=== PATIENT | female | born 1970 | race Caucasian/White ===

== ENCOUNTER → 2017-10-04 10:56 | Outpatient (CLI) | payer MEDICAID, SELFPAY ==
[2017-10-04 12:59] LABS: Absolute Lymphocyte Count 2.23 X10^3/ul (0.83-4.51); Absolute Neutrophil Count 5.9 X10^3/uL (2.0-7.7); Basophil# 0.02 X10^3/uL; Basophil% 0.2 % (0-1); Eosinophils% 1.1 % (0-5); Hematocrit 45.1 % (37-47); Hemoglobin 14.7 g/dl (12.0-15.0); Lymphocyte # 2.23 X10^3/ul (4.0); Lymphocyte % 24.5 % (19-41); Mean Corp Hgb Conc 32.6 g/gl (32-36); Mean Corpuscular Hgb 31.1 pg (27.0-32.0); Mean Corpuscular Volume 95.3 fL (81-99); Monocyte# 0.86 X10^3/uL; Monocyte% 9.4 % (0-10); Neutrophil # 5.88 X10^3/uL (2.7-7.7); Neutrophil % 64.6 % (47-70); Platelet Count 299 K/mm3 (150-450); RBC Distribution Width CV 13.8 % (11.6-14.6); RBC Distribution Width SD 48.4 fl (35.1-43.9); Red Blood Count 4.73 M/mm3 (4.2-5.4); White Blood Count 9.1 K/mm3 (4.4-11.0)
[2017-10-04 13:01] LABS: POSITIVE COUNT NO; POSITIVE DIFFERENTIAL NO; POSITIVE MORPHOLOGY NO
[2017-10-04 13:17] LABS: Vitamin D,25 Hydroxy 12.6 ng/mL
[2017-10-04 13:20] LABS: AST(SGOT) 19 U/L (15-37); Alanine Aminotransfer ALT/SGPT 34 U/L (12-78); Albumin, Serum 3.9 g/dL (3.4-5.0); Alkaline Phosphatase 81 U/L (45-117); Anion Gap 7 (5-15); BUN 11 mg/dL (7-18); BUN/Creat Ratio 14.9 RATIO (10-20); Calcium,Total 8.8 mg/dL (8.5-10.1); Chloride 104 mmol/L (98-107); Creatinine, Serum 0.74 mg/dL (0.55-1.02); EST Glomerular Filtration Rate 89 mL/min (>60); Est Glom Filt Rate - Afr Amer 108 mL/min (>60); Globulin 3.9 g/dL (2.2-4.2); Glucose 89 mg/dL (70-110); Potassium 4.5 mmol/L (3.5-5.1); Protein, Total 7.8 g/dL (6.4-8.2); Sodium Level 136 mmol/L (136-145); Thyroid Stim Hormone (TSH) 0.91 uIU/mL (0.358-3.74)
== END ==
PROVIDERS: Visit Provider Family Medicine Geriatric Medicine
DX: E55.9 Vitamin D deficiency, unspecified (principal); R53.83 Other fatigue
CPT/HCPCS: 36415; 80053; 82306; 84443; 85025

== ENCOUNTER → 2017-11-05 14:05 | Outpatient (CLI) | payer MEDICAID, SELFPAY ==
--- NOTE | 2017-11-05 14:15 | RAD_ITS ---
STUDY: X-RAY - LEFT ELBOW REASON FOR EXAM: Female, 47 years old. Left-sided elbow pain and swelling. TECHNIQUE: 3 view(s) of the elbow. COMPARISON: None. FINDINGS: Normal visualized humerus, radius and ulna. There is mild degenerative arthrosis of the radiocapitellar and ulnotrochlear articulations. The soft tissue structures are unremarkable. There is no demonstrated fracture. RAD/Elbow min 3 Views IMPRESSION: No radiographic evidence for acute fracture. If there is still clinical concern for acute fracture, follow-up radiographs in 7-10 days maybe helpful in evaluating a healing radiographically occult fracture. Electronically Signed: Nata Mina MD at 17:19 EST , Service support ,
== END ==
PROVIDERS: Family Provider Family Medicine Geriatric Medicine; PCP Family Medicine Geriatric Medicine; Visit Provider Family Medicine Geriatric Medicine
DX: M25.522 Pain in left elbow (principal)
CPT/HCPCS: 73080

== ENCOUNTER → 2018-02-04 12:01 | Outpatient (CLI) | payer MEDICAID, SELFPAY ==
--- NOTE | 2018-02-04 12:09 | RAD_ITS ---
STUDY: X-RAY CHEST REASON FOR EXAM: Female, 47 years old. Shortness of breath. Persistent cough. TECHNIQUE: PA and lateral views of the chest. COMPARISON: None. FINDINGS: The lungs are clear and expanded. There is no demonstrated pleural abnormality. Normal size heart. Normal mediastinum and fany. Normal visualized pulmonary arteries. Normal visualized aortic arch and descending thoracic aorta. There is minimal levoscoliosis of the thoracic spine. Normal visualized ribs, clavicles, and shoulders. There is no demonstrated abnormality of the visualized soft tissue structures of the upper abdomen. RAD/Chest PA and Lateral IMPRESSION: No acute cardiopulmonary disease or interval change. Electronically Signed: Galdino Velazquez DO at 17:09 EDT Tel [phone], Service support ,
== END ==
PROVIDERS: Family Provider Family Medicine Geriatric Medicine; PCP Family Medicine Geriatric Medicine; Visit Provider Family Medicine Geriatric Medicine
DX: R06.02 Shortness of breath (principal)
CPT/HCPCS: 71046

== ENCOUNTER → 2018-04-28 11:32 | Outpatient (CLI) | payer MEDICAID, SELFPAY | PROVIDERS: Family Provider Family Medicine Geriatric Medicine; PCP Family Medicine Geriatric Medicine; Visit Provider Family Medicine Geriatric Medicine | DX: M54.5 Low back pain (principal) | CPT/HCPCS: 72114 ==

== ENCOUNTER → 2018-06-11 13:02 | Outpatient (CLI) | payer MEDICAID, SELFPAY ==
--- NOTE | 2018-06-11 13:13 | MRI_ITS ---
STUDY: MRI LUMBAR SPINE WITHOUT CONTRAST REASON FOR EXAM: Female, 48 years old. BACK PAIN X 10 YRS RADIATES INTO LEGS BILATERALLY TECHNIQUE: Standardized fat and water weighted pulse sequences were obtained in the sagittal and axial planes. COMPARISON: None FINDINGS: T12-L1: Normal endplates. Normal disc height, hydration and morphology. Normal bilateral facet joints. Normal central canal and bilateral lateral recesses. Normal bilateral intervertebral neural foramina. Normal lumbar lordosis. There is no substantial scoliosis. Normal conus medullaris that terminates at the L1 level. L1-2: Normal endplates. Normal disc height, hydration and morphology. Normal bilateral facet joints. Normal central canal and bilateral lateral recesses. Normal bilateral intervertebral neural foramina. L2-3: Normal endplates. Normal disc height, hydration and morphology. Normal bilateral facet joints. Normal central canal and bilateral lateral recesses. Normal bilateral intervertebral neural foramina. L3-4: Endplate spondylosis. Decreased disc height and small circumferential disc bulge. Superimposed left para midline disc herniation impinging on the left L4 nerve root. Degenerative changes of the bilateral facet joints. Mild narrowing of the central canal and bilateral intervertebral neural foramina. L4-5: Endplate spondylosis. Decreased disc height and small circumferential disc bulge. Superimposed right foraminal disc herniation impinging on the right L4 nerve root. Degenerative changes of the bilateral facet joints. Mild narrowing of the central canal and bilateral intervertebral neural foramina. L5-S1: Endplate spondylosis. Decreased disc height and small circumferential disc bulge. Degenerative changes of the bilateral facet joints. Mild narrowing of the central canal and bilateral intervertebral neural foramina. Normal visualized sacral ala. Normal visualized paraspinous soft tissue structures. MRI/Spine Lumbar (Routine) IMPRESSION: Multilevel degenerative changes, as described above. Left para midline disc herniation at L3-4 impinging on the left L4 nerve root. Right foraminal disc herniation at L4-5 impinging on the right L4 nerve root. Electronically Signed: Bridget Coleman MD at 14:37 EDT Tel , Service support ,
== END ==
PROVIDERS: Family Provider Family Medicine Geriatric Medicine; PCP Family Medicine Geriatric Medicine; Referring Provider Anesthesiology Pain Medicine; Visit Provider Anesthesiology Pain Medicine
DX: M54.9 Dorsalgia, unspecified (principal); M79.606 Pain in leg, unspecified
CPT/HCPCS: 72148

== ENCOUNTER 2018-09-11 05:25 | Day surgery (SDC) | payer MEDICAID, SELFPAY ==
[2018-09-11] VITALS (7 sets, daily range): BP systolic 93–155; BP diastolic 59–98; PULSE 60–94; RESP 16–18; TEMP 36.1–37.3; O2SAT 93–99; BMI 24.7
--- NOTE | 2018-09-11 | HYST_PTH ---
PATIENT: MATTI LANDRY LOC: [facility] [place] U#:[id number] AGE/SX: 48/F ROOM: RE09/11/[address]: Dr. Stefanie Aguilar, MDDOB: 1970 BED: DIS: 09/11/2018 SPEC #: [id number] RECD: 09/11/18 14:46 STATUS: ROSALEE MILKA #: [id number] SANTIAGO: 09/11/18 00:[address]: Stefanie Aguilar DEPT: SURGICAL PATHOLOGY RECD BY: Jordon Kearney ENTERED: 09/11/18 14:46 SP TYPE: HYSTERECT OTHR DR: Dr. Eliel Becerra MD Tissues: Uterus, NOS Procedures: Surgery Specimen Level V HEADER OPERATION: Hysterectomy, lap-assisted vaginal, bilateral salpingectomy PRE-OP DIAGNOSIS: Pelvic pain, dysmenorrhea, dyspareunia, excessive/frequent menstruation TISSUE SUBMITTED: Uterus, bilateral fallopian tubes, left ovary MICROSCOPIC DIAGNOSIS Uterus, bilateral fallopian tubes and left ovary, vaginal hysterectomy, bilateral salpingectomy and left oophorectomy: Cervix - chronic inflammation and squamous metaplasia. Endometrium - proliferative endometrium. Myometrium - intramural leiomyoma (3 cm in diameter). Bilateral fallopian tubes - no pathologic diagnosis. Left ovary - physiologic follicular cysts. SJ:jo ann 09/12/18 MICROSCOPIC DESCRIPTION Slides are reviewed. GROSS DESCRIPTION Received in fixative is one container labeled with the patient's name and designated uterus. The specimen consists of a uterus with attached cervix, detached right fallopian tube, attached left ovary and left fallopian tube. The right and left fallopian tubes are consistent with previous tubal ligation. The anterior surface of the uterus has an irregular compromised serosal surface. This area measures 3.5 x 2 x 1 cm. The uterus with cervix measures 8.5 x 6.5 x 6 cm and weighs 122 gm. The ectocervix is unremarkable. The cervical os is oval in contour. The endocervical canal measures 3.5 cm in length and is grossly unremarkable. The elongated endometrial cavity measures 4 x 3 cm. The reddish-jett, velvety endometrium measures up to 0.1 cm in thickness. The myometrium measures 1.5 cm in average thickness and is distorted by a single rubbery nodule measuring 3 cm in diameter. Cut sections of the nodule reveal a whorled appearance without areas of cyst formation, necrosis or hemorrhage. The nodule is intramural and submucosal in location. The right fallopian tube measures 5 cm in length and 0.6 cm in average diameter. The left fallopian tube is similar in appearance and measures 5 cm in length and 0.5 cm in average diameter. Both fallopian tubes have normal fimbriated ends. The smooth, glistening, cystic left ovary measures 5.6 x 3.6 x 1.5 cm and weighs 9 gm. The external surface is inked and serial sections reveal multiple cysts ranging in size from 0.5 to 3.4 cm in greatest dimension. The cysts contain clear to bloody fluid. No tubo-ovarian adhesions are identified. Orthopedic Physical Therapist sections are submitted in 12 cassettes as follows: 1 - anterior cervix, 2 - posterior cervix, 3 & 4 - anterior uterine wall, 5 & 6 - posterior uterine wall, 7 & 8 - myometrial mass, 9 - right fallopian tube, 10 - left fallopian tube, 11 & 12 - left ovary. / AM:jo ann 09/11/18 TC:1 CPT: 29979
--- NOTE | 2018-09-11 05:32 | EKG12_ITS ---
Test Reason : PRE OP Blood Pressure : / mmHG Vent. Rate : 072 BPM Atrial Rate : 072 BPM P-R Int : 126 ms QRS Dur : 082 ms QT Int : 420 ms P-R-T Axes : -23 057 057 degrees QTc Int : 459 ms Normal sinus rhythm Normal ECG Confirmed by PAUL DYKES, VIKI ([id number]), book or script editor KEITH LEVY ([id number]) on 09/18/2018 11:17:56 AM Referred By: Stefanie Aguilar Confirmed By:VIKI MILLER MD
[2018-09-11 05:56] LABS: Bedside Glucose 68 mg/dL (70-110)
[2018-09-11] MEDS: Celecoxib 200 MG Capsule 400 MG PO (05:59)
[2018-09-11] MEDS: Scopolamine 1mg/72hr Patch 1 PATCH TRANSDERM. (06:00)
[2018-09-11] MEDS: Acetaminophen 500 MG Tablet 1000 MG PO (06:00)
[2018-09-11] MEDS: Gabapentin 600 MG Tablet PO (06:00)
[2018-09-11] MEDS: Phenazopyridine 95 MG Tablet 190 MG PO (06:00)
[2018-09-11] MEDS: Enoxaparin 40 MG/0.4 ML Syringe SC (06:01)
[2018-09-11] MEDS: Lactated Ringers 1,000 ML 100 ML IV (06:23)
[2018-09-11] MEDS: Magnesium Sulfate 4gm/100mL 4 GM/100 ML IV.SOLN. IV (06:23)
[2018-09-11 06:27] LABS: Mean Corp Hgb Conc 32.6 g/gl (32-36); Mean Corpuscular Hgb 31.3 pg (27.0-32.0); Mean Corpuscular Volume 96.2 fL (81-99); Platelet Count 291 K/mm3 (150-450); RBC Distribution Width CV 13.7 % (11.6-14.6); RBC Distribution Width SD 48.5 fl (35.1-43.9); Red Blood Count 4.47 M/mm3 (4.2-5.4); White Blood Count 9.7 K/mm3 (4.4-11.0)
[2018-09-11 06:31] LABS: Scan Indicated on CBC? Y/N NO
[2018-09-11] MEDS: Bupivacaine 0.25% 30 ML Vial (08:11)
--- NOTE | 2018-09-11 09:09 | OP.PCM_ITS ---
Report of Operation Date of Procedure: 09/11/18 Pre-Operative Diagnosis: dysmenorrhea, dysparuneia, AUB, fibroid uterus Post-Operative Diagnosis: same Surgery/Procedure Performed:: LAVH, Left oophorectomy, Bilateral salpingectomy, cystoscopy Description of Surgical Findings:: Posterior uterine fibroid, Left ovary with hemorrhagic appearing cyst. Tissue very friable - poor tissue. nuclear equipment test engineer: Gloria Nolan Type of Anesthesia:: General Special Medications: .25 % marcaine and 1% lidocaine with epinephrine Specimen's removed: uterus, cervix, bilateral tubes, left ovary Drains: butler Estimated Blood Loss (mL): 50 Fluids Replaced: 1500 Description of Procedure: Patient take to OR and prepped and draped in usual sterile fashion in dorsal lithotomy position with her arms tucked in a neurologically safe and neutral position. The uterus sounded to 8 cm. The [employer] uterine manipulator and butler were placed. Attention was turned to the abdomen. All port sites were infiltrated with .25% maracine before the incisions were made. The anterior abdominal wall was tented up with towel clamps and using a direct entry approach a 5 mm intraumbilical port was placed. Intraperitoneal placement was confirmed with the laparoscope and the pneumoperitoneum was created. The patient was placed in Trendelenburg and 5 mm right and left lower quadrant ports were placed under direct visualization. LLQ port oozing- figure of 8 Vicryl suture placed for hemostasis. The bowel was swept away. Right ovary normal. Left ovary with hemorrhagic appearing cyst. The Infundibulopelvic ligament on left was grasped, clamped, sealed and transected with the Ligasure. the Mesosalpinx was coagulated and ligated starting at fimbriated end on right. The round ligaments were divided. The anterior peritoneum was dissected down to create the bladder flap with blunt dissection and the LigaSure. The uterine arteries were isolated, clamped, sealed and cut. There was minimal back bleeding from the uterus. Attention was turned to the vaginal portion of the case. The anterior vagina was infiltrated w/ lidocaine with dilute epinephrine. An incision was made over the anterior vagina and the anterior colpotomy incision was made with blunt and sharp dissection. The lower vagina was clamped, transected and suture ligated. A second pedicle containing the peritoneum was secured with Manpreet clamps, cut and suture ligated. The uterus was brought through the anterior colpotomy incision and the uterosacral ligaments were clamped, cut and suture ligated. The pedicles were examined and were suture ligated. Once the uterus was freed the specimen was removed without difficulty. Modified mccalls stitch placed using 2-0 PDS. The specimen was handed off. The cuff was closed with interrupted 0-vicryl figure of 8 sutures. Cystoscopy performed- bilateral ureteral efflux noted and bladder mucosa intact. The pneumoperitoneum was recreated and the cuff and pedicles were hemostatic. Homero was placed over pedicles and vaginal cuff. The skin incisions were closed with skin glue and 3-0 monocryl. The vaginal sweep was completed by me. Grafts/Implants Used: none Grafts/Implants Used: none - Complications none - Admit VTE Documentation VTE Present on Admission: Yes VTE Mechan Device Prophylaxis: SCD's VTE Pharm Prophylaxis ordered?: Yes
[2018-09-11] MEDS: HYDROcodone Bitartrate/Apap 5/325 Tablet PO (10:37)
--- NOTE | 2018-09-11 12:52 | DCINST_ITS ---
Discharge Diet: No Restrictions Discharge Activity: Return to Normal Activity, May Not Drive - while taking narcotic pain medications., May Shower May resume sexual activity in: 6-8 weeks Call your doctor if your incision/area has: Continuous Slow Oozing, Sudden Increased Bleeding, Increased Pain/ Swelling, Increased Redness, Foul Smelling Discharge Call your doctor if you observe: Fever of 101 or Higher, Inability to urinate, Inability to have a bowel movement, Using more than one pad per hour Allergies/Adverse Reactions: Allergies No Known Allergies Allergy (Verified 09/04/18 08:57) Medications to take at Discharge No Known/Unobtainable [No Known Home Medications] 09/12/16 Primary Care Physician: Eliel Becerra Chi, MD [Primary Care Provider] - Test Results: Test results from this visit will be discussed in further detail at your follow- up appointment, if applicable.
== END 2018-09-11 12:26 | disposition home or self-care (01) ==
LOC: SDC 05:26 → AC 05:26
PROVIDERS: Family Provider Family Medicine Geriatric Medicine; PCP Family Medicine Geriatric Medicine; Referring Provider Obstetrics & Gynecology; Visit Provider Obstetrics & Gynecology
PROC: 0UT9FZZ Resection of Uterus, Via Natural or Artificial Opening With Percutaneous Endoscopic Assistance (ICD-10-PCS; CPT 52000; principal; 2018-09-11 07:05)
DX: N87.9 Dysplasia of cervix uteri, unspecified (principal); N72 Inflammatory disease of cervix uteri; D25.1 Intramural leiomyoma of uterus; N83.02 Follicular cyst of left ovary; Z85.3 Personal history of malignant neoplasm of breast; F17.200 Nicotine dependence, unspecified, uncomplicated; Z79.51 Long term (current) use of inhaled steroids; Z79.891 Long term (current) use of opiate analgesic; Z79.899 Other long term (current) drug therapy
CPT/HCPCS: 52000; 58552; 82962; 85027; 86850; 86900; 88307; 93005; J7120; J2405

== ENCOUNTER → 2018-11-25 10:35 | Outpatient (CLI) | payer MEDICAID, SELFPAY ==
[2018-09-11 05:48] VITALS: BMI 24.7
[2018-11-25 12:50] LABS: Absolute Neutrophil Count 5.9 X10^3/uL (2.0-7.7); Basophil# 0.02 X10^3/uL; Basophil% 0.2 % (0-1); Eosinophil# 0.14 X10^3/uL; Eosinophils% 1.5 % (0-5); Hematocrit 44.3 % (37-47); Hemoglobin 14.2 g/dl (12.0-15.0); Mean Corp Hgb Conc 32.1 g/gl (32-36); Mean Corpuscular Hgb 30.7 pg (27.0-32.0); Mean Corpuscular Volume 95.9 fL (81-99); Mean Platelet Vol. 11.6 fl (6.2-12.0); Monocyte# 0.73 X10^3/uL; Monocyte% 7.9 % (0-10); Neutrophil # 5.91 X10^3/uL (2.7-7.7); Neutrophil % 64.2 % (47-70); Platelet Count 304 K/mm3 (150-450); RBC Distribution Width CV 14.3 % (11.6-14.6); RBC Distribution Width SD 49.8 fl (35.1-43.9); Red Blood Count 4.62 M/mm3 (4.2-5.4); White Blood Count 9.2 K/mm3 (4.4-11.0)
[2018-11-25 12:52] LABS: POSITIVE COUNT NO; POSITIVE DIFFERENTIAL NO; POSITIVE MORPHOLOGY NO
[2018-11-25 13:15] LABS: Anion Gap 6 (5-15); BUN 6 mg/dL (7-18); Calcium,Total 8.8 mg/dL (8.5-10.1); Chloride 105 mmol/L (98-107); Creatinine, Serum 0.75 mg/dL (0.55-1.02); EST Glomerular Filtration Rate 87 mL/min (>60); Est Glom Filt Rate - Afr Amer 105 mL/min (>60); Glucose 92 mg/dL (74-106); Potassium 4.4 mmol/L (3.5-5.1); Sodium Level 138 mmol/L (136-145)
== END ==
PROVIDERS: Family Provider Family Medicine Geriatric Medicine; PCP Family Medicine Geriatric Medicine; Visit Provider Family Medicine Geriatric Medicine
DX: E86.0 Dehydration (principal)
CPT/HCPCS: 36415; 80048; 85025

== ENCOUNTER → 2018-11-25 12:15 | Outpatient (CLI) | payer MEDICAID, SELFPAY ==
[2018-09-11 05:48] VITALS: BMI 24.7
--- NOTE | 2018-11-25 12:18 | CT_ITS ---
STUDY: CT BRAIN WITHOUT CONTRAST REASON FOR EXAM: Female, 48 years old. Headache. Seizure RADIATION DOSAGE (If Supplied By Facility): CTDIvol = ( 60.81 ) mGy, DLP = ( 998.67 ) mGycm TECHNIQUE: Transaxial CT imaging of the brain was performed without administration of intravenous contrast material. Individualized dose optimization techniques were used for this CT. COMPARISON: None. FINDINGS: Normal soft tissue structures. Normal calvarium. Normal size ventricles and extra-axial spaces for the patient's age. Normal white matter tracts of the cerebral hemispheres. Normal basal ganglia and thalami. Normal brainstem. Normal cerebellum. There is no intracranial hemorrhage. There are no findings of an acute ischemic infarction. Normal visualized paranasal sinuses. CT/Brain/Head without Contrast IMPRESSION: Normal unenhanced CT scan of the brain. Electronically Signed: Bridget Coleman, at 13:00 EDT Tel , Service support ,
== END ==
PROVIDERS: Family Provider Family Medicine Geriatric Medicine; PCP Family Medicine Geriatric Medicine; Referring Provider Family Medicine Geriatric Medicine; Visit Provider Family Medicine Geriatric Medicine
DX: R51 Headache (principal); E86.0 Dehydration; G40.909 Epilepsy, unspecified, not intractable, without status epilepticus
CPT/HCPCS: 36415; 70450; 80048; 85025

== ENCOUNTER 2019-09-16 13:18 | Emergency (ER) | payer MEDICAID, SELFPAY ==
[2018-09-11 05:48] VITALS: BMI 24.7
[2019-09-16 13:19] VITALS: BP 146/94; PULSE 90; RESP 16; TEMP 36.1; O2SAT 97; BMI 25.0
[2019-09-16] MEDS: Ondansetron 4 MG/2 ML Vial IM (14:33)
[2019-09-16] MEDS: Ketorolac 60 MG/2 ML Vial IM (14:34)
[2019-09-16] MEDS: Orphenadrine 60 MG/2 ML Ampul IM (14:34)
[2019-09-16] MEDS: HYDROmorphone 1 MG/ML Syringe IM (14:35)
--- NOTE | 2019-09-16 15:17 | ED.VISSUMM ---
- ER Visit Summary Date of Service: 09/16/19 Chief Complaint: [Back pain] History of Present Illness: The patient is a 49 F [presents the emergency department complaint of pain in her back that she has had chronically for years. Patient states she is currently seeing pain management Dr. Bai. Patient had a injection in her lumbar spine about a month ago which was not successful in relieving her symptoms. Patient complains of pain in her right low back that radiates down her right leg. Patient complains of a hard time moving around secondary to the pain. Patient is not currently taking any pain medications at home. Patient had been started initially on Lyrica but she was unable to tolerated. Patient has had some intermittent incontinence of urine for the last couple of weeks. She denies any saddle anesthesia. She denies weakness in extremity. Patient had an MRI couple years ago and was told she may need to have another one but has not been scheduled for a. Patient missed work for the last 2 days. Denies any falls or injuries. She denies urinary symptoms such as dysuria, urgency, or frequency.] Physical Examination: [HEENT-PERRLA, EOMI. Cranial nerves II through XII grossly intact. TMs clear. Mucous membranes moist. No adenopathy. Cardiovascular-regular rate and rhythm without murmur or ectopy Lungs-clear to auscultation, chest wall stable without crepitus or subcu emphysema Abdomen-normoactive bowel sounds, soft, nontender, no rebound or rigidity, no peritoneal signs. Back exam-patient has tenderness palpation over right lumbar paraspinal musculature. Patient has tenderness over the right piriformis and buttock that reproduces her pain. Patient has pain with straight leg raising at about 45 degrees. Deep tendon reflexes are plus 3 out of 4 bilaterally at the patella and Achilles. Patient has normal L5 extension. Patient has normal sensation to light touch. Extremities-intact ?4, normal range of motion, normal pulses, atraumatic] Test Results: [None indicated] Emergency Department Course and Treatment: [Patient was medicated with Dilaudid, Zofran, Toradol, and Norflex. Patient had good pain relief with that. I did perform an oars report and she has had no narcotics in the last year listed.] Treatment Plan: Patient will be given a prescription for Naprosyn, Flexeril, and Munger for severe pain. 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 Patient advised to return if weakness in extremity, change in bowel or bladder function, or condition should worsen in any way. At this time there are no signs of cord compression or cauda equina. [] Disposition: [Discharged home in stable condition.] Impression: Acute exacerbation of chronic back pain/lumbar radiculopathy [] This note was generated with [employer] dictation software. It may contain incorrect words, spelling, and punctuation that were not noted in review of the chart prior to signing ED Disposition - Plan for ED Patient: Referrals: Eliel Becerra Chi, MD [Primary Care Provider] -
--- NOTE | 2019-09-16 15:21 | DCINST.ED_ITS ---
ED Disposition - Plan for ED Patient: Instructions: BACK PAIN w/ SCIATICA Prescriptions: cycloBENZAPRine HCl [Flexeril] 10 mg PO TID PRN #20 tab PRN Reason: Muscle Spasm Transmission Status: Pending to [facility] Naproxen [Naprosyn] 500 mg PO BID PRN #20 tab Transmission Status: Pending to [facility] Hydrocodone Bitart/Apap 5-325 [[place] 5MG-325MG] 1 tablet PO Q4H PRN PRN 2 Days #20 tablet PRN Reason: Pain Transmission Status: Sent to [id number] Referrals: Eliel Becerra Chi, MD [Primary Care Provider] - 3-5 Days Additional Instructions: see your mobile paint specialist in 3-5 days
== END 2019-09-16 15:35 | disposition home or self-care (01) ==
LOC: ED 14:32
PROVIDERS: Emergency Provider Emergency Medicine; Family Provider Family Medicine Geriatric Medicine; PCP Family Medicine Geriatric Medicine
DX: M54.16 Radiculopathy, lumbar region (principal); Z72.0 Tobacco use
CPT/HCPCS: 96372; 99282; J2405

== ENCOUNTER → 2019-11-02 | Outpatient (CLI) | payer MEDICAID, SELFPAY ==
--- NOTE | 2019-11-02 17:06 | MRI_ITS ---
STUDY: MRI LUMBAR SPINE WITHOUT CONTRAST REASON FOR EXAM: Female, 49 years old. RADICULOPATHY, BACK PAIN X 15 YEARS TECHNIQUE: Standardized fat and water weighted pulse sequences were obtained in the sagittal and axial planes. COMPARISON: MRI lumbar spine June 11, 2018 FINDINGS: T12-L1: Normal endplates. Normal disc height, hydration and morphology. Normal bilateral facet joints. Normal central canal and bilateral lateral recesses. Normal bilateral intervertebral neural foramina. Normal lumbar lordosis. Mild dextroconvex scoliosis. Normal conus medullaris that terminates at the L1-2: Normal endplates. Normal disc height, hydration and morphology. Normal bilateral facet joints. Normal central canal and bilateral lateral recesses. Normal bilateral intervertebral neural foramina. L2-3: Normal endplates. Normal disc height, hydration and morphology. Normal bilateral facet joints. Normal central canal and bilateral lateral recesses. Normal bilateral intervertebral neural foramina. L3-4: Normal endplates. Normal disc height, hydration and morphology. Normal bilateral facet joints. Normal central canal and bilateral lateral recesses. Narrowed bilateral intervertebral neural foramina. Mild broad-based annular bulge. L4-5: Normal endplates. Mild broad-based annular bulge. Normal disc height, hydration and morphology. Normal bilateral facet joints. Normal central canal and bilateral lateral recesses. narrowed right intervertebral neural foramina. L5-S1: Normal endplates. Normal disc height, hydration and morphology. Normal bilateral facet joints. Normal central canal and bilateral lateral recesses. Normal bilateral intervertebral neural foramina. Normal visualized sacral ala. Normal visualized paraspinous soft tissue structures. MRI/Spine Lumbar (Routine) IMPRESSION: Scoliosis and multilevel neural foraminal narrowing unchanged. Possible nerve root impingement of the L4 nerve root on the right. Electronically Signed: Suleiman Silva MD at 22:22 EST , Service support ,
== END | disposition home or self-care (01) ==
LOC: MRI 16:55
PROVIDERS: PCP Family Medicine Geriatric Medicine; Referring Provider Nurse Practitioner Family; Visit Provider Nurse Practitioner Family
DX: M51.17 Intervertebral disc disorders with radiculopathy, lumbosacral region (principal); M47.27 Other spondylosis with radiculopathy, lumbosacral region; M41.9 Scoliosis, unspecified; M46.96 Unspecified inflammatory spondylopathy, lumbar region
CPT/HCPCS: 72148

== ENCOUNTER 2019-11-11 17:51 | Emergency (ER) | payer MEDICAID, SELFPAY ==
[2019-11-11 17:55] VITALS: BP 139/96; PULSE 89; RESP 18; TEMP 37.2; O2SAT 100; BMI 24.3
[2019-11-11] MEDS: Ketorolac 30 MG/ML Syringe IM (18:47)
[2019-11-11] MEDS: Orphenadrine 60 MG/2 ML Ampul IM (18:47)
[2019-11-11] MEDS: Lidocaine 5% Patch 1 PATCH TOPICAL (18:48)
--- NOTE | 2019-11-11 20:25 | ED.VIS.BACK ---
History of Present Illness Chief Complaint: Back Narrative: Patient presenting for evaluation secondary to back pain. Patient has a underlying history of back pain with sciatica and does see pain management. Patient states that yesterday she bent over to pick something up off the ground and had a sudden onset of left lower back pain. This is distinctly different from her usual back pain and does not radiate down her legs. She denies any bowel or bladder incontinence. She denies any fevers recent injections or surgeries. Patient denies any unintended weight loss history of IV drug use or night sweats. She took some Flexeril today at home with minimal relief. Review of systems otherwise negative. Past Medical History - Allergies and Home Meds Allergies/Adverse Reactions: Allergies No Known Allergies Allergy (Verified 09/16/19 13:18) Primary Care Physician: Eliel Becerra Chi, MD [Primary Care Provider] - Past Medical History: - - Prior back pain Smoking Status: Current every day smoker - Family History Maternal Family History: Reports: No pertinent history Review of Systems All systems negative except as indicated General: Denies: Chills, Fever, Sweats Eyes: Denies: Visual changes - bilaterally, Diplopia ENT: Denies: Rhinorrhea, Sore throat Cardiovascular: Denies: Chest pain, Palpitations Respiratory: Denies: Dyspnea, Cough, Dyspnea on exertion Gastrointestinal: Denies: Abdominal pain, Nausea, Vomiting, Diarrhea, Melena, Hematochezia Genitourinary: Denies: Dysuria, Hematuria, Frequency Musculoskeletal: Reports: Back pain Skin: Denies: Rash, Wounds Neurological: Denies: Headache, Weakness, Numbness Physical Exam Vital Signs/Narrative: Vital Signs Temp Pulse Resp BP Pulse Ox 11/11/19 17:55 98.9 F 89 18 139/96 H 100 Inital Vital Signs reviewed: Yes General: Well nourished, Well developed Head: Normocephalic, Atraumatic Eyes: Perrl, EOMI ENT: Moist mucous membranes, No rhinorrhea Neck: Supple, Nontender Cardiovascular: Regular rate, Regular rhythm, No murmurs Respiratory: No distress, CTA bilaterally, Chest nontender Abdomen: Soft, Nontender, Nondistended, Normal bowel sounds Back: Normal Inspection, Paraspinal Tenderness - Left-sided Extremeties: Nontender, No edema Skin: Normal color, No rash Neuro: Alert, Oriented, Normal Strength, Normal Sensation, Normal DTR, Normal Gait, - - 5 out of 5 strength at the hip knee ankle and foot bilaterally with normal sensation over all dermatomes. 2+ patellar reflexes bilaterally, 1+ Achilles negative clonus. 2+ DP and PT pulses. Negative straight leg raise. Psychological: Normal affect Diagnostic/Tx/Re-eval - Medical Decision Making Patient presented secondary to back pain. There are no red flag signs or symptoms, there is no indication for imaging this seems very clearly muscular. Patient was given a dose of Toradol Norflex and lidocaine patches. Repeat evaluation shows symptomatic improvement. Patient will be discharged with a course of the same. She was instructed on stretching and range of motion. Patient was discharged. ED Disposition - Plan for ED Patient: Disposition: Home or Assisted Living Diagnosis: Lumbar strain Instructions: Back Sprain/Strain Prescriptions: Lidocaine [Lidoderm] 1 ea TP DAILY #10 adh..patch Prescription Printed Orphenadrine [Norflex ER] 100 mg PO BID #10 tab Prescription Printed Ketorolac [Toradol] 10 mg PO Q6H #20 tab Prescription Printed Referrals: Eliel Becerra Chi, MD [Primary Care Provider] - As Needed
[2019-11-11 20:52] VITALS: BP 127/71; PULSE 69; RESP 16; O2SAT 98
== END 2019-11-11 20:54 | disposition home or self-care (01) ==
PROVIDERS: Emergency Provider Emergency Medicine; PCP Family Medicine Geriatric Medicine
DX: S39.012A Strain of muscle, fascia and tendon of lower back, initial encounter (principal); F17.200 Nicotine dependence, unspecified, uncomplicated; X50.0XXA Overexertion from strenuous movement or load, initial encounter; Y93.89 Activity, other specified; Y92.89 Other specified places as the place of occurrence of the external cause; Y99.8 Other external cause status
CPT/HCPCS: 96372; 99282

== ENCOUNTER → 2019-11-12 | Outpatient (CLI) | payer MEDICAID, SELFPAY ==
[2019-11-11 17:55] VITALS: BMI 24.3
[2019-11-12 16:08] LABS: Absolute Neutrophil Count 5.3 X10^3/uL (2.0-7.7); Basophil# 0.05 X10^3/uL; Basophil% 0.6 % (0-1); Eosinophils% 2.2 % (0-5); Hematocrit 44.4 % (37-47); Hemoglobin 14.1 g/dL (12.0-15.0); Mean Corp Hgb Conc 31.8 g/dL (32-36); Mean Corpuscular Hgb 30.3 pg (27.0-32.0); Mean Corpuscular Volume 95.3 fL (81-99); Mean Platelet Vol. 11.2 fl (6.2-12.0); Monocyte# 0.76 X10^3/uL; Monocyte% 8.4 % (0-10); NRBC Flagged by Analyzer 0 % (0-5); Neutrophil # 5.27 X10^3/uL (2.7-7.7); Neutrophil % 58.5 % (47-70); Platelet Count 294 K/mm3 (150-450); RBC Distribution Width CV 12.9 % (11.6-14.6); RBC Distribution Width SD 44.8 fl (35.1-43.9); Red Blood Count 4.66 M/mm3 (4.2-5.4)
[2019-11-12 16:32] LABS: ALB/GLOB Ratio 0.9 RATIO (0.9-2.4); AST(SGOT) 16 U/L (15-37); Alanine Aminotransfer ALT/SGPT 29 U/L (13-56); Albumin, Serum 3.5 g/dL (3.2-5.0); Alkaline Phosphatase 82 U/L (45-117); Anion Gap 4 (5-15); BUN 10 mg/dL (7-18); BUN/Creat Ratio 11.6 RATIO (10-20); Calcium,Total 8.9 mg/dL (8.5-10.1); Chloride 108 mmol/L (98-107); Creatinine, Serum 0.86 mg/dL (0.55-1.02); EST Glomerular Filtration Rate 74 mL/min (>60); Est Glom Filt Rate - Afr Amer 90 mL/min (>60); Globulin 3.8 g/dL (2.2-4.2); Glucose 101 mg/dL (74-106); Potassium 4.1 mmol/L (3.5-5.1); Protein, Total 7.3 g/dL (6.4-8.2); Sodium Level 139 mmol/L (136-145); Thyroid Stim Hormone (TSH) 1.75 uIU/mL (0.358-3.74)
== END | disposition home or self-care (01) ==
PROVIDERS: PCP Family Medicine Geriatric Medicine; Referring Provider Family Medicine Geriatric Medicine; Visit Provider Family Medicine Geriatric Medicine
DX: R53.83 Other fatigue (principal); R68.83 Chills (without fever)
CPT/HCPCS: 36415; 80053; 84443; 85025; 87633

== ENCOUNTER 2020-01-20 06:09 | Day surgery (SDC) | payer MEDICAID, SELFPAY ==
[2020-01-05 09:49] VITALS: BMI 24.3
--- NOTE | 2020-01-05 10:35 | HP_ITS ---
Intake Vital Signs 01/05/20 Height 5 ft 8 in 01/05/20 Weight: 163 lb 4 oz 01/05/20 BMI 24.8 01/05/20 BP 150/95 H 01/05/20 Blood Pressure Location Rt brachial 01/05/20 Position Sitting 01/05/20 Respiration 18 01/05/20 Pulse 85 01/05/20 Temp 98.4 F 01/05/20 Temp Source Temporal 01/05/20 Pulse Oximetry (%) 99 Intake Visit Reasons: R Breast Radial Scar(not off work till 9) Chief Complaint: discuss lumpectomy Media Aid Required: No Is patient in pain?: No Allergies No Known Allergies Allergy (Verified 01/05/20 09:48) Medications cycloBENZAPRine HCl [Flexeril] 10 mg PO TID PRN #20 tab 09/16/19 [Rx Confirmed 01/05/20] Is last menstrual period known: No Post menopausal: No Patient : No PFSH Medical History (Updated 01/05/20 @ 10:[address] Vamsi Aleman MD) Radial scar of right breast (Acute) DDD (degenerative disc disease), lumbar (Chronic) Scoliosis (Chronic) Anxiety and depression (Acute) Surgical History (Updated 01/05/20 @ 09:46 by Mary Ellen Warner) History of dilation and curettage (Acute) History of excision of pilonidal cyst (Acute ~1987) History of partial hysterectomy (Acute) History of right breast biopsy (Acute) Status post left breast lumpectomy (Acute ~2011) Family History (Updated 01/05/20 @ 09:46 by Mary Ellen Warner) Father No problems noted. Social History (Updated 01/05/20 @ 10:[address] Vamsi Aleman MD) Smoking Status: Current every day smoker alcohol intake: current alcohol intake frequency: holidays/special occasions only substance use type: does not use what type of physical activity do you participate in: walking frequency: 1-2 times per week HPI HPI HPI: MATTI LANDRY, is a 49 F who presents to the office today for HPI HPI Surgical H&P: Yes HPI: MATTI LANDRY, is a 49 F who presents to the office today for surgical consultation regarding an abnormal mammogram and abnormal results on stereotactic biopsy lower outer right breast. 49-year-old female. G2, . Menarche at age 13. First child was born when she was 18. She did not breast-feed. I have assisted her in the past with a previous upper outer quadrant left breast lumpectomy for what eventuated is benign disease. Family history is negative for breast cancer. She is not been on estrogen replacement therapy. She is not had any palpable right breast masses. No nipple discharge. At the [facility] on July 21, 2019 she had right breast ultrasound and previously on July 01, 2019 bilateral mammogram. There was a finding in the upper inner right breast felt probably be benign breast cyst. And so the patient was then scheduled for a right breast follow-up to evaluate the upper inner right breast 1 o'clock position +4 cm. On December 14, 2019 the patient had limited ultrasound of the right breast. Stable 0.6 x 0.6 x 0.6 cm oval cyst right breast 1 o'clock position +4 cm. Adjacent to that is a 0.8 x 0.9 x 0.4 cm mildly complicated cyst. There was no ultrasound finding to correlate with the distortion lower outer right breast 8 o'clock position which was identified. On December 14, 2019 a diagnostic right mammogram showed architectural distortion right breast 8 o'clock position middle depth. Subsequently on December 17, 2019 at [facility] needle core lower outer right breast biopsy 9 o'clock position was felt to been performed. Pathology showed fibrocystic change including radial scar and sclerosing adenosis focal usual duct hyperplasia and apocrine metaplasia with cyst formation. The patient is now being referred for definitive treatment of the finding of radial scar on the pathology. At no point did the patient complained of previous history of trauma. It is of note that October 30, 2011 is when I had assisted the patient with a wire localized lumpectomy upper outer quadrant left breast. Final pathology there was fibrocystic change with extensive sclerosing adenosis and intraductal hyperplasia with focal atypia. Frequent microcalcifications. Changes consistent with the previous biopsy site but no malignancy. 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 Occasionally they can be combative. She is a long-term cigarette smoker and she continues to smoke cigarettes. She is very stressed currently as her grandmother in [place] has been diagnosed with COVID 19. She does have inhalers at home that she uses on a as needed basis. She does not recognize any shortness of breath or wheezing. ROS General General: No weight change, appetite, fatigue, colon cancer, breast cancer or weakness HEENT HEENT: No difficulty swallowing, eye injury, eye surgery, swollen glands or hoarseness Endo Endocrine: No thyroid disease, diabetes mellitus, thyroid cancer, Hair loss, heat intolerance or cold intolerance Breast Breast: Yes abnormal mammogram and abnormal US; no left breast lump, right breast lump, nipple discharge, breast pain or breast enlargement Musc Musculoskeletal: Yes back problems; no arthritis, rheumatoid arthritis, gout or joint pain Cardio Cardiovascular: No murmur, pacemaker, heart disease, atrial fibrillation, high blood pressure, heart attack, heart stent, palpitations, shortness of breat with exertion or chest pain Psych Psychiatric: Yes depression and anxiety; no hearing voices Resp Respiratory: No shortness of breath, No sleep apnea, No cough, No COPD, No asthma, No emphysema, No wheezing Gastro Gastrointestinal: No abdominal pain, No nausea or vomiting, No diarrhea, No constipation, No blood in stool, No acid reflux, No hemorrhoids, No ulcers, No gallbladder problem, No black,tarry stools Harpal Hematologic: No blood thinners, No blood disorders, No bleeding, No anemia, No blood clots Neuro Neurologic: No weakness Exam Const General: cooperative, comfortable, no acute distress Nutritional Appearance: overweight Orientation: alert, awake, oriented x3 HENMT Head: normal to inspection Chest Breast Palpation: No nipple discharge Other: Right breast: Ecchymosis lower outer right breast at biopsy site, slight tenderness, diffuse fibrous change upper outer right breast, no nipple discharge, no axillary or clavicular adenopathy Left breast: Nicely healed curvilinear incision upper outer quadrant left breast. Mild diffuse fibrous change. No focal mass. No nipple discharge. No axillary or clavicular adenopathy Resp Other: Increased chest anterior posterior diameter Expiratory wheeze intermittently noted on the right. Clear on the left Cardio Rate: regular rate Rhythm: regular rhythm Heart Sounds: no murmurs GI Palpation: soft, no hepatosplenomegaly Auscultation: normal bowel sounds Skin General: no rashes or lesions noted Neuro Cognition: normal cognition Extrem General: calf tenderness Psych Affect: normal affect Assessment & Plan Problems 1. Radial scar of right breast L90.5 Plan Radial scar lower outer right breast. Benign-appearing cysts upper inner right breast with ongoing follow-up recommended I recommended the patient a stereotactic wire localization lower outer right breast with subsequent wire localized lumpectomy. She is aware of the technique, benefit, risk and alternatives. She is aware that if final pathology demonstrates invasive cancer that she could require future sentinel lymph node biopsy at a second procedure as well. She is aware that a reliable diagnosis cannot be made during the 1 single procedure. She has had an opportunity to ask and have questions answered. She is additionally aware that the operating room is now are slowly being reopened to elective cases during the time period of pandemic Covid-19. We will schedule her following state guidelines. CC: Dr. Hernan Aleman M.D., F.A.C.S. Plan Detail Goals Decrease pain and inflammation Decrease radiculopathy Increase ability to perform ADLs Back to work Barriers DDD Scoliosis Disc injury Coding Level of Care Code Off vis,new,level 3 Diagnoses Radial scar of right breast L90.5 01/05/20 1039 <Electronically signed by Vamsi deutsch MD> Date _ Vamsi Aleman MD
[2020-01-20] VITALS (7 sets, daily range): BP systolic 134–149; BP diastolic 76–92; PULSE 76–87; RESP 16; TEMP 36.6–36.9; O2SAT 98–100; BMI 24.9
--- NOTE | 2020-01-20 | IMM_PTH ---
PATIENT: MATTI LANDRY [place] [facility] [id number] AGE/SX: 49/F ROOM: RE01/20/[address]: Dr. Vamsi Aleman MD : 1970 BED: DIS: 01/20/2020 SPEC #: [id number] RECD: 01/25/20 10:51 STATUS: ROSALEE REQ #: [id number] SANTIAGO: 01/20/20 00:[address]: Vamsi Aleman DEPT: IMMUNOHISTOCHEMISTRY RECD BY: Monse Scanlon ENTERED: 01/25/20 10:52 SP TYPE: IMMUNO OTHR DR: Dr. Eliel Becerra MD Tissues: Right breast, NOS Procedures: Calponin-1(initial) P40 (add) PHYSICIAN & INSTITUTION [place] [id number] SPECIMEN INFORMATION: Tissue Source: Right breast Clinical Info: Radial scar Specimen Number: [id number] #5 CPT code: 80008, 40695 METHODOLOGY: Deparaffinized sections of prefer/formalin-fixed tissue or PAP/DQ stained slides are incubated with monoclonal/polyclonal antibodies/oligonucleotide probes. Localization is made via biotin free immunoperoxidase method. Appropriate controls are performed and reacted as expected. Results on target cell population are indicated in the following table: RESULTS: ANTIBODY / CLONE RESULT Block 5 P40 (BC28) positive Calponin-1 (AU128J) positive These tests were developed and their performance characteristics determined by [facility]. They may not have been cleared or approved by the U.S. Food and Drug Administration. The FDA has determined that such clearance or approval is not necessary. The above immunohistochemical/dualISH markers are ordered and reviewed by the Pathologist. INTERPRETATION: Right breast, needle localization biopsy: Negative for malignancy. SJ:jo ann 01/26/20
[2020-01-20] MEDS: Lactated Ringers 1,000 ML 100 ML IV (07:16)
--- NOTE | 2020-01-20 07:24 | BI_ITS ---
SURGICAL BREAST SPECIMEN RADIOGRAPH CLINICAL: Document presence of tissue clip marker in biopsy specimen. FINDINGS: Specimen shows presence of tissue clip marker. Electronically Signed: Serafin Conway, at 10:51 EDT , Service support , BI/Breast Biopsy Specimen
--- NOTE | 2020-01-20 08:14 | HP.PCM_ITS ---
Problem List (1) Radial scar of right breast Status: Acute History and Physical Date of Admission: 01/20/20 Intake Visit Reasons: R Breast Radial Scar(not off work till 9) Chief Complaint: discuss lumpectomy [employer] Operator Required: No Is patient in pain?: No Allergies No Known Allergies Allergy (Verified 01/05/20 09:48) Medications cycloBENZAPRine HCl [Flexeril] 10 mg PO TID PRN #20 tab 09/16/19 [Rx Confirmed 01/05/20] Is last menstrual period known: No Post menopausal: No Patient : No PFSH Medical History (Updated 01/05/20 @ 10:[address] Vamsi Aleman MD) Radial scar of right breast (Acute) DDD (degenerative disc disease), lumbar (Chronic) Scoliosis (Chronic) Anxiety and depression (Acute) Surgical History (Updated 01/05/20 @ 09:46 by Mary Ellen Warner) History of dilation and curettage (Acute) History of excision of pilonidal cyst (Acute ~1987) History of partial hysterectomy (Acute) History of right breast biopsy (Acute) Status post left breast lumpectomy (Acute ~2011) Family History (Updated 01/05/20 @ 09:46 by Mary Ellen Warner) Father No problems noted. Social History (Updated 01/05/20 @ 10:[address] Vamsi Aleman MD) Smoking Status: Current every day smoker alcohol intake: current alcohol intake frequency: holidays/special occasions only substance use type: does not use what type of physical activity do you participate in: walking frequency: 1-2 times per week HPI HPI HPI: MATTI LANDRY, is a 49 F who presents to the office today for HPI HPI Surgical H&P: Yes HPI: MATTI LANDRY, is a 49 F who presents to the office today for surgical consultation regarding an abnormal mammogram and abnormal results on stereotactic biopsy lower outer right breast. 49-year-old female. G2, . Menarche at age 13. First child was born when she was 18. She did not breast-feed. I have assisted her in the past with a previous upper outer quadrant left breast lumpectomy for what eventuated is benign disease. Family history is negative for breast cancer. She is not been on estrogen replacement therapy. She is not had any palpable right breast masses. No nipple discharge. At the [facility] on July 21, 2019 she had right breast ultrasound and previously on July 01, 2019 bilateral mammogram. There was a finding in the upper inner right breast felt probably be benign breast cyst. And so the patient was then scheduled for a right breast follow-up to evaluate the upper inner right breast 1 o'clock position +4 cm. On December 14, 2019 the patient had limited ultrasound of the right breast. Stable 0.6 x 0.6 x 0.6 cm oval cyst right breast 1 o'clock position +4 cm. Adjacent to that is a 0.8 x 0.9 x 0.4 cm mildly complicated cyst. There was no ultrasound finding to correlate with the distortion lower outer right breast 8 o'clock position which was identified. On December 14, 2019 a diagnostic right mammogram showed architectural distortion right breast 8 o'clock position middle depth. Subsequently on December 17, [facility] needle core lower outer right breast biopsy 9 o'clock position was felt to been performed. Pathology showed fibrocystic change including radial scar and sclerosing adenosis focal usual duct hyperplasia and apocrine metaplasia with cyst formation. The patient is now being referred for definitive treatment of the finding of radial scar on the pathology. At no point did the patient complained of previous history of trauma. It is of note that October 30, 2011 is when I had assisted the patient with a wire localized lumpectomy upper outer quadrant left breast. Final pathology there was fibrocystic change with extensive sclerosing adenosis and intraductal hyperplasia with focal atypia. Frequent microcalcifications. Changes consistent with the previous biopsy site but no malignancy. 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 Occasionally they can be combative. She is a long-term cigarette smoker and she continues to smoke cigarettes. She is very stressed currently as her grandmother in [place] has been diagnosed with COVID 19. She does have inhalers at home that she uses on a as needed basis. She does not recognize any shortness of breath or wheezing. ROS General General: No weight change, appetite, fatigue, colon cancer, breast cancer or weakness HEENT HEENT: No difficulty swallowing, eye injury, eye surgery, swollen glands or hoarseness Endo Endocrine: No thyroid disease, diabetes mellitus, thyroid cancer, Hair loss, heat intolerance or cold intolerance Breast Breast: Yes abnormal mammogram and abnormal US; no left breast lump, right breast lump, nipple discharge, breast pain or breast enlargement Musc Musculoskeletal: Yes back problems; no arthritis, rheumatoid arthritis, gout or joint pain Cardio Cardiovascular: No murmur, pacemaker, heart disease, atrial fibrillation, high blood pressure, heart attack, heart stent, palpitations, shortness of breat with exertion or chest pain Psych Psychiatric: Yes depression and anxiety; no hearing voices Resp Respiratory: No shortness of breath, No sleep apnea, No cough, No COPD, No asthma, No emphysema, No wheezing Gastro Gastrointestinal: No abdominal pain, No nausea or vomiting, No diarrhea, No constipation, No blood in stool, No acid reflux, No hemorrhoids, No ulcers, No gallbladder problem, No black,tarry stools Harpal Hematologic: No blood thinners, No blood disorders, No bleeding, No anemia, No blood clots Neuro Neurologic: No weakness Exam Const General: cooperative, comfortable, no acute distress Nutritional Appearance: overweight Orientation: alert, awake, oriented x3 HENMT Head: normal to inspection Chest Breast Palpation: No nipple discharge Other: Right breast: Ecchymosis lower outer right breast at biopsy site, slight tenderness, diffuse fibrous change upper outer right breast, no nipple discharge, no axillary or clavicular adenopathy Left breast: Nicely healed curvilinear incision upper outer quadrant left breast. Mild diffuse fibrous change. No focal mass. No nipple discharge. No axillary or clavicular adenopathy Resp Other: Increased chest anterior posterior diameter Expiratory wheeze intermittently noted on the right. Clear on the left Cardio Rate: regular rate Rhythm: regular rhythm Heart Sounds: no murmurs GI Palpation: soft, no hepatosplenomegaly Auscultation: normal bowel sounds Skin General: no rashes or lesions noted Neuro Cognition: normal cognition Extrem General: calf tenderness Psych Affect: normal affect Assessment & Plan Problems 1. Radial scar of right breast L90.5 Plan Radial scar lower outer right breast. Benign-appearing cysts upper inner right breast with ongoing follow-up recommended I recommended the patient a stereotactic wire localization lower outer right breast with subsequent wire localized lumpectomy. She is aware of the joao hnique, benefit, risk and alternatives. She is aware that if final pathology demonstrates invasive cancer that she could require future sentinel lymph node biopsy at a second procedure as well. She is aware that a reliable diagnosis cannot be made during the 1 single procedure. She has had an opportunity to ask and have questions answered. She is additionally aware that the operating room is now are slowly being reopened to elective cases during the time period of pandemic Covid-19. We will schedule her following state guidelines. CC: Dr. Hernan Aleman M.D., F.A.C.S. Plan Detail Goals Decrease pain and inflammation Decrease radiculopathy Increase ability to perform ADLs Back to work Barriers DDD Scoliosis Disc injury Coding Level of Care Code Off vis,new,level 3 Diagnoses Radial scar of right breast L90.5 01/05/20 1039 <Electronically signed by Vamsi deutsch MD> Date _ Vamsi Aleman MD I have re-examined the patient. There are no clinical changes since date of exam. A discussion has been had with the patient regarding the COVID-19 pandemic. She is aware that no guarantees of success can be offered but that it is deemed by the local hospital that proceeding with elective surgical procedures is currently low risk.
--- NOTE | 2020-01-20 08:17 | PCM.OPRPT ---
Problem List (1) Radial scar of right breast Status: Acute Report of Operation Date of Procedure: 01/20/20 Pre-Operative Diagnosis: Radial scar right breast Post-Operative Diagnosis: Same Surgery/Procedure Performed:: Stereotactic wire localization right breast. Wire localized right breast lumpectomy Description of Surgical Findings:: Timeout and informed consent was obtained. 49-year-old female was taken to the stereotactic room placed prone on the table. The right breast was placed in lateral medial view. The marking clip in question was identified. Stereotactic images were obtained. Digital information was obtained on a single target site. The breast was prepped with Betadine. 1% lidocaine was used as a local anesthetic. The needle was advanced to depth +15 mm. The wire was displaced. Sterile dressings applied. A cc view was obtained demonstrating adequate localization. The patient was subsequently taken to the operating room for planned wire localized lumpectomy. The patient was taken to the operating room. She was placed upon the table. She underwent general anesthesia with LMA. The right arm was carefully wrapped it was possible placed at right angles to the table. The right breast was prepped. A curvilinear incision was made in the lateral aspect of the right breast. Electrocautery dissection performed down to the tip of the wire and a circumferential dissection of very tough fibrous breast tissue was performed. Hemostasis was obtained with electrocautery and 3-0 Vicryl ligatures. The specimen was excised. The wire exited laterally. A long suture was placed anteriorly and a short suture superiorly. The specimen was sent for mammogram and it appeared that the marking clip and central portion of the previous biopsy/radial scar was included in the specimen. The wound was inspected and was noted to be hemostatic. The deep tissues were approximated with interrupted 3-0 Vicryl. The skin edges approximated with interrupted 4-0 Monocryl subdermal stitches and then a running septic or 4-0 Monocryl. The zeb-incisional area was anesthetized with 30 cc of 0.5% Marcaine. Steri-Strips Telfa OpSite bulky dry dressing applied. Sponge and instrument and needle counts were reported to the surgeon to be correct. Blood loss minimal. The patient was taken to the recovery room in satisfactory condition without apparent complication. Specimen lumpectomy. Drains none. Blood loss minimal. Vamsi Aleman M.D., F.A.C.S. Type of Anesthesia:: General Anesthesiologist: Matt Morrison
--- NOTE | 2020-01-20 08:18 | DCINST_ITS ---
Discharge Diet: No Restrictions Discharge Activity: May Not Drive - for 2-3 days or while taking narcotic pain meds. May shower in (days): 1 Lifting Restrictions: 10 pounds for 1 week. Call your doctor if your incision/area has: Continuous Slow Oozing, Sudden In creased Bleeding Call your doctor if you observe: Fever of 101 or Higher Suture Line Care: Avoid Pulling/Pushing, Avoid Pinching/Bending Remove Dressing in (days):: 1 - Remove bulky dressing tomorrow. May leave any opsite dressing for 3-4 days[address] Keep dressing in place until your follow-up appointment. Additional Dressing/Incision Instructions:: Remove bulky dressing tomorrow. May leave any opsite dressing for 3-4 days[address] Keep dressing in place until your follow-up appointment. Allergies/Adverse Reactions: Allergies No Known Allergies Allergy (Verified 01/13/20 09:23) Medications to take at Discharge cycloBENZAPRine HCl [Flexeril] 10 mg PO TID PRN #20 tab 09/16/19 Multivitamin with Minerals [Multiple Vitamin] 1 ea PO DAILY 01/13/20 RX: Buspirone HCl 7.5 mg PO BID 01/13/20 Primary Care Physician: Eliel Becerra Chi, MD [Primary Care Provider] - Please Follow Up With: Vamsi Aleman MD - [phone] When: Virtual appt. in approx 10 days, please call to schedule
--- NOTE | 2020-01-20 08:30 | BRBX_PTH ---
PATIENT: MATTI LANDRY LOC: [facility] [place] U#:[id number] AGE/SX: 49/F ROOM: RE01/20/[address]: Dr. Vamsi Aleman MD : 1970 BED: DIS: 01/20/2020 SPEC #: [id number] RECD: 01/20/20 09:07 STATUS: ROSALEE RECarly #: [id number] SANTAIGO: 01/20/20 08:[address]: Vamsi Aleman DEPT: SURGICAL PATHOLOGY RECD BY: Kwabena Cano ENTERED: 01/20/20 09:41 SP TYPE: BREAST BX OTHR DR: Dr. Eliel Becerra MD Tissues: Right breast, NOS Procedures: Surgery Specimen Level IV HEADER OPERATION: Needle localized right breast biopsy PRE-OP DIAGNOSIS: Radial scar of right breast L90.5 TISSUE SUBMITTED: Right breast tissue, wire - lateral, short suture - superior, long suture - lateral MICROSCOPIC DIAGNOSIS Right breast, needle localization biopsy: Fibrocystic changes, extensive adenosis and florid intraductal hyperplasia without atypia. Changes consistent with previous biopsy site. Frequent microcalcifications. Negative for malignancy. See comment. SHRUTHI:jo ann 01/25/20 COMMENT Immunohistochemistry ([id number]) supports the above diagnosis. Please make reference to previous specimen ([id number]) left breast, upper outer quadrant spiculated density, stereotactic core biopsy with diagnosis of lobular carcinoma in situ. Case has been reviewed in consultation with Dr. Lockett who concurs with the above diagnosis. IDC:AM MICROSCOPIC DESCRIPTION Slides are reviewed. GROSS DESCRIPTION Received in fixative is one container labeled with the patient's name and designated right breast tissue. The specimen consists of a piece of fibroadipose tissue with needle localization measuring 7 x 4 x 5 cm. Only the long suture and wire is noted in the specimen. The short suture is not identified in the specimen. The specimen is inked as follows: anterior - yellow, posterior - black, superior - blue, inferior - green, medial - red and lateral - orange. Sections reveal a jett-white area consistent with previous biopsy site measuring 0.5 x 0.5 x 0.5 cm. This area is 0.5 cm away from the closest anterior and medial margin of the specimen. Sections of the rest of the specimen reveal jett-yellow adipose cut surfaces mixed with jett-white fibrous areas. Soap Chipper sections are submitted as follows: 1 - perpendicular superior and inferior margins, 2 - perpendicular lateral and posterior margins, 3-5 - biopsy cavity and closest anterior and medial margins, 6-8 - sales and service representative sections adjacent to the biopsy area, 9-12 - sales and service representative sections of the other areas. Sections are submitted after additional fixation. / SHRUTHI:jo ann 01/21/20 TC:5 CPT: 69681
[2020-01-20] MEDS: Bupivacaine Mpf 0.5% 30 ML VIAL (09:18)
== END 2020-01-20 10:22 | disposition home or self-care (01) ==
LOC: SDC 06:10 → AC 06:10
PROVIDERS: PCP Family Medicine Geriatric Medicine; Referring Provider Surgery; Visit Provider Surgery
PROC: (CPT 19301; principal; 2020-01-20 08:15)
DX: N60.11 Diffuse cystic mastopathy of right breast (principal); N60.21 Fibroadenosis of right breast; N62 Hypertrophy of breast; L90.5 Scar conditions and fibrosis of skin; F41.9 Anxiety disorder, unspecified; F32.9 Major depressive disorder, single episode, unspecified; F17.210 Nicotine dependence, cigarettes, uncomplicated; Z79.899 Other long term (current) drug therapy; Z03.818 Encounter for observation for suspected exposure to other biological agents ruled out
CPT/HCPCS: 00400; 19301; 19281; 76098; 87635; 88305; 88341; 88342; G2023; J7120; A4216; J2405; U0002

== ENCOUNTER → 2020-02-11 | Outpatient (CLI) | payer MEDICAID, SELFPAY ==
[2020-01-29 14:48] VITALS: BMI 24.9
[2020-02-11 17:18] LABS: Absolute Lymphocyte Count 2.15 X10^3/uL (0.83-4.51); Absolute Neutrophil Count 6.6 X10^3/uL (2.0-7.7); Basophil# 0.04 X10^3/uL; Basophil% 0.4 % (0-1); Eosinophil# 0.19 X10^3/uL; Hemoglobin 13.2 g/dL (12.0-15.0); Lymphocyte # 2.15 X10^3/ul (4.0); Lymphocyte % 22.4 % (19-41); Mean Corp Hgb Conc 32.2 g/dL (32-36); Mean Corpuscular Hgb 31.6 pg (27.0-32.0); Mean Corpuscular Volume 98.1 fL (81-99); Mean Platelet Vol. 10.9 fl (6.2-12.0); Monocyte# 0.59 X10^3/uL; Monocyte% 6.2 % (0-10); NRBC Flagged by Analyzer 0 % (0-5); Neutrophil # 6.56 X10^3/uL (2.7-7.7); Neutrophil % 68.4 % (47-70); Platelet Count 290 K/mm3 (150-450); RBC Distribution Width CV 15.2 % (11.6-14.6); RBC Distribution Width SD 54.6 fl (35.1-43.9); Red Blood Count 4.18 M/mm3 (4.2-5.4); White Blood Count 9.6 K/mm3 (4.4-11.0)
[2020-02-11 17:39] LABS: Vitamin D,25 Hydroxy 19.3 ng/mL
[2020-02-11 18:01] LABS: AST(SGOT) 18 U/L (15-37); Alanine Aminotransfer ALT/SGPT 30 U/L (13-56); Albumin, Serum 3.5 g/dL (3.2-5.0); Alkaline Phosphatase 85 U/L (45-117); Anion Gap 7 (5-15); BUN 9 mg/dL (7-18); BUN/Creat Ratio 10.7 RATIO (10-20); Calcium,Total 8.7 mg/dL (8.5-10.1); Chloride 103 mmol/L (98-107); Creatinine, Serum 0.84 mg/dL (0.55-1.02); EST Glomerular Filtration Rate 76 mL/min (>60); Est Glom Filt Rate - Afr Amer 92 mL/min (>60); Globulin 3.6 g/dL (2.2-4.2); Glucose 125 mg/dL (74-106); Potassium 3.8 mmol/L (3.5-5.1); Protein, Total 7.1 g/dL (6.4-8.2); Sodium Level 136 mmol/L (136-145)
== END | disposition home or self-care (01) ==
LOC: POLAB3 15:13
PROVIDERS: PCP Family Medicine Geriatric Medicine; Visit Provider Family Medicine Geriatric Medicine
DX: E55.9 Vitamin D deficiency, unspecified (principal); R53.83 Other fatigue
CPT/HCPCS: 36415; 80053; 82306; 84443; 85025

== ENCOUNTER → 2021-01-30 11:44 | Outpatient (CLI) | payer SELFPAY ==
[2020-01-29 14:48] VITALS: BMI 24.9
[2021-01-30 12:26] LABS: Absolute Lymphocyte Count 2.24 X10^3/uL (0.83-4.51); Absolute Neutrophil Count 4.6 X10^3/uL (2.0-7.7); Basophil# 0.03 X10^3/uL; Basophil% 0.4 % (0-1); Eosinophil# 0.08 X10^3/uL; Eosinophils% 1.1 % (0-5); Hematocrit 41.7 % (37-47); Hemoglobin 13.5 g/dL (12.0-15.0); Lymphocyte # 2.24 X10^3/ul (0.83-4.51); Lymphocyte % 29.6 % (19-41); Mean Corp Hgb Conc 32.4 g/dL (32-36); Mean Corpuscular Hgb 29.7 pg (27.0-32.0); Mean Corpuscular Volume 91.9 fL (81-99); Monocyte# 0.58 X10^3/uL; Monocyte% 7.7 % (0-10); NRBC Flagged by Analyzer 0 % (0-5); Neutrophil # 4.63 X10^3/uL (2.7-7.7); Neutrophil % 60.9 % (47-70); Platelet Count 318 K/mm3 (150-450); RBC Distribution Width CV 13.8 % (11.6-14.6); RBC Distribution Width SD 46.8 fl (35.1-43.9); Red Blood Count 4.54 M/mm3 (4.2-5.4); White Blood Count 7.6 K/mm3 (4.4-11.0)
[2021-01-30 12:49] LABS: ALB/GLOB Ratio 1.1 RATIO (0.9-2.4); AST(SGOT) 20 U/L (15-37); Alanine Aminotransfer ALT/SGPT 22 U/L (13-56); Albumin, Serum 3.7 g/dL (3.2-5.0); Alkaline Phosphatase 73 U/L (45-117); Anion Gap 7 (5-15); BUN 7 mg/dL (7-18); BUN/Creat Ratio 9.7 RATIO (10-20); Calcium,Total 8.8 mg/dL (8.5-10.1); Chloride 103 mmol/L (98-107); Creatinine, Serum 0.72 mg/dL (0.55-1.02); EST Glomerular Filtration Rate 91 mL/min (>60); Est Glom Filt Rate - Afr Amer 110 mL/min (>60); Globulin 3.5 g/dL (2.2-4.2); Glucose 83 mg/dL (74-106); Potassium 4.3 mmol/L (3.5-5.1); Protein, Total 7.2 g/dL (6.4-8.2); Sodium Level 138 mmol/L (136-145); Thyroid Stim Hormone (TSH) 0.32 uIU/mL (0.358-3.74)
[2021-02-02 12:51] LABS: Vitamin D,25 Hydroxy 24.5 ng/mL
== END ==
LOC: POLAB3 11:45
PROVIDERS: PCP Family Medicine Geriatric Medicine; Visit Provider Family Medicine Geriatric Medicine
DX: E55.9 Vitamin D deficiency, unspecified (principal); R53.83 Other fatigue
CPT/HCPCS: 36415; 80053; 82306; 84439; 84443; 85025

== ENCOUNTER → 2021-02-02 11:26 | Outpatient (CLI) | payer SELFPAY ==
[2020-01-29 14:48] VITALS: BMI 24.9
[2021-02-02 13:12] LABS: T3 Uptake 35 % (30-39)
[2021-02-02 13:20] LABS: Thyroid Stim Hormone (TSH) 0.11 uIU/mL (0.358-3.74)
== END ==
LOC: POLAB3 11:27
PROVIDERS: PCP Family Medicine Geriatric Medicine; Visit Provider Family Medicine Geriatric Medicine
DX: E03.9 Hypothyroidism, unspecified (principal)
CPT/HCPCS: 36415; 84443; 84479

== ENCOUNTER → 2021-02-27 07:47 | Outpatient (CLI) | payer SELFPAY ==
[2021-02-27 07:05] VITALS: BMI 20.9
--- NOTE | 2021-02-27 07:15 | BRBX_PTH ---
PATIENT: MATTI LANDRY LOC: [facility] U#:[id number] AGE/SX: 55/F ROOM: RE02/27/[address]: Dr. Vamsi Aleman MD : 1970 BED: DIS: SPEC #: [id number] RECD: 02/27/21 10:52 STATUS: ROSALEE JARQUIN #: [id number] SANTIAGO: 02/27/21 07:[address]: Vamsi Aleman DEPT: SURGICAL PATHOLOGY RECD BY: Moraima Shah ENTERED: 02/27/21 12:13 SP TYPE: BREAST BX OTHR DR: Dr. lEiel Becerra MD Tissues: Right breast, NOS Procedures: Surgery Specimen Level IV HEADER OPERATION: Right breast biopsy PRE-OP DIAGNOSIS: Abnormal right breast ultrasound TISSUE SUBMITTED: Right breast tissue 9 o?clock +3 cm MICROSCOPIC DIAGNOSIS Right breast at 9 o?clock, ultrasound-guided core biopsy: Hyalinized fibroadenoma. AM:jo ann 02/28/2021 MICROSCOPIC DESCRIPTION Slides are reviewed. GROSS DESCRIPTION Received in fixative is one container labeled with the patient name and designated right breast 9 o?clock +3 cm. The specimen consists of multiple elongated fragments of jett-yellow fibroadipose tissue that in aggregate measure 0.9 x 0.3 x 0.1 cm. The entire specimen is submitted in one cassette. / SJ:jo ann 02/27/21 TC:5 CPT: 06003
--- NOTE | 2021-02-27 07:51 | BI_ITS ---
MAMMOGRAPHY - UNILATERAL DIAGNOSTIC: RIGHT BREAST REASON FOR EXAM: Female, 50 years old. post breast biopsy -- right PERTINENT HISTORY: Non-contributory. TECHNIQUE: Digital examination. Mediolateral oblique (MLO) and craniocaudad (CC) views of the right breast were obtained. CAD: COMPARISON: 02/02/2021 FINDINGS: Breast Composition is heterogeneous. There are no dominant masses or suspicious calcifications. There is metallic clip 5.7 cm behind the nipple. Benign calcifications present. No other significant abnormalities are identified. BI/DIAG MAMM W/CAD, UNILAT IMPRESSION: Stable unilateral diagnostic mammogram. ASSESSMENT CATEGORY: FOLLOW-UP RECOMMENDATION: Approximately 10% of breast cancers are not detected by mammography. A normal mammogram should not delay biopsy of a clinically suspicious abnormality. Electronically Signed: Keli Warner, at 12:53 EDT Tel , Service support ,
== END ==
PROVIDERS: PCP Family Medicine Geriatric Medicine; Referring Provider Surgery; Visit Provider Surgery
DX: D24.1 Benign neoplasm of right breast (principal)
CPT/HCPCS: 77065; 88305

== ENCOUNTER → 2021-07-31 12:09 | Outpatient (CLI) | payer SELFPAY ==
[2021-07-31 12:41] LABS: Absolute Lymphocyte Count 1.94 X10^3/uL (0.83-4.51); Absolute Neutrophil Count 5.8 X10^3/uL (2.0-7.7); Basophil# 0.04 X10^3/uL; Basophil% 0.5 % (0-1); Eosinophil# 0.08 X10^3/uL; Hematocrit 41.3 % (37-47); Hemoglobin 13.1 g/dL (12.0-15.0); Lymphocyte # 1.94 X10^3/ul (0.83-4.51); Lymphocyte % 23.1 % (19-41); Mean Corp Hgb Conc 31.7 g/dL (32-36); Mean Corpuscular Hgb 29.8 pg (27.0-32.0); Mean Corpuscular Volume 94.1 fL (81-99); Mean Platelet Vol. 10.7 fl (6.2-12.0); Monocyte# 0.56 X10^3/uL; Monocyte% 6.7 % (0-10); NRBC Flagged by Analyzer 0 % (0-5); Neutrophil # 5.75 X10^3/uL (2.7-7.7); Neutrophil % 68.3 % (47-70); Platelet Count 359 K/mm3 (150-450); RBC Distribution Width CV 13.2 % (11.6-14.6); RBC Distribution Width SD 45.5 fl (35.1-43.9); Red Blood Count 4.39 M/mm3 (4.2-5.4); White Blood Count 8.4 K/mm3 (4.4-11.0)
[2021-07-31 12:53] LABS: Vitamin D,25 Hydroxy 28.6 ng/mL
[2021-07-31 13:26] LABS: AST(SGOT) 19 U/L (15-37); Alanine Aminotransfer ALT/SGPT 24 U/L (13-56); Albumin, Serum 3.8 g/dL (3.2-5.0); Alkaline Phosphatase 80 U/L (45-117); Anion Gap 5 (5-15); BUN 12 mg/dL (7-18); BUN/Creat Ratio 14.4 RATIO (10-20); Calcium,Total 9.2 mg/dL (8.5-10.1); Chloride 102 mmol/L (98-107); Creatinine, Serum 0.83 mg/dL (0.55-1.02); EST Glomerular Filtration Rate 77 mL/min (>60); Est Glom Filt Rate - Afr Amer 93 mL/min (>60); Globulin 3.8 g/dL (2.2-4.2); Glucose 86 mg/dL (74-106); Potassium 3.9 mmol/L (3.5-5.1); Protein, Total 7.6 g/dL (6.4-8.2); Sodium Level 138 mmol/L (136-145); Thyroid Stim Hormone (TSH) 0.72 uIU/mL (0.358-3.74)
== END ==
LOC: POLAB3 12:10
PROVIDERS: PCP Family Medicine Geriatric Medicine; Visit Provider Family Medicine Geriatric Medicine
DX: E55.9 Vitamin D deficiency, unspecified (principal); R53.83 Other fatigue
CPT/HCPCS: 36415; 80053; 82306; 84443; 85025

== ENCOUNTER 2021-08-06 09:33 | Emergency (ER) | payer SELFPAY ==
[2021-08-06 09:34] VITALS: BP 132/87; PULSE 79; RESP 16; TEMP 36.2; O2SAT 100; BMI 18.8
--- NOTE | 2021-08-06 10:13 | EX.ED.DYSGE1 ---
HPI History of Present Illness Chief Complaint: Abscess Informant: patient Onset/Context/Timing Onset: Weeks (1) Context: Gradual Onset Timing: Continuous Quality: sore Location: right axilla/lateral breast Current Severity: Moderate Maximum Severity: Severe Worsened by: light touch Relieved by: leaving it alone Associated Symptoms Associated Symptoms: no systemic sx or fevers; no spont drainage Narrative Narrative: Tender swollen area lateral right breast/chest wall, states it is beneath where her bra rubs, has been growing for 1 week and feels like it may need to be drained. No systemic symptoms. No spontaneous discharge. [facility] Medical History Anxiety and depression DDD (degenerative disc disease), lumbar Hyperthyroidism Radial scar of right breast Scoliosis Home Medications multivitamin with minerals 1 ea PO DAILY 01/13/20 [History Last Taken Unknown] methimazole 5 mg PO DAILY 08/06/21 [History Last Taken Unknown] sulfamethoxazole-trimethoprim 1 tab PO BID #20 tablet 08/06/21 [Rx Last Taken Unknown] Allergy/AdvReac Type Severity Reaction Status Date / Time No Known Allergies Allergy Verified 08/06/21 09:34 Family History Father No problems noted. Surgical History History of dilation and curettage History of excision of pilonidal cyst (~1987) History of partial hysterectomy History of right breast biopsy Status post left breast lumpectomy (~2011) Social History Smoking Status: Current every day smoker tobacco type: cigarettes alcohol intake: current alcohol intake frequency: holidays/special occasions only substance use type: does not use what type of physical activity do you participate in: walking frequency: 1-2 times per week ROS ROS ED Constitutional Constitutional ED: Denies body ache(s), chills, fatigue or fever(s) Cardiovascular Cardiovascular: Denies chest pain or palpitations Respiratory/Chest Respiratory/Chest: Denies cough or dyspnea Gastrointestinal Gastrointestinal: Denies abdominal pain, diarrhea, nausea or vomiting Musculoskeletal Musculoskeletal: Denies back pain or neck pain Integumentary Reports abscess; Denies rash EXAM Physical Exam Const Vital Signs: 08/06/21 09:34 Temperature 97.2 F L Temperature Source Temporal Pulse Rate 79 Respiratory Rate 16 Blood Pressure 132/87 H Blood Pressure Mean 102 Pulse Ox 100 Oxygen Delivery Method Room Air Positive well nourished and well developed General Appearance ED: well developed and NAD HEENT Reports moist mucous membranes normocephalic and atraumatic Eyes PERRL and EOMs intact bilaterally Neck full ROM and supple Resp normal respiratory effort Extremity normal to inspection General Extremety ED: Negative for edema General Extremity: Negative for edema Neuro oriented x3, CN's II-XII intact bilaterally and no sensory deficits noted Sensorium / Orientation: awake and alert Motor Exam: strength 5/5 throughout Skin no wounds Skin Narrative: 2.5 cm pointing extremely tender, erythematous abscess on the right lateral chest wall, it is not necessarily within the breast, it is just lateral to it. Mild surrounding erythema. MDM MDM MDM Narrative Medical decision making narrative: I&D performed after verbal consent see the procedure note. Patient was started on Bactrim, given appropriate discharge instructions and reasons to return. Procedures Other Procedures Procedure(s): Simple incision and drainage right chest wall cutaneous abscess: Sterile prep and drape with chlorhexidine and isopropanol, locally anesthetized 7 cc 1% lidocaine plain, incised centrally with a #11 blade, large amount of purulent material and necrotic plugs expressed, cavity deloculated, irrigated with sterile saline, dressed with bacitracin no complications tolerated well. Discharge Plan Triage Chief Complaint: Abscess ED Provider: Moisés Gray Dx/Rx/DC Orders Clinical Impression: Cutaneous abscess of chest wall Instructions: ED Abscess Incision And Drainage Prescriptions: New sulfamethoxazole-trimethoprim [sulfamethoxazole-trimethoprim] 1 TABLET tablet 1 tab PO BID Qty: 20 RF: 0 No Action multivitamin with minerals 1 EACH tablet 1 ea PO DAILY RF: 0 methimazole 5 mg tablet 5 mg PO DAILY RF: 0 Primary Care Provider: Eliel Becerra Chi Referrals: Eliel Becerra Chi, MD [Primary Care Provider] - As Needed Disposition Disposition: Home, Self Care
[2021-08-06] MEDS: Smz/Tmp Ds Tablet 1 TABLET PO (10:18)
== END 2021-08-06 12:02 | disposition home or self-care (01) ==
PROVIDERS: Emergency Provider Emergency Medicine; PCP Family Medicine Geriatric Medicine
DX: L02.213 Cutaneous abscess of chest wall (principal); F17.210 Nicotine dependence, cigarettes, uncomplicated
CPT/HCPCS: 10060; 99282

== ENCOUNTER → 2021-08-08 09:18 | Outpatient (CLI) | payer SELFPAY ==
[2021-02-27 07:05] VITALS: BMI 20.9
--- NOTE | 2021-08-08 09:20 | NM_ITS ---
CLINICAL: 51-year-old female with reported history of abnormal in vitro thyroid function studies-clinical hypothyroidism. I-123 THYROID UPTAKE and SCAN COMPARISON: None available FINDINGS: The patient was administered a 303 uCi I-123 capsule by mouth. The 4-hour I-123 radioactive iodine thyroidal uptake was calculated to be 3.3 % (normal 5 to 25 %). The 24-hour I-123 radioactive iodine thyroidal uptake was calculated to be 3.8 % (normal 5 to 40 %). The I-123 thyroid scan demonstrates heterogeneous, nonuniform radiopharmaceutical concentration throughout both lobes of a visualized U-shaped thyroid gland with an overall decrease in the target to background ratio. Uptake is accentuated in the inferior pole of the right thyroid bed relative to the remaining thyroid parenchyma. There are no colloidal parenchymal hypofunctioning-cold nodules noted in either lobe of the thyroid gland. NM/Thyroid Uptake Single or Mult IMPRESSION: 1. ABNORMAL DECREASED 4- and 24-hour I-123 radioactive iodine thyroidal uptakes. 2. The I-123 thyroid scan in conjunction with the calculated IODINE uptake values and clinical presentation of hypothyroidism is consistent with the presence of thyroid parenchymal dysfunction which may be secondary to the noninjurious phase of subacute or potentially chronic thyroiditis. If secondary or tertiary hypothyroidism is a diagnostic consideration, appropriate laboratory investigation is recommended. Electronically Signed: Justin Albarran DO at 7:36 EST Tel , Service support ,
== END ==
PROVIDERS: PCP Family Medicine Geriatric Medicine; Referring Provider Family Medicine Geriatric Medicine; Visit Provider Family Medicine Geriatric Medicine
DX: E03.9 Hypothyroidism, unspecified (principal)
CPT/HCPCS: 78012; A9516

== ENCOUNTER → 2021-08-15 10:47 | Outpatient (CLI) | payer SELFPAY ==
[2021-08-15 18:29] LABS: Absolute Lymphocyte Count 2.13 X10^3/uL (0.83-4.51); Absolute Neutrophil Count 7.7 X10^3/uL (2.0-7.7); Basophil# 0.05 X10^3/uL; Basophil% 0.5 % (0-1); Eosinophil# 0.07 X10^3/uL; Eosinophils% 0.7 % (0-5); Hematocrit 38.6 % (37-47); Lymphocyte # 2.13 X10^3/ul (0.83-4.51); Mean Corp Hgb Conc 33.7 g/dL (32-36); Mean Corpuscular Hgb 31.4 pg (27.0-32.0); Mean Corpuscular Volume 93.2 fL (81-99); Mean Platelet Vol. 10.5 fl (6.2-12.0); Monocyte# 0.67 X10^3/uL; Monocyte% 6.3 % (0-10); NRBC Flagged by Analyzer 0 % (0-5); Neutrophil # 7.72 X10^3/uL (2.7-7.7); Neutrophil % 72.2 % (47-70); Platelet Count 368 K/mm3 (150-450); RBC Distribution Width CV 13.6 % (11.6-14.6); RBC Distribution Width SD 46.8 fl (35.1-43.9); Red Blood Count 4.14 M/mm3 (4.2-5.4); White Blood Count 10.7 K/mm3 (4.4-11.0)
[2021-08-15 18:32] LABS: ALB/GLOB Ratio 0.9 RATIO (0.9-2.4); AST(SGOT) 35 U/L (15-37); Alanine Aminotransfer ALT/SGPT 28 U/L (13-56); Albumin, Serum 3.5 g/dL (3.2-5.0); Alkaline Phosphatase 85 U/L (45-117); Anion Gap 8 (5-15); BUN 15 mg/dL (7-18); BUN/Creat Ratio 15.9 RATIO (10-20); CPK Total, Creatine Kinase 180 U/L (26-192); Calcium,Total 8.8 mg/dL (8.5-10.1); Chloride 107 mmol/L (98-107); Creatinine, Serum 0.94 mg/dL (0.55-1.02); EST Glomerular Filtration Rate 66 mL/min (>60); Est Glom Filt Rate - Afr Amer 80 mL/min (>60); Globulin 3.7 g/dL (2.2-4.2); Glucose 106 mg/dL (74-106); Potassium 5.2 mmol/L (3.5-5.1); Protein, Total 7.2 g/dL (6.4-8.2); Sodium Level 137 mmol/L (136-145); T3 Uptake 34 % (30-39); T4 Free Direct 0.97 ng/dL (0.76-1.46); Troponin-I HS 4 pg/mL (3.0-54.0)
[2021-08-15 19:02] LABS: T7 / Free Thyroxin Index 0.3 (1.4-4.5)
[2021-08-17 11:10] LABS: Myoglobin, Serum < 21 ng/mL (25-58)
[2021-08-17 19:47] LABS: Anti-Thyroglobulin AB < 1.0 IU/mL (0.0-0.9); Thyroglobulin, Serum Qt. 35.1 ng/mL (1.5-38.5)
== END ==
LOC: LAB.FUTURE 10:49 → POLAB3 16:22
PROVIDERS: PCP Family Medicine Geriatric Medicine; Referring Provider Family Medicine Geriatric Medicine; Visit Provider Family Medicine Geriatric Medicine
DX: E05.90 Thyrotoxicosis, unspecified without thyrotoxic crisis or storm (principal); R06.02 Shortness of breath; R53.83 Other fatigue; B95.62 Methicillin resistant Staphylococcus aureus infection as the cause of diseases classified elsewhere
CPT/HCPCS: 36415; 80053; 82550; 83874; 84432; 84439; 84479; 84484; 85025; 86800; 87070; 87077; 87205

== ENCOUNTER 2021-10-04 11:25 | Outpatient (CLI) | payer BC, SELFPAY ==
--- NOTE | 2021-10-04 09:30 | CYST_PTH ---
PATIENT: MATTI LANDRY LOC: [facility] U#:[id number] AGE/SX: 51/F ROOM: RE10/04/[address]: Dr. Vamsi Aleman MD : 1970 BED: DIS: 10/04/2021 SPEC #: [id number] RECD: 10/04/21 11:17 STATUS: ROSALEE JARQUIN #: [id number] SANTIAGO: 10/04/21 09:[address]: Vamsi Aleman DEPT: SURGICAL PATHOLOGY RECD BY: Kwabena Cano ENTERED: 10/04/21 11:50 SP TYPE: Cyst OTHR DR: Dr. Eliel Becerra MD Tissues: CYST Procedures: Surgery Specimen Level III HEADER OPERATION: Excision of cyst right lateral chest PRE-OP DIAGNOSIS: Sebaceous cyst, ruptured TISSUE SUBMITTED: Right lateral chest MICROSCOPIC DIAGNOSIS Skin lesion of right lateral chest, excision: Epidermal inclusion cyst with focal changes of rupture and associated benign histiocytic reaction and chronic inflammation. AM:jo ann 10/05/2021 MICROSCOPIC DESCRIPTION Slides are reviewed. GROSS DESCRIPTION Received in fixative is one container labeled with the patient's name and designated right lateral chest. The specimen consists of a piece of jett-white skin ellipse measuring 3 x 1 cm and up to 0.5 cm in thickness. The specimen is inked, serially sectioned and submitted entirely in two cassettes. / SJ:jo ann 10/04/2021 TC:5 CPT: 91452
== END 2021-10-04 23:59 | disposition short-term general hospital (02) ==
LOC: LABSPEC 11:26
PROVIDERS: PCP Family Medicine Geriatric Medicine; Visit Provider Surgery
DX: L72.0 Epidermal cyst (principal)
CPT/HCPCS: 88304

== ENCOUNTER 2021-10-11 16:56 | Outpatient (CLI) | payer BC, SELFPAY ==
--- NOTE | 2021-10-11 16:59 | CT_ITS ---
STUDY: CT CHEST, ABDOMEN T PELVIS WITH CONTRAST REASON FOR EXAM: Female, 51 years old. Unintentional 50 pound weight loss in one year. History of thyroid disease and hysterectomy. RADIATION DOSAGE (If Supplied By Facility): CTDIvol = ( 8.31 ) mGy, DLP = ( 605.58 ) mGycm TECHNIQUE: Transaxial imaging was performed following intravenous administration of IV 100mL Isovue-370. Multiplanar coronal and sagittal images were reformatted. Individualized dose optimization techniques were used for this CT. COMPARISON: No relevant priors. FINDINGS: CHEST The lungs are normal. There is no demonstrated pleural abnormality. Normal heart and pericardium. Normal mediastinum. Normal hilar regions. Normal unenhanced pulmonary arteries. Normal aorta arch and descending thoracic aorta. Normal osseous structures. Normal-appearing thyroid. There is no axillary lymphadenopathy or soft tissue mass. No visualized breast mass. ABDOMEN The prominent left lateral lobe of the liver which is a normal variant. The liver is otherwise unremarkable with the exception of a subcentimeter cyst in segment 6. Normal gallbladder and extrahepatic biliary system. Normal spleen. Normal pancreas. Normal bilateral adrenal glands. There is a small fat density mass in the mid right kidney measuring less 1 cm. Question adeno myolipoma. The right kidney is otherwise unremarkable. Normal left kidney. Normal visualized ureters. Normal visualized stomach. Normal small intestine. Redundant colon without mass or obstruction. There are surgical clips in the region of the appendix consistent with a prior appendectomy. Normal abdominal aorta. Normal inferior vena cava. Normal retroperitoneum. PELVIS Normal urinary bladder. Unremarkable vaginal cuff. There is no visualized retained ovary. No free fluid or free air is seen within the peritoneal cavity. There is no pelvic lymphadenopathy or mass lesion. Normal visualized pelvic arteries. Normal abdominal wall. Minimal degenerative changes of the lumbar spine. There is a small sclerotic focus in the left iliac seen best on image 79 of series 4. No other lytic or blastic findings are present. CT/CT Chest, Abd, Pel w/Contrast IMPRESSION: 1. No evidence of thoracic abnormality. 2. No acute intra-abdominal or pelvic process. 3. 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 4. Status post hysterectomy. Electronically Signed: Galdino Velazquez DO at 18:16 EST ,
--- NOTE | 2021-10-11 16:59 | CT_ITS ---
STUDY: CT BRAIN WITH AND WITHOUT CONTRAST REASON FOR EXAM: Female, 51 years old. Unintentional 50 pound weight loss over one year. History of thyroid disease and prior hysterectomy. RADIATION DOSAGE (If Supplied By Facility): CTDIvol = ( 44.99 ) mGy, DLP = ( 1597.84 ) mGycm TECHNIQUE: Transaxial CT imaging of the brain was performed pre and post contrast administration. The examination was performed with intravenous administration of IV 100mL Isovue-370. Individualized dose optimization techniques were used for this CT. COMPARISON: None. FINDINGS: Normal soft tissue structures. Normal calvarium. Normal size ventricles and extra-axial spaces for the patient''s age. Normal white matter tracts of the cerebral hemispheres. Normal basal ganglia and thalami. Normal brainstem. Normal cerebellum. There is no intracranial hemorrhage. There are no findings of an acute ischemic infarction. No evidence of abnormal contrast enhancement. The unopacified vasculature appears grossly normal. No obvious aneurysm or occlusion. Small air-fluid level in the sphenoid sinus. CT/Brain/Head W/WO Contrast IMPRESSION: Normal unenhanced and enhanced CT scan of the brain. Electronically Signed: Galdino Velazquez DO at 18:09 EST Reading Location ID and State: [address] [place] [address] Tel [phone], Service support ,
== END 2021-10-11 23:59 | disposition short-term general hospital (02) ==
PROVIDERS: PCP Family Medicine Geriatric Medicine; Visit Provider Family Medicine Geriatric Medicine
DX: Z03.89 Encounter for observation for other suspected diseases and conditions ruled out (principal); R63.4 Abnormal weight loss
CPT/HCPCS: 70470; 71260; 74177; Q9967

== ENCOUNTER 2021-10-18 11:36 | Emergency (ER) | payer BC, SELFPAY ==
[2021-10-18 11:37] VITALS: BP 134/112; PULSE 93; RESP 16; TEMP 36.2; O2SAT 100; BMI 17.2
--- NOTE | 2021-10-18 13:04 | RAD_ITS ---
STUDY: X-RAY CHEST REASON FOR EXAM: Female, 51 years old. Chest pain TECHNIQUE: Single AP portable view of the chest. COMPARISON: Comparison is made with prior study 02/04/2018. FINDINGS: Hyperinflation. The lungs are clear. There is no demonstrated pleural abnormality. Normal size heart. Normal mediastinum and fany. Normal visualized pulmonary arteries. Normal visualized aortic arch and descending thoracic aorta. There are diffuse degenerative changes of the visualized thoracic spine. Normal visualized ribs, clavicles, and shoulders. There is no demonstrated abnormality of the visualized soft tissue structures of the upper abdomen. RAD/Chest 1 View (Portable) IMPRESSION: Hyperinflation. The lungs are clear. Electronically Signed: Serafin Conway MD at 13:35 EST ,
--- NOTE | 2021-10-18 13:04 | EKG12_ITS ---
Test Reason : CP Blood Pressure : / mmHG Vent. Rate : 083 BPM Atrial Rate : 083 BPM P-R Int : 124 ms QRS Dur : 078 ms QT Int : 390 ms P-R-T Axes : -16 078 074 degrees QTc Int : 458 ms Normal sinus rhythm Incomplete right bundle branch block Confirmed by PAUL DYKES, VIKI ([id number]), copy editor NKECHI ZENG ([id number]) on 10/20/2021 10:14:52 AM Referred By: HORACIO Confirmed By:VIKI MILLER MD
--- NOTE | 2021-10-18 13:10 | EDS_ITS ---
HPI History of Present Illness Chief Complaint: General Illness Narrative Narrative: 51-year-old female presenting with chest pain and palpitations. Patient states that this is a chronic issue but yesterday she had severe palpitations and felt like she may faint. Patient also reports that she has chronic fatigue as well as headache. She states has been feeling like she has chills for the last 3 days. She does not have a cough or shortness of breath. Patient tested herself for Covid before coming to the emergency room and this was negative. Patient reports that she has an overactive thyroid in which she saw Dr. Becerra for and he has her on medications to normalize her thyroid hormone and she states on her last check in September things are normal. Patient continued to complain of similar symptoms as her presenting symptoms today and she had a CT of the chest abdomen pelvis with IV contrast done by Dr. Becerra on the second which was also normal. CT of the brain was performed and this was normal. Patient states that she wanted to discuss the results with Dr. Becerra however she states that he would not see her because she owed him money. She states that she requested the records to medical records and has them with her. She stated that she wanted a second opinion. Patient denies any history of cardiac disease. She has no history of DVT/PE and no risk factors. [facility] Medical History Anxiety and depression DDD (degenerative disc disease), lumbar Hyperthyroidism Radial scar of right breast Scoliosis Home Medications NK 10/18/21 [History Last Taken Unknown] Allergy/AdvReac Type Severity Reaction Status Date / Time No Known Allergies Allergy Verified 10/18/21 11:39 Family History Father No problems noted. Surgical History History of dilation and curettage History of excision of pilonidal cyst (~1987) History of partial hysterectomy History of right breast biopsy Status post left breast lumpectomy (~2011) Social History Smoking Status: Current every day smoker tobacco type: cigarettes alcohol intake: current alcohol intake frequency: holidays/special occasions only substance use type: does not use what type of physical activity do you participate in: walking frequency: 1-2 times per week ROS ROS ED Constitutional Constitutional ED: Reports chills; Denies fever(s) Eyes Eyes: Denies blurry vision or diplopia ENT ENT ED: Denies rhinorrhea or sore throat Cardiovascular Cardiovascular: Reports chest pain and palpitations Respiratory/Chest Respiratory/Chest: Denies cough or dyspnea Gastrointestinal Gastrointestinal: Denies abdominal pain, nausea or vomiting Genitourinary Genitourinary ED: Denies dysuria or hematuria Musculoskeletal Musculoskeletal: Reports myalgias; Denies arthralgias or neck pain Integumentary Denies rash Neurologic Neurologic: Reports headache(s); Denies paresthesias or weakness EXAM Physical Exam Const Vital Signs: 10/18/21 11:37 10/18/21 13:22 10/18/21 13:28 Temperature 97.2 F L Temperature Source Temporal Pulse Rate 93 Respiratory Rate 16 Respiratory Effort Normal Non-Labored Respiratory Pattern Normal Blood Pressure 134/112 H Blood Pressure Mean 119 Pulse Ox 100 Oxygen Delivery Method Room Air Room Air 10/18/21 13:29 Temperature Temperature Source Pulse Rate 73 Respiratory Rate 12 Respiratory Effort Respiratory Pattern Blood Pressure 147/90 H Blood Pressure Mean 109 Pulse Ox 100 Oxygen Delivery Method Room Air Positive well nourished General Appearance ED: NAD; Negative for pallor HEENT Reports moist mucous membranes Negative for trauma Eyes PERRL and EOMs intact bilaterally Neck no lymphadenopathy and supple Resp normal respiratory effort and clear to auscultation bilaterally Cardio regular rate and regular rhythm GI normal to inspection, nondistended, normoactive bowel sounds Neuro oriented x3 and CN's II-XII intact bilaterally Sensorium / Orientation: alert Psych mental status grossly normal Skin no rashes or lesions noted General Skin Exam: Negative for jaundice or pallor MDM MDM MDM Narrative Medical decision making narrative: 51-year-old female presenting with multiple complaints of which most of been evaluated. I did repeat lab work because she r eported chest pain palpitations yesterday. CBC and BMP are unremarkable. D- dimer is negative. High-sensitivity troponin is 4. Delta troponin is 6. This makes ACS unlikely. EKG on my interpretation is a normal sinus rhythm with ventricular rate of 83 bpm without sign of ischemic change. Chest x-ray my interpretation is no acute cardiopulmonary process the radiologist agree. I did review the labs from previous and noted that her thyroid studies were within normal limits. CT of the chest abdomen pelvis was performed with IV contrast but had no findings either. She also had a CT of her brain at that time which was negative. Today's that she is complaining of headache she was given Reglan, Benadryl, Toradol and her headache improved. She tested for Covid herself today this is negative. I do believe with a negative D-dimer Covid is unlikely. Patient is amenable to discharge at this time and will follow up with her PCP outpatient. Impression: 1. Headache 2. Chest pain 3. palpitations 4. Weight loss 5. Fatigue Lab Data Attestation: I reviewed the patient's lab results. Labs: Laboratory Results - last 24 hr 10/18/21 10/18/21 10/18/21 13:15 13:15 13:15 WBC 10.1 RBC 4.44 Hgb 13.9 Hct 41.5 MCV 93.5 MCH 31.3 MCHC 33.5 RDW Std Deviation 45.6 H RDW Coeff of Dariela 13.3 Plt Count 310 MPV 9.8 Immature Gran % (Auto) 0.300 Neut % (Auto) 68.8 Lymph % (Auto) 22.4 [place] % (Auto) 7.0 Eos % (Auto) 1.1 Baso % (Auto) 0.4 Absolute Neuts (auto) 6.9 Absolute Lymphs (auto) 2.26 Nucleated RBC % 0 D-Dimer Quant (PE/DVT) <= 0.27 Sodium 137 Potassium 4.1 Chloride 105 Carbon Dioxide 25.0 Anion Gap 7 BUN 9 Creatinine 0.75 Estim Creat Clear Calc 71.87 Est GFR (MDRD) Af Amer 105 Est GFR (MDRD) Non-Af 87 BUN/Creatinine Ratio 12.1 Glucose 79 Calcium 9.3 Troponin I High Sens 4 10/18/21 10/18/21 13:15 15:00 WBC RBC Hgb Hct MCV MCH MCHC RDW Std Deviation RDW Coeff of Dariela Plt Count MPV Immature Gran % (Auto) Neut % (Auto) Lymph % (Auto) [place] % (Auto) Eos % (Auto) Baso % (Auto) Absolute Neuts (auto) Absolute Lymphs (auto) Nucleated RBC % D-Dimer Quant (PE/DVT) Sodium Potassium Chloride Carbon Dioxide Anion Gap BUN Creatinine Estim Creat Clear Calc Est GFR (MDRD) Af Amer Est GFR (MDRD) Non-Af BUN/Creatinine Ratio Glucose Calcium Troponin I High Sens Cancelled 6 Radiography Diagnostic Testing: Clinical Impression(s) from Imaging Studies Chest X-Ray 10/18/21 13:04 IMPRESSION: Hyperinflation. The lungs are clear. Electronically Signed: Serafin Conway MD at 13:35 EST , Discharge Plan Triage Chief Complaint: General Illness ED Provider: Sanchez Santiago Dx/Rx/DC Orders Instructions: Self-Care for Headaches, ED Chest Pain, Uncertain Cause, ED Weakness (Uncertain Cause) Prescriptions: No Action NK RF: 0 Primary Care Provider: Eliel Becerra Chi Referrals: Eliel Becerra Chi, MD [Primary Care Provider] - Disposition Disposition: Home, Self Care Discharge Date/Time: 10/18/21 15:51
[2021-10-18] MEDS: DiphenhydrAMINE 50 MG/ML Syringe 25 MG IV (13:19)
[2021-10-18] MEDS: Ketorolac 15 MG/ML Vial IV (13:19)
[2021-10-18] MEDS: Metoclopramide 10 MG/2 ML Vial IV (13:19)
[2021-10-18 13:29] VITALS: BP 147/90; PULSE 73; RESP 12; O2SAT 100
[2021-10-18 13:32] LABS: Absolute Lymphocyte Count 2.26 X10^3/uL (0.83-4.51); Absolute Neutrophil Count 6.9 X10^3/uL (2.0-7.7); Basophil# 0.04 X10^3/uL; Basophil% 0.4 % (0-1); Eosinophil# 0.11 X10^3/uL; Eosinophils% 1.1 % (0-5); Hematocrit 41.5 % (37-47); Hemoglobin 13.9 g/dL (12.0-15.0); Lymphocyte # 2.26 X10^3/ul (0.83-4.51); Lymphocyte % 22.4 % (19-41); Mean Corp Hgb Conc 33.5 g/dL (32-36); Mean Corpuscular Hgb 31.3 pg (27.0-32.0); Mean Corpuscular Volume 93.5 fL (81-99); Mean Platelet Vol. 9.8 fl (6.2-12.0); Monocyte# 0.71 X10^3/uL; NRBC Flagged by Analyzer 0 % (0-5); Neutrophil # 6.93 X10^3/uL (2.7-7.7); Neutrophil % 68.8 % (47-70); Platelet Count 310 K/mm3 (150-450); RBC Distribution Width CV 13.3 % (11.6-14.6); RBC Distribution Width SD 45.6 fl (35.1-43.9); Red Blood Count 4.44 M/mm3 (4.2-5.4); White Blood Count 10.1 K/mm3 (4.4-11.0)
[2021-10-18 14:03] LABS: D-Dimer Quantitative (DVT/PE) <= 0.27 FEU/ug/m (0.27-0.49)
[2021-10-18 14:25] LABS: Anion Gap 7 (5-15); BUN 9 mg/dL (7-18); BUN/Creat Ratio 12.1 RATIO (10-20); Calcium,Total 9.3 mg/dL (8.5-10.1); Chloride 105 mmol/L (98-107); Creatinine, Serum 0.75 mg/dL (0.55-1.02); EST Glomerular Filtration Rate 87 mL/min (>60); Est Glom Filt Rate - Afr Amer 105 mL/min (>60); Estimated Creatinine Clearance 71.87 ml/min; Glucose 79 mg/dL (74-106); Potassium 4.1 mmol/L (3.5-5.1); Sodium Level 137 mmol/L (136-145); Troponin-I HS 4 pg/mL (3.0-54.0)
[2021-10-18 15:40] LABS: Troponin-I HS 6 pg/mL (3.0-54.0)
== END 2021-10-18 15:51 | disposition home or self-care (01) ==
PROVIDERS: Emergency Provider Student in an Organized Health Care Education/Training Program; PCP Family Medicine Geriatric Medicine; Visit Provider Student in an Organized Health Care Education/Training Program
DX: R07.9 Chest pain, unspecified (principal); R00.2 Palpitations; R51.9 Headache, unspecified; R53.83 Other fatigue; F17.210 Nicotine dependence, cigarettes, uncomplicated; F32.A Depression, unspecified; F41.9 Anxiety disorder, unspecified; R63.4 Abnormal weight loss
CPT/HCPCS: 71045; 80048; 84484; 85025; 85379; 93005; 96374; 96375; 99284; A4216

== ENCOUNTER 2021-10-23 11:37 | Emergency (ER) | payer BC, SELFPAY ==
[2021-10-23 11:38] VITALS: BP 182/146; PULSE 111; RESP 18; TEMP 36.6; O2SAT 99; BMI 17.0
--- NOTE | 2021-10-23 11:54 | RAD_ITS ---
STUDY: X-RAY CHEST REASON FOR EXAM: Female, 51 years old. SOB, body aches and headache COVID -- IN ED WR TECHNIQUE: PA and lateral views of the chest. COMPARISON: Comparison is made with prior study of 10/18/2001. FINDINGS: Hyperinflation. The lungs are clear. There is no demonstrated pleural abnormality. Normal size heart. Normal mediastinum and fany. Normal visualized pulmonary arteries. Normal visualized aortic arch and descending thoracic aorta. There is a minimal levoscoliosis of the thoracic spine. Normal visualized ribs, clavicles, and shoulders. There is no demonstrated abnormality of the visualized soft tissue structures of the upper abdomen. RAD/Chest PA and Lateral IMPRESSION: Hyperinflation. The lungs are clear. Electronically Signed: Serafin Conway MD at 12:13 [facility] ,
--- NOTE | 2021-10-23 13:33 | EX.ED.DYSGE1 ---
HPI History of Present Illness Chief Complaint: General Illness Informant: patient Onset/Context/Timing Onset: Days (3) Context: Gradual Onset Timing: Continuous Quality: Aching Location: Generalized Worsened by: Nothing Relieved by: Nothing Narrative Narrative: Patient presents with generalized aches, chills, and bilateral eye drainage that has been getting worse over the past 3 days. Patient states she feels aching all over. Patient states she started with drainage from both eyes. Patient states she woke up the other day with matting and crusting of her eyes. Patient admits to some blurred vision. Patient denies any foreign body sensation. Patient states she had a fever at home of 101. Patient states she feels achy all over. Patient also admits to a headache. Patient denies any nausea or vomiting. [facility] Medical History Anxiety and depression DDD (degenerative disc disease), lumbar Hyperthyroidism Radial scar of right breast Scoliosis Home Medications albuterol sulfate [Ventolin HFA] 1 - 2 puff INHALATION Q4H PRN PRN #1 inhaler 10/23/21 [Rx Last Taken Unknown] Allergy/AdvReac Type Severity Reaction Status Date / Time No Known Allergies Allergy Verified 10/23/21 11:40 Family History Father No problems noted. Surgical History History of dilation and curettage History of excision of pilonidal cyst (~1987) History of partial hysterectomy History of right breast biopsy Status post left breast lumpectomy (~2011) Social History Smoking Status: Current every day smoker tobacco type: cigarettes alcohol intake: current alcohol intake frequency: holidays/special occasions only substance use type: does not use what type of physical activity do you participate in: walking frequency: 1-2 times per week ROS ROS ED Constitutional Constitutional ED: Reports fever(s); Denies chills Eyes Eyes: Reports blurry vision; Denies diplopia ENT ENT ED: Denies rhinorrhea or sore throat Cardiovascular Cardiovascular: Denies chest pain or palpitations Respiratory/Chest Respiratory/Chest: Denies cough or dyspnea Gastrointestinal Gastrointestinal: Denies nausea or vomiting Genitourinary Genitourinary ED: Denies dysuria or hematuria Musculoskeletal Musculoskeletal: Reports back pain, myalgias and neck pain Integumentary Denies abscess or rash Neurologic Neurologic: Reports headache(s); Denies weakness Allergic/Immunologic Allergic/Immunologic ED: Denies mouth swelling or urticaria EXAM Physical Exam Const Vital Signs: 10/23/21 11:38 10/23/21 13:41 10/23/21 13:51 Temperature 98 F Temperature Source Temporal Pulse Rate 111 H 81 Respiratory Rate 18 16 Respiratory Effort Normal Respiratory Pattern Blood Pressure 182/146 H 105/68 Blood Pressure Mean 158 80 Pulse Ox 99 98 Oxygen Delivery Method Room Air Room Air 10/23/21 14:02 10/23/21 15:26 Temperature Temperature Source Pulse Rate 81 75 Respiratory Rate 20 H 16 Respiratory Effort Respiratory Pattern Normal Blood Pressure 131/84 H Blood Pressure Mean 99 Pulse Ox 95 Oxygen Delivery Method Room Air Positive well nourished and well developed General Appearance ED: well developed HEENT Reports moist mucous membranes Eyes PERRL and EOMs intact bilaterally Neck supple and no JVD Resp normal respiratory effort Auscultation: wheezes Cardio regular rate, regular rhythm and no murmurs GI normal to inspection, nondistended, normoactive bowel sounds and non-tender Palpation: soft Extremity normal to inspection General Extremety ED: Negative for edema or tenderness General Extremity: Negative for edema Neuro oriented x3, CN's II-XII intact bilaterally and no sensory deficits noted Sensorium / Orientation: alert Motor Exam: strength 5/5 throughout Psych mental status grossly normal Skin no rashes or lesions noted MDM MDM MDM Narrative Medical decision making narrative: Portable 1 view chest x-ray was obtained. On my interpretation, lung moore are clear. There is normal cardiac silhouette. Bony thorax is normal. There is no acute process noted. Radiologist also interpreted the x-ray and agrees. COVID-19 rapid antigen was obtained was negative. Influenza swabs were obtained and were negative. Patient was given a DuoNeb aerosol here. Patient is doing better on reevaluation. Patient was given a prescription for an albuterol inhaler. Patient was instructed to follow-up with her primary care physician in 5 to 7 days. Patient understood and was agreeable with plan. All questions were answered. Radiography Chest X-Ray - ED: 1 View, Read by ED Physician, Read by Radiologist and Normal Diagnostic Testing: Clinical Impression(s) from Imaging Studies Chest X-Ray 10/23/21 11:54 IMPRESSION: Hyperinflation. The lungs are clear. Electronically Signed: Serafin Conway MD at 12:13 EST Reading Location ID and State: [facility] / [place] , Service support , Discharge Plan Triage Chief Complaint: General Illness ED Provider: Kameron Noel Dx/Rx/DC Orders Clinical Impression: Viral URI Instructions: ED URI, Viral, No Abx (Adult) Prescriptions: New albuterol sulfate [Ventolin HFA] 1 INHALER inhaler 1 - 2 puff inhalation Q4H PRN PRN (Reason: Wheezing) Qty: 1 RF: 0 Stand Alone Forms: ED Work / School Excuse Primary Care Provider: Eliel Becerra Chi Referrals: Eliel Becerra Chi, MD [Primary Care Provider] - 3-5 Days Disposition Disposition: Home, Self Care
[2021-10-23] MEDS: Acetaminophen 500 MG Tablet 1000 MG PO (13:47)
[2021-10-23 13:51] VITALS: BP 105/68; PULSE 81; RESP 16; O2SAT 98
[2021-10-23] MEDS: Ipratropium/Albuterol Sulfate 3 ML AMPUL.NEB INHALATION (14:01)
[2021-10-23 14:02] VITALS: PULSE 81; RESP 20
[2021-10-23 15:26] VITALS: BP 131/84; PULSE 75; RESP 16; O2SAT 95
[2021-10-23 16:14] VITALS: BP 136/88; PULSE 75; RESP 15; O2SAT 99
== END 2021-10-23 16:15 | disposition home or self-care (01) ==
PROVIDERS: Emergency Provider Emergency Medicine; PCP Family Medicine Geriatric Medicine; Visit Provider Emergency Medicine
DX: J06.9 Acute upper respiratory infection, unspecified (principal); R51.9 Headache, unspecified; R68.83 Chills (without fever); F17.210 Nicotine dependence, cigarettes, uncomplicated
CPT/HCPCS: 71046; 87426; 87804; 94640; 99282

== ENCOUNTER 2022-01-17 11:32 | Emergency (ER) | payer BC, SELFPAY ==
[2022-01-17 11:33] VITALS: BP 133/90; PULSE 100; RESP 24; TEMP 36.9; O2SAT 96; BMI 17.4
--- NOTE | 2022-01-17 12:58 | CT_ITS ---
STUDY: CT ABDOMEN AND PELVIS WITH CONTRAST REASON FOR EXAM: Female, 51 years old. 10 day history of constipation. Abdominal pain. RADIATION DOSAGE (If Supplied By Facility): CTDIvol = ( 8.51 ) mGy, DLP = ( 352.93 ) mGycm TECHNIQUE: Transaxial images were obtained from the dome of the diaphragm to the symphysis pubis without oral contrast. IV 100mL Isovue-300 was administered. Sagittal and coronal images were reconstructed. Individualized dose optimization techniques were used for this CT. COMPARISON: None. FINDINGS: The visualized lung bases are unremarkable. The visualized portions of the heart are within normal limits. 3 mm cyst in the inferior aspect of the right lobe of the liver. Normal gallbladder and extrahepatic biliary system. Normal spleen. Normal pancreas. Normal bilateral adrenal glands. 4 mm focal fatty nodule in the lateral aspect of the right kidney suggestive of an angiomyolipoma. Normal left kidney. Normal visualized stomach. Normal small intestine. Large amount of fecal material is seen in the colon. The appendix is visualized and appears normal. Normal abdominal aorta. Normal inferior vena cava. Normal retroperitoneum. Normal urinary bladder. There is absence of the uterus consistent with a prior hysterectomy. Normal abdominal wall. There are mild degenerative changes of the visualized lumbar spine. Dextroscoliosis. CT/Abdomen/Pelvis WITH Contrast IMPRESSION: Large amount of fecal material is seen in colon. Subcentimeters cyst in the right lobe of the liver. 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 Electronically Signed: Serafin Conway MD at 14:49 EDT ,
--- NOTE | 2022-01-17 12:59 | ED.VIS.GI ---
HPI HPI - GI History of Present Illness Chief Complaint: Constipation Narrative Narrative: 51-year-old female presenting with constipation. This is a somewhat chronic issue. She states has been like this for couple of months. Over the last 10 days she has been doing laxatives, stool softeners, magnesium citrate, and laxatives. She does report that with the magnesium citrate she started to have some diarrhea. This has stopped and now she is constipated again. Patient reports diffuse abdominal pain. She complains of cramping. Patient states she is never had a colonoscopy. She states that she cannot see Dr. Becerra because she has abdominal pain and he will see her. [facility] Medical History Anxiety and depression DDD (degenerative disc disease), lumbar Hyperthyroidism Radial scar of right breast Scoliosis Home Medications cyclobenzaprine 10 mg PO PRN PRN 01/17/22 [History Last Taken Unknown] fluoxetine 40 mg PO DAILY 01/17/22 [History Last Taken Unknown] peg 3350-electrolytes [Golytely] 240 ml PO Q10M PRN PRN #4000 ml 01/17/22 [Rx Last Taken Unknown] Allergy/AdvReac Type Severity Reaction Status Date / Time No Known Allergies Allergy Verified 01/17/22 11:33 Family History Father No problems noted. Surgical History History of dilation and curettage History of excision of pilonidal cyst (~1987) History of partial hysterectomy History of right breast biopsy Status post left breast lumpectomy (~2011) Social History Smoking Status: Current every day smoker tobacco type: cigarettes alcohol intake: current alcohol intake frequency: holidays/special occasions only substance use type: does not use what type of physical activity do you participate in: walking frequency: 1-2 times per week ROS ROS ED Constitutional Constitutional ED: Denies chills or fever(s) ENT ENT ED: Denies rhinorrhea or sore throat Cardiovascular Cardiovascular: Denies chest pain or palpitations Respiratory/Chest Respiratory/Chest: Denies cough or dyspnea Gastrointestinal Gastrointestinal: Reports abdominal pain, constipation, diarrhea and nausea Genitourinary Genitourinary ED: Denies dysuria or hematuria Musculoskeletal Musculoskeletal: Denies arthralgias or myalgias Integumentary Denies rash Neurologic Neurologic: Denies headache(s) or weakness Psychiatric Psychiatric: Denies anxiety or depression EXAM Physical Exam Const Vital Signs: 01/17/22 11:33 Temperature 98.4 F Temperature Source Temporal Pulse Rate 100 Respiratory Rate 24 H Blood Pressure 133/90 H Blood Pressure Mean 104 Pulse Ox 96 Oxygen Delivery Method Room Air Positive well nourished General Appearance ED: NAD; Negative for pallor HEENT Reports moist mucous membranes normocephalic and trauma Eyes PERRL and EOMs intact bilaterally Resp normal respiratory effort and clear to auscultation bilaterally Cardio regular rate and regular rhythm GI non-distended GI Narrative: Profuse generalized tenderness. No focal areas of tenderness. Abdomen is soft. No peritoneal signs. Palpation: soft and tender Back/Spine no CVA tenderness Neuro Sensorium / Orientation: alert, oriented to person, oriented to place and oriented to time Psych mental status grossly normal Skin General Skin Exam: Negative for jaundice or pallor Lesions: no lesions Rashes: no rashes MDM MDM MDM Narrative Medical decision making narrative: Patient presenting with constipation and abdominal pain. She states she has tried multiple therapies without relief. Vital signs are stable and she is afebrile. Abdominal exam is benign. I did obtain blood work and her CBC, CMP within normal limits. Lipase normal. CT of the abdomen pelvis with IV contrast does show a large amount of fecal material in the colon. This is consistent with her history. I offered her an enema but she stated that these did not help her at home. Since patient is already tried magnesium citrate without success I will give her some GoLytely. I also gave her follow-up with GI. Patient given return precautions. Impression: 1. Abdominal pain 2. Constipation Lab Data Attestation: I reviewed the patient's lab results. Labs: Laboratory Results - last 24 hr 01/17/22 01/17/22 13:10 13:10 WBC 6.3 RBC 4.55 Hgb 13.6 Hct 41.6 MCV 91.4 MCH 29.9 MCHC 32.7 RDW Std Deviation 44.8 H RDW Coeff of Dariela 13.3 Plt Count 306 MPV 9.7 Immature Gran % (Auto) 0.800 Neut % (Auto) 56.0 Lymph % (Auto) 32.2 [place] % (Auto) 9.2 Eos % (Auto) 1.3 Baso % (Auto) 0.5 Absolute Neuts (auto) 3.6 Absolute Lymphs (auto) 2.04 Nucleated RBC % 0 Sodium 138 Potassium 3.9 Chloride 105 Carbon Dioxide 28.0 Anion Gap 5 BUN 10 Creatinine 0.85 Estim Creat Clear Calc 64.48 Est GFR (MDRD) Af Amer 90 Est GFR (MDRD) Non-Af 74 BUN/Creatinine Ratio 11.7 Glucose 71 L Calcium 9.3 Total Bilirubin 0.40 AST 23 ALT 27 Alkaline Phosphatase 87 Total Protein 7.6 Albumin 3.9 Globulin 3.7 Albumin/Globulin Ratio 1.1 Lipase 58 L Radiography Diagnostic Testing: Clinical Impression(s) from Imaging Studies Abdomen/Pelvis CT 01/17/22 12:58 IMPRESSION: Large amount of fecal material is seen in colon. Subcentimeters cyst in the right lobe of the liver. 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 Electronically Signed: Serafin Conway MD at 14:49 EDT , Discharge Plan Triage Chief Complaint: Constipation ED Provider: Sanchez Santiago Dx/Rx/DC Orders Instructions: ED Abdominal Pain Unkn Cause Fem, ED Constipation (Adult) Prescriptions: New peg 3350-electrolytes [Golytely] 236-22.74-6.74 -5.86 gram recon soln 240 ml PO Q10M PRN PRN (Reason: constipation) Qty: 4000 RF: 0 No Action fluoxetine 40 mg capsule 40 mg PO DAILY RF: 0 cyclobenzaprine 10 mg tablet 10 mg PO PRN PRN (Reason: BACK SPASMS) RF: 0 Stand Alone Forms: ED Work / School Excuse Primary Care Provider: Care Physician,No Primary Referrals: Friend,Viraj, DO [STAFF PHYSICIAN] - As soon as possible Care Physician,No Primary [Primary Care Provider] - Disposition Disposition: Home, Self Care Discharge Date/Time: 01/17/22 15:33
[2022-01-17] MEDS: 0.9% Normal Saline 1,000 ML 1000 ML IV (13:10)
[2022-01-17] MEDS: Ondansetron 4 MG/2 ML Vial IV (13:11)
[2022-01-17] MEDS: Ketorolac 15 MG/ML Vial IV (13:11)
[2022-01-17 13:20] LABS: Absolute Lymphocyte Count 2.04 X10^3/uL (0.83-4.51); Absolute Neutrophil Count 3.6 X10^3/uL (2.0-7.7); Basophil# 0.03 X10^3/uL; Basophil% 0.5 % (0-1); Eosinophil# 0.08 X10^3/uL; Eosinophils% 1.3 % (0-5); Hematocrit 41.6 % (37-47); Hemoglobin 13.6 g/dL (12.0-15.0); Lymphocyte # 2.04 X10^3/ul (0.83-4.51); Lymphocyte % 32.2 % (19-41); Mean Corp Hgb Conc 32.7 g/dL (32-36); Mean Corpuscular Hgb 29.9 pg (27.0-32.0); Mean Corpuscular Volume 91.4 fL (81-99); Mean Platelet Vol. 9.7 fl (6.2-12.0); Monocyte# 0.58 X10^3/uL; Monocyte% 9.2 % (0-10); NRBC Flagged by Analyzer 0 % (0-5); Neutrophil # 3.55 X10^3/uL (2.7-7.7); Platelet Count 306 K/mm3 (150-450); RBC Distribution Width CV 13.3 % (11.6-14.6); RBC Distribution Width SD 44.8 fl (35.1-43.9); Red Blood Count 4.55 M/mm3 (4.2-5.4); White Blood Count 6.3 K/mm3 (4.4-11.0)
[2022-01-17 13:38] LABS: ALB/GLOB Ratio 1.1 RATIO (0.9-2.4); AST(SGOT) 23 U/L (15-37); Alanine Aminotransfer ALT/SGPT 27 U/L (13-56); Albumin, Serum 3.9 g/dL (3.2-5.0); Alkaline Phosphatase 87 U/L (45-117); Anion Gap 5 (5-15); BUN 10 mg/dL (7-18); BUN/Creat Ratio 11.7 RATIO (10-20); Calcium,Total 9.3 mg/dL (8.5-10.1); Chloride 105 mmol/L (98-107); Creatinine, Serum 0.85 mg/dL (0.55-1.02); EST Glomerular Filtration Rate 74 mL/min (>60); Est Glom Filt Rate - Afr Amer 90 mL/min (>60); Estimated Creatinine Clearance 64.48 ml/min; Globulin 3.7 g/dL (2.2-4.2); Glucose 71 mg/dL (74-106); Lipase 58 U/L (73-393); Potassium 3.9 mmol/L (3.5-5.1); Protein, Total 7.6 g/dL (6.4-8.2); Sodium Level 138 mmol/L (136-145)
== END 2022-01-17 15:33 | disposition home or self-care (01) ==
PROVIDERS: Emergency Provider Student in an Organized Health Care Education/Training Program; Visit Provider Student in an Organized Health Care Education/Training Program
DX: K59.00 Constipation, unspecified (principal); R10.9 Unspecified abdominal pain; F17.210 Nicotine dependence, cigarettes, uncomplicated; M41.9 Scoliosis, unspecified; M51.36 Other intervertebral disc degeneration, lumbar region; F41.9 Anxiety disorder, unspecified; F32.A Depression, unspecified; Z79.899 Other long term (current) drug therapy
CPT/HCPCS: 74177; 80053; 83690; 85025; 96361; 96374; 96375; 99283; J7030; Q9967; A4216; J2405

== ENCOUNTER → 2022-04-13 | Outpatient (CLI) | payer MEDICAID, SELFPAY ==
[2022-04-13 11:58] LABS: Free T3 2.4 pg/mL (2.18-3.98); Thyroid Stim Hormone (TSH) 0.45 uIU/mL (0.358-3.74)
== END | disposition home or self-care (01) ==
LOC: LAB 10:34
PROVIDERS: Visit Provider Nurse Practitioner Adult Health
DX: E05.90 Thyrotoxicosis, unspecified without thyrotoxic crisis or storm (principal)
CPT/HCPCS: 36415; 84439; 84443; 84481

== ENCOUNTER 2022-04-18 12:58 | Emergency (ER) | payer MEDICAID, SELFPAY ==
[2022-04-18 12:58] VITALS: BP 143/103; PULSE 74; RESP 16; TEMP 36.6; O2SAT 100; BMI 16.7
--- NOTE | 2022-04-18 13:12 | ED.VIS.GI ---
HPI HPI - GI History of Present Illness Chief Complaint: Diarrhea Informant: patient Abdominal Pain/Flank Pain Onset: Days Context: Gradual Onset Timing: Continuous Quality: Cramping Location: Diffuse Current Severity: Mild Maximum Severity: Mild Worsened by: Nothing Relieved by: Nothing Nausea/Vomiting/Emesis GI Symptom: Positive for Nausea; Negative for Vomiting Onset: Today Severity: Mild Diarrhea/Melena/Hematochezia GI Symptom: Positive for Diarrhea; Negative for Melena or Hematochezia Onset: Days Stool Quality: Positive for Watery Severity: Moderate Associated Symptoms Associated Symptoms: Negative for Dysuria, Frequency, Hematuria or Urgency Narrative Narrative: 51-year-old female history of anxiety and depression. Since November she has had problems with constipation for which she has been using stool softeners and magnesium citrate etc. That seemed to improve but now over the last several days she has had diarrhea watery and brown. No melena. No fever. She is also currently being worked up for hyperthyroidism. Is waiting to see a specialist. Prior similar symptoms: No Recent Illness/Hospitalization: No PFSH PFSH Medical History Anxiety and depression DDD (degenerative disc disease), lumbar Hyperthyroidism Radial scar of right breast Scoliosis Home Medications cyclobenzaprine 10 mg tablet 10 mg PO PRN PRN BACK SPASMS 01/17/22 [History Last Taken Unknown] fluoxetine 40 mg capsule 40 mg PO DAILY 01/17/22 [History Last Taken Unknown] peg 3350-electrolytes 236 gram-22.74 gram-6.74 gram-5.86 gram solution (Golytely) 240 ml PO Q10M PRN PRN constipation #4,000 mL 01/17/22 [Rx Last Taken Unknown] Allergy/AdvReac Type Severity Reaction Status Date / Time No Known Allergies Allergy Verified 04/18/22 12:59 Family History Father No problems noted. Surgical History History of dilation and curettage History of excision of pilonidal cyst (~1987) History of partial hysterectomy History of right breast biopsy Status post left breast lumpectomy (~2011) Social History Smoking Status: Current every day smoker tobacco type: cigarettes alcohol intake: current alcohol intake frequency: holidays/special occasions only substance use type: does not use what type of physical activity do you participate in: walking frequency: 1-2 times per week ROS ROS ED ROS Narrative Diarrhea. Abdominal cramping. Review of Systems ROS Unobtainable: Denies due to encephalopathy Constitutional Constitutional ED: Denies chills or fever(s) ENT ENT ED: Denies ear pain Cardiovascular Cardiovascular: Denies chest pain Respiratory/Chest Respiratory/Chest: Denies cough or dyspnea Gastrointestinal Gastrointestinal: Reports abdominal pain, constipation, diarrhea and nausea; Denies melena or vomiting Genitourinary Genitourinary ED: Denies dysuria or hematuria Musculoskeletal Musculoskeletal: Denies arthralgias Integumentary Denies abscess Neurologic Neurologic: Denies headache(s) Psychiatric Psychiatric: Denies anxiety Endocrine Endocrinology: Denies polydipsia Hematologic/Lymphatic Hematologic/Lymphatic: Denies easy bleeding Allergic/Immunologic Allergic/Immunologic ED: Denies mouth swelling EXAM Physical Exam Narrative Exam Narrative: 51-year-old female no acute distress. Vital signs stable afebrile. H EENT exam DryMax membranes otherwise unremarkable. Neck nontender no lymphadenopathy. No JVD. Lungs clear to auscultation. Heart regular rhythm rate about 75 no murmur. Abdomen soft nondistended. Normal bowel sounds. No peritoneal signs. No hernia or mass. No obstruction. No localizing tenderness. Normal bowel sounds. Moving all 4 extremities. Back nontender. Neurologically she is awake and alert with no focal motor deficits. Const Vital Signs: 04/18/22 12:58 Temperature 97.8 F Temperature Source Temporal Pulse Rate 74 Respiratory Rate 16 Blood Pressure 143/103 H Blood Pressure Mean 116 Pulse Ox 100 Oxygen Delivery Method Room Air Positive well nourished and well developed; Negative for obese, cachectic, contractures or unkempt General Appearance ED: well developed; Negative for unkempt, cachectic, contractures or pallor Nutritional Appearance: Negative for cachectic or obese HEENT Reports dry mucous membranes; Denies moist mucous membranes normocephalic and atraumatic; Negative for trauma or tenderness Mouth ED: Yes dry mucous membranes Mouth: dry mucous membranes Eyes PERRL and EOMs intact bilaterally General Eye ED: Negative for pale conjunctiva or scleral icterus Neck no lymphadenopathy, supple and no JVD General: Negative for tenderness Carotids: Negative for other Lymph Lymphatic: Negative for other Resp normal respiratory effort and clear to auscultation bilaterally Effort and Inspection: Negative for respiratory distress Auscultation: Negative for rales, rhonchi or wheezes Cardio regular rate, regular rhythm, S1 normal heart sound, S2 normal heart sound and no murmurs Rate: Negative for bradycardia Rhythm: Negative for abnormal rhythm GI non-tender, non-distended and no masses Inspection: Negative for abdominal distention Auscultation: normoactive bowel sounds Palpation: soft; Negative for tender, guarding or rigid Back/Spine no CVA tenderness General Back: Negative for CVA tenderness Cervical Spine: Negative for cervical spine tenderness Thoracic Spine / Upper Back: Negative for thoracic spinal tenderness Lumbar Spine / Lower Back: Negative for lumbar spinal tenderness Extremity full ROM General Extremety ED: Negative for edema or tenderness General Extremity: Negative for edema Neuro CN's II-XII intact bilaterally, moves all extremities and no sensory deficits noted Sensorium / Orientation: alert, oriented to person, oriented to place and oriented to time; Negative for orientation impaired, confused, lethargic or stuporous Motor Exam: strength 5/5 throughout Psych mental status grossly normal and thought process normal Appearance: Negative for unkempt Attitude: No agitated Mood & Affect: Negative for depressed Skin no wounds General Skin Exam: Negative for jaundice or pallor Lesions: no lesions Rashes: no rashes Trauma: Negative for abrasion Nails: Negative for discolored MDM MDM MDM Narrative Medical decision making narrative: 51-year-old that had constipation has since improved and now is having diarrhea. Clinically looks dehydrated we will give her IV fluids. Check screening labs. Her abdomen is benign. Currently she needs no imaging. She is also had outpatient recent labs which I will review. She will be given IV Zofran for her nausea. Repeat exam at 2:38 PM patient doing well. Abdomen benign. We went over all of her test results. She will be discharged home. Plenty of fluids. [place] diet increase slowly as tolerated. Follow-up if not improving. Lab Data Attestation: I reviewed the patient's lab results. Lab results narrative: CBC unremarkable. White count of 7. H&H 13 and 38. Normal platelets. Electrolytes show a gap of 6. A normal BUN and creatinine of 14 and 0.7. Liver enzymes normal. Labs: Laboratory Results - last 24 hr 04/18/22 04/18/22 13:20 13:20 WBC 7.4 RBC 4.19 L Hgb 13.0 Hct 38.5 MCV 91.9 MCH 31.0 MCHC 33.8 RDW Std Deviation 48.3 H RDW Coeff of Dariela 14.3 Plt Count 324 MPV 9.7 Immature Gran % (Auto) 0.300 Neut % (Auto) 59.3 Lymph % (Auto) 29.3 [place] % (Auto) 8.3 Eos % (Auto) 2.4 Baso % (Auto) 0.4 Absolute Neuts (auto) 4.4 Absolute Lymphs (auto) 2.18 Nucleated RBC % 0 Sodium 139 Potassium 4.7 Chloride 105 Carbon Dioxide 28.0 Anion Gap 6 BUN 14 Creatinine 0.78 Estim Creat Clear Calc 67.21 Est GFR (MDRD) Af Amer 100 Est GFR (MDRD) Non-Af 83 BUN/Creatinine Ratio 18.0 Glucose 98 Calcium 9.1 Total Bilirubin 0.30 AST 22 ALT 31 Alkaline Phosphatase 76 Total Protein 6.8 Albumin 3.5 Globulin 3.3 Albumin/Globulin Ratio 1.1 Discharge Plan Triage Chief Complaint: Diarrhea ED Provider: Moses Johansen Dx/Rx/DC Orders Clinical Impression: Diarrhea Instructions: ED Diarrhea, Unknown Cause Prescriptions: No Action fluoxetine 40 mg capsule 40 mg PO DAILY Label Comments: TAKE 1 CAPSULE DAILY FOR 90 DAYS cyclobenzaprine 10 mg tablet 10 mg PO PRN PRN (Reason: BACK SPASMS) Label Comments: TAKE 1 TABLET BY MOUTH TWICE DAILY NEEDED FOR SPASMS peg 3350-electrolytes [Golytely] 236-22.74-6.74 -5.86 gram recon soln 240 ml PO Q10M PRN PRN (Reason: constipation) Qty: 4000 0RF Rx Instructions: until fecal effluent is clear Primary Care Provider: Afia Ramey Referrals: Afia Ramey [Primary Care Provider] - 3-5 Days if not improving Activity Restrictions/Additional Instructions: Plenty of fluids and rest. [place] diet and increase slowly as tolerated. Follow-up with your primary care provider if not improving. Disposition Disposition: Home, Self Care
[2022-04-18] MEDS: 0.9% Normal Saline 1,000 ML 1000 ML IV (13:20)
[2022-04-18] MEDS: Ondansetron 4 MG/2 ML Vial IV (13:21)
[2022-04-18 13:40] LABS: Absolute Lymphocyte Count 2.18 X10^3/uL (0.83-4.51); Absolute Neutrophil Count 4.4 X10^3/uL (2.0-7.7); Basophil# 0.03 X10^3/uL; Basophil% 0.4 % (0-1); Eosinophil# 0.18 X10^3/uL; Eosinophils% 2.4 % (0-5); Hematocrit 38.5 % (37-47); Lymphocyte # 2.18 X10^3/ul (0.83-4.51); Lymphocyte % 29.3 % (19-41); Mean Corp Hgb Conc 33.8 g/dL (32-36); Mean Corpuscular Volume 91.9 fL (81-99); Mean Platelet Vol. 9.7 fl (6.2-12.0); Monocyte# 0.62 X10^3/uL; Monocyte% 8.3 % (0-10); NRBC Flagged by Analyzer 0 % (0-5); Neutrophil # 4.41 X10^3/uL (2.7-7.7); Neutrophil % 59.3 % (47-70); Platelet Count 324 K/mm3 (150-450); RBC Distribution Width CV 14.3 % (11.6-14.6); RBC Distribution Width SD 48.3 fl (35.1-43.9); Red Blood Count 4.19 M/mm3 (4.2-5.4); White Blood Count 7.4 K/mm3 (4.4-11.0)
[2022-04-18 13:47] LABS: ALB/GLOB Ratio 1.1 RATIO (0.9-2.4); AST(SGOT) 22 U/L (15-37); Alanine Aminotransfer ALT/SGPT 31 U/L (13-56); Albumin, Serum 3.5 g/dL (3.2-5.0); Alkaline Phosphatase 76 U/L (45-117); Anion Gap 6 (5-15); BUN 14 mg/dL (7-18); Calcium,Total 9.1 mg/dL (8.5-10.1); Chloride 105 mmol/L (98-107); Creatinine, Serum 0.78 mg/dL (0.55-1.02); EST Glomerular Filtration Rate 83 mL/min (>60); Est Glom Filt Rate - Afr Amer 100 mL/min (>60); Estimated Creatinine Clearance 67.21 ml/min; Globulin 3.3 g/dL (2.2-4.2); Glucose 98 mg/dL (74-106); Potassium 4.7 mmol/L (3.5-5.1); Protein, Total 6.8 g/dL (6.4-8.2); Sodium Level 139 mmol/L (136-145)
== END 2022-04-18 14:45 | disposition home or self-care (01) ==
PROVIDERS: Emergency Provider Emergency Medicine; Visit Provider Emergency Medicine
DX: R19.7 Diarrhea, unspecified (principal); F41.9 Anxiety disorder, unspecified; F17.210 Nicotine dependence, cigarettes, uncomplicated; F32.A Depression, unspecified; Z79.899 Other long term (current) drug therapy
CPT/HCPCS: 80053; 85025; 96361; 96374; 99283; J7030; A4216; J2405

== ENCOUNTER 2022-05-15 12:22 | Emergency (ER) | payer MEDICAID, SELFPAY ==
[2022-05-15 12:23] VITALS: BP 152/99; PULSE 85; RESP 16; TEMP 36.9; O2SAT 100; BMI 17.4
[2022-05-15 12:26] VITALS: BP 152/99; PULSE 85; RESP 16; TEMP 36.9; O2SAT 100
--- NOTE | 2022-05-15 12:37 | EX.ED.DYSGE1 ---
HPI History of Present Illness Chief Complaint: Dental Detail of Chief Complaint: Persistent left-sided jaw pain and diarrhea Informant: patient Onset/Context/Timing Onset: - (Per HPI narrative) Context: Sudden Onset Timing: Continuous (With respect to the jaw pain) Quality: Pain Location: Near the angle of mandible radiating up to her ear and had and into her nec Current Severity: Mild Maximum Severity: Moderate Worsened by: Nothing specific Relieved by: Nothing Associated Symptoms Associated Symptoms: Profuse watery diarrhea that started today Narrative Narrative: Patient is a 51-year-old woman who had her wisdom teeth extracted 3 weeks ago. It was determined after the extraction of tooth #17 there was an infection of the left lower jaw. Patient was initially placed on Augmentin. She presents now because of worsening pain. Upon questioning it was determined the patient's had profuse watery diarrhea with an odor and unusual color. She did not notice blood or mucus. Initially patient was treated with a course of Augmentin 875 mg twice daily. She then was placed on cephalexin. Since there was no improvement she was placed on clindamycin 300 mg 3 times daily. She did not follow-up with the oral surgeon because she has been there 3 times and things have not gotten better. Patient's major concern is the pain. I informed the patient my major concern is the dysuria. Patient has history of anxiety. There is no history of hypertension, diabetes or renal disease. Prior similar symptoms: Yes Recent Illness/Hospitalization: Yes [facility] Medical History Anxiety and depression DDD (degenerative disc disease), lumbar Hyperthyroidism Radial scar of right breast Scoliosis Home Medications cyclobenzaprine 10 mg tablet 10 mg PO PRN PRN BACK SPASMS 01/17/22 [History Last Taken Unknown] fluoxetine 40 mg capsule 40 mg PO DAILY 01/17/22 [History Last Taken Unknown] peg 3350-electrolytes 236 gram-22.74 gram-6.74 gram-5.86 gram solution (Golytely) 240 ml PO Q10M PRN PRN constipation #4,000 mL 01/17/22 [Rx Last Taken Unknown] hydrocodone-acetaminophen 5-325mg 5mg-325mg 1 tab PO Q6H PRN PRN Pain 3 days #10 TABLETS 05/15/22 [Rx Last Taken Unknown] Allergy/AdvReac Type Severity Reaction Status Date / Time No Known Allergies Allergy Verified 05/15/22 12:26 Family History Father No problems noted. Surgical History History of dilation and curettage History of excision of pilonidal cyst (~1987) History of partial hysterectomy History of right breast biopsy Status post left breast lumpectomy (~2011) Social History (Updated 05/15/22 @ 12:[address] Chauncey Ornelas MD) household members: none Smoking Status: Current every day smoker tobacco type: cigarettes alcohol intake: current alcohol intake frequency: holidays/special occasions only substance use type: does not use what type of physical activity do you participate in: walking frequency: 1-2 times per week ROS ROS ED Constitutional Constitutional ED: Denies chills, fever(s), subjective, sweats or weight loss Eyes Eyes: Denies blurry vision, change in vision or diplopia ENT ENT ED: Reports ear pain left and other Details: Left-sided jaw pain ; Denies rhinorrhea or sore throat Cardiovascular Cardiovascular: Denies chest pain or palpitations Respiratory/Chest Respiratory/Chest: Denies cough, dyspnea or dyspnea on exertion Gastrointestinal Gastrointestinal: Reports diarrhea; Denies abdominal pain, nausea or vomiting Genitourinary Genitourinary ED: Denies dysuria, hematuria or urinary frequency Musculoskeletal Musculoskeletal: Denies arthralgias, back pain or neck pain Integumentary Reports abscess; Denies Abrasions or rash Neurologic Neurologic: Reports headache(s); Denies paresthesias or weakness Psychiatric Psychiatric: Reports anxiety Hematologic/Lymphatic Hematologic/Lymphatic: Reports systems reviewed and no addt'l complaints, except as documented EXAM Physical Exam Const Vital Signs: 05/15/22 12:23 05/15/22 12:26 Temperature 98.4 F 98.4 F Temperature Source Temporal Temporal Pulse Rate 85 85 Respiratory Rate 16 16 Blood Pressure 152/99 H 152/99 H Blood Pressure Mean 116 116 Pulse Ox 100 100 Oxygen Delivery Method Room Air Room Air Positive well nourished and well developed General Appearance ED: well developed and NAD HEENT Reports TM's clear and dry mucous membranes HEENT Narrative: There is no trismus. There is slight swelling of the gum where tooth #17 would be. There is no fluctuance. There is a nodule noted near the angle of the mandible. Patient states this is not tender and is smaller in size. There is no cervical lymphadenopathy. There is no evidence of Ludewig's angina. Ears normal. External auditory canal normal. TM normal. Tympanic Membrane ED: Yes TM's clear Mouth ED: Yes dry mucous membranes Mouth: dry mucous membranes Eyes PERRL and EOMs intact bilaterally General Eye ED: Negative for pale conjunctiva or scleral icterus Neck no lymphadenopathy, supple and no JVD Neck Narrative: Trachea is midline. There is no inspiratory expiratory stridor. Chest Wall inspection of chest normal and palpation of chest normal Resp normal respiratory effort and clear to auscultation bilaterally Cardio regular rate, regular rhythm, S1 normal heart sound, S2 normal heart sound and no murmurs GI normal to inspection, nondistended, normoactive bowel sounds, non-distended and no masses; Negative for non-tender or hepatosplenomegaly Auscultation: hyperactive bowel sounds Palpation: tender Back/Spine no CVA tenderness Cervical Spine: Negative for cervical spine tenderness Thoracic Spine / Upper Back: Negative for thoracic spinal tenderness Lumbar Spine / Lower Back: Negative for lumbar spinal tenderness Extremity normal to inspection Neuro oriented x3, CN's II-XII intact bilaterally and no sensory deficits noted Sensorium / Orientation: alert Psych mental status grossly normal Skin no rashes or lesions noted, no wounds and skin turgor normal MDM MDM MDM Narrative Medical decision making narrative: Suspect patient's pain is due to the difficult extraction and subsequent infection. Clinically there is no concern for Ludewig's angina. There is no evidence of facial cellulitis. Suspect pain is due to the difficult extraction. Patient was informed from a medical standpoint the concern is that she may have Pseudomonas enterocolitis. Will obtain stool for C. difficile. Blood work was obtained for restratification to determine appropriate antibiotic and if inpatient therapy is indicated. Clinically she is dehydrated. Fluid bolus was administered. She also was administered Zofran and morphine to control her pain. Lab Data Attestation: I reviewed the patient's lab results. Lab results narrative: CBC is unremarkable. Electrolyte panel is unremarkable. Awaiting results of C. difficile toxin determine patient needs to discontinue antibiotics versus discontinuation antibiotics and treatment with p.o. vancomycin. If patient does have pseudomembranous enterocolitis she is a candidate for outpatient treatment. Stool for C. difficile was negative. Patient was instructed to discontinue antibiotics and follow-up with the dentist. Labs: Laboratory Results - last 24 hr 05/15/22 05/15/22 13:00 13:00 WBC 7.7 RBC 4.43 Hgb 13.3 Hct 40.8 MCV 92.1 MCH 30.0 MCHC 32.6 RDW Std Deviation 49.1 H RDW Coeff of Dariela 14.4 Plt Count 347 MPV 9.5 Immature Gran % (Auto) 0.500 Neut % (Auto) 58.9 Lymph % (Auto) 30.1 [place] % (Auto) 7.7 Eos % (Auto) 2.3 Baso % (Auto) 0.5 Absolute Neuts (auto) 4.5 Absolute Lymphs (auto) 2.32 Nucleated RBC % 0 Sodium 138 Potassium 4.6 Chloride 104 Carbon Dioxide 30.0 Anion Gap 4 L BUN 13 Creatinine 0.79 Estim Creat Clear Calc 69.38 Est GFR (MDRD) Af Amer 98 Est GFR (MDRD) Non-Af 81 BUN/Creatinine Ratio 16.5 Glucose 91 Calcium 9.5 Discharge Plan Triage Chief Complaint: Dental ED Provider: Chauncey Ornelas Dx/Rx/DC Orders Clinical Impression: Antibiotic-associated diarrhea, Dental infection, Jaw pain, non-TMJ Instructions: ED Dental Pain, ED Diet Vomiting Diarrhea Prescriptions: New hydrocodone-acetaminophen [hydrocodone-acetaminophen] 5-325 mg tablet 1 tab PO Q6H PRN PRN (Reason: Pain) 3 Days Qty: 10 0RF No Action fluoxetine 40 mg capsule 40 mg PO DAILY Label Comments: TAKE 1 CAPSULE DAILY FOR 90 DAYS cyclobenzaprine 10 mg tablet 10 mg PO PRN PRN (Reason: BACK SPASMS) Label Comments: TAKE 1 TABLET BY MOUTH TWICE DAILY NEEDED FOR SPASMS peg 3350-electrolytes [Golytely] 236-22.74-6.74 -5.86 gram recon soln 240 ml PO Q10M PRN PRN (Reason: constipation) Qty: 4000 0RF Rx Instructions: until fecal effluent is clear Primary Care Provider: Care Physician,No Primary Referrals: Afia Ramey [Non-Staff] - Disposition Disposition: Home, Self Care Discharge Date/Time: 05/15/22 16:12
[2022-05-15] MEDS: Ondansetron 4 MG/2 ML Vial IV (13:09)
[2022-05-15] MEDS: Morphine 4 MG/ML Syringe IV (13:09)
[2022-05-15] MEDS: 0.9% Normal Saline 1,000 ML 1000 ML IV (13:10)
[2022-05-15 13:18] LABS: Absolute Lymphocyte Count 2.32 X10^3/uL (0.83-4.51); Absolute Neutrophil Count 4.5 X10^3/uL (2.0-7.7); Basophil# 0.04 X10^3/uL; Basophil% 0.5 % (0-1); Eosinophil# 0.18 X10^3/uL; Eosinophils% 2.3 % (0-5); Hematocrit 40.8 % (37-47); Hemoglobin 13.3 g/dL (12.0-15.0); Lymphocyte # 2.32 X10^3/ul (0.83-4.51); Lymphocyte % 30.1 % (19-41); Mean Corp Hgb Conc 32.6 g/dL (32-36); Mean Corpuscular Volume 92.1 fL (81-99); Mean Platelet Vol. 9.5 fl (6.2-12.0); Monocyte# 0.59 X10^3/uL; Monocyte% 7.7 % (0-10); NRBC Flagged by Analyzer 0 % (0-5); Neutrophil # 4.54 X10^3/uL (2.7-7.7); Neutrophil % 58.9 % (47-70); Platelet Count 347 K/mm3 (150-450); RBC Distribution Width CV 14.4 % (11.6-14.6); RBC Distribution Width SD 49.1 fl (35.1-43.9); Red Blood Count 4.43 M/mm3 (4.2-5.4); White Blood Count 7.7 K/mm3 (4.4-11.0)
[2022-05-15 13:29] LABS: Anion Gap 4 (5-15); BUN 13 mg/dL (7-18); BUN/Creat Ratio 16.5 RATIO (10-20); Calcium,Total 9.5 mg/dL (8.5-10.1); Chloride 104 mmol/L (98-107); Creatinine, Serum 0.79 mg/dL (0.55-1.02); EST Glomerular Filtration Rate 81 mL/min (>60); Est Glom Filt Rate - Afr Amer 98 mL/min (>60); Estimated Creatinine Clearance 69.38 ml/min; Glucose 91 mg/dL (74-106); Potassium 4.6 mmol/L (3.5-5.1); Sodium Level 138 mmol/L (136-145)
[2022-05-15 16:03] VITALS: PULSE 79; RESP 15; O2SAT 99
== END 2022-05-15 16:12 | disposition home or self-care (01) ==
PROVIDERS: Emergency Provider Emergency Medicine; Visit Provider Emergency Medicine
DX: K04.7 Periapical abscess without sinus (principal); R19.7 Diarrhea, unspecified; E86.0 Dehydration; R68.84 Jaw pain; F17.210 Nicotine dependence, cigarettes, uncomplicated; F41.9 Anxiety disorder, unspecified
CPT/HCPCS: 80048; 85025; 87493; 96361; 96374; 96375; 99284; J7030; A4216; J2405

== ENCOUNTER 2022-07-12 17:37 | Emergency (ER) | payer MEDICAID, SELFPAY ==
[2022-07-12 17:38] VITALS: BP 109/78; PULSE 69; RESP 18; TEMP 36.6; O2SAT 100; BMI 17.9
[2022-07-12] MEDS: Ondansetron 4 MG/2 ML Vial IV (18:42)
[2022-07-12] MEDS: Ketorolac 15 MG/ML Vial IV (18:43)
[2022-07-12] MEDS: Morphine 4 MG/ML Syringe IV (18:43)
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
--- NOTE | 2022-07-12 18:53 | ED.RN ---
THIS RN IN TO MEDICATE PT. PT VERY TEARFUL, STATES SOME DAYS I JUST WANT TO WHEN QUESTIONED THE PTS STATES I DON'T REALLY WANT TO BUT I'M SO FRUSTRATED. PT ADMITS TO BEING DEPRESSED. THIS RN TALKED WITH PT REGARDING ESTABLISHING A PRIMARY CARE PHYSICIAN AND TALKING WITH CRISES TO ESTABLISH MENTAL HEALTH TREATMENT
--- NOTE | 2022-07-12 19:40 | ED.RN ---
CRISIS CALLED AND MADE AWARE OF THE PATIENT
[2022-07-12 20:04] VITALS: BP 134/78; PULSE 76; RESP 16; O2SAT 98
--- NOTE | 2022-07-12 20:53 | ED.RN ---
NURSING STAFF CALLED INTO THE ROOM AT THIS TIME BECAUSE PATIENT INFORMED ABOUT PLAN FOR ADMISSION AND PYSCH HOLD AND PINK SLIPPED. PATIENT VERBALLY UPSET AND EXPLAINED CONDITION AND THE CONCERN. AT THE BEDSIDE AND AGREES. PATIENT EXPRESSES UNDERSTANDING. EXPLAINED DR. ALVA WOULD BE IN TO EXPLAIN THINGS AND PATIENT REQUESTING MEDICATION. SPOKE WITH DR. ALVA MEDICATION TO BE ORDERED
[2022-07-12] MEDS: LORazepam 0.5 MG Tablet PO (21:06)
--- NOTE | 2022-07-12 21:17 | ED.RN ---
[facility] HAS DENIED PATIENT DUE TO INSURANCE ISSUES AT THIS TIME
[2022-07-12 21:23] LABS: Absolute Lymphocyte Count 2.43 X10^3/uL (0.83-4.51); Absolute Neutrophil Count 3.5 X10^3/uL (2.0-7.7); Basophil# 0.03 X10^3/uL; Basophil% 0.4 % (0-1); Eosinophil# 0.25 X10^3/uL; Eosinophils% 3.7 % (0-5); Hemoglobin 11.9 g/dL (12.0-15.0); Lymphocyte # 2.43 X10^3/ul (0.83-4.51); Lymphocyte % 35.8 % (19-41); Mean Corp Hgb Conc 33.1 g/dL (32-36); Mean Corpuscular Hgb 31.6 pg (27.0-32.0); Mean Corpuscular Volume 95.5 fL (81-99); Mean Platelet Vol. 10.9 fl (6.2-12.0); Monocyte# 0.58 X10^3/uL; Monocyte% 8.6 % (0-10); NRBC Flagged by Analyzer 0 % (0-5); Neutrophil # 3.47 X10^3/uL (2.7-7.7); Neutrophil % 51.2 % (47-70); Platelet Count 336 K/mm3 (150-450); RBC Distribution Width CV 13.5 % (11.6-14.6); RBC Distribution Width SD 47.7 fl (35.1-43.9); Red Blood Count 3.77 M/mm3 (4.2-5.4); White Blood Count 6.8 K/mm3 (4.4-11.0)
[2022-07-12 21:44] LABS: Anion Gap 4 (5-15); BUN 11 mg/dL (7-18); BUN/Creat Ratio 13.3 RATIO (10-20); Calcium,Total 8.7 mg/dL (8.5-10.1); Chloride 107 mmol/L (98-107); Creatinine, Serum 0.83 mg/dL (0.55-1.02); EST Glomerular Filtration Rate 77 mL/min (>60); Est Glom Filt Rate - Afr Amer 93 mL/min (>60); Estimated Creatinine Clearance 66.99 ml/min; Glucose 105 mg/dL (74-106); Potassium 3.9 mmol/L (3.5-5.1); Sodium Level 138 mmol/L (136-145)
[2022-07-12 21:50] LABS: Alcohol, Blood (Medical)-Serum < 3.0 mg/dL
[2022-07-12 22:16] LABS: Internal QC Validated? YES +Cl - CLEAR BKGD; Pregnancy, Serum, hCG Quali. NEGATIVE Negative
--- NOTE | 2022-07-12 22:26 | ED.RN ---
PATIENT HAS BEEN NOW REEFED TO [facility] AT THIS
[2022-07-12 23:01] LABS: Amphetamine Urine VISTA NEGATIVE (<1000 ng/mL); Barbiturate Urine VISTA NEGATIVE (< 200 ng/mL); Benzodiazepine Urine VISTA NEGATIVE (< 200 ng/mL); Cocaine Urine VISTA NEGATIVE (< 300 ng/mL); Ecstacy Urine VISTA NEGATIVE (< 500 ng/mL); Methadone Urine VISTA NEGATIVE (< 300 ng/mL); PCP Urine VISTA NEGATIVE (< 25 ng/mL); THC Urine VISTA NEGATIVE (< 50 ng/mL); Vista UDS pH Range 6
[2022-07-13 03:37] VITALS: BP 123/78; PULSE 65; RESP 15; O2SAT 100
[2022-07-13 06:08] VITALS: RESP 16
--- NOTE | 2022-07-13 08:43 | NURSING ---
CALLED [facility]. THEY WILL FOLLOWUP ON [facility]
--- NOTE | 2022-07-13 09:15 | NURSING ---
[facility] ROOM [id number] NURSE TO NURSE [phone] FRANCES
[2022-07-13 09:21] VITALS: BP 130/67; PULSE 69; RESP 14; O2SAT 100
[2022-07-13 09:23] VITALS: BP 130/97; PULSE 69; RESP 14; O2SAT 100
--- NOTE | 2022-07-13 09:30 | NURSING ---
CALLED [facility], ETA IS 20 MIN
== END 2022-07-13 09:58 ==
PROVIDERS: Emergency Provider Emergency Medicine; Visit Provider Emergency Medicine
DX: R45.851 Suicidal ideations (principal); F32.A Depression, unspecified; F17.210 Nicotine dependence, cigarettes, uncomplicated; M54.12 Radiculopathy, cervical region; R20.0 Anesthesia of skin; R20.2 Paresthesia of skin
CPT/HCPCS: 80048; 80307; 82077; 84703; 85025; 87811; 96374; 96375; 99284; J7030; A4216; J2405

== ENCOUNTER → 2022-08-22 | Outpatient (CLI) | payer MEDICAID, SELFPAY ==
--- NOTE | 2022-08-22 13:03 | US_ITS ---
INDICATION: goiter, abnormal thyroid scan EXAMINATION: Ultrasound US Thyroid (eg thyroid, parathyroid, parotid) TECHNIQUE: Barnes scale and color doppler imaging was performed of the thyroid gland. COMPARISON: None. FINDINGS: RIGHT THYROID LOBE: 5.7 x 1.8 x 1.2 cm. Several thyroid nodules identified including a 0.9 x 0.9 x 0.5 cm solid nodule in the mid right lobe. This nodule is isoechoic to adjacent parenchyma and wider than tall. Margins are smooth and no calcifications are identified. An additional nodule in the lower pole measures 1.8 x 1.6 x 1.3 cm. The nodule is cystic and solid. The solid components are isoechoic or mildly hypoechoic. The nodule is wider than tall. Margins are smooth. Several punctate echogenic foci within the nodule. LEFT THYROID LOBE: 5 x 1.2 x 1.1 cm. Several nodules are identified, all subcentimeter. The largest measures 0.8 x 0.6 x 0.5 cm. ISTHMUS: 0.2 cm. A 0.6 x 0.4 x 0.3 cm solid nodule is within the isthmus. US/Thyroid IMPRESSION: 1. Cystic and solid nodule measuring 1.8 x 1.6 x 1.3 cm in the lower pole of the right lobe. This nodule is moderately suspicious, TI-RADS 4. Fine-needle aspiration is recommended. 2. Several additional thyroid nodules are subcentimeter. Electronically Signed: Franco Moreland MD at 3:56 EST ,
== END | disposition home or self-care (01) ==
LOC: US 13:02
PROVIDERS: PCP Nurse Practitioner Family; Referring Provider Internal Medicine Endocrinology, Diabetes & Metabolism; Visit Provider Internal Medicine Endocrinology, Diabetes & Metabolism
DX: E04.9 Nontoxic goiter, unspecified (principal)
CPT/HCPCS: 76536

== ENCOUNTER → 2022-09-14 | Outpatient (CLI) | payer MEDICAID, SELFPAY ==
--- NOTE | 2022-09-14 12:30 | ASPS_PTH ---
PATIENT: MATTI LANDRY [id number] AGE/SX: 52/F ROOM: RE09/14/[address]: Dr. Vamsi Aleman MD : 1970 BED: DIS: 09/14/2022 SPEC #: [id number] RECD: 09/14/22 13:22 STATUS: ROSALEE RECarly #: [id number] SANTIAGO: 09/14/22 12:[address]: Vamsi Aleman DEPT: CYTOLOGY RECD BY: Moraima Shah ENTERED: 09/17/22 07:30 SP TYPE: ASPIRATION OTHR DR: Rebecca Zacarias, REEMA Tissues: Thyroid gland, NOS Procedures: Special Stain Group II Cytology Other HEADER OPERATION: Right lower thyroid nodule fine needle aspiration PRE-OP DIAGNOSIS: Right lower thyroid nodule TISSUE SUBMITTED: Right lower thyroid nodule x8 slides DIAGNOSIS CYTOLOGY Right lower thyroid nodule, fine needle aspiration (smears): Consistent with benign follicular/colloid nodule with cystic changes ([place] Category II). Adequate for evaluation. See comment. SHRUTHI:jo ann 09/17/2022 COMMENT Correlation with clinical, radiologic findings and appropriate follow up are necessary. CYTOLOGY STUDY Slides are reviewed. CYTOLOGY GROSS Received are eight smears labeled with the patient's name and designated per the requisition as right lower thyroid nodule. Submitted for staining. / jo ann 09/14/2022 TC:5 CPT: 31298
== END | disposition home or self-care (01) ==
LOC: LABSPEC 13:44
PROVIDERS: PCP Nurse Practitioner Family; Referring Provider Surgery; Visit Provider Surgery
DX: E04.1 Nontoxic single thyroid nodule (principal)
CPT/HCPCS: 88161; 88313

== ENCOUNTER 2022-10-11 12:04 | Emergency (ER) | payer MEDICAID, SELFPAY ==
[2022-10-11 12:05] VITALS: BP 147/83; PULSE 86; RESP 14; TEMP 36.1; O2SAT 97; BMI 18.9
--- NOTE | 2022-10-11 12:17 | EX.ED.DYSGE1 ---
HPI History of Present Illness Chief Complaint: Allergic Reaction Informant: patient and spouse/S.O. Narrative Narrative: Presents here allergic reaction itching redness skin and upper body. Started on Medrol Dosepak yesterday for the first time she is taking a dose yesterday and some today. For breakfast she ate typical blueberry cereal and banana. No new types of foods. No history of allergic reactions. No other medications that were started. Denies lip or tongue swelling. She restarted on the medicines for her bunions on her feet by her foot doctor. Prior similar symptoms: No PFSH PFSH Medical History Abnormal results of thyroid function studies Anxiety and depression DDD (degenerative disc disease), lumbar Goiter Radial scar of right breast Scoliosis Thyroid nodule Home Medications cyclobenzaprine 10 mg tablet 10 mg PO PRN PRN BACK SPASMS 01/17/22 [History Last Taken Unknown] fluoxetine 40 mg capsule 40 mg PO DAILY 01/17/22 [History Last Taken Unknown] omeprazole 40 mg capsule,delayed release 20 ea PO DAILY 08/13/22 [History Last Taken Unknown] propranolol 20 mg tablet 20 ea PO DAILY 08/13/22 [History Last Taken Unknown] venlafaxine 37.5 mg tablet 37.5 mg PO DAILY 08/13/22 [History Last Taken Unknown] cholecalciferol (vitamin D3) 25 mcg (1,000 unit) capsule 25 mcg PO DAILY 09/14/22 [History Last Taken Unknown] famotidine 20 mg tablet 20 mg PO BID #10 TABLETS 10/11/22 [Rx Last Taken Unknown] prednisone 20 mg tablet 60 mg PO DAILY #12 TABLETS 10/11/22 [Rx Last Taken Unknown] Allergy/AdvReac Type Severity Reaction Status Date / Time No Known Allergies Allergy Verified 10/11/22 12:05 Family History Father No problems noted. Surgical History History of dilation and curettage History of excision of pilonidal cyst (~1987) History of partial hysterectomy History of right breast biopsy Status post left breast lumpectomy (~2011) Social History household members: none Smoking Status: Current every day smoker tobacco type: cigarettes alcohol intake: current alcohol intake frequency: holidays/special occasions only substance use type: does not use what type of physical activity do you participate in: walking frequency: 1-2 times per week ROS ROS ED Constitutional Constitutional ED: Denies chills, fever(s) or sweats Eyes Eyes: Denies change in vision ENT ENT ED: Denies dysphagia or sore throat Cardiovascular Cardiovascular: Denies chest pain, leg edema, palpitations or racing heartbeat Respiratory/Chest Respiratory/Chest: Denies cough, dyspnea or dyspnea on exertion Gastrointestinal Gastrointestinal: Denies abdominal pain, diarrhea, nausea or vomiting Genitourinary Genitourinary ED: Denies dysuria, hematuria or urinary frequency Musculoskeletal Musculoskeletal: Denies back pain, extremity pain or neck pain Integumentary Reports other Details: Skin itching ; Denies rash or wounds Neurologic Neurologic: Denies headache(s), paresthesias or weakness EXAM Physical Exam Const Vital Signs: 10/11/22 12:05 10/11/22 13:26 Temperature 97 F L Temperature Source Temporal Pulse Rate 86 74 Respiratory Rate 14 16 Blood Pressure 147/83 H 127/71 H Blood Pressure Mean 104 Pulse Ox 97 99 Oxygen Delivery Method Room Air Positive well nourished and well developed Constitutional Narrative: Uncomfortable and scratching at both arms. Nontoxic. No respiratory distress. General Appearance ED: well developed HEENT Reports moist mucous membranes HEENT Narrative: Awake patent no lip or tongue swelling. normocephalic and atraumatic Eyes PERRL, EOMs intact bilaterally and conjunctivae normal General Eye ED: Yes normal appearance of both eyes Neck no lymphadenopathy and supple General: Negative for tenderness Chest Wall Chest: Negative for tenderness Resp normal respiratory effort and normal air movement Effort and Inspection: symmetric chest movement; Negative for respiratory distress Cardio regular rate, regular rhythm and no murmurs Peripheral Pulses: pulses 2+ throughout GI normal to inspection, nondistended, normoactive bowel sounds and non-tender Palpation: Negative for guarding or rebound tenderness present Back/Spine no CVA tenderness and no thoracic nor lumbar tenderness Extremity normal to inspection General Extremety ED: Negative for edema or tenderness General Extremity: Negative for edema Neuro oriented x3 and no sensory deficits noted Sensorium / Orientation: awake and alert Skin Skin Narrative: Erythema bilateral arms upper torso, no urticarial lesions. Excoriation hong bilateral forearms. MDM MDM MDM Narrative Medical decision making narrative: Patient vital signs stable. Differential allergic reaction likely to medications or other food exposures. There is no airway compromise. She is treated with Benadryl Pepcid prednisone she was monitored her symptoms significantly improved. She will stop the Solu-Medrol will place on prednisone Pepcid and she will use Benadryl as needed. She will follow-up as an outpatient. Return precautions. All questions were answered. Discharge Plan Triage Chief Complaint: Allergic Reaction ED Provider: Dez Noriega Dx/Rx/DC Orders Clinical Impression: Allergic reaction caused by a drug, Itching Instructions: ED Allergic Reaction Local Other Prescriptions: New famotidine [famotidine] 20 mg tablet 20 mg PO BID Qty: 10 0RF prednisone 20 mg tablet 60 mg PO DAILY Qty: 12 0RF Rx Instructions: Next dose 10/12/2022 No Action propranolol 20 mg tablet 20 ea PO DAILY Label Comments: TAKE 1 TABLET BY MOUTH THREE TIMES DAILY omeprazole 40 mg capsule,delayed release(DR/EC) 20 ea PO DAILY Label Comments: Take 1 capsule oral once a day venlafaxine 37.5 mg tablet 37.5 mg PO DAILY cholecalciferol (vitamin D3) 25 mcg (1,000 unit) capsule 25 mcg PO DAILY fluoxetine 40 mg capsule 40 mg PO DAILY Label Comments: TAKE 1 CAPSULE DAILY FOR 90 DAYS cyclobenzaprine 10 mg tablet 10 mg PO PRN PRN (Reason: BACK SPASMS) Label Comments: TAKE 1 TABLET BY MOUTH TWICE DAILY NEEDED FOR SPASMS Primary Care Provider: Rebecca Zacarias NP Referrals: Rebecca Zacarias TELEPHONE ORDER CLERK ROOM SERVICE, TELEPHONE ORDER CLERK ROOM SERVICE-C [Primary Care Provider] - 3-5 Days Activity Restrictions/Additional Instructions: Medrol Dosepak. Use prednisone and Pepcid as prescribed. customer support consultant Benadryl 25 to 50 mg as needed every 6 hours. Discussed with your foot doctor with you stopping the medications. However you are now on prednisone which is a different steroid. Follow-up with your doctors. Return if any worsening symptoms. Disposition Disposition: Home, Self Care Discharge Date/Time: 10/11/22 13:26
[2022-10-11] MEDS: predniSONE 20 MG Tablet 60 MG PO (12:21)
[2022-10-11] MEDS: DiphenhydrAMINE 25 MG Capsule 50 MG PO (12:21)
[2022-10-11] MEDS: Famotidine 20 MG Tablet PO (12:21)
[2022-10-11 13:26] VITALS: BP 127/71; PULSE 74; RESP 16; O2SAT 99
== END 2022-10-11 13:26 | disposition home or self-care (01) ==
PROVIDERS: Emergency Provider Emergency Medicine; PCP Nurse Practitioner Family; Visit Provider Emergency Medicine
DX: L29.9 Pruritus, unspecified (principal); T38.0X5A Adverse effect of glucocorticoids and synthetic analogues, initial encounter; M21.619 Bunion of unspecified foot; F17.210 Nicotine dependence, cigarettes, uncomplicated; Z79.52 Long term (current) use of systemic steroids
CPT/HCPCS: 99283

== ENCOUNTER 2022-11-17 11:50 | Emergency (ER) | payer MEDICAID, SELFPAY ==
[2022-11-17 11:54] VITALS: BP 163/95; PULSE 83; RESP 18; TEMP 36.6; O2SAT 97; BMI 19.3
--- NOTE | 2022-11-17 12:03 | RAD_ITS ---
INDICATION: Chest pain EXAMINATION/TECHNIQUE: X-RAY - XR Chest 2 Views COMPARISON: None. FINDINGS: LINES/DEVICES: None. LUNGS: No consolidation, edema or effusion. No pneumothorax. MEDIASTINUM AND CARDIOVASCULAR STRUCTURES: Cardiac silhouette not enlarged. Central airways and mediastinal contour are unremarkable. BONES AND SOFT TISSUES: Dextroscoliosis of the thoracolumbar junction. RAD/Chest PA and Lateral IMPRESSION: No radiographic evidence of acute cardiopulmonary disease. Electronically Signed: Tanvir Rebolledo MD at 13:03 EST ,
--- NOTE | 2022-11-17 13:21 | CT_ITS ---
INDICATION: falls, loss of balance EXAMINATION: CT BRAIN - CT Head or Brain W/O Contrast Injection TECHNIQUE: Multiple axial images were obtained of the head without intravenous contrast. A radiation dose optimization technique was used for this scan. IV Contrast dosage and agent: None. COMPARISON: 11/25/2018. FINDINGS: BRAIN PARENCHYMA: No intra- or extra-axial hemorrhage. No evidence of acute infarct. No intracranial mass or mass effect. There is preservation of the kay/white matter interface. Posterior fossa structures are unremarkable. CSF SPACES: Appropriate for age. No hydrocephalus. Basal cisterns are patent. CALVARIUM, SKULL BASE, PARANASAL SINUSES AND MASTOID AIR CELLS: Mild mucosal thickening of the left sphenoid sinus. No discrete lytic or blastic abnormalities. ORBITS: Both globes, extraocular muscles, optic nerves and retrobulbar fat appear unremarkable. CT/Brain/Head without Contrast IMPRESSION: No acute intracranial process. Electronically Signed: Tanvir Rebolledo MD at 15:13 EST ,
[2022-11-17 13:41] LABS: Absolute Lymphocyte Count 2.99 X10^3/uL (0.83-4.51); Absolute Neutrophil Count 5.1 X10^3/uL (2.0-7.7); Basophil# 0.02 X10^3/uL; Basophil% 0.2 % (0-1); Eosinophil# 0.01 X10^3/uL; Eosinophils% 0.1 % (0-5); Hematocrit 30.7 % (37-47); Hemoglobin 10.4 g/dL (12.0-15.0); Lymphocyte # 2.99 X10^3/ul (0.83-4.51); Lymphocyte % 33.8 % (19-41); Mean Corp Hgb Conc 33.9 g/dL (32-36); Mean Corpuscular Hgb 30.8 pg (27.0-32.0); Mean Corpuscular Volume 90.8 fL (81-99); Mean Platelet Vol. 9.8 fl (6.2-12.0); Monocyte# 0.67 X10^3/uL; Monocyte% 7.6 % (0-10); NRBC Flagged by Analyzer 0 % (0-5); Neutrophil # 5.13 X10^3/uL (2.7-7.7); Neutrophil % 58.1 % (47-70); Platelet Count 262 K/mm3 (150-450); RBC Distribution Width CV 13.6 % (11.6-14.6); RBC Distribution Width SD 45.2 fl (35.1-43.9); Red Blood Count 3.38 M/mm3 (4.2-5.4); White Blood Count 8.8 K/mm3 (4.4-11.0)
[2022-11-17 13:58] LABS: Anion Gap 13 (5-15); BUN 15 mg/dL (7-18); BUN/Creat Ratio 20.6 RATIO (10-20); Calcium,Total 9.4 mg/dL (8.5-10.1); Chloride 102 mmol/L (98-107); Creatinine, Serum 0.73 mg/dL (0.55-1.02); EST Glomerular Filtration Rate 89 mL/min (>60); Est Glom Filt Rate - Afr Amer 108 mL/min (>60); Estimated Creatinine Clearance 81.97 ml/min; Glucose 87 mg/dL (74-106); Potassium 3.5 mmol/L (3.5-5.1); Sodium Level 138 mmol/L (136-145); Troponin-I HS (w/2H Reflex) 6 pg/mL (3.0-54.0)
[2022-11-17] MEDS: LORazepam 2 MG/ML Syringe 0.5 MG IV (13:59)
[2022-11-17 14:35] VITALS: BP 151/87; PULSE 82; RESP 20
[2022-11-17 15:38] LABS: Reflex Troponin-HS? (from REC) Y
[2022-11-17 16:27] LABS: Troponin-I HS 6 pg/mL (3.0-54.0)
--- NOTE | 2022-11-17 17:04 | ED.VIS.CHEST ---
HPI History of Present Illness Chief Complaint: Chest Pain Informant: patient Narrative Narrative: Patient is a 52-year-old female with history of anxiety and depression as well as elevated thyroid and reportedly Crook's esophagus presenting with chest pain. She states I feel like I am having a heart attack. She states that she feels very anxious and this is causing her to feel shaky and short of breath. She states she has pressure in her chest and feels like she cannot breathe. She has had similar symptoms in the past that have been noncardiac. She also notes her legs are starting to feel tingly. She states she has a lot of stressors at home and is been going through marital issues with her . She reports that she does feel safe at home. States that she was arguing with her last night and told him to leave and then she felt alone which seem to worsen her symptoms. She denies any history of blood clots. Denies any swelling of her legs. Notes that she does have a history of alcohol abuse and did drink recently but does not feel like she is going to withdrawal right now. Denies any other complaints at this time. [facility] Medical History Abnormal results of thyroid function studies Anxiety and depression DDD (degenerative disc disease), lumbar Goiter Radial scar of right breast Scoliosis Thyroid nodule Home Medications cyclobenzaprine 10 mg tablet 10 mg PO PRN PRN BACK SPASMS 01/17/22 [History Last Taken Unknown] fluoxetine 40 mg capsule 40 mg PO DAILY 01/17/22 [History Last Taken Unknown] omeprazole 40 mg capsule,delayed release 20 ea PO DAILY 08/13/22 [History Last Taken Unknown] propranolol 20 mg tablet 20 ea PO DAILY 08/13/22 [History Last Taken Unknown] venlafaxine 37.5 mg tablet 37.5 mg PO DAILY 08/13/22 [History Last Taken Unknown] cholecalciferol (vitamin D3) 25 mcg (1,000 unit) capsule 25 mcg PO DAILY 09/14/22 [History Last Taken Unknown] famotidine 20 mg tablet 20 mg PO BID #10 TABLETS 10/11/22 [Rx Last Taken Unknown] prednisone 20 mg tablet 60 mg PO DAILY #12 TABLETS 10/11/22 [Rx Last Taken Unknown] hydroxyzine pamoate 25 mg capsule 50 mg PO TID PRN PRN Anxiety #30 CAPSULES 11/17/22 [Rx Last Taken Unknown] Allergy/AdvReac Type Severity Reaction Status Date / Time No Known Allergies Allergy Verified 10/11/22 12:05 Family History Father No problems noted. Surgical History History of dilation and curettage History of excision of pilonidal cyst (~1987) History of partial hysterectomy History of right breast biopsy Status post left breast lumpectomy (~2011) Social History household members: none Smoking Status: Current every day smoker tobacco type: cigarettes alcohol intake: current alcohol intake frequency: holidays/special occasions only substance use type: does not use what type of physical activity do you participate in: walking frequency: 1-2 times per week ROS ROS ED Constitutional Constitutional ED: Denies chills or fever(s) ENT ENT ED: Denies sore throat Cardiovascular Cardiovascular: Reports as per HPI and chest pain Respiratory/Chest Respiratory/Chest: Reports dyspnea; Denies cough Gastrointestinal Gastrointestinal: Denies abdominal pain, diarrhea or vomiting Musculoskeletal Musculoskeletal: Denies arthralgias, myalgias or neck pain Neurologic Neurologic: Reports paresthesias and other Details: Tremor ; Denies headache(s) or weakness Psychiatric Psychiatric: Reports anxiety Hematologic/Lymphatic Hematologic/Lymphatic: Denies easy bleeding or easy bruising EXAM Physical Exam Const Vital Signs: 11/17/22 11:54 11/17/22 13:14 11/17/22 14:35 Temperature 98 F Temperature Source Temporal Pulse Rate 83 82 Respiratory Rate 18 20 H Blood Pressure 163/95 H 151/87 H Blood Pressure Mean 117 108 Pulse Ox 97 Oxygen Delivery Method Room Air Room Air Positive well nourished and well developed General Appearance ED: well developed and NAD HEENT Reports moist mucous membranes normocephalic and atraumatic Eyes PERRL and EOMs intact bilaterally General Eye ED: Negative for scleral icterus Neck supple and no JVD Chest Wall inspection of chest normal and palpation of chest normal Resp normal respiratory effort and clear to auscultation bilaterally Resp Narrative: Patient speaking in rapid speech with no perceived dyspnea Effort and Inspection: Negative for respiratory distress Auscultation: Negative for wheezes Cardio regular rate, regular rhythm and no murmurs GI normal to inspection, nondistended, normoactive bowel sounds and soft to palpation Extremity normal to inspection General Extremety ED: Negative for edema General Extremity: Negative for edema Neuro oriented x3 Neuro Narrative: Subtle tremor of the hands noted. Does seem improved with distraction. No focal neurologic deficits appreciated. Normal [id number]. Normal coordination. Sensorium / Orientation: awake and alert Motor Exam: Negative for general weakness Psych Psych Narrative: Specifically denies any HI or SI and states she feels safe at home Mood & Affect: anxious and tearful; Negative for depressed Skin no rashes or lesions noted Heart Score History: Slightly/Non-Suspicious ECG: Normal Age: >45 - <65 years Risk Factors: 1 or 2 Risk Factors Troponin: </= Normal Limit Score: 2 MDM MDM MDM Narrative Medical decision making narrative: Patient is evaluated for chest pain and concern for ACS. Patient presentation is most consistent with a panic attack. EKG is not consistent with acute ischemia. Her delta high-sensitivity is troponin at 6x2. Patient is found to have a mild anemia with a hemoglobin of 10.4. She is informed of this finding. Her platelets are normal. I do not think this is the cause of her presentation. She does not have any risk factors for PE. Her only PERC criteria is her age and D-dimer is obtained which is normal at 0.30. I do not think she has a PE and I do not think she requires a CTA of the chest. Patient did report that over the past months she has had some episodes of unsteady gait. I did obtain a head CT. She currently has a normal neurologic exam. CT of the brain does not show any acute intracranial process. Presentation is not consistent with acute stroke. BMP unremarkable, blood alcohol is normal at 9 and chest x-ray interpreted myself as well as radiology does not show any acute process. Patient is given a dose of IV Ativan with significant improvement of her symptoms in the emergency room. Patient is now in the room with her . She is ambulating with a steady gait. We will continue to follow-up outpatient for her thyroid. It looks like she had recent consult with Dr. Aleman for evaluation of thyroid fine-needle aspiration. Patient has euthyroid sick syndrome and goiter. This note was independently reviewed by myself. Patient also follows with [facility] [place] and is encouraged to continue to follow-up with them. Counseled to abstain from alcohol. Will be given a prescription for hydroxyzine to help with her symptoms. Patient verbalizes agreement understands this plan. Discharged home in stable and improved condition. We will follow-up outpatient for her anemia and for her chest pain. Lab Data Labs: Laboratory Results - last 24 hr 11/17/22 11/17/22 11/17/22 13:33 13:33 13:33 WBC 8.8 RBC 3.38 L Hgb 10.4 L Hct 30.7 L MCV 90.8 MCH 30.8 MCHC 33.9 RDW Std Deviation 45.2 H RDW Coeff of Dariela 13.6 Plt Count 262 MPV 9.8 Immature Gran % (Auto) 0.200 Neut % (Auto) 58.1 Lymph % (Auto) 33.8 [place] % (Auto) 7.6 Eos % (Auto) 0.1 Baso % (Auto) 0.2 Absolute Neuts (auto) 5.1 Absolute Lymphs (auto) 2.99 Nucleated RBC % 0 D-Dimer Quant (PE/DVT) 0.30 Sodium 138 Potassium 3.5 Chloride 102 Carbon Dioxide 23.0 Anion Gap 13 BUN 15 Creatinine 0.73 Estim Creat Clear Calc 81.97 Est GFR (MDRD) Af Amer 108 Est GFR (MDRD) Non-Af 89 BUN/Creatinine Ratio 20.6 H Glucose 87 Calcium 9.4 Troponin I High Sens 6 Ethyl Alcohol 11/17/22 11/17/22 14:11 15:57 WBC RBC Hgb Hct MCV MCH MCHC RDW Std Deviation RDW Coeff of Dariela Plt Count MPV Immature Gran % (Auto) Neut % (Auto) Lymph % (Auto) [place] % (Auto) Eos % (Auto) Baso % (Auto) Absolute Neuts (auto) Absolute Lymphs (auto) Nucleated RBC % D-Dimer Quant (PE/DVT) Sodium Potassium Chloride Carbon Dioxide Anion Gap BUN Creatinine Estim Creat Clear Calc Est GFR (MDRD) Af Amer Est GFR (MDRD) Non-Af BUN/Creatinine Ratio Glucose Calcium Troponin I High Sens 6 Ethyl Alcohol 9.0 Radiography Diagnostic Testing: Clinical Impression(s) from Imaging Studies Chest X-Ray 11/17/22 12:03 IMPRESSION: No radiographic evidence of acute cardiopulmonary disease. Electronically Signed: Tanvir Rebolledo MD at 13:03 EST , Brain CT 11/17/22 13:21 IMPRESSION: No acute intracranial process. Electronically Signed: Tanvir Rebolledo MD at 15:13 EST , Rhythm Strip Rhythm Strip: Sinus Rhythm Rate: 79 Ectopy: None EKG Initial EKG: Attestation: I personally reviewed and interpreted this EKG as follows: Interpretation: Sinus Rhythm Comments: Normal sinus rhythm at a rate of 79 bpm Normal axis Normal intervals QTc [address] segments Compared to prior EKG on 10/18/2021 patient no longer has an incomplete right bundle branch block and QTc at that time was 458 Differential Diagnosis Chest pain/SOB: pulmonary embolism Reason(s) PE less likely: Positive for Well's <3, D-Dimer negative, not tachycardic and not hypoxic, ACS ACS: Positive for no evidence of ACS based on cardiac biomarkers, EKG without ischemia and history not suggestive of ischemia pain and pneumonia Reason(s) pneumonia less likely: Positive for no infiltrate on CXR, no elevation in WBC count and symptoms not consistent with acute infection Discharge Plan Triage Chief Complaint: Chest Pain ED Provider: Joanie Hill Dx/Rx/DC Orders Clinical Impression: Chest pain, Anxiety, Anemia Instructions: ED Anemia, Type Not Specified (Adult), ED Anxiety Reaction, ED Chest Pain, Uncertain Cause Prescriptions: New hydroxyzine pamoate 25 mg capsule 50 mg PO TID PRN PRN (Reason: Anxiety) Qty: 30 0RF No Action propranolol 20 mg tablet 20 ea PO DAILY Label Comments: TAKE 1 TABLET BY MOUTH THREE TIMES DAILY omeprazole 40 mg capsule,delayed release(DR/EC) 20 ea PO DAILY Label Comments: Take 1 capsule oral once a day venlafaxine 37.5 mg tablet 37.5 mg PO DAILY cholecalciferol (vitamin D3) 25 mcg (1,000 unit) capsule 25 mcg PO DAILY fluoxetine 40 mg capsule 40 mg PO DAILY Label Comments: TAKE 1 CAPSULE DAILY FOR 90 DAYS cyclobenzaprine 10 mg tablet 10 mg PO PRN PRN (Reason: BACK SPASMS) Label Comments: TAKE 1 TABLET BY MOUTH TWICE DAILY NEEDED FOR SPASMS famotidine [famotidine] 20 mg tablet 20 mg PO BID Qty: 10 0RF prednisone 20 mg tablet 60 mg PO DAILY Qty: 12 0RF Rx Instructions: Next dose 10/12/2022 Primary Care Provider: Rebecca Zacarias NP Referrals: Rebecca Zacarias NP, [employer] [Primary Care Provider] - Disposition Disposition: Home, Self Care
== END 2022-11-17 17:28 | disposition home or self-care (01) ==
PROVIDERS: Emergency Provider Emergency Medicine; PCP Nurse Practitioner Family; Visit Provider Emergency Medicine
DX: R07.9 Chest pain, unspecified (principal); E04.9 Nontoxic goiter, unspecified; F17.210 Nicotine dependence, cigarettes, uncomplicated; D64.9 Anemia, unspecified; F41.9 Anxiety disorder, unspecified; E07.81 Sick-euthyroid syndrome
CPT/HCPCS: 70450; 71046; 80048; 82077; 84484; 85025; 85379; 93005; 96374; 99285; A4216

== ENCOUNTER 2023-02-12 23:02 | Emergency (ER) | payer MEDICAID, SELFPAY ==
[2023-02-12 23:03] VITALS: BP 150/98; PULSE 92; RESP 15; TEMP 36.8; O2SAT 98; BMI 19.8
--- NOTE | 2023-02-13 01:18 | CT_ITS ---
STUDY: CT ABDOMEN AND PELVIS WITH CONTRAST - URINARY TRACT REASON FOR EXAM: Female, 52 years old. abd pain RADIATION DOSAGE (If Supplied By Facility): CTDIvol = ( 11.08 ) mGy, DLP = ( 440.55 ) mGycm TECHNIQUE: IV 100mL Isovue-370 was administered. Transaxial images were obtained from the dome of the diaphragm to the symphysis pubis in the arterial, nephrographic and excretory phases. Multiplanar coronal and sagittal images were reformatted. Individualized Dose Optimization Techniques Were Used For This CT. COMPARISON: FINDINGS: The visualized lung bases are unremarkable. The visualized portions of the heart are within normal limits. Several low-attenuation lesions in the liver the largest measures 5 mm most likely represent cysts. Normal gallbladder and extrahepatic biliary system. Normal spleen. Normal pancreas. Normal bilateral adrenal glands. Normal visualized stomach. Normal small intestine. Normal colon. The appendix is visualized and appears normal. Normal abdominal aorta. No retroperitoneal adenopathy. This fat-containing lesion in the upper part of the right kidney measures 1 cm consistent with an angiomyolipoma. Normal left kidney. Normal urinary bladder. Normal abdominal wall. There is dextroscoliosis of the lumbar spine. CT/Abdomen/Pelvis W IV Cont ONLY IMPRESSION: This fat-containing lesion in the upper part of the right kidney measures 1 cm consistent with angiomyolipoma. Small liver cysts. There is no acute abnormality in the abdomen or pelvis. Electronically Signed: Bridget Coleman MD at 2:41 EDT ,
--- NOTE | 2023-02-13 01:18 | RAD_ITS ---
INDICATION: sob EXAMINATION/TECHNIQUE: X-RAY - XR Chest 1 View COMPARISON: FINDINGS: LINES/DEVICES: None. LUNGS: No consolidation, edema or effusion. No pneumothorax. MEDIASTINUM AND CARDIOVASCULAR STRUCTURES: Cardiac silhouette not enlarged. Central airways and mediastinal contour are unremarkable. BONES AND SOFT TISSUES: Unremarkable. RAD/Chest 1 View (Portable) IMPRESSION: No radiographic evidence of acute cardiopulmonary disease. Electronically Signed: Bridget Coleman MD at 2:24 EDT ,
[2023-02-13] MEDS: Morphine 4 MG/ML Syringe IV (01:30)
[2023-02-13] MEDS: 0.9% Normal Saline 1,000 ML 999 ML IV (01:30)
[2023-02-13 01:31] LABS: Absolute Lymphocyte Count 2.51 X10^3/uL (0.83-4.51); Absolute Neutrophil Count 4.8 X10^3/uL (2.0-7.7); Basophil# 0.04 X10^3/uL; Basophil% 0.5 % (0-1); Eosinophil# 0.05 X10^3/uL; Eosinophils% 0.6 % (0-5); Hematocrit 36.9 % (37-47); Hemoglobin 12.3 g/dL (12.0-15.0); Lymphocyte # 2.51 X10^3/ul (0.83-4.51); Lymphocyte % 30.1 % (19-41); Mean Corp Hgb Conc 33.3 g/dL (32-36); Mean Corpuscular Hgb 29.6 pg (27.0-32.0); Mean Corpuscular Volume 88.9 fL (81-99); Mean Platelet Vol. 9.6 fl (6.2-12.0); Monocyte# 0.96 X10^3/uL; Monocyte% 11.5 % (0-10); NRBC Flagged by Analyzer 0 % (0-5); Neutrophil # 4.75 X10^3/uL (2.7-7.7); Neutrophil % 57.1 % (47-70); Platelet Count 274 K/mm3 (150-450); RBC Distribution Width CV 12.9 % (11.6-14.6); RBC Distribution Width SD 42.1 fl (35.1-43.9); Red Blood Count 4.15 M/mm3 (4.2-5.4); White Blood Count 8.3 K/mm3 (4.4-11.0)
[2023-02-13 01:49] LABS: ALB/GLOB Ratio 1.2 RATIO (0.9-2.4); AST(SGOT) 22 U/L (15-37); Alanine Aminotransfer ALT/SGPT 24 U/L (13-56); Albumin, Serum 3.8 g/dL (3.2-5.0); Alkaline Phosphatase 72 U/L (45-117); Anion Gap 7 (5-15); BUN 16 mg/dL (7-18); Calcium,Total 9.4 mg/dL (8.5-10.1); Chloride 103 mmol/L (98-107); Creatinine, Serum 0.84 mg/dL (0.55-1.02); EST Glomerular Filtration Rate 76 mL/min (>60); Est Glom Filt Rate - Afr Amer 91 mL/min (>60); Estimated Creatinine Clearance 72.93 ml/min; Globulin 3.3 g/dL (2.2-4.2); Glucose 92 mg/dL (74-106); Lipase 28 U/L (13-75); Potassium 3.6 mmol/L (3.5-5.1); Protein, Total 7.1 g/dL (6.4-8.2); Sodium Level 135 mmol/L (136-145)
[2023-02-13 02:57] LABS: Bacteria 0 SEEN /hpf (None Seen); Mucous, Urine 0 SEEN /hpf (<or=2+); Red Blood Cells-Urine 0 SEEN /hpf (0-5); Squamous Epithelial Cells - UA 0 SEEN /hpf (5-10); White Blood Cells 0 SEEN /hpf (0-5)
[2023-02-13 03:00] LABS: Color, Urine Yellow (Yellow); Glucose, Dipstick Normal (Normal); Ketone-Dipstick 15 mg/dl (Negative); Leukocyte Esterase-Dipstick Negative /ul (Negative); Nitrite-Dipstick Negative (Negative); Occult Blood-Urine Negative /ul (Negative); Protein-Dipstick Negative (Negative); Urine Bilirubin Dipstick Negative (Negative); Urine Clarity Clear (Clear); Urine Urobilinogen Normal (Normal)
[2023-02-13 03:01] LABS: Internal QC Validated? YES +Cl - CLEAR BKGD; Pregnancy, Urine Negative Negative
--- NOTE | 2023-02-13 04:19 | ED.VIS.GI ---
HPI HPI - GI History of Present Illness Chief Complaint: Abd Pain Informant: patient Narrative Narrative: Patient is a 52-year-old female with history of back pain, goiter and constipation presenting with increased gas pains and abdominal pain. She states her last bowel movement was 5 to 7 days ago. This afternoon she developed worsening abdominal discomfort. She states it feels like gas pains as radiated to her lungs and her back and makes it hard for her to breathe. She states she has been burping and passing gas. She tried taking Metamucil this morning and Dulcolax today with no improvement of her symptoms. She stopped taking her home medicines because she read that a lot of them have a side effect of constipation. Patient states that she does have a history of Crook's esophagus and is due to have an EGD next week. She has a history of a hysterectomy and tubal ligation. She was googling her symptoms and was concerned she might have an obstruction so she came to the ER for further evaluation. [facility] Medical History Abnormal results of thyroid function studies Anxiety and depression DDD (degenerative disc disease), lumbar Goiter Radial scar of right breast Scoliosis Thyroid nodule Home Medications cyclobenzaprine 10 mg tablet 10 mg PO PRN PRN BACK SPASMS 01/17/22 [History Last Taken Unknown] fluoxetine 40 mg capsule 40 mg PO DAILY 01/17/22 [History Last Taken Unknown] omeprazole 40 mg capsule,delayed release 20 ea PO DAILY 08/13/22 [History Last Taken Unknown] propranolol 20 mg tablet 20 ea PO DAILY 08/13/22 [History Last Taken Unknown] venlafaxine 37.5 mg tablet 37.5 mg PO DAILY 08/13/22 [History Last Taken Unknown] cholecalciferol (vitamin D3) 25 mcg (1,000 unit) capsule 25 mcg PO DAILY 09/14/22 [History Last Taken Unknown] famotidine 20 mg tablet 20 mg PO BID #10 TABLETS 10/11/22 [Rx Last Taken Unknown] prednisone 20 mg tablet 60 mg PO DAILY #12 TABLETS 10/11/22 [Rx Last Taken Unknown] hydroxyzine pamoate 25 mg capsule 50 mg PO TID PRN PRN Anxiety #30 CAPSULES 11/17/22 [Rx Last Taken Unknown] dicyclomine 20 mg tablet 20 mg PO TID PRN abdominal pain #20 tabs 02/13/23 [Rx Last Taken Unknown] Allergy/AdvReac Type Severity Reaction Status Date / Time No Known Allergies Allergy Verified 02/12/23 23:07 Family History Father No problems noted. Surgical History History of dilation and curettage History of excision of pilonidal cyst (~1987) History of partial hysterectomy History of right breast biopsy Status post left breast lumpectomy (~2011) Social History household members: none Smoking Status: Current every day smoker tobacco type: cigarettes alcohol intake: current alcohol intake frequency: holidays/special occasions only substance use type: does not use what type of physical activity do you participate in: walking frequency: 1-2 times per week ROS ROS ED Constitutional Constitutional ED: Denies chills or fever(s) ENT ENT ED: Denies sore throat Cardiovascular Cardiovascular: Reports chest pain Respiratory/Chest Respiratory/Chest: Reports dyspnea; Denies cough Gastrointestinal Gastrointestinal: Reports abdominal pain, constipation and nausea; Denies vomiting Genitourinary Genitourinary ED: Denies dysuria or hematuria Musculoskeletal Musculoskeletal: Reports back pain; Denies arthralgias or neck pain Integumentary Denies rash Neurologic Neurologic: Denies headache(s) Psychiatric Psychiatric: Reports anxiety; Denies depression EXAM Physical Exam Const Vital Signs: 02/12/23 23:03 02/13/23 04:44 02/13/23 04:44 Temperature 98.3 F Temperature Source Temporal Pulse Rate 92 103 H 103 H Respiratory Rate 15 16 16 Blood Pressure 150/98 H 158/98 H 158/98 H Blood Pressure Mean 115 118 Pulse Ox 98 100 100 Oxygen Delivery Method Room Air Positive well nourished and well developed Constitutional Narrative: Uncomfortable appearing, anxious, pacing around the room General Appearance ED: well developed; Negative for pallor HEENT Reports moist mucous membranes Eyes PERRL and EOMs intact bilaterally Neck supple and no JVD Resp normal respiratory effort and clear to auscultation bilaterally Cardio regular rate, regular rhythm and no murmurs GI non-distended GI Narrative: Mild diffuse tenderness. No rigidity or guarding. No stool noted on the rectal exam Palpation: soft Back/Spine no CVA tenderness Extremity full ROM General Extremety ED: Negative for edema General Extremity: Negative for edema Neuro Sensorium / Orientation: alert, oriented to person, oriented to place and oriented to time Motor Exam: Negative for general weakness Psych mental status grossly normal Mood & Affect: anxious Skin no wounds General Skin Exam: Negative for jaundice or pallor MDM MDM MDM Narrative Medical decision making narrative: Patient is evaluated for abdominal discomfort, nausea and gas pains. She is concerned about obstruction. Patient does not have any stool in her rectal exam. Decision made to obtain a CT to rule out small bowel obstruction as she does have an abdominal surgical history. She is given saline and morphine in the ER for symptom control and hydration. Lab work including CBC, BMP, urinalysis and urine test largely negative. CT of the abdomen and pelvis shows incidental finding of right kidney angiomyolipoma but no other acute process. There is a lot of gas in the small bowel. Chest x-ray obtained to rule out signs of free air given that she states that she feels like the gas is causing pain in her chest make it hard to breathe. Chest x-ray to read by myself as well as radiology shows no acute process. Patient is given a dose of Bentyl as I suspect she is having spasm from her increased gas. She is also because she can take [id number] Gas-X which she states she has at home. Patient be discharged home. She is given return precautions. Discharged home in stable and improved condition. Lab Data Attestation: I reviewed the patient's lab results. Labs: Laboratory Results - last 24 hr 02/13/23 02/13/23 02/13/23 01:27 01:27 02:43 WBC 8.3 RBC 4.15 L Hgb 12.3 Hct 36.9 L MCV 88.9 MCH 29.6 MCHC 33.3 RDW Std Deviation 42.1 RDW Coeff of Dariela 12.9 Plt Count 274 MPV 9.6 Immature Gran % (Auto) 0.200 Neut % (Auto) 57.1 Lymph % (Auto) 30.1 [place] % (Auto) 11.5 H Eos % (Auto) 0.6 Baso % (Auto) 0.5 Absolute Neuts (auto) 4.8 Absolute Lymphs (auto) 2.51 Nucleated RBC % 0 Sodium 135 L Potassium 3.6 Chloride 103 Carbon Dioxide 25.0 Anion Gap 7 BUN 16 Creatinine 0.84 Estim Creat Clear Calc 72.93 Est GFR (MDRD) Af Amer 91 Est GFR (MDRD) Non-Af 76 BUN/Creatinine Ratio 19.0 Glucose 92 Calcium 9.4 Total Bilirubin 0.50 AST 22 ALT 24 Alkaline Phosphatase 72 Total Protein 7.1 Albumin 3.8 Globulin 3.3 Albumin/Globulin Ratio 1.2 Lipase 28 Urine Color Yellow Urine Clarity Clear Urine pH 8.0 Ur Specific [place] 1.010 Urine Protein Negative Urine Glucose (UA) Normal Urine Ketones 15 H Urine Occult Blood Negative Urine Nitrite Negative Urine Bilirubin Negative Urine Urobilinogen Normal Ur Leukocyte Esterase Negative Urine RBC 0 SEEN Urine WBC 0 SEEN Ur Squamous Epith Cells 0 SEEN Urine Bacteria 0 SEEN Urine Mucus 0 SEEN Urine Test Negative Radiography Diagnostic Testing: Clinical Impression(s) from Imaging Studies Abdomen/Pelvis CT 02/13/23 01:18 IMPRESSION: This fat-containing lesion in the upper part of the right kidney measures 1 cm consistent with angiomyolipoma. Small liver cysts. There is no acute abnormality in the abdomen or pelvis. Electronically Signed: Bridget Coleman MD at 2:41 EDT , Chest X-Ray 02/13/23 01:18 IMPRESSION: No radiographic evidence of acute cardiopulmonary disease. Electronically Signed: Bridget Coleman MD at 2:24 EDT , Discharge Plan Triage Chief Complaint: Abd Pain ED Provider: Joanie Hill Dx/Rx/DC Orders Clinical Impression: Abdominal pain Instructions: ED Abdominal Pain Unkn Cause Fem Prescriptions: New dicyclomine 20 mg tablet 20 mg PO TID PRN (Reason: abdominal pain) Qty: 20 0RF No Action propranolol 20 mg tablet 20 ea PO DAILY Label Comments: TAKE 1 TABLET BY MOUTH THREE TIMES DAILY omeprazole 40 mg capsule,delayed release(DR/EC) 20 ea PO DAILY Label Comments: Take 1 capsule oral once a day venlafaxine 37.5 mg tablet 37.5 mg PO DAILY cholecalciferol (vitamin D3) 25 mcg (1,000 unit) capsule 25 mcg PO DAILY fluoxetine 40 mg capsule 40 mg PO DAILY Label Comments: TAKE 1 CAPSULE DAILY FOR 90 DAYS cyclobenzaprine 10 mg tablet 10 mg PO PRN PRN (Reason: BACK SPASMS) Label Comments: TAKE 1 TABLET BY MOUTH TWICE DAILY NEEDED FOR SPASMS famotidine [famotidine] 20 mg tablet 20 mg PO BID Qty: 10 0RF prednisone 20 mg tablet 60 mg PO DAILY Qty: 12 0RF Rx Instructions: Next dose 10/12/2022 hydroxyzine pamoate 25 mg capsule 50 mg PO TID PRN PRN (Reason: Anxiety) Qty: 30 0RF Primary Care Provider: Rebecca Zacarias NP Referrals: Rebecca Zacarias NP, [employer] [Primary Care Provider] - Activity Restrictions/Additional Instructions: Your CT did not show any signs of an obstruction or other acute pathology. 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 Your lab work is largely normal. I do recommend you take Gas-X at home as your CT does show a lot of gas in your GI track. Please follow-up with your primary care doctor. Return to the ER if you have a progression or worsening of your symptoms. Disposition Disposition: Home, Self Care Discharge Date/Time: 02/13/23 04:47
[2023-02-13] MEDS: Dicyclomine 10 MG Capsule 20 MG PO (04:39)
[2023-02-13 04:44] VITALS: BP 158/98; PULSE 103; RESP 16; O2SAT 100
== END 2023-02-13 04:47 | disposition home or self-care (01) ==
PROVIDERS: Emergency Provider Emergency Medicine; PCP Nurse Practitioner Family; Visit Provider Emergency Medicine
DX: R10.9 Unspecified abdominal pain (principal); R14.1 Gas pain; F17.210 Nicotine dependence, cigarettes, uncomplicated; D17.71 Benign lipomatous neoplasm of kidney; R07.9 Chest pain, unspecified; R06.00 Dyspnea, unspecified; K59.00 Constipation, unspecified; F41.9 Anxiety disorder, unspecified
CPT/HCPCS: 71045; 74177; 80053; 81001; 81025; 83690; 85025; 96361; 96374; 99284; J7030; Q9967; A4216

== ENCOUNTER 2023-02-25 08:00 | Outpatient (RCR) | payer MEDICAID, SELFPAY ==
--- NOTE | 2023-02-25 09:00 | BH.SGPN.GN ---
Behaviors/Verbalizations/Mental Status: [] Eye contact is good. Motor activity is appropriate. Appearance is casual. Speech is Appropriate. Mood is anxious. Affect is congruent. Thoughts are linear and logical. No evidence of psychosis. Reviewed daily check in sheet and no reports of suicidal ideations or intent. Client Response/Progress/Benefit: [] Pt participated when prompted. Attentive. Daily symptom tracker notes 12/12 for depression and anxiety. Shared that today is her first day in IOP. Introduced herself to the group sharing that she has been struggling with depression, anxiety, and feeling alone when it comes to her mental health issues. Reports limited support and judgement from support. I don't want to be known as the crazy one. Worsening symptoms for several months. I'm happy to be here and reports it was beneficial to feel as if she isn't alone. Benefited from group support, encouragement, and feedback. Will continue in IOP to prevent decompensation, stablize mood, and increase healthy coping skills. Narrative Note: []
--- NOTE | 2023-02-25 10:12 | BH.SGPN.GN ---
Behaviors/Verbalizations/Mental Status: []Pt alert and oriented, appropriate grooming/appearance. Eye contact good. Motor activity appropriate. Speech within normal limits. Affect congruent, mood depressed, anxious, and agitated. Thoughts linear, logical, no signs of hallucinations or delusions. Client Response/Progress/Benefit: []Pt first day of IOP tx, she was an active participant in group discussions. Attentive during psychoeducation. C during interactive discussions in which peers attempted to define crisis. Pt identified some examples of potential crisis. Group also worked together to identify unhealthy responses to crisis which included; isolation, self-harm, substance abuse, avoidance, and lashing out. Pt identified personal warning signs as increased anxiety, putting her phone on ?Don not disturb?, and increased physical pain. Benefited from increased understanding of crisis and awareness of personal responses to crisis. Pt will continue IOP tx to prevent decompensation and continue to promote healthy skill application, as well as improve mood stability. Narrative Note: []
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
[2023-02-27 10:52] VITALS: BP 159/86; PULSE 66
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
--- NOTE | 2023-02-27 13:51 | BH.DR.ITP ---
Initial Treatment Plan Patient Information Visit Information: ADMISSION DATE: EXPECTED LOS: 4-6 weeks Problems/Symptoms Problem #1:: DEpression Symptom:: Sadness, hopelessness, anhedonia, guilt, passive thoughts of , decreased concentration, biological disruption of appetite Problem #2:: Anxiety Symptom:: Worry, rumination, panic attacks, avoidance
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
--- NOTE | 2023-02-27 14:57 | BH.MTP_ITS ---
Master Treatment Plan Patient Information Program Physician:: Dr. Cruz Primary Therapist:: Lyaa Mark, [facility] Psychiatric Diagnoses Psychiatric Diagnoses:: 1. Major depressive disorder, recurrent, severe with psychotic features (F33.3) 2. PTSD 3. Generalized anxiety disorder 4. Alcohol use disorder in partial remission for a little over 1 month possibly Diagnosis Code(s):: F33.3 Estimated LOS Estimated LOS (in weeks):: 6 Problem/Goal #1 Problem/Goal #1 Stated Goal:: Client will reduce depression, feelings of hopelessness, and suicidal ideation due to Major Depressive Disorder through Intensive Outpatient Program. Description of Barriers: Potential barriers to treatment include: distorted thought patterns, limited social support, not being able to drive, anxiety, difficulty leaving her house, and poor emotion regulation. Objectives Objective #1: Stated Objective: Client will learn and utilize 2-3 healthy coping strategies to manage depressive symptoms. Interventions: Therapist will utilize CBT techniques to assist client with understanding the connection between thoughts, feelings and behaviors. Education will be provided on behavioral activation. Therapist will assist client in learning internal coping strategies to manage depressive symptoms, along with helping client identify triggers. Discharge Criteria: Client will have achieved this goal when can verbalize and has practiced at least 2 healthy coping strategies that successfully manage depressive symptoms. Target Date: 04/08/23 Review Date: 03/25/23 Objective #2: Stated Objective: Pt will decrease depressive symptoms AEB pt?s score on the DSM 5 cross-cutting measure and improve pt?s daily functioning. Interventions: Through groups and individual therapy, pt will be provided with education on cognitive distortions, mistaken beliefs, and identifying and combating negative self-talk. Therapist will assist pt with getting back into the activities she once enjoyed as well as increasing healthy coping strategies. Discharge Criteria: Pt will have met this goal when pt?s score on the DSM 5 cross cutting measure for depression has been decreased and per pt?s report daily functioning has improved. Target Date: 04/08/23 Review Date: 03/25/23 Problem/Goal #2 Problem/Goal #2 Description of Barriers: Potential barriers to treatment include: distorted thought patterns, limited social support, not being able to drive, anxiety, difficulty leaving her house, and poor emotion regulation. Objectives Objective #1: Stated Objective: Stabilize anxiety level while increasing ability to function on daily basis. Interventions: Client will learn and implement 2-3 calming skills to reduce overall anxiety and manage anxiety symptoms. Discharge Criteria: Therapist will teach calming/relaxation skills and how to apply these skills to everyday life. Target Date: 04/08/23 Review Date: 03/25/23 Objective #2: Stated Objective: Pt will decrease anxious symptoms AEB pt?s score on the DSM 5 cross-cutting measure improve pt?s daily functioning. Interventions: Through groups and individual therapy, pt will be provided education about anxiety?s impact on body and common physiological reaction to anxiety. Therapist will teach pt appropriate breathing techniques and build healthy coping skills to manage daily anxieties. Discharge Criteria: Pt will have met this goal when pt?s score on the DSM 5 cross cutting measure for anxiety has been decreased and per pt?s report daily functioning has improved. Target Date: 04/08/23 Review Date: 03/25/23
--- NOTE | 2023-02-28 09:00 | BH.SGPN.GN ---
Behaviors/Verbalizations/Mental Status: [] Eye contact is poor. Motor activity is restless. Appearance is casual. Speech is Appropriate. Mood is depressed/irritable. Affect is flat. Thoughts are linear and logical. No evidence of psychosis. Reviewed daily check in sheet and no reports of suicidal ideations or intent Client Response/Progress/Benefit: [] Pt participated when prompted. Distracted throughout group. Shared with the group that she has long-standing back pain which is very intense this AM impacting her focus and mental health. Shared that due to her pain she has limited sleep last night as well. Unable to identify any mental health wins. Increased irritability, depression, and hopelessness. Limited progress noted. Limited benefit from group today as she is distracted. Will continue in IOP to prevent decompensation, improve functioning, and stablize mood. Narrative Note: []
--- NOTE | 2023-03-06 09:05 | BH.SGPN.GN ---
Behaviors/Verbalizations/Mental Status: []Eye contact fair to good. Motor activity appropriate. Speech within normal limits. Affect congruent, mood anxious and depressed. Thoughts linear, logical, no signs of hallucinations or delusions. Reviewed client?s symptom tracker, no reported suicidal ideation, denies plan, or intent as of 03/06/2023. Client Response/Progress/Benefit: [] Client receptive of session, attentive and willing to process with group. Identified current mental health wins as potentially finding a new pain management physician, as well as continuing to take time for self-care despite struggling with pain the past few days. Pt shared spending time in the garden as well as going for walks with her dog, noting an improved mood as a result. Pt shared current stressor as finding out recently that her grandson is going to need a helmet and feel worried for his health. Client appeared to benefit from group support and encouragement. Recommended continued IOP tx to continue to improve healthy coping skill application, thought challenging, as well as promote mood stability. Narrative Note: []
--- NOTE | 2023-03-06 10:15 | BH.SGPN.GN ---
Behaviors/Verbalizations/Mental Status: [] Client alert and oriented, casually dressed and groomed. Eye contact good. Motor activity appropriate. Speech within normal limits. Affect constricted, mood anxious. Thoughts linear, logical, no signs of hallucinations or delusions. Client Response/Progress/Benefit: [] Client responded session by being attentive and taking notes. Client provided some input during discussion. Group identified the benefits of change which included: personal growth, positive perspective, increased confidence and better mental health. Worked with the group to identify barriers to change, which included: uncomfortable emotions such as anxiety, lack of awareness, low energy, support system, and negative thinking. Client attentive in activity where they identified and discussed the emotions related to change. Appear to benefit from increased awareness and understanding of emotions, benefits, and barriers related to change. Will continue IOP tx to improve view of self, challenge negative thoughts, and prevent decompensation.
--- NOTE | 2023-03-06 11:15 | BH.SGPN.GN ---
Behaviors/Verbalizations/Mental Status: []Pt alert and oriented, neatly dressed and groomed. Eye contact good. Motor activity appropriate. Speech within normal limits. Affect constricted, mood depressed. Thoughts linear, logical, no signs of hallucinations or delusions Client Response/Progress/Benefit: [] Pt responded well to session, attentive AEB participating in activity and actively engaging in group discussion. Group processed activity to relate the strategies used to overcome barriers in the activity to managing change in own life. Discussed and set SMART goal in group as it relates to change group members are wanting to make. Pt identified change they want as practicing radical acceptance through meditation and prayer. Identified being in the preparation stage as negative thinking is keeping pt from following through consistently. Pt stated to get to the action stage consistently, she will need to use opposite action and positive self-talk. Appeared to benefit from identifying a small goal to work towards. Pt will continue IOP tx to further prevent decompensation, improve daily functioning, and gain healthy coping skills. ? Narrative Note: []
--- NOTE | 2023-03-07 09:00 | BH.SGPN.GN ---
Behaviors/Verbalizations/Mental Status: [] Eye contact is good. Motor activity is appropriate. Appearance is casual. Speech is Appropriate. Mood is anxious/irritable. Affect is congruent. Thoughts are linear and logical. No evidence of psychosis. Reviewed daily check in sheet and no reports of suicidal ideations or intent. Client Response/Progress/Benefit: [] Pt participated at times during the group discussion. Attentive. Emotion for today is worried. Mental health win was completing household responsibilities despite recent mental and physical health struggles. Struggling with sleep which impacts numerous areas of her life including mental health and motivation. She has been experiencing dizzy spells and has realized that she has to set up appt with PCP to discuss this further. These spells can lead to isolation which are impacting her mental health. Limited check-in stating she she feels distant and tired. Benefited from group support, encouragement, and feedback. Limited progress as her physical health has been impacting her mental health. Will continue in IOP to prevent decompensation, stabilize mood, and improve functioning. Narrative Note: []
--- NOTE | 2023-03-07 10:15 | BH.SGPN.GN ---
Behaviors/Verbalizations/Mental Status: []Pt alert and oriented, casually dressed and groomed. Eye contact good. Motor activity appropriate. Speech within normal limits. Affect congruent, mood depressed. Thoughts linear, logical, no signs of hallucinations or delusions. Client Response/Progress/Benefit: []Pt receptive to session AEB contributing to discussion, as well listening attentively to others, and taking notes. Worked with group to brainstorm the positive and negative aspects of stress on physical and mental health. Group did well to identify the benefits of stress as well as the impact of distress on performance, relationships, and mental health. Pt identified their personal top stressors as: finances and lack of income, relationship with her , and lack of support. Pt seemed to benefit from increased awareness of current stressors and impact stress has on mental health. Recommended to continue IOP tx to increase healthy coping skills, improve mood stability, and challenge negative thinking patterns. Narrative Note: []
--- NOTE | 2023-03-07 11:15 | BH.SGPN.GN ---
Behaviors/Verbalizations/Mental Status: []Eye contact is good. Motor activity is appropriate. Appearance is casual. Speech is Appropriate. Mood is anxious and depressed. Affect is congruent. Thoughts are linear and logical. No evidence of psychosis. Client Response/Progress/Benefit: []Pt was an active participant in group discussions and experiential activity. Attentive during psychoeducation on the 4 A's (Avoid, adapt, alter, accept) of coping with stress as well as strategies to identify stressors in which one has no control, little control, or a great deal of control over. Shared that she would benefit most from working on avoid in regards to coping with stress of managing toxic people in her live. Was able to identify the connection between the experimental activity and utilization of stress management skills. Benefited from increased awareness of stress management strategies. Will continue in IOP to maintain progress, prevent decompensation, and to increase healthy coping skill application. Narrative Note: []
--- NOTE | 2023-03-08 09:00 | BH.SGPN.GN ---
Behaviors/Verbalizations/Mental Status: [] Eye contact is fair. Motor activity is appropriate. Appearance is casual. Speech is Appropriate. Mood is depressed and anxious. Affect is constricted. Thoughts are linear and logical. No evidence of psychosis. Reviewed daily check in sheet and no reports of suicidal ideations or intent. Client Response/Progress/Benefit: [] Pt participated at times during the group discussion. Attentive. Patient elected to not check in this morning. Benefited from group support, encouragement, and feedback. Limited progress as psychosocial stressors have been impacting her mental health. Will continue in IOP to prevent decompensation, improve functioning, and increase utilization of healthy coping.
--- NOTE | 2023-03-08 11:10 | BH.SGPN.GN ---
Behaviors/Verbalizations/Mental Status: []Pt alert and oriented, neatly dressed and groomed. Eye contact good. Motor activity appropriate. Speech within normal limits. Affect constricted, mood depressed and anxious. Thoughts linear, logical, no signs of hallucinations or delusions. Client Response/Progress/Benefit: [] Pt engaged in session AEB Pt listening attentively to peers and providing input. Attentive during psychoeducation on 4 zones of regulation. Pt able to identify feelings and behaviors for each zone. Pt identified coping skills one can use to support self in each zone. Pt reports belief they are in the ?red? zone today and pt wants to focus on deep breathing, going for a walk, and being with her dog today to help pt in this zone. Benefited from increased education on zones of regulation or stages of alertness for emotions and healthy coping skills to use for each zone. Will continue IOP tx to prevent decompensation, improve daily functioning, and reduce negative thinking patterns. Narrative Note: []
--- NOTE | 2023-03-08 14:59 | BH.MDN ---
Multi-Disciplinary Note Note 45-min Individual: Time Started:: 10:10 Date: 03/08/23 Purpose of session/treatment goals addressed:: Purpose of session was to address goals 1 and 2 from MTP. Eye Contact:: Good Motor Activity:: Appropriate Appearance:: Casual Speech:: Appropriate Mood:: Anxious and Depressed Affect:: Congruent Thoughts:: Linear, Logical and Other (reports feeling paranoid about her cheating) Staff Interventions:: thought challenging, motivational interviewing, CBT techniques, mindfulness skills, rapport building, goal setting and taught coping skills Client Response:: Client reported she has been feeling very depressed. Client stated due to her significant psychosocial stressors she just feels alone and stuck. Client stated she used to write positive things on her mirror which was helpful but she has not done that in a while. Client reported she has tried to connect with her niece but is afraid her sister will let her niece come over this weekend. Client stated continuing to feel frustrated with not being able to drive. Client stated she does plan to apply for early release of her suspended license. Client reported she recognizes its not going to hurt if she at least applies. Client willing to work with therapist to create a plan for the weekend to help decrease her depression and engage in behavior activation. Client remembered that she has a thought house that she wanted to restore because it is very old. Client became excited when talking about things that she had planned to do for this doll house and realizes if she cannot hang out with her niece then she can spend her time doing that. Client stated feeling better now that she realizes there is something that she can do does not have to stay inside and be stuck. Risks/Concerns:: Denies active suicidal ideation, plan, intention. Progress Toward Goals/Plan:: Client progress noted with open-mindedness to trying new ideas and skills. Client is faced with significant psychosocial stressors of not being able to drive, limited healthy support, and family stress. Client showing improved ability to focus on what is within her control instead of focusing on all the things that she cannot control. Client open to getting back involved in activities she used to enjoy to activate hopeful emotions. Client to continue IOP to increase healthy coping, challenge distortions, and prevent decompensation. Time Stopped:: 11:00
== END 2023-03-08 23:59 ==
LOC: BHIOP 08:00
PROVIDERS: PCP Nurse Practitioner Family; Referring Provider Psychiatry & Neurology Psychiatry; Visit Provider Psychiatry & Neurology Psychiatry
DX: F33.3 Major depressive disorder, recurrent, severe with psychotic symptoms (principal); F43.10 Post-traumatic stress disorder, unspecified; F41.1 Generalized anxiety disorder; F10.99 Alcohol use, unspecified with unspecified alcohol-induced disorder; G89.29 Other chronic pain; M54.9 Dorsalgia, unspecified
CPT/HCPCS: 90792; H2012; H2020; S9480; T1002; 90834

== ENCOUNTER → 2023-03-07 | Outpatient (CLI) | payer MEDICAID, SELFPAY ==
[2023-03-07 10:42] LABS: T4 Total, Thyroxin 9.2 ug/dL (4.8-13.9); Thyroid Stim Hormone (TSH) 0.83 uIU/mL (0.358-3.74)
== END | disposition home or self-care (01) ==
LOC: LAB 09:07
PROVIDERS: Referring Provider Psychiatry & Neurology Psychiatry; Visit Provider Psychiatry & Neurology Psychiatry
DX: E55.9 Vitamin D deficiency, unspecified (principal)
CPT/HCPCS: 36415; 84436; 84443

== ENCOUNTER 2023-03-11 07:17 | Outpatient (RCR) | payer MEDICAID, SELFPAY ==
[2023-03-09 01:45] VITALS: BP 159/86; PULSE 66
--- NOTE | 2023-03-11 09:00 | BH.SGPN.GN ---
Behaviors/Verbalizations/Mental Status: [] Eye contact is good. Motor activity is appropriate. Appearance is casual. Speech is Appropriate. Mood is depressed. Affect is congruent. Thoughts are linear and logical. No evidence of psychosis. Reviewed daily check in sheet and no reports of suicidal ideations or intent. Client Response/Progress/Benefit: [] Pt was an active participant in group discussion. Attentive. Emotion for today is hopeful. Daily symptom tracker notes 11/11 for anxiety, depression, and irritability. She was tearful at times during her check-in Reports a myriad of emotions from happiness to loneliness. Shared with the group feelings of being alone and having no purpose since her children grew up. She connected with her son yesterday ' he just stopped over and reported that the interaction went well which was great, however she began to ruminate on how her adult children don't need her anymore and the conflicts they have with her current . Group attempted to provided feedback and suggestions to improve communication however pt was dismissive due to perspective that things won't change. Limited progress per pt report due to ruminations, learned helplessness, and hopelessness. Limited benefit from group. Will continue in IOP to prevent decompensation, stabilize mood, and improve functioning. Narrative Note: []
--- NOTE | 2023-03-11 10:10 | BH.SGPN.GN ---
ions/Mental Status: [] Eye contact is good. Motor activity is appropriate. Appearance is casual. Speech is Appropriate. Mood is anxious. Affect is congruent. Thoughts are linear and logical. No evidence of psychosis. Client Response/Progress/Benefit: [] Pt did not participate in group discussions however was attentive. Participated in and was engaged during experiential activity. Attentive during interactive discussion on what failure means to the group in which peers identified that failure is ... not meeting expectations, not having a desired outcome, and not succeeding in a task. Group was able to identify how fear of failure can lead to inaction, complacency, pushing people away, poor self-care, and self-sabotage. Attentive during interactive discussion on the role that FOF plays in mental wellness, depression, anxiety, and growth. Able to connect the experiential activity to FOF. Benefited from increased awareness of how the role that FOF plays in mental health and decision-making. Will continue in IOP to decrease anxiety, increase healthy coping skills, and prevent decompensation.
--- NOTE | 2023-03-11 11:15 | BH.SGPN.GN ---
Behaviors/Verbalizations/Mental Status: []Pt alert and oriented, neatly dressed and groomed. Eye contact good. Motor activity appropriate. Speech within normal limits. Affect congruent, mood depressed. Thoughts linear, logical, no signs of hallucinations or delusions. Client Response/Progress/Benefit: [] Pt responded well to session, engaged in the experiential activity and attentive throughout group processing. Pt reported fear of failure has kept Pt from leaving relationships and staying away from certain people. Pt completed fear of failure worksheet and was able to identify thoughts and behaviors that reinforce personal fear of failure including lack of transportation, being let down, and lack of support. Pt participated in group discussion regarding strategies to overcome fear of failure. Identified wanting to work on using positive self-talk by writing messages on her mirror. Appeared to benefit from increased knowledge of strategies to combat fear of failure and gaining self-awareness. Pt will continue IOP tx to increase emotional regulations skills, healthy boundaries, and improve overall functioning. Narrative Note: []
--- NOTE | 2023-03-13 09:03 | BH.SGPN.GN ---
Behaviors/Verbalizations/Mental Status: [] Eye contact good. Motor activity appropriate. Speech within normal limits. Affect congruent, mood anxious and depressed. Thoughts linear, logical, no signs of hallucinations or delusions. Reviewed client?s symptom tracker, no reported suicidal ideation, denies plan, or intent as of 03/13/2023. Client Response/Progress/Benefit: [] Client receptive of session, attentive and willing to process with group. Identified mental health ?wins? as challenging urges to isolate and instead spending time her for the holiday. Shared in the past they would have a big family get together, however pt opted not to this year, which is both and a positive and a stressor. Shared reduced anxiety about planning an event but some sadness in not having the social support. Reports that she had gone to a family member?s house for the fireworks which led to increased anxiety as they were closer to the fireworks than pt has been in the past and shared feeling residual anxiety this morning. Discussed trying to remind herself to take deep breaths. Client appeared to benefit from group support and encouragement. Recommended continued IOP tx to continue to work on anxiety reduction, improve mood stability, as well as continue to provide emotional support. Narrative Note: []
--- NOTE | 2023-03-13 10:05 | BH.SGPN.GN ---
Behaviors/Verbalizations/Mental Status: [ ]Client alert and oriented, casually dressed and groomed. Eye contact good. Motor activity appropriate. Speech within normal limits. Affect constricted, mood dysthymic. Thoughts linear, logical, no signs of hallucinations or delusions. Client Response/Progress/Benefit: [] Client was an active participant in activity and taking notes during group discussion and provided input in during group discussions. Attentive during psychoeducation on coping skills, why people use unhealthy coping skills, and how to replace unhealthy coping skills. Group came up with list of negative coping skills that included substance use, avoidance, lashing out, and escaping from reality. Group discussed the effects of how negative coping skills can impact mental health in a negative way which included lack of positive supports. Benefited from increased understanding of unhealthy coping skills and the need for developing healthy interna and external coping skills. Client will continue IOP tx to increase ability to manage emotions and challenge unhealthy thought patterns. Narrative Note: []
--- NOTE | 2023-03-13 11:05 | BH.SGPN.GN ---
Behaviors/Verbalizations/Mental Status: [] Client alert and oriented, neatly dressed and groomed. Eye contact good. Motor activity appropriate. Speech within normal limits. Affect constricted, mood anxious. Thoughts linear, logical, no signs of hallucinations or delusions. Client Response/Progress/Benefit: [] Client responded well to session AEB taking notes and providing input and examples throughout. Group discussed the different categories of coping skills which included distraction, emotional release, grounding, self-love, and thought challenging. Client created a coping skill menu identifying various skills to try in each category. Client?s coping skill menu included: escaping, crying, taking deep breaths, walking, praying, and counting blessings. Appeared to benefit from increasing repertoire of healthy coping skills. Client will continue IOP tx to improve daily functioning and prevent decompensation. Narrative Note: []
--- NOTE | 2023-03-13 12:23 | PCM.BH.PN_ITS ---
Progress Note Progress Note: History of Present Illness/Interim History: The patient is a 52-year-old female with a history of depression, anxiety and alcohol use who is seen in follow-up at the [facility] behavioral health IOP. I last saw the patient 2 weeks ago and at that time we decided to wean her Prozac due to issues with constipation and added Abilify to help with her hallucinations. The patient is tolerating the medication changes well but remains anxious and still somewhat paranoid. She still having depression, passive thoughts of which have lessened but are still occurring 1-2 times a week. She is having some cravings for alcohol and is interested in starting naltrexone soon but she has not used any alcohol for several months. She remains very anxious and is a constantly worrying. She denies suicidal ideation, homicidal ideation, plan for suicide. She is still having on occasion tactile, auditory and possible visual visual hallucinations which could be illusions also. Thyroid labs were checked and were within normal limits and these were discussed with the patient. Current Psychiatric Medications: [] Prozac 40 mg p.o. daily (decreased 2 weeks ago); hydroxyzine 25 mg p.o. daily; trazodone 100 mg as needed nightly; BuSpar 15 mg p.o. twice daily; Abilify 2 mg p.o. daily (x2 weeks) Mental Status Examination: [] The patient is a 52-year-old, thin female who appears normal or little older than stated age and is casually dressed and groomed with good hygiene. She has no psychomotor agitation or retardation and is ambulatory with a normal gait. Eye contact is fair but the patient does look away at times while she is talking. Speech is a little fast but overall relatively normal rate and rhythm and fluent with no pressure. Mood is depressed. Affect is full and normal. Thought process is organized and less tangential than at the initial visit. Thought content: There is evidence of passive thoughts of and evidence of possible paranoid delusions. There is also evidence at times of tactile versus visual hallucinations and auditory hallucinations at times where she hears an evil voice calling her name. Reality testing grossly intact during the interview. Judgment is intact. Insight is poor. Impulsivity is high. Diagnoses: [] 1. Major depressive disorder, recurrent, severe with psychotic features (F33.3) 2. PTSD 3. Generalized anxiety disorder 4. Alcohol use disorder in partial remission for 2 months possibly 5. Primary support and financial issues 6. Chronic back pain Plan: [] The patient will continue the IOP program at [facility] as the structure, support, education and group therapy will hopefully prevent worsening of the patient's symptoms. She felt safe during the interview and if it anytime she does not feel safe she will let us know or go to the emergency room. The risk, options, possible complications and side effects of the medications were discussed again with the patient and she understands and accepts these. The patient agrees to remain sober from all alcohol and drug use. The patient agrees to decrease her Prozac to 20 mg daily for 2 weeks and then discontinue the Prozac. She agrees to increase her Abilify to 5 mg p.o. daily. She will also add Zoloft 25 mg p.o. daily and prescriptions were sent in for this. I will see the patient in 1 week and at that time if she is tolerating these medication changes we will add naltrexone 50 mg as the patient wishes to decrease her alcohol cravings. She will continue follow-up with her outpatient providers and I will see the patient in follow-up in 1 week.
--- NOTE | 2023-03-14 09:00 | BH.SGPN.GN ---
Behaviors/Verbalizations/Mental Status: []Pt alert and oriented, neatly dressed and groomed. Eye contact good. Motor activity appropriate. Speech within normal limits. Affect congruent, mood content. Thoughts linear, logical, no signs of hallucinations or delusions. Reviewed pt?s symptom tracker, no risk for suicidal ideation, plan, or intent as 03/14/23 Client Response/Progress/Benefit: []Pt responded well to session, offering supportive statements and engaged. Pt reports feeling mellow this morning and shared that she used affirmations this morning to get her into a better head space. Pt stated yesterday and on the 4th she was very anxious, but pt was able to practice healthy coping skills which reduced anxiety. Pt also went to a grocery store which pt identified as a mental health win. Pt's stressor today is her 's health and feeling frustrated that he does not take care of himself. Pt appeared to benefit from reflecting on her application of healthy coping skills. Pt will continue IOP tx to promote mood stability, reduce negative thinking patterns, and increase emotional regulation skills. Narrative Note: []
--- NOTE | 2023-03-14 10:15 | BH.SGPN.GN ---
Behaviors/Verbalizations/Mental Status: []Client alert and oriented, casual dress, hygiene tended to. Eye contact good. Motor activity appropriate. Speech within normal limits. Affect congruent, mood euthymic. Thoughts linear, logical, no signs of hallucinations or delusions. Client Response/Progress/Benefit: []Client responded well to session, attentive to discussions, taking notes. Client worked cooperatively with the group to identify factors that contributed to how we define ourselves which included: upbringing, societal expectations, labels, failures, trauma, shame/guilt, others opinions, and diagnosis. Attentive during group discussion about social and perceived stigma. Client stated prayer has been helpful to her with coping with her mental health diagnoses and to help decrease stigma associated with mental health. Client seemed to benefit from increased awareness of how mental health stigma can impact progress and self-worth. Client to continue IOP tx to continue use of healthy coping skills, challenge distortions, and prevent decompensation.
--- NOTE | 2023-03-14 12:12 | BH.MDN_ITS ---
Multi-Disciplinary Note Note 45-min Individual: Time Started:: 11:20 Date: 03/14/23 Purpose of session/treatment goals addressed:: Purpose of session was to address goals 1 and 2 from MTP. Eye Contact:: Good Motor Activity:: Appropriate Appearance:: Casual Speech:: Appropriate Mood:: Anxious and Dysthymic Affect:: Congruent Thoughts:: Linear and Logical Staff Interventions:: thought challenging, CBT techniques, mindfulness skills, rapport building, strengths perspective and goal setting Client Response:: Client responded well to session as evidenced by her openly sharing thoughts and feelings. Client reported she had a positive weekend in which she was able to spend a lot of time outside. Client stated she did have intense anxiety on March 12 due to feeling overstimulated and anxious while at fireworks with family. Client stated her family went to watch fireworks closer than she typically would go and she was feeling paranoid that there was a person on top of the water tower that was going to shoot down at the crowd. Client kept looking up at the water tower because she thought she could see a person. Client reported had desire to leave throughout the entire fireworks because she could not enjoy herself. Client stated her fear and paranoia continue to keep her from enjoying things outside of her home. Client reported she did share with IOP psychiatrist about this experience yesterday and they are making some medication changes to help with her anxiety. Client also shared about experiencing some trauma triggers when dropping some things off at her family's farm. Client stated she does not know what to do about being continuously trauma triggered. Client responded well to psychoeducation about the impact childhood trauma can have on later in life. Client agreed she could benefit from exploring trauma treatment. Client stated to her outpatient therapist and a psychologist industrial organizational also recommended EMDR treatment later. Client open to continuing to practice mindfulness skills like belly breathing and grounding tools. Risks/Concerns:: Denies suicidal ideation, plan, intention. Progress Toward Goals/Plan:: Progress noted with client showing improved ability to challenge her negative thought patterns. Client noted increased anxiety when faced with public outing. However client was able to keep herself from escaping the situation and managed in the moment. Client continues to struggle with anxiety and depressed symptoms. Client to continue IOP to increase healthy coping, challenge negative thoughts, and prevent decompensa tion. Time Stopped:: 12:00
--- NOTE | 2023-03-19 09:00 | BH.SGPN.GN ---
Behaviors/Verbalizations/Mental Status: [] Eye contact is good. Motor activity is appropriate. Appearance is casual. Speech is Appropriate. Mood is euthymic. Affect is full. Thoughts are linear and logical. No evidence of psychosis. Reviewed daily check in sheet and no reports of suicidal ideations or intent. Client Response/Progress/Benefit: [] Pt was an active participant in group discussion. Attentive. Daily symptom tracker notes 11/11 for anxiety and depression.Shared with the group several mental health wins. Utilizing skills, not isolating, and and exercising in the past few days. Insight that these lifestyle changes have been beneficial to her mental health. Focusing more on her accomplishments and postive memories than ruminating on mistakes which lead to guilt. Increased self-care. Continues to feel isolated with limited support. Briefly discussed communication and relationship conflict. Feels that her does not understand her mental health struggles and she is often judged for her symptoms. Progress noted as she reports utilizing skills, decreasing isolation, and finding goals/purpose (exercise). Benefited from group support, encouragement, and feedback. Will continue in IOP to prevent decompensation, stabilize mood, and increase healthy coping skills. Narrative Note: []
--- NOTE | 2023-03-19 10:15 | BH.SGPN.GN ---
Behaviors/Verbalizations/Mental Status: [] Client alert and oriented, casually dressed and groomed. Eye contact fair. Motor activity appropriate. Speech within normal limits. Affect congruent, mood anxious. Thoughts linear, logical, no signs of hallucinations or delusions. Client Response/Progress/Benefit: [ ] Client active participant in group discussions. Attentive during psychoeducation on 4 types of conflict styles (Competing, Collaborating, Avoiding, and Accommodating). Worked with group to define conflict and identify how conflict is helpful. With peers identified barriers to addressing or managing conflict which included: not wanting to hurt others, lack of communication skills, and cognitive distortions. Client reported she tends to use accommodating conflict style. Client reported this results in her holding things she wants to say back and gives in to what others want. Reported this negatively impacts his marriage. Benefited from group due to increase insight and awareness of benefits to conflict, conflict styles, and obstacles to managing conflict. Will continue in IOP to increase consistent use of healthy coping skills, challenge negative/distorted thinking, and prevent decompensation.
--- NOTE | 2023-03-19 11:15 | BH.SGPN.GN ---
Behaviors/Verbalizations/Mental Status: []Pt alert and oriented, neatly dressed and groomed. Eye contact good. Motor activity appropriate. Speech within normal limits. Affect congruent, mood euthymic. Thoughts linear, logical, no signs of hallucinations or delusions. Client Response/Progress/Benefit: [] Pt engaged in session AEB contributing to discussion and engaging in activity. Attentive during discussion on strategies for more effectively managing conflict in personal life. Pt participated in activity and did well to be assertive and collaborating in small group. Pt given handout on fair fighting rules. Pt indicated that pt is going to work on expressing feelings with words instead of shutting down and being too agreeable. Appeared to benefit from gaining strategies to help Pt better manage conflict. Will continue IOP tx to promote mood stability, reduce negative thinking patterns, and improve use of healthy coping skills. ? Narrative Note: []
--- NOTE | 2023-03-20 09:00 | BH.SGPN.GN ---
Behaviors/Verbalizations/Mental Status: []Pt alert and oriented, casually dressed and groomed. Eye contact good. Motor activity appropriate. Speech within normal limits. Affect congruent, mood anxious and euthymic. Thoughts linear, logical, no signs of hallucinations or delusions. Reviewed pt?s symptom tracker, risk for suicidal ideation within pt baseline, denies plan, or active intent as of 03/20/23 Client Response/Progress/Benefit: []Pt responded well to session, open to contributing with group and engaged. Pt reports feeling apprehensive this morning, explaining that she is worried her has ulterior motives for gifting pt a plan ticket to visit her sister in [place]. Self-reports difficulties trusting others and therefore is struggling to recognize whether her concerns are valid or not. Receptive of supportive feedback and suggestions from the group. Identified mental health wins as plans to follow through with going on the trip to see her sister and focus on her excitement about the trip rather than anxious thoughts. Additional win noted as going through things in the house to prepare for an upcoming yard sale. Pt appeared to benefit from reflecting on mental health wins. Pt will continue IOP tx to promote mood stability, reduce distorted thinking patterns, and increase use of anxiety management skills. Narrative Note: []
--- NOTE | 2023-03-20 11:10 | BH.SGPN.GN ---
Behaviors/Verbalizations/Mental Status: [] Eye contact is good. Motor activity is appropriate. Appearance is casual. Speech is Appropriate. Mood is anxious. Affect is congruent. Thoughts are linear and logical. No evidence of psychosis. Client Response/Progress/Benefit: [] Pt was an active participant in group discussions and experiential activity. Attentive during psychoeducation. Patient participated during interactive discussion on strategies to overcome several obstacles to mental wellness including People-pleasing, Low Self-esteem, unhealthy coping skills, isolation, loneliness, and negative thinking. Pt choose the barrier of people-pleasing to work on this week and identified strategies to incorporate including setting boundaries and practicing self-care. Benefited from increased awareness of obstacles to mental wellness and strategies to help overcome those obstacles. Will continue in IOP to prevent decompensation, stabilize mood, and increase healthy coping skills. Narrative Note: []
--- NOTE | 2023-03-20 11:49 | PCM.BH.PN_ITS ---
Progress Note Progress Note: History of Present Illness/Interim History: The patient is a 52-year-old female with a history of depression, anxiety and alcohol use disorder who is seen in follow-up at the [facility] behavioral health IOP program. I last saw the patient 1 week ago and at that time we continued to wean the Prozac and added Zoloft to help with the patient's constipation. In addition her Abilify was increased to 5 mg 1 week ago. The patient states that she still remains depressed somewhat and is still having some passive thoughts of . She is tolerating medication changes well and has only occasional mild nausea which she is able to tolerate well. She is having less constipation since weaning the Prozac and starting Zoloft. She is still having cravings for alcohol and very much wants to try an LTAC troxidone to help decrease her cravings and decrease the amount of alcohol she uses if she does relapse. She denies suicidal ideation, homicidal ideation, plan for suicide. She still has on occasion the tactile, auditory and possible visual hallucinations. Current Psychiatric Medications: [] Prozac 20 mg p.o. daily (decreased 1 week ago and patient will discontinue this in 1 more week); hydroxyzine 25 mg p.o. daily; trazodone 100 mg as needed at nightly; BuSpar 15 mg p.o. twice daily; Abilify 5 mg p.o. daily (increased 1 week ago); Zoloft 25 mg p.o. daily (started 1 week ago) Mental Status Examination: [] The patient is a 52-year-old thin female who appears normal or little older than stated age and is casually dressed and groomed with good hygiene. She is ambulatory with a normal gait and has no psychomotor agitation or retardation. Eye contact is good and speech is normal rate and rhythm and fluent with no pressure. Mood is depressed. Affect is mildly constricted to full and normal. Thought process is organized and goal- directed. Thought content: There remains evidence of passive thoughts of and possible paranoid delusions and tactile/visual hallucinations. Reality testing is intact. Judgment is intact. Insight is limited. Impulsivity is high. Diagnoses: [] 1. Major depressive disorder, recurrent, severe with psychotic features (F33.3) #2 PTSD #3 generalized anxiety disorder #4 alcohol use disorder in partial remission for 2 months #5 primary support and financial issues #6 chronic back pain Plan: [] The patient will continue the IOP program at [facility] as the structure, support, education and group therapy will hopefully prevent worsening of the patient's symptoms. She felt safe during the interview and if it anytime she does not feel safe she will let us know or go to the emergency room. The risks, options, possible complications and side effects of the medications were discussed again with the patient and she understands and accepts these. She agrees to remain sober from all alcohol and drug use. She will discontinue her Prozac in 1 week around March 27, 2023 and at the same time she will increase her Zoloft to 50 mg p.o. daily. Prescriptions were sent in for this. She will also start naltrexone 50 mg as requested by the patient to help with alcohol cravings and use. She will continue to follow-up with her outpatient providers and I will see the patient in follow-up in 2 weeks and at that time if depression has improved we will increase the Abilify to 7.5 mg if hallucinations remain.
--- NOTE | 2023-03-20 16:10 | BH.TPR ---
Treatment Plan Review Demographics Date of Admission:: 02/25/23 Date of Treatment Plan Review:: 03/20/23 Admitting Diagnoses:: 1. Major depressive disorder, recurrent, severe with psychotic features (F33.3) 2. PTSD 3. Generalized anxiety disorder 4. Alcohol use disorder in partial remission for a little over 1 month possibly Current Diagnoses:: 1. Major depressive disorder, recurrent, severe with psychotic features (F33.3) 2. PTSD 3. Generalized anxiety disorder 4. Alcohol use disorder in partial remission for a little over 1 month possibly Patient Status Patient's Response to Treatment:: Pt responding well to treatment AEB consistent IOP attendance, engagement in group discussions, and follow through with homework from individual therapy sessions. Status of Current Problems and Symptoms: Client continues to report depressive and anxious symptoms. Client experienced recent stressor of her buying a ticket for her to visit her sister for one month which has increased client's paranoia/anxiety that he has ulterior motives. Client is showing progress with reporting use of self-care, belly breathing, and grounding tools. Per client's DSM cross-cutting measure at review her overall mental health symptoms have stayed the same compared to intake scores. Client reporting feeling isolated and lonely due to limited healthy supports locally and not being able to drive. Progress Problem #1: Problem Name:: Depression Status of Goals:: Obj 1 - partially met, ongoing work encouraged. Client is able to identify healthy coping skills like thought challenge, opposite action, and daily goal setting. Obj 2 - not met. Per DSM 5 cross cutting measure at review depressed symptoms have increased by 14% since intake. Team Recommendations:: Team recommends continued work on current goals and objectives. Encourage helping client with focusing on what's within her control she tends to focus on psychosocial stressors that are outside her control. Continue work on increasing use of calming skills in the moment to help manage anxious symptoms. Problem #2: Problem Name:: Anxiety Status of Goals:: Obj 1 - partially met, ongoing work encouraged. Client able to identify calming skills like belly breathing, grounding skills, and mindfulness. Client struggles with consistent application of skills in the moment. Obj 2 - not met. Per DSM 5 cross cutting measure anxiety has increased by 10% compared to intake scores. Team Recommendations:: Team recommends continued work on current goals and objectives. Encourage helping client with focusing on what's within her control she tends to focus on psychosocial stressors that are outside her control. Continue work on increasing use of calming skills in the moment to help manage anxious symptoms.
--- NOTE | 2023-03-21 10:10 | BH.SGPN.GN ---
Behaviors/Verbalizations/Mental Status: [] Eye contact is good. Motor activity is appropriate. Appearance is casual. Speech is Appropriate. Mood is anxious. Affect is congruent. Thoughts are linear and logical. No evidence of psychosis. Client Response/Progress/Benefit: []Pt engaged participant AEB listening to others, engaging in activity, and providing feedback at times. Attentive during psychoeducation and provided insight into obstacles in the way of mental wellness. Pt shared with group current mental health reality and desired mental health reality. Stated coming to therapy as one step she is currently making to get closer to desired reality. Identified barriers to desired reality include: people pleasing, mistrust of others, and not using healthy skills. Benefited from taking look at current mental health state and obstacles for progress. Pt to continue IOP to increase consistent use of healthy coping, increase confidence, and prevent decompensation.
--- NOTE | 2023-03-21 10:10 | BH.SGPN.GN ---
Behaviors/Verbalizations/Mental Status: []Pt alert and oriented, neatly dressed and groomed. Eye contact good. Motor activity appropriate. Speech within normal limits. Affect congruent, mood euthymic. Thoughts linear, logical, no signs of hallucinations or delusions. Client Response/Progress/Benefit: []Pt was an active participant in group discussions and activity. Attentive during psychoeducation. Pt along with peers were able to identify several negatives on the picture given to the group. Pt and peers also identified positives in the picture and made the connection that finding positives is much more difficult. Interactive discussion on the definition of perspective, how perspective is formed, and why perspective is important in treatment. Pt along with peers also identified that perspective can either motivate and encourage treatment or be a barrier to receiving help. Pt shared today her perspective is more positive and hopeful. Pt stated using positive self-talk and opening up to peers in IOP has helped pt develop a more positive perspective. Pt reflected that being more hopeful helps pt move towards her goals. Will continue in IOP to stabilize moods, increase consistent use of healthy coping, and increase self-esteem. Narrative Note: []
--- NOTE | 2023-03-21 10:52 | BH.MDN ---
Multi-Disciplinary Note Note 45-min Individual: Time Started:: 09:25 Date: 03/21/23 Purpose of session/treatment goals addressed:: Purpose of session was to address goals 1 and 2 from MTP. Eye Contact:: Good Motor Activity:: Restless Appearance:: Casual Speech:: Rambling Mood:: Anxious Affect:: Congruent Thoughts:: Racing and No evidence of hallucinations/delusions noted (Patient did report recent visual hallucination of thinking she saw a skunk in her house. Her was home and confirmed there was no skunk in the house.) Staff Interventions:: thought challenging, CBT techniques, rapport building, strengths perspective, reviewed DSM-5 and taught coping skills Client Response:: Patient reported over the last week she has been busy with getting ready for her yard sale. Patient stated it is helpful for her to keep herself busy. Patient reported she has been spending time outside which is helpful for her mood. Patient shared she is feeling worried and frustrated that she continues to have hallucinations. Client stated recently she thought she saw a skunk inside her house but her was home and told her there was nothing there. Client stated later on in the evening she again thought she saw skunk and again her confirmed to her that there was no skunk. Client stated she is not sure why she constantly hallucinates about animals but notes this has not decreased. Client reported she does believe her Abilify is helping her feel more calm. Client noted feeling a little increased anxiety this morning but noted she did forget to take one of her medications. Client reported she is doing better with getting things done around the house. Client noted progress in the last 3 weeks is starting to verbalize her thoughts and feelings more openly instead of holding them in and then snapping. Client continues to report strained relationship with her . Client identifies this as a significant stressor because she has to over rely on him for transportation. Client stated he would often call her names and be a negative support person. Client reported she did take action by applying to get her license released from suspension in early. Client recognizes it could be denied but at least she tried. Client reported overall she feels like her mood is up and down. Client stated she needs to continue to work on managing her emotions in the moment and challenging her negative thoughts. Risks/Concerns:: Denies suicidal ideation, plan, and intention. Progress Toward Goals/Plan:: Client progress noted with her reporting improved ability to assert her needs and openly communicate how she is feeling. Client stated she is continuing to struggle with feeling anxious but did note feeling more calm on some days. Client said she feels like her mood is up and down and recognizes to not take time to completely feel better because she has been engaging in some of the thoughts and behaviors for a long time. Client is to continue IOP to increase consistent use of healthy coping skills, challenge negative thoughts, and prevent decompensation. Time Stopped:: 10:10
--- NOTE | 2023-03-21 11:10 | BH.SGPN.GN ---
Behaviors/Verbalizations/Mental Status: []Pt alert and oriented, neatly dressed and groomed. Eye contact good. Motor activity appropriate. Speech within normal limits. Affect congruent, mood euthymic. Thoughts linear, logical, no signs of hallucinations or delusions. Client Response/Progress/Benefit: []Pt was attentive and contributed to small group discussion. Pt completed strengths exploration worksheet, identifying empathy, kindness, and forgiveness as personal strengths. Pt able to acknowledge how these strengths are helping pt and can continue to help pt in mental health journey. Pt worked with group to identify strategies that can help increase utilization of personal strengths and how to challenge one?s perspective in general. Pt identified wanting to work on asking herself questions to help challenge perspective. Benefited from identifying personal strengths and strategies for enhancing use of identified strengths. Pt to continue IOP tx to promote mood stability, combat distortions, and increase self-care. Narrative Note: []
--- NOTE | 2023-03-25 09:00 | BH.SGPN.GN ---
Behaviors/Verbalizations/Mental Status: [] Eye contact is good. Motor activity is appropriate. Appearance is casual. Speech is Appropriate. Mood is anxious. Affect is congruent. Thoughts are linear and logical. No evidence of psychosis. Reviewed daily check in sheet and no reports of suicidal ideations or intent. Client Response/Progress/Benefit: [] Pt was an active in group discussion. Attentive. Daily symptom tracker notes 3/5 for anxiety and 2/5 for depression. Mental health wins included going on a 3 mile bike ride. She talked at length how this has helped decrease isolation, increase purpose/goals, increase motivation, increase sense of accomplishment, and help with reframing thoughts. While riding she is working on managing her negative automatic thoughts. Reports that she is also sleeping better. Increased self-esteem and social engagement. Decreased isolation, crying spells, and mental health distress. She has plan to organize a yard sale this weekend with friend. Consistently taking medications which she believes are also helpful. Benefits significantly from group support in IOP and not feeling alone or judged. Stressors continue to be marriage and family relationships. Will continue in IOP to prevent decompensation, stabilize mood, increase healthy coping, and improve functioning . Narrative Note: []
--- NOTE | 2023-03-25 10:15 | BH.SGPN.GN ---
Behaviors/Verbalizations/Mental Status: []Pt alert and oriented, casually dressed and groomed. Eye contact good. Motor activity appropriate. Speech within normal limits. Affect congruent, mood anxious and content. Thoughts linear, logical, no signs of hallucinations or delusions. Client Response/Progress/Benefit: []Pt responded well to session, attentive and providing to discussion. Pt connected with the quote and discussion reviewing the functions of various emotions. Attentive throughout psychoeducation on the functional role and benefits of guilt, as well as differences between appropriate and inappropriate guilt. Group discussed the harmful impacts of unmanaged guilt which included poor boundaries, feeling inadequate, and creating an unhealthy maintenance cycle. Pt participated in group activity highlighting the impacts of inappropriate guilt in team collaboration or reaching a goal. Pt then completed a self-reflection activity in which they identified their own experiences with inappropriate guilt and impacts on pt?s mental health. Shared struggling with inappropriate guilt when taking time for her own self-care. Pt appeared to benefit from learning about the different types of guilt and how unmanaged guilt can impact mental health. Pt will continue IOP tx to promote mood stability, increase ability to apply calming skills, and continue to improve daily functioning. Narrative Note: []
--- NOTE | 2023-03-25 11:15 | BH.SGPN.GN ---
Behaviors/Verbalizations/Mental Status: []Pt alert and oriented, neatly dressed and groomed. Eye contact good. Motor activity appropriate. Speech within normal limits. Affect congruent, mood euthymic. Thoughts linear, logical, no signs of hallucinations or delusions. Client Response/Progress/Benefit: [] Pt engaged participant AEB listening attentively to others and providing input throughout group. During challenge activity pt worked cooperatively with small group. Pt made connection that it takes patience and problem solving to work through appropriate and inappropriate guilt. Pt worked with their small group to identify strategies to manage unhealthy guilt. Pt stated pt often feels inappropriate guilt when dealing with her family. Pt selected wanting to work on sticking to the boundaries she has set and to reduce apologizing to challenge inappropriate guilt. Pt seemed to benefit from learning about strategies to manage appropriate and inappropriate guilt. Pt to continue IOP to improve daily functioning, reduce isolation, and improve distress tolerance skills. ? Narrative Note: []
--- NOTE | 2023-03-27 09:00 | BH.SGPN.GN ---
Behaviors/Verbalizations/Mental Status: [] Eye contact is good. Motor activity is appropriate. Appearance is casual. Speech is Appropriate. Mood is euthymic and anxious. Affect is congruent. Thoughts are linear and logical. No evidence of psychosis. Reviewed daily check in sheet and no reports of suicidal ideations or intent. Client Response/Progress/Benefit: [] Pt participated when prompted. Attentive. Daily symptom tracker notes 11/11 for depression and anxiety. Reports on tracker mood is better than Saturday. Client reported mental health positive as painting deck yesterday with her . Stated it was nice to see progress on a project she's been wanting to do for awhile. Pt reported additional positive as finding out her oldest step-son will be coming home from the [employer] for a couple weeks. Client stated she's also excited about having her yard sale this weekend that she's been preparing for the last couple of weeks. Reported it will be nice to have all the extra items out of her house. Reported current stressor is being told by her neighbor this morning that he saw a person walking around pt's house late last night and sitting on her front stoop. Pt reported due to this she's feeling more anxious and paranoid this morning. Seemed to benefit from support from peers. Will continue in IOP to prevent decompensation, decrease anxiety, and continue use of healthy coping skills.
--- NOTE | 2023-03-27 14:10 | BH.MDN_ITS ---
Multi-Disciplinary Note Note 45-min Individual: Time Started:: 10:25 Date: 03/27/23 Purpose of session/treatment goals addressed:: Purpose of session was to address goals 1 and 2 from Master treatment plan. Eye Contact:: Good Motor Activity:: Restless Appearance:: Casual Speech:: Appropriate Mood:: Euthymic and Anxious Affect:: Full Thoughts:: Linear, Logical and No evidence of hallucinations/delusions noted Staff Interventions:: thought challenging, CBT techniques, mindfulness skills, discharge planning and strengths perspective Client Response:: Client reported feeling excited because her felipe will be home from the for visit tomorrow. Client stated her felipe has been overseas for 5 years and she has not seen him in quite a while. Client reported they have a really good relationship and is excited to finally spend ti me with him. Client reported she is also going keeping herself busy by getting ready for a garage sale this weekend and she is excited to get things out of her house that she does not need. Client stated she tends to feel better when there is less clutter in her house. Client shared her current stressor is being told by a neighbor this morning that he saw somebody working around her property last night. Client stated finding this out this morning did not help her paranoia and now she is worried she will be able to sleep out of fear somebody is outside her house. Client stated she does have some cameras and sensor lights around her property but one of the areas does not have anything. Client receptive to some thought challenging with assistance from therapist focusing on what is in her control with the the situation and reminded her that her neighbors are also reporting her and put cameras up. Client stated she plans to notify the police of recent suspicious activity in her neighborhood. Client reported she can try to focus on the fact that she does have cameras and motion lights outside and that her neighbor tends to be up late and watching. Client reported overall her mood has been improved over the last couple weeks and improved ability to manage her anxiety. Client stated she is continuing to struggle with hearing and seeing things. Client reported she will sometimes hear a voice that will say negative things and usually her visual hallucinations are of animals. Client stated she would like to explore increasing her antipsychotic dosage at her next psychiatrist appointment. Client stated in regards to discharge she believes she is closer to being ready to discharge from program however is just a little worried about not having her hallucinations under control. Client reported that might be helpful to remain in the program for 2 more weeks to allow time to to meet with psychiatrist and potentially up her medication. Client stated she if she is feeling better next week with her hallucinations she might feel ready to discharge. Risks/Concerns:: Denies active suicidal ideation, plan, and intention. Progress Toward Goals/Plan:: Progress noted with client continuing to report improved mood and improved ability to manage her anxiety. Client continues to report struggling with paranoia and visual and auditory hallucinations. Client reports improved daily functioning, improved use of healthy coping skills to manage mood and anxiety, and decrease negative thought patterns. Client is to continue IOP next week to continue use of healthy coping skills, challenge distortions, and prevent decompensation play. Plan is for client to meet with IOP psychiatrist to explore increasing her antipsychotic to help with the hallucinations. Time Stopped:: 11:15
--- NOTE | 2023-03-28 09:02 | BH.SGPN.GN ---
Behaviors/Verbalizations/Mental Status: []Pt alert and oriented, casually dressed and groomed. Eye contact fair to good. Motor activity appropriate. Speech within normal limits. Affect congruent, mood anxious and dysthymic. Thoughts linear, logical, no signs of hallucinations or delusions. Reviewed pt?s symptom tracker, no reported suicidal ideation, denies plan, or active intent as of 03/28/23. Client Response/Progress/Benefit: [] Pt responded well to session, open to contributing with group and engaged. Pt reports feeling excited this morning, explaining that her son who is stationed in [place] with the [employer] is going to be visiting home for the next two weeks. Discussed plans to go on a canoeing trip with the entire family which she identified as a win. Additional win noted as finishing preparations for her annual yard sale this weekend. Current stressor identified as finding time to continue to incorporate self-care in the next few weeks. Did well to identify plans to maintain her current daily walks and riding her bike for self-care. Pt appeared to benefit from supportive feedback of the group, as well as reflecting on mental health wins. Pt will continue IOP tx to promote mood stability, reduce anxiety, and continue to improve functioning. Narrative Note: []
--- NOTE | 2023-03-28 10:10 | BH.SGPN.GN ---
Behaviors/Verbalizations/Mental Status: [] Eye contact is good. Motor activity is appropriate. Appearance is casual. Speech is Appropriate. Mood is euthymic. Affect is full. Thoughts are linear and logical. No evidence of psychosis. Client Response/Progress/Benefit: [] Pt was an active participant in group discussion. Attentive during psychoeducation and participated during interactive discussion in which members identified characteristics of individuals with a Fixed Mindset. Characteristics included; avoids challenges, fear of failure, defensive, avoids criticisms, give up easily, and fear of trying new things. Participated and engaged in experiential group activity in which therapist assigned a task to the group that seemed impossible causing fixed mindset responses. Through group interactions and therapist assistance pt was able to determine task was possible. Able to see connection between activity and Fixed vs Growth mindset. Benefited from increased awareness of fixed mindset and how this can impact mental health. Will continue in IOP to stabilize mood, increase healthy coping skills, and prevent decompensation. Narrative Note: []
--- NOTE | 2023-03-28 11:10 | BH.SGPN.GN ---
Behaviors/Verbalizations/Mental Status: []Pt alert and oriented, casually dressed and groomed. Eye contact good. Motor activity appropriate. Speech within normal limits. Affect congruent, mood euthymic. Thoughts linear, logical, no signs of hallucinations or delusions. Client Response/Progress/Benefit: []Pt was an active participant during activity and discussion AEB providing some input, connecting with peers, as well as taking notes throughout. Pt did well to engage as group worked on identifying characteristics and benefits of adopting a growth mindset. Worked with fellow participants in reframing the example fixed thoughts into growth mindset thoughts. Reframed personal fixed thought of ?I'm not good enough? with growth mindset of being more patient and asking for help. Benefitted from discussing benefits of growth mindset and brainstorming strategies for prompting growth-mindset. Pt appeared to benefit from working in small groups to challenge own thoughts and help peers. Pt will continue IOP tx to continue use of healthy coping, challenge negative thinking, and further prevent decompensation.
--- NOTE | 2023-04-02 09:00 | BH.SGPN.GN ---
Behaviors/Verbalizations/Mental Status: [] Pt alert and oriented, neatly dressed and groomed. Eye contact good. Motor activity appropriate. Speech within normal limits. Affect congruent, mood euthymic. Thoughts linear, logical, no signs of hallucinations or delusions. Reviewed pt?s symptom tracker, no risk for suicidal ideation, plan, or intent 04/02/23 Client Response/Progress/Benefit: []Pt responded well to session, attentive and providing feedback to others. Pt reports feeling ecstatic this morning. Pt shared she is getting to the end of IOP and pt feels that she has learned a lot of benefited significantly from taking time for her mental health. Pt shared she wants to continue making herself a priority when she discharges from IOP by continuing to practice self-care and positive affirmations. Pt's mental health wins today include spending time with her son this weekend, biking, and feeling like her new medications are working. Pt reports no stressors today which pt shared I haven't felt this good in a long time. Pt appeared to benefit from reflecting on her mental health wins. Pt will continue IOP tx to promote mood stability, further increase self-confidence, and establish aftercare. Narrative Note: []
--- NOTE | 2023-04-02 11:10 | BH.SGPN.GN ---
Behaviors/Verbalizations/Mental Status: []Client alert and oriented, casually dressed and groomed. Eye contact good. Motor activity appropriate. Speech within normal limits. Affect congruent, mood euthymic. Thoughts linear, logical, no signs of hallucinations or delusions. Client Response/Progress/Benefit: []Pt was engaged throughout AEB contributing to group discussion and self-reflection. Group finished processing cues to anger worksheet. Pt identified personal anger cycle is being triggered by certain comments her makes which results in her thinking Maybe it's me, am I wrong for feeling this way? Pt reported she will feel shame/guilt, hurt and behaviorally respond by yelling, screaming, and engaging in hurtful actions. Pt contributed as group brainstormed healthy coping skills for better managing anger which included: music, walking/exercise, taking a break, grounding tools, reflection, and journaling. Pt worked in small groups to discuss how she could interrupt her anger cycle. Pt appeared to benefit from identifying different techniques to manage anger as well as gaining awareness of potential consequences of unmanaged anger. Will continue IOP tx to continue use of healthy coping skills, challenge distorted thoughts, and prevent decompensation.
--- NOTE | 2023-04-02 11:10 | BH.SGPN.GN ---
Behaviors/Verbalizations/Mental Status: []Pt alert and oriented, casually dressed and groomed. Eye contact good. Motor activity appropriate. Speech within normal limits. Affect congruent, mood euthymic and anxious. Thoughts linear, logical, no signs of hallucinations or delusions. Client Response/Progress/Benefit: []Pt responded well to session AEB contributing to discussion, taking notes, and listening attentively to others. Group discussed the benefits of managed anger and anger as a secondary emotion. Pt shared perspective on personal benefits of anger as facilitating personal change. Pt completed worksheet on anger triggers and personal warning signs of anger. Pt identified their biggest triggers as her interactions with her mother, , and sister. Appeared to benefit from increased knowledge of the anger cycle as well as personal triggers. Pt to continue IOP to promote healthy coping skill application, maintain mood stability, and prevent decompensation. Narrative Note: []
--- NOTE | 2023-04-03 09:01 | BH.SGPN.GN ---
Behaviors/Verbalizations/Mental Status: [] Eye contact is good. Motor activity is appropriate. Appearance is casual. Speech is Appropriate. Mood is dysthymic. Affect is constricted. Thoughts are linear and logical. No evidence of psychosis. Reviewed daily check in sheet and reports a 1/5, with 5 being severe, for suicidal ideation, and a 0/5 for suicidal intention. This is below pt's baseline. Does not present as imminent risk for harm to self or others. Client Response/Progress/Benefit: [] Pt participated when prompted. Attentive. Daily symptom tracker notes 2/5 for depression and 3/5 for anxiety. Pt reported mental health positive as scheduling a train ride to visit a friend. Stated she is feeling excited because she's never been on a train before. Pt reported additional positive as being able to manage her emotions better when talking to her son. Pt stated when she talks to her son about his paraplegic dad she usually becomes emotional because she feels bad that he has to be a caregiver. Pt reported current stressor as her son is getting deployed to a hostile country soon. Pt stated she has been using breathing skills, grounding tools, and thought challenge. Seemed to benefit from support from peers. Will continue in IOP to challenge distortions, continue use of healthy coping, and prevent decompensation.
--- NOTE | 2023-04-03 11:49 | PCM.BH.PN_ITS ---
Progress Note Progress Note: History of Present Illness/Interim History: The patient is a 32-year-old female with a history of depression, anxiety and alcohol use disorder who is seen in follow-up at the [facility] behavioral health [facility]. I last saw the patient 2 weeks ago and following that appointment the patient discontinued her Prozac on March 27 and increased her Zoloft to 50 mg p.o. daily. The patient states that she tolerated the changes well and feels that her anxiety and depression have lessened in the last week or so. Her mood is much improved. According to the staff the patient has been engaged in the program and has made significant progress. She is tolerating her naltrexone well also that she started 2 weeks ago and states that she is now having no cravings for alcohol and remains sober from alcohol. She still hears occasional voices and feels she has occasional visual hallucinations at times. She denies passive thoughts of , suicidal ideation, homicidal ideation, plan for suicide. The patient denies any weight gain and has been walking and eating healthier. Current Psychiatric Medications: [] Prozac discontinued March 27, 2023. Zoloft increased to 50 mg p.o. daily 1 week ago. Abilify 5 mg p.o. daily (increased 2 weeks ago). BuSpar 15 mg p.o. twice daily. Hydroxyzine 25 mg p.o. daily; trazodone 100 mg as needed at night. Mental Status Examination: [] The patient is a 52-year-old thin female who appears normal for stated age and is casually dressed and groomed with good hygiene. She has no psychomotor agitation or retardation and is ambulatory with a normal gait. Eye contact is good and speech is normal rate and rhythm and fluent with no pressure. The patient is cooperative and pleasant during the interview. Mood is depressed. Affect is full and normal. Thought process is organized and goal-directed. Thought content: There remains evidence of possible auditory and visual hallucinations. There is no evidence of passive thoughts of , suicidal ideation, homicidal ideation. Or plan for suicide is also negative. Reality testing is intact. Judgment is intact. Insight is limited but some present and improving. Impulsivity is moderate. Diagnoses: [] 1. Major depressive disorder, recurrent, severe with psychotic features (F33.3) #2. PTSD 3. Generalized anxiety disorder 4. Alcohol use disorder in remission for 2-2 months 5. Primary support and financial issues 6. Chronic back pain Plan: [] The patient will continue the IOP program at [facility] as the structure, support, education and group therapy has been preventing the patient from getting worse and actually has helped her improve. She felt safe during the interview and if it anytime she does not feel safe she will let us know or go to the emergency room. The risks, options, possible side effects and complications of the medications were discussed again with the patient and she understands and accepts these. She will continue to remain sober from all alcohol and drug use. She will continue her current medication regimen and in addition we will increase her Abilify to 10 mg p.o. daily. Prescription is sent in for this. The patient will continue to follow-up with her outpatient providers and I will see the patient in follow-up while she is in the IOP program.
--- NOTE | 2023-04-03 16:14 | BH.MDN ---
Multi-Disciplinary Note Note 45-min Individual: Time Started:: 10:15 Date: 04/03/23 Purpose of session/treatment goals addressed:: Purpose of session was to address goals [address] [facility]. Eye Contact:: Good Motor Activity:: Appropriate Appearance:: Casual Speech:: Appropriate and Tangential (at times) Mood:: Euthymic and Anxious Affect:: Congruent Thoughts:: Linear, Logical and No evidence of hallucinations/delusions noted Staff Interventions:: thought challenging, CBT techniques, mindfulness skills, discharge planning, strengths perspective and goal setting Client Response:: Client reported feeling nervous since she found out her step-son will be deployed to a hostile country soon. Client stated this will be his fifth time being deployed. She reported she's trying to remind herself that her son has returned each time he's been deployed. Client stated she has been using thought challenging when her anxious thoughts start thinking of worst case scenario. Client reported overall she's been doing better with improved mood, improved ability to manage her anxiety, and trying to not read into others comments. Client stated she was able to have her weekend garage sale which she reported went really well and her anxiety was manageable. Client reported she had opportunity to use skills learned from anger group yesterday when her made comments that upset her. Client stated she was able to recognize her anger cycle in the moment and stopped self from going off, which is something she would've done in the past. Client reported she has been doing better with applying skills from group and individual sessions. Client stated she is continuing to experience visual and auditory hallucinations and would like to explore increasing her abilify to help reduce these symptoms. Client reported she has been consistently taking her medications and has noticed since starting Naltrexone she hasn't had any urges to drink alcohol. Client stated starting to feel ready for discharge from [facility], would like to discharge next week to allow time to make sure any increase in medications are going ok. Risks/Concerns:: Denies suicidal/homicidal ideation, plan, or intention to date. Progress Toward Goals/Plan:: Progress noted AEB client reporting improved mood, improved ability to manage anxious symptoms, challenging distorted/negative thoughts, and less reactive to others. Client is continuing to struggle with visual and auditory hallucinations. Her visual hallucinations involve her seeing animals that aren't there. Client sometimes hears a voice, but is able to determine that it's not real. Client to continue IOP to increase healthy coping, challenge distortions, and prevent decompensation. Time Stopped:: 11:15
== END 2023-04-08 23:59 ==
LOC: BHIOP 07:17
PROVIDERS: Referring Provider Psychiatry & Neurology Psychiatry; Visit Provider Psychiatry & Neurology Psychiatry
DX: F33.3 Major depressive disorder, recurrent, severe with psychotic symptoms (principal); F43.10 Post-traumatic stress disorder, unspecified; F41.1 Generalized anxiety disorder; F10.91 Alcohol use, unspecified, in remission; G89.29 Other chronic pain; M54.9 Dorsalgia, unspecified
CPT/HCPCS: 99213; 99214; H2012; H2020; S9480; 90834

== ENCOUNTER 2023-04-09 07:15 | Outpatient (RCR) | payer MEDICAID, SELFPAY ==
[2023-04-09 00:39] VITALS: BP 159/86; PULSE 66
--- NOTE | 2023-04-10 09:03 | BH.SGPN.GN ---
Behaviors/Verbalizations/Mental Status: []Pt alert and oriented, casually dressed and groomed. Eye contact good. Motor activity appropriate. Speech within normal limits. Affect congruent, mood euthymic. Thoughts linear, logical, no signs of hallucinations or delusions. Reviewed pt?s symptom tracker, no reported suicidal ideation, denies plan, or active intent as of 04/10/23. Client Response/Progress/Benefit: []Pt responded well to session, open to contributing with group and engaged. Pt reports feeling happy but frustrated this morning. Identified current mental health wins as making progress in how far she is able to ride her bike now that she has been consistently doing it. Shared this has been great for stress release. Additional win noted as spending time with her volunteering for a youth bike giveaway program. Discussed that gifts of service are a major way pt finds purpose and fulfillment. Current stressor identified as ongoing issues with chronic back pain. Described use of self-care and acceptance in coping with her pain. Pt appeared to benefit from supportive feedback of the group, as well as reflecting on mental health wins. Pt will continue IOP tx to promote mood stability, encourage continued coping skill application, and prevent decompensation. Narrative Note: []
--- NOTE | 2023-04-10 10:10 | BH.SGPN.GN ---
Behaviors/Verbalizations/Mental Status: [] Eye contact is good. Motor activity is appropriate. Appearance is casual. Speech is Appropriate. Mood is euthymic. Affect is congruent. Thoughts are linear and logical. No evidence of psychosis or hallucinations. Client Response/Progress/Benefit: [] Pt was an active participant in group discussion and activity. Attentive during psychoeducation. Along with peers was able to identify barriers to taking action on her mental health which included: fear of failure, the unknown, change, one's environment, past negative experiences, being passive, and fear of vulnerability. Identified several symptoms and stressors that she feels are holding her back from progress such as no boundaries, maintaining sobriety, physical symptoms of anxiety, people pleasing, and lack of self-care. Benefited from increased self-awareness of obstacles. Will continue in IOP to decrease therapy interfering behaviors, increase consistent use of healthy coping, and prevent decompensation.
--- NOTE | 2023-04-10 11:10 | BH.SGPN.GN ---
Behaviors/Verbalizations/Mental Status: []Pt alert and oriented, neatly dressed and groomed. Eye contact good. Motor activity appropriate. Speech within normal limits. Affect congruent, mood euthymic. Thoughts linear, logical, no signs of hallucinations or delusions. Client Response/Progress/Benefit: []Pt responded well to session, taking notes and participating in worksheet discussion. Pt connected with the zones of action/change and that making sustainable change comes from stepping out of one?s comfort zone into the learning zone. Pt set a goal to gain control over pt?s people pleasing. Pt reported plans to challenge self to continue exploring her boundaries and set at least one more boundary with family this week. Pt identified support pt will need as ?mindful thinking? and reminding herself of acceptance. Appeared to benefit from identifying a small goal to benefit mental health. Will continue IOP tx for one more session to establish aftercare and reinforce healthy coping skills. ? Narrative Note: []
--- NOTE | 2023-04-11 09:00 | BH.SGPN.GN ---
Behaviors/Verbalizations/Mental Status: [] Pt alert and oriented, neatly dressed and groomed. Eye contact good. Motor activity appropriate. Speech within normal limits. Affect congruent, mood euthymic. Thoughts linear, logical, no signs of hallucinations or delusions. Reviewed pt?s symptom tracker, no risk for suicidal ideation, plan, or intent 04/11/23 Client Response/Progress/Benefit: []Pt responded well to session, attentive and receptive to feedback. Pt reports feeling bittersweet this morning as it is pt's last day of IOP tx. Pt shared she has not felt this good in years and pt was appreciative of the support she received from peers and staff. Pt shared she is anxious about maintenance, but pt is connecting with outpatient counseling and will be engaging in aftercare. Pt also feels she has the right combo of meds finally which has helped pt stay stable. Pt appeared to benefit from connecting with peers and reflecting on her personal growth. Pt will discharge from IOP tx today as pt has accomplished her tx goals and no longer meets criteria for IOP level of care. Narrative Note: []
--- NOTE | 2023-04-11 10:10 | BH.SGPN.GN ---
Behaviors/Verbalizations/Mental Status: [] Eye contact is good. Motor activity is appropriate. Appearance is casual. Speech is Appropriate. Mood is euthymic. Affect is congruent. Thoughts are linear and logical. No evidence of psychosis. Client Response/Progress/Benefit: [] Pt was an active participant in group discussion. Attentive during psychoeducation on Problem-Solving in the Moment Protocol. Participated in group experiential activity. Pt provided feedback during interactive group discussion in which pt and peers worked through an example of a problem (Managing Anxiety) in which they identified a goal (minimizing anxiety) and identified barriers. Barriers identified included fear, past experiences, lack of motivation, external obstacles, and stigma. During the experiential activity pt worked with peers to problem solve using the Problem Solving in the Moment Protocol. Group was able to complete the activity and pt was able to practice in the moment problem-solving and make connections between problem-solving for activity and in real-life situations. Increased awareness of problem-solving strategies. Pt has made significant treatment progress and will discharge from [facility] today.
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
== END 2023-04-11 12:23 | disposition home or self-care (01) ==
LOC: BHIOP 07:15
PROVIDERS: Referring Provider Psychiatry & Neurology Psychiatry; Visit Provider Psychiatry & Neurology Psychiatry
DX: F33.3 Major depressive disorder, recurrent, severe with psychotic symptoms (principal); F43.10 Post-traumatic stress disorder, unspecified; F41.1 Generalized anxiety disorder; F10.91 Alcohol use, unspecified, in remission
CPT/HCPCS: H2012; H2020; S9480; 90832

== ENCOUNTER 2023-07-02 21:54 | Emergency (ER) | payer MEDICAID, SELFPAY ==
[2023-07-02 21:55] VITALS: BP 145/83; PULSE 90; RESP 16; TEMP 36.4; O2SAT 100; BMI 21.9
--- NOTE | 2023-07-02 22:31 | EX.ED.DYSGE1 ---
HPI History of Present Illness Chief Complaint: Complaint Informant: patient and spouse/S.O. Narrative Narrative: 53-year-old female presenting to the emergency room with urinary frequency and rash. Patient states that for about 3 weeks she has had urinary frequency and some dysuria. She could see some visible blood and saw primary care and after urine culture returned with E. coli was treated with 1 week of ciprofloxacin. She finished that antibiotic today. Now she is noting a rash across to her thighs pelvis and abdomen and chest. She notes that it is itchy somewhat burning. She notes the frequency has continued. She notes a sore throat and tender glands. She notes an increase in low back pain is scheduled to have a RFA tomorrow morning. She denies any fever. Minimal cough. Patient notes that she is still having urinary frequency and incontinence at times. [facility] Medical History Abnormal results of thyroid function studies Alcohol use disorder in remission Anxiety and depression DDD (degenerative disc disease), lumbar Generalized anxiety disorder Goiter Major depressive disorder, recurrent, severe with psychotic features PTSD (post-traumatic stress disorder) Radial scar of right breast Scoliosis Thyroid nodule Home Medications cholecalciferol (vitamin D3) 25 mcg (1,000 unit) capsule 25 mcg PO DAILY 09/14/22 [History Last Taken Unknown] buspirone 15 mg tablet 15 mg PO BID 02/27/23 [History Last Taken Unknown] trazodone 100 mg tablet 100 mg PO QHS 02/27/23 [History Last Taken Unknown] naltrexone 50 mg tablet 50 mg PO DAILY 30 days #30 tabs 03/20/23 [Rx Last Taken Unknown] sertraline 50 mg tablet (Zoloft) 50 mg PO DAILY 30 days #30 tabs 03/20/23 [Rx Last Taken Unknown] aripiprazole 10 mg tablet (Abilify) 10 mg PO QHS 30 days #30 tabs 04/03/23 [Rx Last Taken Unknown] Allergy/AdvReac Type Severity Reaction Status Date / Time No Known Allergies Allergy Verified 07/02/23 21:54 Family History Father No problems noted. Family History no significant family his Surgical History History of dilation and curettage History of excision of pilonidal cyst (~1987) History of partial hysterectomy History of right breast biopsy Status post left breast lumpectomy (~2011) Social History household members: spouse and none Smoking Status: Current every day smoker tobacco type: cigarettes alcohol intake: current alcohol intake frequency: holidays/special occasions only substance use type: does not use what type of physical activity do you participate in: walking frequency: 1-2 times per week ROS ROS ED Constitutional Constitutional ED: Denies chills or weight loss Eyes Eyes: Denies change in vision or diplopia ENT ENT ED: Reports rhinorrhea and sore throat; Denies ear pain Cardiovascular Cardiovascular: Denies chest pain, orthopnea, palpitations or racing heartbeat Respiratory/Chest Respiratory/Chest: Reports cough; Denies dyspnea or orthopnea Gastrointestinal Gastrointestinal: Denies abdominal pain, diarrhea, nausea or vomiting Genitourinary Genitourinary ED: Reports dysuria, hematuria and urinary frequency Musculoskeletal Musculoskeletal: Reports back pain; Denies arthralgias or myalgias Integumentary Reports rash; Denies abscess or Abrasions Neurologic Neurologic: Denies headache(s), paresthesias or weakness Psychiatric Psychiatric: Denies anxiety, depression, suicidal ideation or suicidal thoughts Endocrine Endocrinology: Denies polydipsia, polyphagia or polyuria Allergic/Immunologic Allergic/Immunologic ED: Denies mouth swelling, tongue swelling or urticaria EXAM Physical Exam Const Vital Signs: 07/02/23 21:55 Temperature 97.6 F L Temperature Source Temporal Pulse Rate 90 Respiratory Rate 16 Blood Pressure 145/83 H Blood Pressure Mean 103 Pulse Ox 100 Positive well nourished and well developed General Appearance ED: well developed HEENT Reports normocephalic, head/scalp atraumatic and moist mucous membranes HEENT Narrative: There are some mild tender anterior lymphadenopathy noted on neck examination. Lymph nodes less than 1 cm and mobile Eyes PERRL and EOMs intact bilaterally Neck no lymphadenopathy, supple and no JVD Resp normal respiratory effort and clear to auscultation bilaterally Cardio regular rate, regular rhythm and no murmurs GI normal to inspection, nondistended, normoactive bowel sounds and non-tender Palpation: soft Back/Spine Back/Spine Narrative: Mild tenderness to palpation over the musculature of the low back. Extremity normal to inspection General Extremety ED: Negative for edema General Extremity: Negative for edema Neuro oriented x3 and CN's II-XII intact bilaterally Sensorium / Orientation: alert Motor Exam: strength 5/5 throughout Psych mental status grossly normal Mood & Affect: Negative for depressed or tearful Skin no wounds Skin Narrative: There is a diffuse blanching erythematous rash most predominantly over thighs inguinal region as well as the chest and abdomen and back. I also see fainter rash on the lower extremity and axillary region. MDM MDM MDM Narrative Medical decision making narrative: Accu-Chek 106. Urinalysis 0 red cells 0-5 white cells 0-5 squamous cells 0 bacteria negative nitrates. COVID and influenza swabs were negative. I believe the sore throat swollen lymph nodes are most likely viral in nature. The rash appears to be drug eruption from ciprofloxacin and she is already finished the course. I did give her dose of Benadryl as well as Toradol for her discomfort. Patient was advised for the urinary frequency/incontinence that she should follow-up with primary care and she may be referred on to urogyn if need be. Lab Data Attestation: I reviewed the patient's lab results. Labs: Laboratory Results - last 24 hr 07/02/23 22:53 Urine Color Yellow Urine Clarity Clear Urine pH 6.5 Ur Specific [place] 1.020 Urine Protein 15 H Urine Glucose (UA) Normal Urine Ketones Negative Urine Occult Blood 10 H Urine Nitrite Negative Urine Bilirubin Negative Urine Urobilinogen Normal Ur Leukocyte Esterase 25 H Urine RBC 0 SEEN Urine WBC 0-5 SEEN Ur Squamous Epith Cells 0-5 SEEN Urine Bacteria 0 SEEN Urine Mucus 1+ Discharge Plan Triage Chief Complaint: Complaint ED Provider: Patrick Cha Dx/Rx/DC Orders Clinical Impression: Drug eruption Instructions: ED Drug Reaction, Other Prescriptions: No Action cholecalciferol (vitamin D3) 25 mcg (1,000 unit) capsule 25 mcg PO DAILY trazodone 100 mg tablet 100 mg PO QHS Patient Comments: take 1 tablet by mouth as needed for sleep buspirone 15 mg tablet 15 mg PO BID Patient Comments: take 1 tab by mouth twice a day naltrexone 50 mg tablet 50 mg PO DAILY 30 Days Qty: 30 1RF sertraline [Zoloft] 50 mg tablet 50 mg PO DAILY 30 Days Qty: 30 0RF aripiprazole [Abilify] 10 mg tablet 10 mg PO QHS 30 Days Qty: 30 1RF Primary Care Provider: Afia Simpson Referrals: Afia Simpson [Primary Care Provider] - 1 Week
[2023-07-02 23:04] LABS: Bacteria 0 SEEN /hpf (None Seen); Red Blood Cells-Urine 0 SEEN /hpf (0-5)
[2023-07-02 23:05] LABS: Color, Urine Yellow (Yellow); Glucose, Dipstick Normal (Normal); Ketone-Dipstick Negative (Negative); Leukocyte Esterase-Dipstick 25 /ul (Negative); Nitrite-Dipstick Negative (Negative); Occult Blood-Urine 10 /ul (Negative); Protein-Dipstick 15 mg/dl (Negative); Urine Bilirubin Dipstick Negative (Negative); Urine Clarity Clear (Clear); Urine Urobilinogen Normal (Normal); Urine pH 6.5 (5.0 - 8.0)
[2023-07-02 23:12] LABS: Mucous, Urine 1+ /hpf (<or=2+); Squamous Epithelial Cells - UA 0-5 SEEN /hpf (5-10); White Blood Cells 0-5 SEEN /hpf (0-5)
[2023-07-02] MEDS: DiphenhydrAMINE 25 MG Capsule PO (23:28)
[2023-07-02] MEDS: Ketorolac 60 MG/2 ML Vial IM (23:43)
[2023-07-03 09:20] LABS: Bedside Glucose 116 mg/dL (74-106)
== END 2023-07-03 00:12 | disposition home or self-care (01) ==
PROVIDERS: Emergency Provider Emergency Medicine; Visit Provider Emergency Medicine
DX: L27.1 Localized skin eruption due to drugs and medicaments taken internally (principal); J02.9 Acute pharyngitis, unspecified; R35.0 Frequency of micturition; F17.210 Nicotine dependence, cigarettes, uncomplicated; R32 Unspecified urinary incontinence; R30.0 Dysuria; M54.9 Dorsalgia, unspecified; T36.8X5A Adverse effect of other systemic antibiotics, initial encounter
CPT/HCPCS: 81001; 82962; 87428; 96372; 99282

== ENCOUNTER 2023-07-09 09:38 | Emergency (ER) | payer MEDICAID, SELFPAY ==
[2023-07-09 09:39] VITALS: BP 148/78; PULSE 64; RESP 14; TEMP 36.4; O2SAT 98; BMI 21.4
--- NOTE | 2023-07-09 10:02 | EDS_ITS ---
HPI History of Present Illness Chief Complaint: General Illness Informant: patient Onset/Context/Timing Onset: Weeks (2) Context: Gradual Onset Timing: Continuous Quality: Aching Location: Low back Worsened by: Nothing Relieved by: Nothing Narrative Narrative: Patient presents with urinary and stool incontinence that has been getting worse over the past 2 weeks. Patient states that she does not feel when she has to urinate and has been incontinent of both urine and stool. Patient admits to some low back pain. Patient states she had a recent urinary tract infection and was having dysuria with that. Currently, patient denies any dysuria. Patient does admit to urinary frequency. Patient states that her back pain does radiate down her right leg. Patient admits to some tingling in her right leg. Patient states nothing makes her symptoms worse and nothing makes them better. Patient's came to the nurses station to let me know that patient has been drinking more alcohol to help with her back pain. [facility] Medical History Abnormal results of thyroid function studies Alcohol use disorder in remission Anxiety and depression DDD (degenerative disc disease), lumbar Generalized anxiety disorder Goiter Major depressive disorder, recurrent, severe with psychotic features PTSD (post-traumatic stress disorder) Radial scar of right breast Scoliosis Thyroid nodule Home Medications cholecalciferol (vitamin D3) 25 mcg (1,000 unit) capsule 25 mcg PO DAILY 09/14/22 [History Last Taken Unknown] buspirone 15 mg tablet 15 mg PO BID 02/27/23 [History Last Taken Unknown] trazodone 100 mg tablet 100 mg PO QHS 02/27/23 [History Last Taken Unknown] naltrexone 50 mg tablet 50 mg PO DAILY 30 days #30 tabs 03/20/23 [Rx Last Taken Unknown] sertraline 50 mg tablet (Zoloft) 50 mg PO DAILY 30 days #30 tabs 03/20/23 [Rx Last Taken Unknown] aripiprazole 10 mg tablet (Abilify) 10 mg PO QHS 30 days #30 tabs 04/03/23 [Rx Last Taken Unknown] Allergy/AdvReac Type Severity Reaction Status Date / Time No Known Allergies Allergy Verified 07/09/23 09:38 Family History Father No problems noted. Family History no significant family his Surgical History History of dilation and curettage History of excision of pilonidal cyst (~1987) History of partial hysterectomy History of right breast biopsy Status post left breast lumpectomy (~2011) Social History household members: spouse and none Smoking Status: Current every day smoker tobacco type: cigarettes alcohol intake: current alcohol intake frequency: holidays/special occasions only substance use type: does not use what type of physical activity do you participate in: walking frequency: 1-2 times per week ROS ROS ED Constitutional Constitutional ED: Denies chills or fever(s) Eyes Eyes: Denies blurry vision or change in vision ENT ENT ED: Denies rhinorrhea or sore throat Cardiovascular Cardiovascular: Denies chest pain or palpitations Respiratory/Chest Respiratory/Chest: Reports cough; Denies dyspnea Gastrointestinal Gastrointestinal: Reports nausea; Denies vomiting Genitourinary Genitourinary ED: Reports urinary frequency; Denies dysuria or hematuria Musculoskeletal Musculoskeletal: Reports back pain; Denies neck pain Integumentary Reports rash; Denies abscess Neurologic Neurologic: Denies headache(s) or weakness Allergic/Immunologic Allergic/Immunologic ED: Denies mouth swelling or urticaria EXAM Physical Exam Const Vital Signs: 07/09/23 09:39 Temperature 97.6 F L Temperature Source Temporal Pulse Rate 64 Respiratory Rate 14 Blood Pressure 148/78 H Blood Pressure Mean 101 Pulse Ox 98 Oxygen Delivery Method Room Air Positive well nourished and well developed General Appearance ED: well developed and NAD HEENT Reports moist mucous membranes Neck supple and no JVD Resp normal respiratory effort and clear to auscultation bilaterally Cardio regular rate and regular rhythm GI non-distended Palpation: soft and tender suprapubic; Negative for guarding or rebound tenderness present Back/Spine Lumbar Spine / Lower Back: lumbar spinal tenderness Neuro oriented x3, CN's II-XII intact bilaterally and no sensory deficits noted Sensorium / Orientation: alert Motor Exam: strength 5/5 throughout Psych mental status grossly normal MDM MDM MDM Narrative Medical decision making narrative: Differential diagnosis includes cauda equina syndrome, urinary tract infection, lumbar radiculopathy, and degenerative disc disease. CBC will be obtained to assess for leukocytosis and anemia. Basic metabolic profile will be obtained to assess for renal function and electrolyte abnormality. Urinalysis will be obtained to assess for urinary tract infection. MRI of the lumbar spine will be obtained to assess for cauda equina syndrome. Lab Data Attestation: I reviewed the patient's lab results. Lab results narrative: BC was reviewed and was within normal limits. Basic metabolic profile was reviewed and was within normal limits. Urinalysis was reviewed. There is no evidence of urinary tract infection or hematuria. Labs: Laboratory Results - last 24 hr 07/09/23 07/09/23 07/09/23 11:15 11:15 11:46 WBC Cancelled 8.1 Corrected WBC Cancelled RBC Cancelled 4.05 L Hgb Cancelled 12.0 Hct Cancelled 37.3 MCV Cancelled 92.1 MCH Cancelled 29.6 MCHC Cancelled 32.2 RDW Std Deviation Cancelled 47.6 H RDW Coeff of Dariela Cancelled 14.1 Plt Count Cancelled 298 MPV Cancelled 9.3 Immature Gran % (Auto) Cancelled 0.200 Neut % (Auto) Cancelled 64.8 Lymph % (Auto) Cancelled 25.7 [place] % (Auto) Cancelled 7.7 Eos % (Auto) Cancelled 1.1 Baso % (Auto) Cancelled 0.5 Absolute Neuts (auto) Cancelled 5.3 Absolute Lymphs (auto) Cancelled 2.09 Total Counted Cancelled Neutrophils % (Manual) Cancelled Band Neutrophils % Cancelled Lymphocytes % (Manual) Cancelled Monocytes % (Manual) Cancelled Eosinophils % (Manual) Cancelled Basophils % (Manual) Cancelled Metamyelocytes % Cancelled Myelocytes % Cancelled Promyelocytes % Cancelled Blast Cells % Cancelled Plasma Cell % (Manual) Cancelled Other Cells % Cancelled Nucleated RBC % Cancelled 0 Nucleated RBCs/100 WBC Cancelled Differential Comment Cancelled Diff Path Review Cancelled Hypersegmented Neuts Cancelled Atypical Lymphocytes Cancelled Reactive Lymphocytes Cancelled Smudge Cells Cancelled Toxic Granulation Cancelled Toxic Vacuolation Cancelled Dohle Bodies Cancelled Rbigitte Rods Cancelled Platelet Estimate Cancelled Plt Morphology Comment Cancelled RBC Morphology Cancelled Cancelled Polychromasia Cancelled Hypochromasia Cancelled Poikilocytosis Cancelled Basophilic Stippling Cancelled Anisocytosis Cancelled Microcytosis Cancelled Macrocytosis Cancelled Spherocytes Cancelled Sickle Cells Cancelled Target Cells Cancelled Tear Drop Cells Cancelled Ovalocytes Cancelled Stomatocytes Cancelled Abbott-[place] Bodies Cancelled [place] Cells Cancelled Bite Cells Cancelled Crenated Cell Cancelled Acanthocytes (Spur) Cancelled Rouleaux Cancelled Schistocytes Cancelled Sodium 136 Potassium 4.4 Chloride 105 Carbon Dioxide 28.0 Anion Gap 3 L BUN 12 Creatinine 0.85 Estim Creat Clear Calc 77.17 Est GFR (MDRD) Af Amer 90 Est GFR (MDRD) Non-Af 74 BUN/Creatinine Ratio 14.1 Glucose 80 Calcium 9.3 Urine Color Yellow Urine Clarity Clear Urine pH 6.0 Ur Specific [place] 1.015 Urine Protein Negative Urine Glucose (UA) Normal Urine Ketones Negative Urine Occult Blood 10 H Urine Nitrite Negative Urine Bilirubin Negative Urine Urobilinogen Normal Ur Leukocyte Esterase Negative Urine RBC 0 SEEN Urine WBC 0 SEEN Ur Squamous Epith Cells 0 SEEN Urine Bacteria 0 SEEN Urine Mucus 0 SEEN Radiography Diagnostic Testing: Clinical Impression(s) from Imaging Studies Lumbar Spine MRI 07/09/23 10:24 IMPRESSION: 1. No MRI evidence of lumbar extruded disc fragment, disc protrusion or nerve root displacement. 2. Small posterior bulging annulus at T12-L1, L3-L4 and L4-L5 disc space levels. 3. Mild stenosis of the right L4-L5 intervertebral neural foramen. 4. No significant interval change when compared to 11/02/2019. Electronically Signed: Alonso Valencia MD at 14:24 EDT , TrueMRI of the lumbar spine was obtained. There is no and or nerve root displacement. There is no evidence of cauda equina syndrome. There is a small posterior bulging at T12-L1, L3-L4, and L4-L5. This was unchanged compared to previous MRI of 11/02/2019. This was interpreted by the radiologist was also independently reviewed by myself. Treatment and Re-Evaluation :: Patient was given a dose of Toradol and Zofran initially. Patient was given a dose of morphine. Patient was feeling better on reevaluation. After the patient returned from MRI, she stated she needed to use the bathroom. Patient had no evidence of incontinence of her urine. Patient was advised of her findings. Patient was instructed to follow-up with her primary care physician in 5 to 7 days. Patient was instructed to take Tylenol or ibuprofen as needed for pain. Patient was instructed to use ice across her lower back. Patient was instructed to return if worse in any way. Patient understood and was agreeable with the plan. All questions were answered. Discharge Plan Triage Chief Complaint: General Illness ED Provider: Kameron Noel Dx/Rx/DC Orders Clinical Impression: Tobacco dependence, Acute low back pain Instructions: ED Back Pain (Acute or Chronic) Prescriptions: No Action cholecalciferol (vitamin D3) 25 mcg (1,000 unit) capsule 25 mcg PO DAILY trazodone 100 mg tablet 100 mg PO QHS Patient Comments: take 1 tablet by mouth as needed for sleep buspirone 15 mg tablet 15 mg PO BID Patient Comments: take 1 tab by mouth twice a day naltrexone 50 mg tablet 50 mg PO DAILY 30 Days Qty: 30 1RF sertraline [Zoloft] 50 mg tablet 50 mg PO DAILY 30 Days Qty: 30 0RF aripiprazole [Abilify] 10 mg tablet 10 mg PO QHS 30 Days Qty: 30 1RF Primary Care Provider: [facility] Afia Trejo Referrals: [facility] Afia Trejo [Primary Care Provider] - 3-5 Days Disposition Disposition: Home, Self Care
--- NOTE | 2023-07-09 10:24 | MRI_ITS ---
STUDY: MRI LUMBAR SPINE WITHOUT CONTRAST REASON FOR EXAM: Female, 53 years old. Back pain, urinary incontinence TECHNIQUE: Standardized fat and water weighted pulse sequences were obtained in the sagittal and axial planes. COMPARISON: MRI lumbar spine without contrast 11/02/2019. FINDINGS: T11-T12: (Sagittal only). Normal endplates. Normal disc height, hydration and morphology. No ventral extradural defect. Normal central canal and bilateral intervertebral neural foramina. T12-L1: (Sagittal only). Normal endplates. Mild disc space height narrowing. Mild ventral extradural defect is posterior bulging annulus. Normal central canal and bilateral intervertebral neural foramina. This level is unchanged. Normal lumbar lordosis. There is no substantial scoliosis. Normal conus medullaris that terminates at the upper L1 vertebral body level. L1-2: Normal endplates. Normal disc height, hydration and morphology. Normal bilateral facet joints. Normal central canal and bilateral lateral recesses. Normal bilateral intervertebral neural foramina. L2-3: Normal endplates. Normal disc height, hydration and morphology. Normal bilateral facet joints. Normal central canal and bilateral lateral recesses. Normal bilateral intervertebral neural foramina. L3-4: Normal endplates. Minimal disc space height narrowing. Mild ventral extradural defect due to posterior bulging annulus. Mild left degenerative facet arthropathy. Normal right facet joint. Normal central canal and bilateral lateral recesses. Normal bilateral intervertebral neural foramina. L4-5: Normal endplates. Mild disc space height narrowing. Mild ventral extradural defect is posterior bulging annulus and unchanged. Mild bilateral degenerative facet arthropathy, right greater than left. Normal central canal and bilateral lateral recesses. Mild stenosis of the right intervertebral neural foramen. Normal left intervertebral neural foramen. L5-S1: Normal endplates. Mild disc space height narrowing. Mild right degenerative facet arthropathy. Normal left facet joint. Capacious central canal and bilateral lateral recesses. Normal bilateral intervertebral neural foramina. Normal visualized sacral ala. Normal visualized paraspinous soft tissue structures. MRI/Spine Lumbar (Routine) IMPRESSION: 1. No MRI evidence of lumbar extruded disc fragment, disc protrusion or nerve root displacement. 2. Small posterior bulging annulus at T12-L1, L3-L4 and L4-L5 disc space levels. 3. Mild stenosis of the right L4-L5 intervertebral neural foramen. 4. No significant interval change when compared to 11/02/2019. Electronically Signed: Alonso Valencia MD at 14:24 EDT ,
[2023-07-09 11:20] LABS: Bacteria 0 SEEN /hpf (None Seen); Mucous, Urine 0 SEEN /hpf (<or=2+); Red Blood Cells-Urine 0 SEEN /hpf (0-5); Squamous Epithelial Cells - UA 0 SEEN /hpf (5-10); White Blood Cells 0 SEEN /hpf (0-5)
[2023-07-09 11:24] LABS: Color, Urine Yellow (Yellow); Glucose, Dipstick Normal (Normal); Ketone-Dipstick Negative (Negative); Leukocyte Esterase-Dipstick Negative /ul (Negative); Nitrite-Dipstick Negative (Negative); Occult Blood-Urine 10 /ul (Negative); Protein-Dipstick Negative (Negative); Specific Gravity, Urine 1.015 (1.002-1.030); Urine Bilirubin Dipstick Negative (Negative); Urine Clarity Clear (Clear); Urine Urobilinogen Normal (Normal)
--- NOTE | 2023-07-09 11:41 | NURSING ---
PER [facility], NEED ANOTHER PURPLE TUBE. CLOTTED
[2023-07-09 11:44] LABS: Anion Gap 3 (5-15); BUN 12 mg/dL (7-18); BUN/Creat Ratio 14.1 RATIO (10-20); Calcium,Total 9.3 mg/dL (8.5-10.1); Chloride 105 mmol/L (98-107); Creatinine, Serum 0.85 mg/dL (0.55-1.02); EST Glomerular Filtration Rate 74 mL/min (>60); Est Glom Filt Rate - Afr Amer 90 mL/min (>60); Estimated Creatinine Clearance 77.17 ml/min; Glucose 80 mg/dL (74-106); Potassium 4.4 mmol/L (3.5-5.1); Sodium Level 136 mmol/L (136-145)
[2023-07-09] MEDS: Ondansetron 4 MG/2 ML Vial IV (11:47)
[2023-07-09] MEDS: Morphine 4 MG/ML Syringe IV (11:47)
[2023-07-09 11:51] LABS: Absolute Lymphocyte Count 2.09 X10^3/uL (0.83-4.51); Absolute Neutrophil Count 5.3 X10^3/uL (2.0-7.7); Basophil# 0.04 X10^3/uL; Basophil% 0.5 % (0-1); Eosinophil# 0.09 X10^3/uL; Eosinophils% 1.1 % (0-5); Hematocrit 37.3 % (37-47); Lymphocyte # 2.09 X10^3/ul (0.83-4.51); Lymphocyte % 25.7 % (19-41); Mean Corp Hgb Conc 32.2 g/dL (32-36); Mean Corpuscular Hgb 29.6 pg (27.0-32.0); Mean Corpuscular Volume 92.1 fL (81-99); Mean Platelet Vol. 9.3 fl (6.2-12.0); Monocyte# 0.63 X10^3/uL; Monocyte% 7.7 % (0-10); NRBC Flagged by Analyzer 0 % (0-5); Neutrophil # 5.26 X10^3/uL (2.7-7.7); Neutrophil % 64.8 % (47-70); Platelet Count 298 K/mm3 (150-450); RBC Distribution Width CV 14.1 % (11.6-14.6); RBC Distribution Width SD 47.6 fl (35.1-43.9); Red Blood Count 4.05 M/mm3 (4.2-5.4); White Blood Count 8.1 K/mm3 (4.4-11.0)
[2023-07-09] MEDS: Ketorolac 30 MG/ML Syringe IV (12:31)
[2023-07-09 14:00] VITALS: BP 143/78; PULSE 64; RESP 14; O2SAT 98
[2023-07-09 15:40] VITALS: PULSE 64; RESP 16; TEMP 36.4; O2SAT 99
== END 2023-07-09 15:41 | disposition home or self-care (01) ==
PROVIDERS: Emergency Provider Emergency Medicine; Visit Provider Emergency Medicine
DX: M54.50 Low back pain, unspecified (principal); R15.9 Full incontinence of feces; R35.0 Frequency of micturition; F17.210 Nicotine dependence, cigarettes, uncomplicated; R32 Unspecified urinary incontinence
CPT/HCPCS: 51701; 72148; 80048; 81001; 85025; 96374; 96375; 99284; P9612; A4216; J2405

== ENCOUNTER → 2023-08-10 | Outpatient (CLI) | payer MEDICAID, SELFPAY ==
--- NOTE | 2023-08-10 07:59 | MRI_ITS ---
INDICATION: cervical myelopathy, incontinence EXAMINATION: MRI - MR Spine Cervical W/O Contrast TECHNIQUE: Multiplanar and multisequence MR images of the cervical spine were performed. IV Contrast Dosage and Agent: None. COMPARISON: None. FINDINGS: VERTEBRAE: No acute fracture or pathologic marrow replacement. VERTEBRAL ALIGNMENT: Normal, including the craniocervical junction and cervicothoracic junction. No spondylolisthesis. There is preservation of the normal cervical lordosis. CERVICAL SPINAL CORD: Unremarkable in signal and morphology. C2/C3: Normal disc height and morphology. Normal spinal canal and neuroforamina. C3/C4: Normal disc height and morphology. Normal spinal canal and neuroforamina. C4/C5: Shallow spondylitic bar formation with mild bilateral foraminal stenosis. No central stenosis. C5/C6: Spondylitic bar formation with mild left foraminal stenosis. No central or right foraminal stenosis. C6/C7: Spondylitic bar formation without central stenosis. Mild bilateral foraminal stenosis. C7/T1: Normal disc height and morphology. Normal spinal canal and neuroforamina. NECK SOFT TISSUES: No prevertebral soft tissue swelling. There is no cervical adenopathy. MRI/Spine Cervical (Routine) IMPRESSION: Multilevel mild cervical spondylosis with foraminal stenoses as above. Electronically Signed: Davide Boudreaux MD at 0:17 EST ,
== END | disposition home or self-care (01) ==
LOC: MRI 07:56
PROVIDERS: Referring Provider Orthopaedic Surgery Orthopaedic Surgery of the Spine; Visit Provider Orthopaedic Surgery Orthopaedic Surgery of the Spine
DX: G95.9 Disease of spinal cord, unspecified (principal)
CPT/HCPCS: 72141

== ENCOUNTER 2024-10-13 11:53 | Observation (INO) | payer MEDICARE, MEDICAID, SELFPAY ==
[2024-10-13] VITALS (10 sets, daily range): BP systolic 120–159; BP diastolic 66–91; PULSE 59–72; RESP 16–18; TEMP 36.7–37.2; O2SAT 97–100; BMI 21.4; BMI 21.8
--- NOTE | 2024-10-13 11:59 | EKG12_ITS ---
Test Reason : numbness Blood Pressure : */* mmHG Vent. Rate : 60 BPM Atrial Rate : 60 BPM P-R Int : 150 ms QRS Dur : 86 ms QT Int : 474 ms P-R-T Axes : 13 67 72 degrees QTcB Int : 474 ms Normal sinus rhythm Normal ECG Confirmed by TORI DYKES, MIRIAM ([id number]), technical editor NKECHI ZENG ([id number]) on 10/15/2024 7:00:30 AM Referred By: Confirmed By: MIRIAM VALLE MD
[2024-10-13 12:27] LABS: Absolute Lymphocyte Count 2.67 X10^3/uL (0.83-4.51); Absolute Neutrophil Count 4.5 X10^3/uL (2.0-7.7); Basophil# 0.03 X10^3/uL; Basophil% 0.4 % (0-1); Eosinophil# 0.04 X10^3/uL; Eosinophils% 0.5 % (0-5); Hematocrit 41.9 % (37-47); Hemoglobin 13.5 g/dL (12.0-15.0); Lymphocyte # 2.67 X10^3/ul (0.83-4.51); Lymphocyte % 33.5 % (19-41); Mean Corp Hgb Conc 32.2 g/dL (32-36); Mean Corpuscular Hgb 30.4 pg (27.0-32.0); Mean Corpuscular Volume 94.4 fL (81-99); Mean Platelet Vol. 10.3 fl (6.2-12.0); Monocyte# 0.74 X10^3/uL; Monocyte% 9.3 % (0-10); NRBC Flagged by Analyzer 0 % (0-5); Neutrophil # 4.45 X10^3/uL (2.7-7.7); Neutrophil % 55.9 % (47-70); Platelet Count 333 K/mm3 (150-450); RBC Distribution Width CV 13.6 % (11.6-14.6); RBC Distribution Width SD 47.4 fl (35.1-43.9); Red Blood Count 4.44 M/mm3 (4.2-5.4)
--- NOTE | 2024-10-13 12:33 | RAD_ITS ---
EXAM: XR Chest, 1 View CLINICAL INDICATION: TECHNIQUE: Frontal view of the chest. COMPARISON: No relevant prior studies available. FINDINGS: LUNGS AND PLEURAL SPACES: Unremarkable. No consolidation. No pneumothorax. HEART: Unremarkable. No cardiomegaly. MEDIASTINUM: Unremarkable. Normal mediastinal contour. BONES/JOINTS: Unremarkable. No acute fracture. RAD/Chest 1 View (Portable) IMPRESSION: No acute cardiopulmonary process. Reading Location: [facility]
[2024-10-13 12:46] LABS: Anion Gap 7 (5-15); BUN 10 mg/dL (7-18); BUN/Creat Ratio 12.3 RATIO (10-20); Chloride 105 mmol/L (98-107); Creatinine, Serum 0.81 mg/dL (0.55-1.02); EST Glomerular Filtration Rate 78 mL/min (>60); Est Glom Filt Rate - Afr Amer 94 mL/min (>60); Estimated Creatinine Clearance 80.09 ml/min; Glucose 88 mg/dL (74-106); International Normalized Ratio 0.9; Potassium 3.8 mmol/L (3.5-5.1); Prothrombin Time (Protime)PT. 12.4 SECONDS (11.7-14.9); Sodium Level 139 mmol/L (136-145)
[2024-10-13 12:47] LABS: Partial Thromboplast Time 25.8 Seconds (24.1-36.2)
--- NOTE | 2024-10-13 12:51 | CT_ITS ---
PROCEDURE: CTA HEAD AND NECK W/ CONTRAST REASON FOR EXAM: Left facial paresthesias. Headaches. Alcohol abuse. PTSD. TECHNIQUE: CTA imaging of the head and neck from the aortic arch to the skull vertex with intravenous contrast. 3D reconstructions. CONTRAST: 100 cc of Isovue 300. COMPARISON: Comparison is made with prior CT scan of the head done earlier in the day. FINDINGS: Aortic Arch: Normal size and branching pattern. No significant atherosclerotic plaque. Brachiocephalic and Subclavians: Unremarkable RIGHT Carotid: Right CCA: Unremarkable. Right ICA: Unremarkable. Maximum stenosis (NASCET): % Right ECA: Unremarkable. LEFT Carotid: Left CCA: Unremarkable. Left ICA: Unremarkable. Maximum stenosis (NASCET): % Left ECA: Unremarkable. Vertebrals: Codominant. Arise from the subclavians. Both vertebrals form the basilar. RIGHT Vertebral: Dominant right vertebral artery. LEFT Vertebral: Small left vertebral artery. No intracranial aneurysms or large vascular malformations are identified. Anterior cerebral arteries: Unremarkable. Middle cerebral arteries: Unremarkable. Basilar artery: Unremarkable. Posterior cerebral arteries: Unremarkable. Other major branches of the posterior circulation: Unremarkable. Major venous structures: Unremarkable. Other findings: No lymphadenopathy. Lung apices are clear. Bones are unremarkable. CT/CTA Head AND Neck W/ Contrast IMPRESSION: RIGHT CAROTID: Unremarkable. LEFT CAROTID: Unremarkable. VERTEBRALS: Unremarkable. INTRACRANIAL: Unremarkable. Normal examination. One or more dose reduction techniques were used (e.g., Automated exposure contr ol, adjustment of the mA and/or kV according to patient size, use of iterative reconstruction technique). Reading Location: [place] [address]
--- NOTE | 2024-10-13 12:51 | CT_ITS ---
EXAM: CT scan of the head without intravenous contrast administration. CLINICAL HISTORY: Headaches. Left facial paresthesias. Alcohol abuse. COMPARISON: Comparison is made with prior study dated November 17, 2022. TECHNIQUE: Helical imaging of CT head was performed without IV contrast. One or more of the following dose reduction techniques were used: automated exposure control, adjustment of the mA and/or kV according to patient size, use of iterative reconstruction technique. FINDINGS: BRAIN PARENCHYMA: No evidence for acute hemorrhage or large territory infarct. EXTRA-AXIAL SPACES: No acute extra-axial fluid collection identified. Basal cisterns are patent. MIDLINE SHIFT: None. VENTRICLES: No evidence of hydrocephalus. SCALP SOFT TISSUES: No significant abnormality. CALVARIUM: No acute process. VISUALIZED PARANASAL SINUSES: No air-fluid levels. MASTOID AIR CELLS: Grossly clear. CT/Brain/Head without Contrast IMPRESSION: No evidence of acute intracranial abnormality. Reading Location: [place] [address]
--- NOTE | 2024-10-13 12:52 | EDS_ITS ---
HPI History of Present Illness Chief Complaint: Numb/Ting Detail of Chief Complaint: Decreased vision left eye and left facial paresthesias Informant: patient Narrative Narrative: Patient presents with progressive worsening of vision in the left eye for several weeks. She started having paresthesias to the left side of her face about 4 days ago. Paresthesias are continuous now. Apparently she saw a eye doctor yesterday and was told there might be a blockage in the back part of her left eye. She was told to follow-up with her primary care physician she would send Notes there. Patient followed up with her primary care physician today and was referred to the emergency department. She denies weakness in the extremities. She denies difficulty with speech. Patient also states that she has had some paresthesias in the left arm and left leg but not currently. She denies recent illness. Denies illicit drug use. [facility] Medical History Alcohol use disorder Alcohol use disorder in remission Generalized anxiety disorder PTSD (post-traumatic stress disorder) Major depressive disorder, recurrent, severe with psychotic features Thyroid nodule Goiter Abnormal results of thyroid function studies Radial scar of right breast Anxiety and depression DDD (degenerative disc disease), lumbar Scoliosis Home Medications ?Medication ?Instructions ?Recorded ?Last Taken ?Type cholecalciferol (vitamin D3) 25 25 mcg PO DAILY Unknown History mcg (1,000 unit) capsule varenicline tartrate 0.5 mg (11)-1 See Rx Instructions PO PER PKG DIR 12/11/23 Unknown Rx mg (42) tablets in a dose pack #53 tabs (Chantix Starting Month Box) aripiprazole 15 mg tablet 15 mg PO QHS 30 days #30 tab s 10/08/24 Unknown Rx buspirone 15 mg tablet 15 mg PO BID #60 tabs Unknown Rx 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 mg PO QDAY #30 tabs 09/11 Unknown Rx sertraline 100 mg tablet 150 mg (1.5 x 100 mg) PO CORNELL LY 30 10/08/24 Unknown Rx days #45 tabs trazodone 100 mg tablet 100 - 200 mg (1 - 2 x 100 mg ) PO 10/08/24 Unknown Rx QHS PRN insomnia #60 tabs Allergy/AdvReac Type Severity Reaction Status Date / Time No Known Allergies Allergy Verified 10/13/24 11:54 Family History Father No problems noted. Surgical History Hx of hysterectomy History of dilation and curettage History of excision of pilonidal cyst (~1987) History of partial hysterectomy Status post left breast lumpectomy (~2011) History of right breast biopsy Social History household members: spouse and none Smoking Status: Current every day smoker tobacco type: cigarettes alcohol intake: current alcohol intake frequency: holidays/special occasions only details: occasional substance use type: does not use what type of physical activity do you participate in: walking frequency: 1-2 times per week ROS ROS ED Review of Systems ROS Unobtainable: other Constitutional Constitutional ED: Reports lethargy; Denies chills, fever(s), sweats or weight loss Eyes Eyes: Reports blurry vision and other; Denies change in vision or diplopia ENT ENT ED: Reports other Details: Left face paresthesias ; Denies rhinorrhea or sore throat Cardiovascular Cardiovascular: Denies chest pain, orthopnea or racing heartbeat Respiratory/Chest Respiratory/Chest: Denies cough, dyspnea, dyspnea on exertion, orthopnea or sputum Gastrointestinal Gastrointestinal: Denies abdominal pain, diarrhea, nausea or vomiting Genitourinary Genitourinary ED: Denies dysuria, hematuria or urinary frequency Musculoskeletal Musculoskeletal: Denies arthralgias, back pain, myalgias or neck pain Integumentary Denies abscess, Abrasions or rash Neurologic Neurologic: Reports headache(s); Denies weakness Psychiatric Psychiatric: Denies anxiety, depression or suicidal thoughts Endocrine Endocrinology: Denies polydipsia, polyphagia or polyuria Hematologic/Lymphatic Hematologic/Lymphatic: Denies easy bleeding, easy bruising or lymphadenopathy Allergic/Immunologic Allergic/Immunologic ED: Denies mouth swelling, tongue swelling or urticaria EXAM Physical Exam Const Vital Signs: 10/13/24 11:54 10/13/24 11:59 10/13/24 12:54 Temperature 98.6 F Temperature Source Oral Pulse Rate 72 63 Respiratory Rate 18 16 Blood Pressure 159/91 H Blood Pressure Mean 113 Pulse Ox 100 99 Oxygen Delivery Method Room Air Room Air 10/13/24 13:00 Temperature Temperature Source Pulse Rate 62 Respiratory Rate 16 Blood Pressure 120/76 Blood Pressure Mean 90 Pulse Ox 99 Oxygen Delivery Method Positive well nourished and well developed General Appearance ED: well developed and NAD HEENT Reports TM's clear and moist mucous membranes HEENT Narrative: Decree sensation left side of face normocephalic and atraumatic; Negative for trauma or tenderness Tympanic Membrane ED: Yes TM's clear Eyes PERRL and EOMs intact bilaterally General Eye ED: Negative for pale conjunctiva or scleral icterus Neck no lymphadenopathy, supple and no JVD General: Negative for tenderness Chest Wall inspection of chest normal and palpation of chest normal Chest: Negative for tenderness Resp normal respiratory effort and clear to auscultation bilaterally Effort and Inspection: Negative for respiratory distress or pain with movement Auscultation: Negative for rhonchi, wheezes or diminished lung sounds Cardio regular rate, regular rhythm, S1 normal heart sound, S2 normal heart sound and no murmurs Peripheral Pulses: pulses 2+ throughout GI normal to inspection, nondistended, normoactive bowel sounds, soft to palpation, non-tender, non-distended and no masses Back/Spine no CVA tenderness and no thoracic nor lumbar tenderness Extremity normal to inspection General Extremety ED: Negative for edema General Extremity: Negative for edema Neuro oriented x3, CN's II-XII intact bilaterally, no sensory deficits noted and gait normal Neuro Narrative: Patient with decree sensation left side of face. No focal weakness. No facial droop. Finger-nose and heel atkinson testing within normal limits, negative Romberg, negative pronator drift Sensorium / Orientation: awake, alert, oriented to person, oriented to place and oriented to time Motor Exam: strength 5/5 throughout and strength abnormal Psych mental status grossly normal Skin no rashes or lesions noted and no wounds MDM MDM MDM Narrative Medical decision making narrative: Patient presents with decreased vision left eye and paresthesias to the left side of her face. Symptoms have been progressive for weeks. Patient not a tPA candidate. Will obtain CT scan of the brain as well as CTA of head and neck to evaluate further as well as basic labs. CBC with differential patient awake and of 8.0 with hemoglobin 13.5 and platelet count of 333. Chemistries unremarkable. EKG obtained arrival shows sinus rhythm with rate of 60 bpm with no acute ST segment changes. CT scan of the brain without contrast was unremarkable. CTA of the head and neck were unremarkable. This point we will discuss case with hospitalist to evaluate for admission for completion of stroke workup including MRI. Etiology of her paresthesias and vision change unclear. Lab Data Attestation: I reviewed the patient's lab results. Labs: Laboratory Results - last 24 hr 10/13/24 12:15 WBC 8.0 RBC 4.44 Hgb 13.5 Hct 41.9 MCV 94.4 MCH 30.4 MCHC 32.2 RDW Std Deviation 47.4 H RDW Coeff of Dariela 13.6 Plt Count 333 MPV 10.3 Immature Gran % (Auto) 0.400 Neut % (Auto) 55.9 Lymph % (Auto) 33.5 [place] % (Auto) 9.3 Eos % (Auto) 0.5 Baso % (Auto) 0.4 Absolute Neuts (auto) 4.5 Absolute Lymphs (auto) 2.67 Nucleated RBC % 0 PT 12.4 INR 0.9 APTT 25.8 Sodium 139 Potassium 3.8 Chloride 105 Carbon Dioxide 27.0 Anion Gap 7 BUN 10 Creatinine 0.81 Estim Creat Clear Calc 80.09 Est GFR (MDRD) Af Amer 94 Est GFR (MDRD) Non-Af 78 BUN/Creatinine Ratio 12.3 Glucose 88 Calcium 9.0 Radiography Diagnostic Testing: Clinical Impression(s) from Imaging Studies Chest X-Ray 10/13/24 12:33 IMPRESSION: No acute cardiopulmonary process. Reading Location: [facility] Brain CT 10/13/24 12:51 IMPRESSION: No evidence of acute intracranial abnormality. Reading Location: [facility]1 Head/Neck CTA 10/13/24 12:51 IMPRESSION: RIGHT CAROTID: Unremarkable. LEFT CAROTID: Unremarkable. VERTEBRALS: Unremarkable. INTRACRANIAL: Unremarkable. Normal examination. One or more dose reduction techniques were used (e.g., Automated exposure control, adjustment of the mA and/or kV according to patient size, use of iterative reconstruction technique). Reading Location: [facility]-1 1 view chest x-ray obtained interpreted by myself as no evidence of infiltrate or pneumothorax or acute disease process. Radiology in agreement. EKG Initial EKG: Attestation: I personally reviewed and interpreted this EKG as follows: Comments: Sinus rhythm with rate of 60 bpm with no acute ST segment change Discharge Plan Dx/Rx/DC Orders Clinical Impression: Blurred vision, Paresthesias, History of anxiety Disposition Disposition: Acute Care Hospital [facility]
--- NOTE | 2024-10-13 14:36 | HP.PCM.HOS_ITS ---
HPI - General General Date of Admission: 10/13/24 Date of Service: 10/13/24 Chief Complaint: Multiple neurological complaints HPI Narrative MATTI LANDRY, is a 54 F came to ED for blurry vision in the left eye for several weeks along with numbness on the left side of the face and cheek. She also complained of headache mainly on the left side of forehead. Complain of mild numbness on the left arm and left leg. She was seen by sales solutions representative yesterday and was asked to follow-up with PCP and her PCP sent to the ED. Denies any weakness, altered language or dysarthria or dysphagia. Vitals and labs and imagings reviewed and discussion assessment and plan [facility] Medical History Alcohol use disorder Alcohol use disorder in remission Generalized anxiety disorder PTSD (post-traumatic stress disorder) Major depressive disorder, recurrent, severe with psychotic features Thyroid nodule Goiter Abnormal results of thyroid function studies Radial scar of right breast Anxiety and depression DDD (degenerative disc disease), lumbar Scoliosis Home Medications ?Medication ?Instructions ?Recorded ?Last Taken ?Type cholecalciferol (vitamin D3) 25 25 mcg PO DAILY Unknown History mcg (1,000 unit) capsule varenicline tartrate 0.5 mg (11)-1 See Rx Instructions PO PER PKG DIR 12/11/23 Unknown Rx mg (42) tablets in a dose pack #53 tabs (Chantix Starting Month Box) aripiprazole 15 mg tablet 15 mg PO QHS 30 days #30 tab s 10/08/24 Unknown Rx buspirone 15 mg tablet 15 mg PO BID #60 tabs Unknown Rx 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 mg PO QDAY #30 tabs 09/11 Unknown Rx sertraline 100 mg tablet 150 mg (1.5 x 100 mg) PO CORNELL LY 30 10/08/24 Unknown Rx days #45 tabs trazodone 100 mg tablet 100 - 200 mg (1 - 2 x 100 mg ) PO 10/08/24 Unknown Rx QHS PRN insomnia #60 tabs Allergy/AdvReac Type Severity Reaction Status Date / Time No Known Allergies Allergy Verified 10/13/24 11:54 Family History Father No problems noted. Surgical History Hx of hysterectomy History of dilation and curettage History of excision of pilonidal cyst (~1987) History of partial hysterectomy Status post left breast lumpectomy (~2011) History of right breast biopsy Social History household members: spouse and none Smoking Status: Current every day smoker tobacco type: cigarettes alcohol intake: current alcohol intake frequency: holidays/special occasions only details: occasional substance use type: does not use what type of physical activity do you participate in: walking frequency: 1-2 times per week ROS ROS Narrative Constitutional: Reports fatigue and weakness. No fever. HEENT: Reports systems reviewed and no addt'l complaints, except as documented Respiratory/Chest: No acute shortness of breath or respiratory distress or wheezing. CVS: Denies chronic heart disease. No chest pressure or anginal-like symptoms Gastrointestinal: Denies coffee ground emesis, hematemesis or vomiting Genitourinary: Denies burning urination or new urinary tract symptoms Musculoskeletal: Denies acute joint pain or limited range of motion. No acute injury Neurologic: Denies seizure-like symptoms. As described in HPI Psychiatric: History of anxiety depression and PTSD. On multiple antipsychotic medications skin: No ulcer. No rash Endocrinology: Reports systems reviewed and no addt'l complaints, except as documented Hematologic/Lymphatic: Reports systems reviewed and no addt'l complaints, except as documented Rest 14 ROS are negative except as mentioned in HPI Vital Signs Vital Signs Vital Signs: 10/13/24 11:54 10/13/24 11:59 10/13/24 12:54 Temperature 98.6 F Temperature Source Oral Pulse Rate 72 63 Respiratory Rate 18 16 Blood Pressure 159/91 H Blood Pressure Mean 113 Pulse Ox 100 99 Oxygen Delivery Method Room Air Room Air 10/13/24 13:00 10/13/24 14:00 10/13/24 14:32 Temperature 98.0 F Temperature Source Pulse Rate 62 63 69 Respiratory Rate 16 16 16 Blood Pressure 120/76 133/73 H 135/82 H Blood Pressure Mean 90 93 99 Pulse Ox 99 97 98 Oxygen Delivery Method Room Air Weight Weight: 141 lb 3.2 oz Body Mass Index (BMI) 21.4 Physical Exam Narrative General: Alert, Oriented x3, Cooperative HEENT: Atraumatic, PERRLA, EOMI, Normocephalic. No acute loss of vision, quadrantopia/hemianopia. Oral: No Gingival or Mucosal Lesions/ Ulcerations Neck: Supple, No JVD, Negative Carotid Bruits Chest wall/Lungs: Air entry diminished in bilateral lung bases. No crepitation/rhonchi Cardiovascular: Regular rate, Regular Rhythm, Normal S1, Normal S2, No M/G/R Abdomen: Bowel Sounds Present, Soft, Non Tender, Non-Distended : No dysuria. No renal angle tenderness. No suprapubic tenderness. Extremities: No edema, Capillary Refill Less than 3 Seconds Skin: No rashes, No breakdown Musculoskeletal: ROM intact. Power 5/5 at major joints. No Tenderness to Palpation of Joints or Extremities Neurological: Cranial nerves II-XII grossly intact, DTR 2+/4. Mild numbness in the left side of the face and upper arm. NIH stroke scale 1. Psych/Mental Status: Flat affect. Anxious low Results Lab / Micro Data 10/13/24 12:15 10/13/24 12:15 Labs: Laboratory Results - last 24 hr 10/13/24 12:15: WBC 8.0, RBC 4.44, Hgb 13.5, Hct 41.9, MCV 94.4, MCH 30.4, MCHC 32.2, RDW Std Deviation 47.4 H, RDW Coeff of Dariela 13.6, Plt Count 333, MPV 10.3, Immature Gran % (Auto) 0.400, Neut % (Auto) 55.9, Lymph % (Auto) 33.5, [place] % (Auto) 9.3, Eos % (Auto) 0.5, Baso % (Auto) 0.4, Absolute Neuts (auto) 4.5, Absolute Lymphs (auto) 2.67, Nucleated RBC % 0, PT 12.4, INR 0.9, APTT 25.8, Sodium 139, Potassium 3.8, Chloride 105, Carbon Dioxide 27.0, Anion Gap 7, BUN 10, Creatinine 0.81, Estim Creat Clear Calc 80.09, Est GFR (MDRD) Af Amer 94, Est GFR (MDRD) Non-Af 78, BUN/Creatinine Ratio 12.3, Glucose 88, Calcium 9.0 Imaging Radiology Impression Chest X-Ray 10/13/24 12:33 IMPRESSION: No acute cardiopulmonary process. Reading Location: [facility] Brain CT 10/13/24 12:51 IMPRESSION: No evidence of acute intracranial abnormality. Reading Location: [facility]-1 Head/Neck CTA 10/13/24 12:51 IMPRESSION: RIGHT CAROTID: Unremarkable. LEFT CAROTID: Unremarkable. VERTEBRALS: Unremarkable. INTRACRANIAL: Unremarkable. Normal examination. One or more dose reduction techniques were used (e.g., Automated exposure control, adjustment of the mA and/or kV according to patient size, use of iterative reconstruction technique). Reading Location: [facility]-- Assessment & Plan Assessment/Plan (1) Paresthesias: (2) Blurred vision: PLAN: Plan This is 54-year-old female who is being admitted for multiple neurological complaints to rule out a stroke 1. Left-sided headache, blurry vision and numbness, possible migraine/headache syndrome, rule out stroke: Patient is being admitted in PCU. PT, OT, speech therapy/swallow evaluation and management, nursing NIH stroke scale, BP and glucose monitoring and control as per stroke protocol. TSH, A1c fasting lipid profile tomorrow AM. MRI brain and 2D echo ordered. Started on baby aspirin empirically along with high intensity statin. [facility] neuroconsult afterwards. Twelve-lead EKG shows normal sinus rhythm. QTc [address] head and head CTA head and neck unremarkable 2. Major depressive disorder with psychotic features, LINDA and PTSD: Patient follows psychiatrist Dr. Panda. She is on Abilify, BuSpar, trazodone and sertraline. 3. Chronic alcohol use: Patient is stated she did not drink for 2 weeks. Psychiatrist discontinued topiramate and restarted on disulfiram. 4. Chronic nicotine use/cigarette smoking: Nicotine patch offered. Counseling done to quit smoking. 5. Goiter and thyroid nodule: Advised follow-up with PCP. TSH ordered. DVT prophylaxis, moderate risk: Lovenox 40 mg subcu daily. Living will/advanced directive/end of life care: Patient does not have living will or advanced directive. After discussion of benefits/risks procedures involved with full code, DNR CC arrest and DNR CC, the patient opted for full code. Patient does want artificial life support including intubation, tube feed, ventilator and/chest compression, central venous catheter, vasopressor and DC shock if needed Total time spent in [id number] encounter in discussion of advanced directive 17 minutes. Laboratory Results 10/13/24 12:15: WBC 8.0, RBC 4.44, Hgb 13.5, Hct 41.9, MCV 94.4, MCH 30.4, MCHC 32.2, RDW Std Deviation 47.4 H, RDW Coeff of Dariela 13.6, Plt Count 333, MPV 10.3, Immature Gran % (Auto) 0.400, Neut % (Auto) 55.9, Lymph % (Auto) 33.5, [place] % (Auto) 9.3, Eos % (Auto) 0.5, Baso % (Auto) 0.4, Absolute Neuts (auto) 4.5, Absolute Lymphs (auto) 2.67, Nucleated RBC % 0, PT 12.4, INR 0.9, APTT 25.8, Sodium 139, Potassium 3.8, Chloride 105, Carbon Dioxide 27.0, Anion Gap 7, BUN 10, Creatinine 0.81, Estim Creat Clear Calc 80.09, Est GFR (MDRD) Af Amer 94, Est GFR (MDRD) Non-Af 78, BUN/Creatinine Ratio 12.3, Glucose 88, Calcium 9.0 Clinical Impression(s) from Imaging Studies Chest X-Ray 10/13/24 12:33 IMPRESSION: No acute cardiopulmonary process. Reading Location: [facility] Brain CT 10/13/24 12:51 IMPRESSION: No evidence of acute intracranial abnormality. Reading Location: [facility]-IR-1 Head/Neck CTA 10/13/24 12:51 IMPRESSION: RIGHT CAROTID: Unremarkable. LEFT CAROTID: Unremarkable. VERTEBRALS: Unremarkable. INTRACRANIAL: Unremarkable. Normal examination. One or more dose reduction techniques were used (e.g., Automated exposure control, adjustment of the mA and/or kV according to patient size, use of iterative reconstruction technique). Reading Location: [place] [address] Charges/Coding Visit Charges Inpatient E&M: 28668 Init Hosp L3 Procedures Hospitalists Procedures: 68836 Advncd Care Plan 30 Min
--- NOTE | 2024-10-13 15:06 | MRI_ITS ---
CLINICAL HISTORY: Suspected stroke; progressive worsening vision in the left eye. COMPARISON: 10/13/2024 CT.. TECHNIQUE: MRI of the brain was performed without intravenous contrast. FINDINGS: The ventricles, sulci, and cisterns are age-appropriate in size. There is no evidence of intracranial bleed or focal infarction. There is no midline shift, mass effect, or extra-axial collection . No area of restricted diffusion are identified on DWI images. No abnormal T2 bright signal in the white matter is identified. The basal ganglia, pau, pituitary, corpus callosum and cerebellum appear normal. The visualized paranasal sinuses, mastoids, and orbits are unremarkable. The flow voids of the major intracranial vessels are patent. The visualized extracranial structures, within limits of technique, are not otherwise remarkable. MRI/Brain without Contrast IMPRESSION: No acute intracranial abnormality. Reading Location: [id number]
[2024-10-13 15:52] LABS: Magnesium 2.1 mg/dL (1.6-2.6)
[2024-10-13] MEDS: Enoxaparin 40 MG/0.4 ML Syringe SC (17:00)
[2024-10-13] MEDS: Aspirin 81 MG TAB.CHEW PO (17:00)
[2024-10-13] MEDS: Acetaminophen 325 MG Tablet 650 MG PO ×2 (17:00→23:27)
[2024-10-13] MEDS: 0.9% Normal Saline (1000mL) 1,000 ML 100 ML IV (23:23)
--- NOTE | 2024-10-13 23:55 | PCM.HOSP.N ---
Hospitalist Note MRI brain resulted unremarkable, no acute evidence of stroke.
[2024-10-14 03:19] VITALS: BP 136/79; PULSE 62; RESP 18; TEMP 36.4; O2SAT 96
[2024-10-14 05:38] LABS: Cholesterol 149 mg/dL (200); High Density Lipoprotein 53 mg/dL; Thyroid Stim Hormone (TSH) 0.811 uIU/mL (0.358-3.740); Triglycerides 99 mg/dL; Very Low Density Lipoprotein 20 mg/dL (5-40)
[2024-10-14 07:14] VITALS: O2SAT 96
[2024-10-14 08:32] LABS: Hemoglobin A1c 5.1 % (3.8-5.6)
[2024-10-14] MEDS: Acetaminophen 325 MG Tablet 650 MG PO (09:30)
--- NOTE | 2024-10-14 09:52 | PCM.DC ---
Discharge Instructions Diet Discharge Diet: No restrictions DC O2, CPAP, BIPAP needs Home O2 Discharge instructions: No Dressing / Incision Discharge Activity: Return to Normal Activity Weight Bearing Status: Weight bearing as tolerated Dressing / Incision Call your doctor if you observe: Fever of 101 or Higher, Coldness, Increased Pain, Numbness or Tingling, Change in Color, Inability to urinate, Inability to have a bowel movement, Using more than 1 pad per hour, Shortness of breath, Dizziness, Fainting spells, Swelling in the ankles, Chest pain, Prolonged hiccupping, Increased palpitations (irregular heartbeat) and Calf discomfort Follow Up Care When: IN 2 WEEKS Test Results: Test results from this visit will be discussed in further detail at your follow-up appointment, if applicable. Discharge Plan Admission Admit Date/Time: 10/13/24 14:26 Attending Provider: Michael Murillo [facility] Providers: Frandy Boothe; Huyen Silva; Bibi Colon; Zulay Carballo; Emani Craven; Lew Parker; Millie Plaza; Rigoberto Barakat; Timmy Goel; Clem Florentino; Amrita Olivas; Ruben Miller; Ita Young; Lani Lopez; Tani Garcia; Billy Espinoza; Audrey Ortega; Nav Aleman; Windy Mederos; Ronal Copeland Instructions Additional Instructions / Restrictions: Follow-up education general manager as an outpatient. Discharge Orders/Prescriptions Prescriptions: Continued cholecalciferol (vitamin D3) 25 mcg (1,000 unit) capsule 25 mcg PO DAILY varenicline tartrate [Chantix Starting Month Box] 0.5 mg (11)- 1 mg (42) tablets,dose pack See Rx Instructions PO PER PKG DIR Qty: 53 0RF Rx Instructions: PO PER PKG DIR aripiprazole 15 mg tablet 15 mg PO QHS 30 Days Qty: 30 2RF buspirone 15 mg tablet 15 mg PO BID Qty: 60 2RF trazodone 100 mg tablet 100 - 200 mg PO QHS PRN (Reason: insomnia) Qty: 60 1RF sertraline 100 mg tablet 150 mg PO DAILY 30 Days Qty: 45 2RF 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 mg PO QDAY Qty: 30 2RF [facility]errals [facility] [Primary Care Provider] - In 1 Week Disposition Disposition (needs filled in before D/C Order can be placed): Home, Self Care
[2024-10-14 09:55] VITALS: BP 140/85; PULSE 70; RESP 16; TEMP 36.7; O2SAT 99
[2024-10-14 10:16] LABS: Bedside Glucose 134 mg/dL (74-106)
[2024-10-14] MEDS: Aspirin 81 MG TAB.CHEW PO (11:52)
[2024-10-14] MEDS: Pantoprazole Sodium 40 MG Tablet PO (11:53)
[2024-10-14] MEDS: Ibuprofen 600 MG Tablet PO (11:55)
[2024-10-14 12:00] VITALS: BP 139/83; PULSE 69; RESP 16; TEMP 36.4; O2SAT 100
--- NOTE | 2024-10-14 12:47 | DS.PCM_ITS ---
Providers Date of Admission: 10/13/24 Date of Discharge: 10/14/24 Primary Care Physician: [facility] [place] Consultations 10/13/24 15:06 Consult: Tele-Neurology Routine Consulting Provider: [facility] Reason for Consult: Acute Ischemic Stroke/TIA EMERGENT Consult: No MD Notified: Yes Date Notified: 10/14/24 Time Notified: 09:06 Method of Notification: Text Nursing Unit Staff Notify [facility] of Tele-Neurology Consult: Yes Reason For Visit: MULTIPLE HEUROLOGICAL COMPLAINTS, LOSS OF VISION Diagnosis Discharge Diagnosis (1) Paresthesias: Status: Acute Code(s): R20.2 - Paresthesia of skin (2) Blurred vision: Status: Acute Code(s): H53.8 - Other visual disturbances Plan This is 54-year-old female who is being admitted for multiple neurological complaints to rule out a stroke 1. Left-sided headache, blurry vision and numbness, possible migraine/headache syndrome, rule out stroke: Patient is being admitted in PCU. PT, OT, speech therapy/swallow evaluation and management, nursing NIH stroke scale, BP and glucose monitoring and control as per stroke protocol. TSH, A1c fasting lipid profile tomorrow AM. MRI brain and 2D echo ordered. Started on baby aspirin empirically along with high intensity statin. [facility] neuro[facility]ult afterwards. Twelve-lead EKG shows normal sinus rhythm. QTc [address] head and head CTA head and neck unremarkable 2/5: In the morning, today patient complain of headache. Ibuprofen given bradycardia better. Earlier, MRI brain did not show acute evidence of acute stroke, reported unremarkable 2. Major depressive disorder with psychotic features, LINDA and PTSD: Patient follows psychiatrist Dr. Panda. She is on Abilify, BuSpar, trazodone and sertraline. 3. Chronic alcohol use: Patient is stated she did not drink for 2 weeks. Psychiatrist discontinued topiramate and restarted on disulfiram. 4. Chronic nicotine use/cigarette smoking: Nicotine patch offered. Counseling done to quit smoking. 5. Goiter and thyroid nodule: Advised follow-up with PCP. TSH ordered. DVT prophylaxis, moderate risk: Lovenox 40 mg subcu daily. Living will/advanced directive/end of life care: Patient does not have living will or advanced directive. After discussion of benefits/risks procedures involved with full code, DNR CC arrest and DNR CC, the patient opted for full code. Patient does want artificial life support including intubation, tube feed, ventilator and/chest compression, central venous catheter, vasopressor and DC shock if needed Total time spent in [id number] encounter in discussion of advanced directive 17 minutes. Laboratory Results 10/13/24 12:15: WBC 8.0, RBC 4.44, Hgb 13.5, Hct 41.9, MCV 94.4, MCH 30.4, MCHC 32.2, RDW Std Deviation 47.4 H, RDW Coeff of Dariela 13.6, Plt Count 333, MPV 10.3, Immature Gran % (Auto) 0.400, Neut % (Auto) 55.9, Lymph % (Auto) 33.5, Sac % (Auto) 9.3, Eos % (Auto) 0.5, Baso % (Auto) 0.4, Absolute Neuts (auto) 4.5, Absolute Lymphs (auto) 2.67, Nucleated RBC % 0, PT 12.4, INR 0.9, APTT 25.8, Sodium 139, Potassium 3.8, Chloride 105, Carbon Dioxide 27.0, Anion Gap 7, BUN 10, Creatinine 0.81, Estim Creat Clear Calc 80.09, Est GFR (MDRD) Af Amer 94, Est GFR (MDRD) Non-Af 78, BUN/Creatinine Ratio 12.3, Glucose 88, Calcium 9.0 Clinical Impression(s) from Imaging Studies Chest X-Ray 10/13/24 12:33 IMPRESSION: No acute cardiopulmonary process. Reading [facility] Brain CT 10/13/24 12:51 IMPRESSION: No evidence of acute intracranial abnormality. Reading Location: [facility] Head/Neck CTA 10/13/24 12:51 IMPRESSION: RIGHT CAROTID: Unremarkable. LEFT CAROTID: Unremarkable. VERTEBRALS: Unremarkable. INTRACRANIAL: Unremarkable. Normal examination. One or more dose reduction techniques were used (e.g., Automated exposure control, adjustment of the mA and/or kV according to patient size, use of iterative reconstruction technique). Reading Location: [facility] Brain MRI 10/13/24 15:06 IMPRESSION: No acute intracranial abnormality. Reading Location: [id number] Clinical Impression(s) from Imaging Studies Chest X-Ray 10/13/24 12:33 IMPRESSION: No acute cardiopulmonary process. Reading Location[facility] Brain CT 10/13/24 12:51 IMPRESSION: No evidence of acute intracranial abnormality. Reading Location: [facility] Head/Neck CTA 10/13/24 12:51 IMPRESSION: RIGHT CAROTID: Unremarkable. LEFT CAROTID: Unremarkable. VERTEBRALS: Unremarkable. INTRACRANIAL: Unremarkable. Normal examination. One or more dose reduction techniques were used (e.g., Automated exposure control, adjustment of the mA and/or kV according to patient size, use of iterative reconstruction technique). Reading Location: [facility]- Medications at Discharge Home Medications cholecalciferol (vitamin D3) 25 mcg (1,000 unit) capsule 25 mcg PO DAILY vitamin 09/14/22 varenicline tartrate 0.5 mg (11)-1 mg (42) tablets in a dose pack ([employer] Starting Month Box) See Rx Instructions PO PER PKG DIR #53 tabs 12/11/23 aripiprazole 15 mg tablet 15 mg PO QHS mental health 30 days #30 tabs 10/08/24 buspirone 15 mg tablet 15 mg PO BID anxiety #60 tabs 10/08/24 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 mg PO QDAY addiction #30 tabs 10/08/24 sertraline 100 mg tablet 150 mg (1.5 x 100 mg) PO DAILY mental health 30 days #45 tabs 10/08/24 trazodone 100 mg tablet 100 - 200 mg (1 - 2 x 100 mg) PO QHS PRN insomnia #60 tabs 10/08/24 Physical Exam Narrative Complain of headache in the morning. Blurry vision has resolved. Physical exam General: Alert, Oriented x3, Cooperative HEENT: Atraumatic, PERRLA, EOMI, Normocephalic. No acute loss of vision, quadrantopia/hemianopia. Oral: No Gingival or Mucosal Lesions/ Ulcerations Neck: Supple, No JVD, Negative Carotid Bruits Chest wall/Lungs: Air entry diminished in bilateral lung bases. No crepitation/rhonchi Cardiovascular: Regular rate, Regular Rhythm, Normal S1, Normal S2, No M/G/R Abdomen: Bowel Sounds Present, Soft, Non Tender, Non-Distended : No dysuria. No renal angle tenderness. No suprapubic tenderness. Extremities: No edema, Capillary Refill Less than 3 Seconds Skin: No rashes, No breakdown Musculoskeletal: ROM intact. Power 5/5 at major joints. No Tenderness to Palpation of Joints or Extremities Neurological: Cranial nerves II-XII grossly intact, DTR 2+/4. Psych/Mental Status: Flat affect. Anxious look. Weight / BMI Weight Weight: 143 lb 8.335 oz Body Mass Index (BMI) 21.8 ABG / Lab / Microbiology Data 10/13/24 12:15 10/13/24 12:15 Laboratory: Laboratory Results - last 24 hr 10/13/24 12:15: PT 12.4, INR 0.9, APTT 25.8, Magnesium 2.1 10/14/24 03:50: Hemoglobin A1c 5.1, Triglycerides 99, Cholesterol 149, LDL Cholesterol 76, VLDL Cholesterol 20, HDL Cholesterol 53, TSH 0.811 10/14/24 09:52: POC Glucose 134 H Radiography Diagnostic Testing: Radiology Impression Chest X-Ray 10/13/24 12:33 IMPRESSION: No acute cardiopulmonary process. Reading Location[facility] Brain CT 10/13/24 12:51 IMPRESSION: No evidence of acute intracranial abnormality. Reading Location: [facility] Head/Neck CTA 10/13/24 12:51 IMPRESSION: RIGHT CAROTID: Unremarkable. LEFT CAROTID: Unremarkable. VERTEBRALS: Unremarkable. INTRACRANIAL: Unremarkable. Normal examination. One or more dose reduction techniques were used (e.g., Automated exposure control, adjustment of the mA and/or kV according to patient size, use of iterative reconstruction technique). Reading Location: [facility]--1 Brain MRI 10/13/24 15:06 IMPRESSION: No acute intracranial abnormality. Reading Location: [id number]/C Instructions Discharge Diet: No restrictions Weight Bearing Status: Weight bearing as tolerated Call your doctor if you observe: Fever of 101 or Higher, Coldness, Increased Pain, Numbness or Tingling, Change in Color, Inability to urinate, Inability to have a bowel movement, Using more than 1 pad per hour, Shortness of breath, Dizziness, Fainting spells, Swelling in the ankles, Chest pain, Prolonged hiccupping, Increased palpitations (irregular heartbeat) and Calf discomfort DC O2, CPAP, BIPAP Needs Home O2 Discharge instructions: No When: IN 2 WEEKS Meaningful Use Info Meaningful Use Meaningful Use Diagnoses (Choose all that apply): None applicable Ischemic Stroke Statin Dosing Therapy Reference: STATIN DOSE THERAPY REFERENCE: * Patients > 75 years receive moderate or high dose statin therapy. * Patients 75 years or YOUNGER should receive HIGH intensity statin dose unless contraindicated. You will be required to document reason for non-treatment if statin daily dose does not meet guidelines. HIGH DOSE STATIN THERAPY DAILY Atorvastatin > than or = to 40 mg Rosuvastatin > than or = to 20 mg Amlodipine + Atorvastatin > than or = to 2.5/40 mg Ezetimibe + Simvastatin 10/80 mg Simvastatin 80mg Discharge Plan Admission Admit Date/Time: 10/13/24 14:26 Attending Provider: Michael Murillo [facility] Providers: Frandy Boothe; Huyen Silva; Bibi Colon; Zulay Carballo; Emani Craven; Lew Parker; Millie Plaza; Rigoberto Barakat; Timmy Goel; Clem Florentino; Amrita Olivas; Ruben Miller; Ita Young; Lani Lopez; Tani Garcia; Billy Espinoza; Audrey Ortega; Nav Aleman; Windy Mederos; Ronal Copeland Instructions Additional Instructions / Restrictions: Follow-up research epidemiologist as an outpatient. Discharge Orders/Prescriptions Prescriptions: Continued cholecalciferol (vitamin D3) 25 mcg (1,000 unit) capsule 25 mcg PO DAILY varenicline tartrate [Chantix Starting Month Box] 0.5 mg (11)- 1 mg (42) tablets,dose pack See Rx Instructions PO PER PKG DIR Qty: 53 0RF Rx Instructions: PO PER PKG DIR aripiprazole 15 mg tablet 15 mg PO QHS 30 Days Qty: 30 2RF buspirone 15 mg tablet 15 mg PO BID Qty: 60 2RF trazodone 100 mg tablet 100 - 200 mg PO QHS PRN (Reason: insomnia) Qty: 60 1RF sertraline 100 mg tablet 150 mg PO DAILY 30 Days Qty: 45 2RF 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 mg PO QDAY Qty: 30 2RF Referrals / Follow Up: [facility] Ramey [Primary Care Provider] - In 1 Week Disposition Disposition (needs filled in before D/C Order can be placed): Home, Self Care Charges/Coding Visit Charges Inpatient E&M: 82119 Disch Hosp >30min
[2024-10-14 13:30] VITALS: BP 139/83; BP 145/75; BP 145/88; PULSE 58; PULSE 68; PULSE 69
--- NOTE | 2024-10-14 13:48 | PHA.DC.MR.R ---
Pharmacy [place] Med Reconciliation Pharmacy Service has performed discharge medication reconciliation for this patient. The patient's discharge medication list was reviewed for discrepancies and discrepancies were resolved. Medications at Discharge Home Medications cholecalciferol (vitamin D3) 25 mcg (1,000 unit) capsule 25 mcg PO DAILY vitamin 09/14/22 varenicline tartrate 0.5 mg (11)-1 mg (42) tablets in a dose pack ([employer] Starting Month Box) See Rx Instructions PO PER PKG DIR #53 tabs 12/11/23 aripiprazole 15 mg tablet 15 mg PO QHS mental health 30 days #30 tabs 10/08/24 buspirone 15 mg tablet 15 mg PO BID anxiety #60 tabs 10/08/24 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 mg PO QDAY addiction #30 tabs 10/08/24 sertraline 100 mg tablet 150 mg (1.5 x 100 mg) PO DAILY mental health 30 days #45 tabs 10/08/24 trazodone 100 mg tablet 100 - 200 mg (1 - 2 x 100 mg) PO QHS PRN insomnia #60 tabs 10/08/24
--- NOTE | 2024-10-14 14:50 | CASEMGMT ---
Patient has order for discharge. RN CM in to discuss needs at discharge. Patient independent in room. Patient denies needs or help at discharge. Patient had no further questions or cocerns.
[2024-10-14 15:19] VITALS: BP 133/90; PULSE 85; RESP 18; TEMP 36.9; O2SAT 98
[2024-10-14 15:47] VITALS: BMI 21.8
--- NOTE | 2024-10-14 21:54 | CON.PCM.NE_ITS ---
Assessment and Plan: Neuro Assessment/Plan MATTI LANDRY is a 54 F with a past medical history of EtOH and no significant history of migraine, being evaluated by Teleneurology for intractable KIRBY with vision changes and LS facial numbness. With MRI allaying suspicion for acute intracranial process this does seem like a migrainous process, possibly triggered by stress, but without any stigmata concerning for a more malignant etiology. Discussed with her. She prefers outpatient treatment which is quite reasonable. Her left eyed (not present in right eye) vertical diplopia would be very atypical for migraine and I did recommend she see ophthalmology as outpatient. Diagnosis: migraine with aura Plan: - okay to d/c - recommend outpatient steroid taper to break status migrainosus: prednisone or decadron reasonable - recommend outpatient referral to ophthalmology to evaluate vertical diplopia of left eye I personally attended this patient and spent a total time of 30 minutes evaluating this patient including clinical assessment, review of chart, medical history imaging, and determining appropriate treatment and workup. Billy Espinoza MD Supervisor Heading [facility] Teleneurology HPI Consult Data Date of Consult: 10/14/24 HPI Narrative HPI Narrative: MATTI LANDRY, is a 54 F on whom we are consulted for intractable headache with vision changes and LS facial numbness. Symptoms started 10 days ago with nausea and lightheadedness, followed by head pain and LS face numbness. Notes accompanying photophobia. She saw otolaryngologist who noted pressure behind left eye but did not appear to indicate glaucoma or raise concern for IIH and instead mentioned concern for her pituitary gland (?). He had her see PCP who, with headache continuing and vertical diplopia in L eye (present with R eye shut) recommended she present to ED. Initial concern for stroke was allayed by negative MRI. Here in ED headache has improved somewhat with NSAIDs, though NSAIDs were not effective at home. SHe does note her current glasses Rx is out of date and she is awaiting proper lenses and wonders if this is causing some sx. She also mentions significant stress recently: caregiver for mother, many ohter illnesses including terminal in family, siblings with addiction problems, marital strain. She wonders if this could contribute. [facility] Medical History Alcohol use disorder Alcohol use disorder in remission Generalized anxiety disorder PTSD (post-traumatic stress disorder) Major depressive disorder, recurrent, severe with psychotic features Thyroid nodule Goiter Abnormal results of thyroid function studies Radial scar of right breast Anxiety and depression DDD (degenerative disc disease), lumbar Scoliosis Home Medications ?Medication ?Instructions ?Recorded ?Last Taken ?Type cholecalciferol (vitamin D3) 25 25 mcg PO DAILY vitami n 09/14/22 Unknown History mcg (1,000 unit) capsule varenicline tartrate 0.5 mg (11)-1 See Rx Instructions PO PER PKG DIR 12/11/23 Unknown Rx mg (42) tablets in a dose pack #53 tabs (Chantix Starting Month Box) aripiprazole 15 mg tablet 15 mg PO QHS mental health 3 0 days 10/08/24 Unknown Rx #30 tabs buspirone 15 mg tablet 15 mg PO BID anxiety #60 tab s 10/08/24 Unknown Rx 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 mg PO QDAY addiction #30 tabs 10/08/24 Unknown Rx sertraline 100 mg tablet 150 mg (1.5 x 100 mg) PO CORNELL LY 10/08/24 Unknown Rx mental health 30 days #45 tabs trazodone 100 mg tablet 100 - 200 mg (1 - 2 x 100 mg ) PO 10/08/24 Unknown Rx QHS PRN insomnia #60 tabs Allergy/AdvReac Type Severity Reaction Status Date / Time No Known Allergies Allergy Verified 10/13/24 11:54 Family History Father No problems noted. Surgical History Hx of hysterectomy History of dilation and curettage History of excision of pilonidal cyst (~1987) History of partial hysterectomy Status post left breast lumpectomy (~2011) History of right breast biopsy Social History household members: spouse and none Smoking Status: Current every day smoker tobacco type: cigarettes alcohol intake: current alcohol intake frequency: holidays/special occasions only details: occasional substance use type: does not use what type of physical activity do you participate in: walking frequency: 1-2 times per week Vital Signs Vital Signs Vital Signs: 10/14/24 03:19 10/14/24 07:14 10/14/24 09:55 Temperature 97.5 F L 98.0 F Temperature Source Oral Oral Pulse Rate 62 70 Pulse Rate [Lying] Pulse Rate [Sitting (for 1 minute prior to obtaining)] Pulse Rate [Standing (for 1 minute prior to obtaining)] Pulse Strength Respiratory Rate 18 16 Respiratory Effort Respiratory Depth Respiratory Pattern Blood Pressure 136/79 H 140/85 H Blood Pressure [Lying] Blood Pressure [Sitting (for 1 minute prior to obtaining)] Blood Pressure [Standing (for 1 minute prior to obtaining)] Blood Pressure Mean 98 103 Blood Pressure Mean [Lying] Blood Pressure Mean [Sitting (for 1 minute prior to obtaining)] Blood Pressure Mean [Standing (for 1 minute prior to obtaining)] Blood Pressure Source Monitor Monitor Blood Pressure Position Semi-Fowlers Sitting Blood Pressure Location Right Arm Right Arm Pulse Ox 96 96 99 Oxygen Delivery Method Room Air Room Air Room Air 10/14/24 09:55 10/14/24 09:55 10/14/24 10:00 Temperature 98.0 F 98.0 F Temperature Source Oral Oral Pulse Rate 70 70 Pulse Rate [Lying] Pulse Rate [Sitting (for 1 minute prior to obtaining)] Pulse Rate [Standing (for 1 minute prior to obtaining)] Pulse Strength Respiratory Rate 16 16 Respiratory Effort Normal Non-Labored Respiratory Depth Normal Respiratory Pattern Normal Blood Pressure 140/85 H 140/85 H Blood Pressure [Lying] Blood Pressure [Sitting (for 1 minute prior to obtaining)] Blood Pressure [Standing (for 1 minute prior to obtaining)] Blood Pressure Mean 103 103 Blood Pressure Mean [Lying] Blood Pressure Mean [Sitting (for 1 minute prior to obtaining)] Blood Pressure Mean [Standing (for 1 minute prior to obtaining)] Blood Pressure Source Monitor Monitor Blood Pressure Position Semi-Fowlers Semi-Fowlers Blood Pressure Location Right Arm Right Arm Pulse Ox 99 99 Oxygen Delivery Method Room Air Room Air Room Air 10/14/24 10:00 10/14/24 12:00 10/14/24 13:30 Temperature 97.5 F L Temperature Source Oral Pulse Rate 69 Pulse Rate [Lying] 69 Pulse Rate [Sitting (for 1 minute prior to obtaining)] 58 L Pulse Rate [Standing (for 1 minute prior to obtaining)] 68 Pulse Strength Normal (2+) Respiratory Rate 16 Respiratory Effort Respiratory Depth Respiratory Pattern Blood Pressure 139/83 H Blood Pressure [Lying] 139/83 H Blood Pressure [Sitting (for 1 minute prior to obtaining)] 145/75 H Blood Pressure [Standing (for 1 minute prior to obtaining)] 145/88 H Blood Pressure Mean 101 Blood Pressure Mean [Lying] 101 Blood Pressure Mean [Sitting (for 1 minute prior to obtaining)] 98 Blood Pressure Mean [Standing (for 1 minute prior to obtaining)] 107 Blood Pressure Source Monitor Blood Pressure Position Semi-Fowlers Blood Pressure Location Right Arm Pulse Ox 100 Oxygen Delivery Method Room Air 10/14/24 15:19 Temperature 98.4 F Temperature Source Oral Pulse Rate 85 Pulse Rate [Lying] Pulse Rate [Sitting (for 1 minute prior to obtaining)] Pulse Rate [Standing (for 1 minute prior to obtaining)] Pulse Strength Respiratory Rate 18 Respiratory Effort Respiratory Depth Respiratory Pattern Blood Pressure 133/90 H Blood Pressure [Lying] Blood Pressure [Sitting (for 1 minute prior to obtaining)] Blood Pressure [Standing (for 1 minute prior to obtaining)] Blood Pressure Mean 104 Blood Pressure Mean [Lying] Blood Pressure Mean [Sitting (for 1 minute prior to obtaining)] Blood Pressure Mean [Standing (for 1 minute prior to obtaining)] Blood Pressure Source Blood Pressure Position Blood Pressure Location Pulse Ox 98 Oxygen Delivery Method Room Air Weight Weight: 65.1 kg Body Mass Index (BMI) 21.8 EEG Results Procedure Details EEG Procedure Details: MATTI LANDRY is a 54 year old F with a past medical history of , who presents for evaluation of Electroencephalogram on DATE at TIME NIHSS NIHSS Nursing Documentation NIHSS Nursing Documentation: NIHSS: Ischemic Stroke/TIA Start: 10/13/24 15:06 Text: For ICU Patients: NIH sroke scale at Status: Complete presentation and every 2 hours or with change in RN caregiver Freq: [id number] Protocol: Activity Type Activity Date Activity User E-sign Co-sign Detail Recorded Client Recorded Date Recorded By Document 10/13/24 16:45 MM [id number] 10/13/24 16:53 MM 10/13/24 16:45 NIH Stroke Scale [NIHSS] A score of 0 is normal or asymptomatic . Total possible score is 42. Inpatient: RN or Physician to activate a stroke alert for onset of new stroke symptoms or with NIHSS increase >/= 3 points. Following change in neurological status, NIHSS will be performed per physician order or more frequently PRN. -1a. Level of Consciousness Alert; keenly responsive -1b. LOC Questions Answers BOTH questions correctly. -1c. LOC Commands Performs both tasks correctly . -2. Best Gaze Normal -3. Visual No visual loss -4. Facial Palsy Minor paralysis (flattened nasolabial fold , asymmetry on smiling) -5a. Left Arm No drift; arm holds 90 (or 45 ) degrees for full 10 seconds -5b. Right Arm No drift; arm holds 90 (or 45 ) degrees for full 10 seconds -6a. Left Leg No drift; leg holds 30-degree position for full 5 seconds -6b. Right Leg No drift; leg holds 30-degree position for full 5 seconds -7. Limb Ataxia Absent -8. Sensory Mild-to- moderate sensory loss; -9. Best Language No aphasia; normal -10. Dysarthria Normal -11. Extinction and Inattention No abnormality -Total 2 Query Text:A score of 0 is normal or asymptomatic. Total possible score is 42 . ED: Notify Physician for NIHSS increase by > / = 3 points. Inpatient: RN or Physician to activate a stroke alert for NIHSS increase of > / = 3 points. NIHSS: Ischemic Stroke/TIA Start: 10/13/24 15:06 Text: For PCU Patients: NIH and Neuro Check every 4 Status: Complete hours, PRN and with change in RN caregiver. Freq: [id number] Protocol: Activity Type Activity Date Activity User E-sign Co-sign Detail Recorded Client Recorded Date Recorded By Document 10/13/24 21:54 MB [id number] 10/13/24 21:58 MB 10/13/24 21:54 -1a. Level of Consciousness Alert; keenly responsive -1b. LOC Questions Answers BOTH questions correctly. -1c. LOC Commands Performs both tasks correctly . -2. Best Gaze Normal -3. Visual No visual loss -4. Facial Palsy Minor paralysis (flattened nasolabial fold , asymmetry on smiling) -5a. Left Arm No drift; arm holds 90 (or 45 ) degrees for full 10 seconds -5b. Right Arm No drift; arm holds 90 (or 45 ) degrees for full 10 seconds -6a. Left Leg No drift; leg holds 30-degree position for full 5 seconds -6b. Right Leg No drift; leg holds 30-degree position for full 5 seconds -7. Limb Ataxia Absent -8. Sensory Mild-to- moderate sensory loss; -9. Best Language No aphasia; normal -10. Dysarthria Normal -11. Extinction and Inattention No abnormality -Total 2 Query Text:A score of 0 is normal or asymptomatic. Total possible score is 42 . ED: Notify Physician for NIHSS increase by > / = 3 points. Inpatient: RN or Physician to activate a stroke alert for NIHSS increase of > / = 3 points. Coma Scale [Assess] -Eye Opening Spontaneous -Motor Obeys Commands -Verbal Oriented [Total] -Coma Scale Total 15 Physical Exam Narrative AOx3, naming and repetition intact, able and willin ghistorian EOMI, no facial droop, slight decrement to light touch in LS V1/2 on direct comparison, no other sensation deficit, tongue midline, no dysarthria, head rotation intact, Strength 5/5 SA, EE, EF, [employer], HF, DF bilaterally, sensation intact in distal extremities, FtN intact, HtS intact Lab / Micro Data 10/13/24 12:15 10/13/24 12:15 Labs: Laboratory Results - last 24 hr 10/14/24 03:50: Hemoglobin A1c 5.1, Triglycerides 99, Cholesterol 149, LDL Cholesterol 76, VLDL Cholesterol 20, HDL Cholesterol 53, TSH 0.811 10/14/24 09:52: POC Glucose 134 H
== END 2024-10-14 09:52 | disposition home or self-care (01) ==
LOC: ED 13:57 → PCU 16:07
PROVIDERS: Admitting Provider Internal Medicine; Emergency Provider Emergency Medicine; Visit Provider Internal Medicine
DX: R20.2 Paresthesia of skin (principal); F33.3 Major depressive disorder, recurrent, severe with psychotic symptoms; H53.8 Other visual disturbances; F43.10 Post-traumatic stress disorder, unspecified; F17.210 Nicotine dependence, cigarettes, uncomplicated; R20.0 Anesthesia of skin; K21.9 Gastro-esophageal reflux disease without esophagitis; F41.1 Generalized anxiety disorder; Z79.899 Other long term (current) drug therapy; E04.9 Nontoxic goiter, unspecified; F10.91 Alcohol use, unspecified, in remission; R51.9 Headache, unspecified; R53.1 Weakness; R53.83 Other fatigue; R29.701 NIHSS score 1
CPT/HCPCS: 36415; 70450; 70496; 70498; 70551; 71045; 80048; 80061; 82962; 83036; 83735; 84443; 85025; 85610; 85730; 93005; 93306; 94762; 96360; 96361; 96372; 97162; 99221; 99285; 99406; Q9967; A4216; G0378

== ENCOUNTER → 2025-02-10 | Outpatient (CLI) | payer MEDICARE, SELFPAY ==
[2025-02-10 17:08] LABS: Absolute Lymphocyte Count 2.64 X10^3/uL (0.83-4.51); Absolute Neutrophil Count 3.8 X10^3/uL (2.0-7.7); Basophil# 0.04 X10^3/uL; Basophil% 0.5 % (0-1); Eosinophil# 0.79 X10^3/uL; Eosinophils% 10.1 % (0-5); Hematocrit 40.9 % (37-47); Hemoglobin 13.5 g/dL (12.0-15.0); Lymphocyte # 2.64 X10^3/ul (0.83-4.51); Lymphocyte % 33.9 % (19-41); Mean Corpuscular Hgb 29.9 pg (27.0-32.0); Mean Corpuscular Volume 90.5 fL (81-99); Mean Platelet Vol. 10.5 fl (6.2-12.0); Monocyte# 0.55 X10^3/uL; Monocyte% 7.1 % (0-10); NRBC Flagged by Analyzer 0 % (0-5); Neutrophil # 3.76 X10^3/uL (2.7-7.7); Neutrophil % 48.3 % (47-70); POSITIVE MORPHOLOGY YES; Platelet Count 314 K/mm3 (150-450); RBC Distribution Width CV 13.7 % (11.6-14.6); RBC Distribution Width SD 45.6 fl (35.1-43.9); Red Blood Count 4.52 M/mm3 (4.2-5.4); White Blood Count 7.8 K/mm3 (4.4-11.0)
[2025-02-10 17:14] LABS: Differential Indicated SCAN CRITERIA MET
[2025-02-10 17:30] LABS: Thyroid Stim Hormone (TSH) 0.277 uIU/mL (0.300-4.200); Vitamin B12 358 pg/mL (180-914); Vitamin D,25 Hydroxy 33.3 ng/mL (30-100)
[2025-02-10 17:37] LABS: ALB/GLOB Ratio 1.5 RATIO (0.9-2.4); AST(SGOT) 26 U/L (<=31); Alanine Aminotransfer ALT/SGPT 16 U/L (<=34); Albumin, Serum 4.1 g/dL (3.5-5.0); Alkaline Phosphatase 89 U/L (35-104); Anion Gap 12 (5-15); BUN 14 mg/dL (4-19); Carbon Dioxide 21.5 mmol/L (21.0-32.0); Chloride 104 mmol/L (98-108); Creatinine, Serum 0.76 mg/dL (0.70-1.20); EST Glomerular Filtration Rate 93 (>60); Globulin 2.7 g/dL (2.2-4.2); Glucose 87 mg/dL (70-99); Potassium 4.1 mmol/L (3.3-5.1); Protein, Total 6.8 g/dL (5.9-8.4); Sodium Level 137 mmol/L (133-145); Total Bilirubin < 0.15 mg/dL (0.00-1.30)
[2025-02-10 21:52] LABS: Differential Comment SCANNED
[2025-02-10 21:53] LABS: Platelet Estimate ADEQUATE (ADEQ)
--- OUTSIDE RECORDS SUMMARY | 2025-02-10 21:53 | XMS RPT_ITS | CCD ---
[facility] Organization [facility] Providers Care Copy Holder Name Role Phone Dr. Eliel Becerra Chi Primary Care Provider Dr. Eliel Becerra Chi Referring Provider Dr. Mendy Aleman Attending Provider CLAY Holland Attending Provider Eliel Becerra Chi Primary Care Provider Jl Bernard MD, Stefanie Unavailable Chamberlain PROGRAM MANAGEMENT MANAGER, Nusrat E Unavailable Chamberlain PROGRAM MANAGEMENT MANAGER, Nusrat E Unavailable CONTRERAS FRANCES Admitting Unavailable CONTRERAS FRANCES Attending Unavailable DESIRE RICHARDS Consulting Unavailable Care Physician, No Primary Primary Care Provider Unavailable Care Physician, No Primary Referring Provider Un available Dr. Isaac Sauceda Attending Provider Marco SKID MAN, SKID MAN-C Rebecca Primary Care Provider Marco SKID MAN, SKID MAN-C Rebecca Referring Provider Dr. Mendy Aleman Attending Provider Jl Bernard MD, Stefanie Unavailable [place] PROGRAM MANAGEMENT MANAGER, Nusrat E Unavailable Marco SKID MAN, Rebecca Unavailable Marco SKID MAN, Rebecca Unavailable Marco SKID MAN, Rebecca Primary Care Provider SHAHAB DUNLAP JR Attending Unavaila ble MARCO, REBECCA Primary Care Unavailable DIANA CARDOZO Admitting Unavailable MARCO, REBECCA Primary Care Unavailable MARI LEE Referring Unavailable DIANA CARDOZO Attending Unavailable Marco SKID MAN, Rebecca Primary Care Provider Marco SKID MAN, Rebecca Unavailable [phone] MARCO, REBECCA Primary Care Unavailable NICK JESUS Referring Unavailable NICK JESUS Attending Unavailable MARCO, REBECCA Primary Care Unavailable MARCO, REBECCA Primary Care Unavailable MARCO, REBECCA Primary Care Unavailable STEFANIE RODNEY Referring Unavail able MARCO, REBECCA Primary Care Unavailable MARCO, REBECCA Primary Care Unavailable NICK JESUS Referring Unavailable TIERRA AMARILLA, [facility] Primary Care Unavailable SeeJorge Luis torrez Attending Unavailable [facility] Primary Care Unavailable SeeJorge Luis torrez Attending Unavailable [facility] Primary Care Unavailable SeeJorge Luis torrez Attending Unavailable [facility] Primary Care Unavailable Jorge Luis Yancey Attending Unavailable [facility] Primary Care Unavailable Jorge Luis Yancey Attending Unavailable [facility] Primary Care Unavailable SeeJorge Luis torrez Attending Unavailable [facility] Primary Care Unavailable Ike Steele Attending Unavailable Frandy Boothe Consulting Unavailable [facility], Michael Attending Unavailable Chidi, Michael Admitting Unavailable [facility] Care Unavailable Adeli, Amir Consulting Unavailable Hinduja, Bibi Consulting Unavailable Hrais, Zulay Consulting Unavailable Zha, Emani Consulting Unavailable Elena, Lew Consulting Unavailable Mela Millie Consulting Unavailable Rigoberto Barakat Consulting Unavailable Timmy Goel Consulting Unavailable Clem Florentino Consulting Unavailable Amrita Olivas Consulting Unavailable Ruben Miller Consulting Unavailable Ita Young Consulting Unavailable Lani Lopez Consulting Unavailable Jose, Teshad Jaskaran Consulting UnavailBilly aTnner Consulting Unavailable Audrey Ortega Consulting Unavailable Nav Aleman Consulting Unavailable Windy Mederos Consulting Unavailable Ronal Copeland Consulting [facility] Unavailable Chidi, Michael Admitting Unavailable Chidi, Michael Attending Unavailable Frandy Boothe Consulting Unavailable Adeli, Amir Consulting Unavailable Hinduja, Bibi Consulting Unavailable Haris, Zulay Consulting Unavailable Zha, Emani Consulting Unavailable Elena, Lew Consulting Unavailable Mela, Millie Consulting Unavailable Bittar, Rigoberto Consulting Unavailable Timmy Goel Consulting Unavailable Clem Florentino Consulting Unavailable Amrita Olivas Consulting Unavailable Ruben Miller Consulting Unavailable Ita Young Consulting Unavailable Ridcolin, Mohamed Consulting Unavailable Zaottolochristian, Teshad Jaskaran Consulting UnavailBilly Tanner Consulting Unavailable Shannon, Rami Consulting Unavailable Nav Aleman Consulting Unavailable Windy Mederos Consulting Unavailable Ronal Copeland Consulting Unavailable Michael Murillo Consulting Unavailable Michael Murillo Attending Unavailable [facility] Care Unavailable Frandy Boothe Consulting Unavailable Huyen Silva Consulting Unavailable Bibi Colon Consulting Unavailable Zulay Carballo Consulting Unavailable Herber, Emani Consulting Unavailable Elena, Lew Consulting Unavailable Mela, Millie Consulting Unavailable Bittar, Rigoberto Consulting Unavailable Timmy Goel Consulting Unavailable Clem Florentino Consulting Unavailable Amrita Olivas Consulting Unavailable Ruben Miller Consulting Unavailable Ita Young Consulting Unavailable Jessica, Mohamed Consulting Unavailable Zavictorina, Mhd Jaskaran Consulting UnavailBilly Tanner Consulting Unavailable Shannon, Rami Consulting Unavailable Nav Aleman Consulting Unavailable Windy Mederos Consulting Unavailable Carrington Copelandsetommie Consulting Unavailable [facility] Unavailable Jorge Luis Yancey Attending Unavailable Allergies Allergy Classification Reported Allergen(s) Allergy Type Date of Onset Reaction(s) Facility (10 sources) methylPREDNISolo ne; Translations: [METHYLPREDNISOL ONE] Drug Allergy 10-11-[address] [facility] (5 sources) cefdinir; Translations: [CEFDINIR] Drug Allergy 08-20-2023 [facility] Other [place] [facility] Medications Current Medications Medication Drug Class(es) Dates Sig (Normalized) Sig (Original) ARIPiprazole 5 mg oral tablet (3 sources) Atypical Antipsychotic Start: 06-12-2023 take 1 tablet by mouth once ARIPiprazole (ABILIFY) 5 mg tablet Take 1 tablet by mouth every afternoon. 06/12/2023 Active busPIRone hydrochloride 15 mg oral tablet (20 sources) Start: 11-20-2022 take 1 tablet by mouth twice daily busPIRone (BUSPAR) 15 mg tablet Take 1 Tablet By Oral Route 2 times per day 11/20/2022 Active Start: 08-13-2022 End: 09-14-2022 Buspirone Discontinued EACH PO August 13, 2022 1:00am September 14, 2022 2:07pm Start: 01-13-2020 End: 05-09-2022 take 7.5 mg by mouth twice daily Buspirone Discontinued 7.5 MG PO TWICE A DAY January 13, 2020 12:00am February 27, 2021 7:06am Comment on above: Buspirone Hcl Active 7.5 MG TWICE A DAY January 13, 2020 9:23am Take 1 Tablet By Ora l Route 2 times per day cephalexin 500 mg oral capsule (20 sources) Cephalosporin Antibacterial take 1 capsule by mouth four times daily cephALEXin (KEFLEX) 500 mg capsule Take 500 mg by mouth four times daily. Active Comment on above: Take 500 mg by mouth four times daily. cholecalciferol 0.025 mg oral capsule (4 sources) Vitamin D Start: 023 take 25 ug by mouth once daily Cholecalciferol (Vitamin D3) Active 25 MCG PO DAILY September 14, 2022 1:00am cholecalciferol, vitamin D3, (VITAMIN D3 ORAL) (19 sources) take 1000 mg by mouth once daily cholecalciferol, vitamin D3, (VITAMIN D3 ORAL) Take 1,000 mg by mouth once daily. Active take 1000 mg by mouth once daily cholecalciferol, vitamin D3, (VITAMIN D3 ORAL) Take 1,000 mg by mouth once daily. 0 Active Comment on above: Take 1,000 mg by ruben th once daily. cyclobenzaprine hydrochloride 10 mg oral tablet (20 sources) Muscle Relaxant Start: 01-17-2022 Cyclobenzaprine Active 10 MG PO NEEDED January 17, 2022 12:00am Start: 09-16-2019 End: 02-27-2021 take 10 mg by mouth three times daily Cyclobenzaprine Discontinued 10 MG PO THREE TIMES A DAY September 16, 2019 1:00am February 27, 2021 7:06am Start: 07-19-2014 End: 07-22-2014 take 10 mg by mouth three times daily Cyclobenzaprine Discontinued 10 MG PO THREE TIMES A DAY July 19, 2014 1:00am July 22, 2014 9:03am Comment on above: Take 10 mg by mouth three times daily as needed. DAILY MULTIVITAMIN TAB (20 sources) Start: 05-20-20 06 DAILY MULTIVITAMIN TAB Take one(1) tablet daily. 0 05/20/2006 Active Comment on above: Take one(1) tablet d aily. dicyclomine hydrochloride 20 mg oral tablet (1 source) Anticholinergic Start: 02-14-20 take 20 mg by mouth three times daily Dicyclomine Active 20 MG PO THREE TIMES A DAY February 13, 2023 4:36am famotidine 20 mg oral tablet (7 sources) Histamine-2 Receptor Antagonist Start: 10-11-19 famotidine (PEPCID) 20 mg tablet Take by mouth. 10/11/2022 Active Comment on above: Take by mouth. FLUoxetine 40 mg oral capsule (20 sources) Serotonin Reuptake Inhibitor Start: 01-18-20 take 40 mg by mouth once daily Fluoxetine Active 40 MG PO DAILY January 17, 2022 12:00am Start: 12-21-2020 take 1 tablet by ruben th once daily FLUoxetine HCl 20 mg tablet Take 1 Tablet orally once per Day for 30 Days 12/21/2020 Active Comment on above: Take 1 Tablet orally once per Day for 30 Days hydrOXYzine pamoate 25 mg oral capsule (7 sources) Antihistamine Start: take 1 capsule by mouth three times daily as needed hydrOXYzine pamoate (VISTARIL) 25 mg capsule Take one Capsule By Oral Route three times a day as needed. 11/19/2022 Active Start: 11-17-2022 take 50 mg by mouth three times daily as needed Hydroxyzine Pamoate Active 50 MG PO 3 TIMES DAILY NEEDED November 17, 2022 1:00am Comment on above: Take one Capsule By Oral Route three times a day as needed. iv contrast (will be provided with radiology test) (3 sources) Start : 08-20 iv contrast (will be provided with radiology test) Indications: Gross hematuria CT Urogram WO/W Inject, intravenously, once for 1 dose.No IV access, insert saline lock prior to the beginning of sedation, infusion, injection of imaging exam. Discontinue saline lock post exam. If Pt. has a central line or IVAD, may access for administration according to line specific nursing protocol. Once exam is complete flush line and de-access according to line specific nursing protocol in the CT contrast administration guidelines link. 1 Each 08/20/2023 Active methylcellulose 2000 mg powder for oral suspension (5 sources) Start : 12-20 methylcellulose, with sugar, (CITRUCEL, SUCROSE,) oral powder Follow instructions on label. 454 g 12/20/2022 Active Comment on above: Follow instructions on label. methylPREDNISolone (1 source) Corticosteroid Start : 10-09 End: 10-14 methylPREDNISolone (MEDROL, MARCUS,) 4 mg Dose-Pack Take one pack as directed 21 tablet 0 10/09/2022 10/14/2022 Active Comment on above: Take one pack as dir ected naproxen 500 mg oral tablet (20 sources) Nonsteroidal Anti-inflammatory Drug Start : 09-16 naproxen (NAPROSYN) 500 mg tablet 09/16/2019 Active Comment on above: Naproxen Active 500 MG TWICE DAILY NEEDED September 16, 2019 3:22pm 24 hr nicotine 0.875 mg/hr transdermal system (5 sources) Cholinergic Nicotinic Agonist Start : 09-11 apply 1 dose transdermal route once daily nicotine (NICODERM) 21 mg/24 hr Apply 1 Patch as directed once daily. 09/11/2022 Active Comment on above: Apply 1 Patch as dir ected once daily. omeprazole 40 mg delayed release oral capsule (18 sources) Proton Pump Inhibitor Start : 08-13 take 1 capsule by mouth once daily omeprazole (PRILOSEC) 40 mg capsule Take 1 capsule by mouth once daily. 30 capsule 11 12/20/2022 Active Start: 07-09-2022 End: 12-20-2022 take 1 capsule by mouth once daily omeprazole (PRILOSEC) 20 mg capsule Take 1 capsule by mouth once daily. 30 capsule 0 07/09/2022 12/20/2022 Discontinued (Changing Therapy/Dosage Form) Comment on above: Take 1 capsule by mo [facility] once daily. predniSONE 20 mg oral tablet (3 sources) Start: 10-11-2022 take 60 mg by mouth once daily Prednisone Active 60 MG PO DAILY October 11, 2022 1:00am Next dose 10/12/2022 propranolol hydrochloride 20 mg oral tablet (20 sources) beta-Adrenergic Anitha Start: 08-13-2022 Propranolol Active EACH PO August 13, 2022 12:00am Start: 08-13-2022 Propranolol Ac tive 20 EACH PO DAILY August 13, 2022 1:00am Comment on above: Take 20 mg by mouth three times daily. sertraline 50 mg oral tablet (3 sources) Serotonin Reuptake Inhibitor Start: take 1 tablet by mouth once daily at bedtime sertraline (ZOLOFT) 50 mg tablet Take 50 mg by mouth daily at bedtime. 06/12/2023 Active 1000 ml sodium chloride 9 mg/ml injection (2 sources) Start: inject 1 dose intravenously once 0.9 % sodium chloride (NACL 0.9%) infusion Indications: Gross hematuria Inject 150 mL/hr intravenously one time only for 1 dose. Administer at rate defined per CT contrast administration specifications. To be provided with radiology test. 1 Each 08/20/2023 Active traZODone hydrochloride 50 mg oral tablet (10 sources) Serotonin Reuptake Inhibitor Start: traZODone (DESYREL) 50 mg tablet take 1/2 tablet to 1 tablet by mouth as needed for sleep 10/22/2022 Active Start: 08-13-2022 End: 09-14-2022 Trazodone Discontinued 50 MG PO August 13, 2022 1:00am September 14, 2022 2:07pm Comment on above: take 1/2 tablet to 1 tablet by mouth as needed for sleep venlafaxine 37.5 mg oral tablet (5 sources) Serotonin and Norepinephrine Reuptake Inhibitor Start: take 37.5 mg by mouth once daily Venlafaxine Active 37.5 MG PO DAILY August 13, 2022 1:00am Completed/Discontinued Medications Medication Drug Class(es) Dates Sig (Normalized) Sig (Original) acetaminophen 325 mg / HYDROcodone bitartrate 5 mg oral tablet (20 sources) Opioid Agonist Start: 05-15-2022 End: 09-14-2022 take 1 tablet by mouth every six hours as needed Hydrocodone-Acetami nophen Discontinued 1 TABLET PO EVERY 6 HOURS NEEDED 06 11May 15, 2022 September 14, 2022 2:06pm Start: 01-20-2020 End: 01-23-2020 take 1 tablet by mouth every six hours as needed Hydrocodone-Acetaminophen Discontinued 1 TABLET PO EVERY 6 HOURS NEEDED 06 11January 20, 2020 January 23, 2020 12:02am Start: 09-16-2019 End: 09-18-2019 take 1 tablet by mouth every four hours as needed Hydrocodone-Acetaminophen Discontinued 1 TABLET PO EVERY 4 HOURS NEEDED 29 10September 16, 2019 September 18, 2019 1:09am acetaminophen 325 mg / oxyCODONE hydrochloride 5 mg oral tablet (10 sources) Opioid Agonist Start: 07-19-2014 End: 07-22-2014 take 1 tablet by mouth every four hours as needed Oxycodone-Acetaminophen Discontinued 1 - 2 TABLET PO EVERY 4 HOURS NEEDED July 19, 2014 1:00am July 22, 2014 9:03am amoxicillin 500 mg oral capsule (10 sources) Penicillin-class Antibacterial Start: 09-19-2021 End: 10-03-2021 take 500 mg by mouth three times daily Amoxicillin Discontinued 500 MG PO THREE TIMES A DAY 42 September 19, 2021 1:00am October 03, 2021 1:01am ketorolac tromethamine 10 mg oral tablet (10 sources) Nonsteroidal Anti-inflammatory Drug, Cyclooxygenase Inhibitor Start: 11-11-2019 End: 01-05-2020 take 10 mg by mouth every six hours Ketorolac Discontinued 10 MG PO EVERY 6 HOURS November 11, 2019 1:00am January 05, 2020 9:48am lidocaine 0.05 mg/mg medicated patch (10 sources) Antiarrhythmic, Amide Local Anesthetic Start: 11-11-2019 End: 01-05-2020 Lidocaine Discontinued 1 EACH TP DAILY November 11, 2019 1:00am January 05, 2020 9:48am 12 hr orphenadrine citrate 100 mg extended release oral tablet (10 sources) Muscle Relaxant Start: 11-11-2019 End: 01-05-2020 take 100 mg by mouth twice daily Orphenadrine Citrate Discontinued 100 MG PO TWICE A DAY November 11, 2019 1:00am January 05, 2020 9:48am polyethylene glycol 3350 107911 mg / potassium chloride 2970 mg / sodium bicarbonate 6740 mg / sodium chloride 5860 mg / sodium sulfate 34505 mg powder for oral solution (12 sources) Osmotic Laxative Start: 06-20-2022 End: 06-20-2022 peg 3350-Electrolytes (GOLYTELY) 236-22.74-6.74 -5.86 gram suspension Take 4,000 mL by mouth one time only for 1 dose. 1 Each 0 06/20/2022 06/20/2022 Start: 05-25-2022 End: 05-25-2022 peg 3350-Electrolytes (GOLYT JESSA) 236-22.74-6.74 -5.86 gram suspension Take 4,000 mL by mouth one time only for 1 dose. 1 Each 0 05/25/2022 05/25/2022 Discontinued Start: 01-17-2022 End: 09-14-2022 Peg 3350-Electrolytes (Golyt jessa) 236-22.74-6.74 -5.86 gram recon soln Discontinued 240 ML PO EVERY 10 MINUTES NEEDED 3999January 17, 2022 3:22pm September 14, 2022 2:07pm until fecal effluent is clear Comment on above: Take 4,000 mL by ruben th one time only for 1 dose. pregabalin 75 mg oral capsule (10 sources) Start: 11-11-19 End: 01-05-20 take 75 mg by mouth twice daily Pregabalin Discontinued 75 MG PO TWICE A DAY November 11, 2019 1:00am January 05, 2020 9:48am sulfamethoxazole 800 mg / trimethoprim 160 mg oral tablet (10 sources) Dihydrofolate Reductase Inhibitor Antibacterial, Sulfonamide Antimicrobial Start: 08-06-20 End: 09-18-19 take 1 tablet by mouth twice daily Sulfamethoxazole-Tr imethoprim Discontinued 1 TABLET PO TWICE A DAY August 06, 2021 1:00am September 18, 2021 3:10pm Problems Active Problems Problem Classification Problem Date Documented Da te Episodic/Chronic Acquired foot deformities (1 source) Tailor's bunion of right foot; Translations: [Bunionette of right foot] Episodic Allergic reactions (3 sources) Allergic reaction to drug; Translations: [Allergy, unspecified, initial encounter] 10-11-2022 Episodic Anxiety disorders (20 sources) Anxiety state; Translations: [Generalized anxiety disorder] Onset: 0 05-31-2010 Chronic Cancer of breast (20 sources) Lobular carcinoma in situ of breast; Translations: [Lobular carcinoma in situ of unspecified breast] Onset: 2 10-18-2011 Chronic Deficiency and other anemia (2 sources) Anemia; Translations: [Anemia, unspecified] 11-17-2022 Episodic Disorders of teeth and jaw (15 sources) Jaw pain; Translations: [Jaw pain] Episodic Esophageal disorders (6 sources) Gastroesophageal reflux disease; Translations: [Gastro-esophageal reflux disease without esophagitis] Onset: Chronic Menopausal disorders (20 sources) Menopausal symptom; Translations: [Menopausal and female climacteric states] Onset: 0 05-31-2010 Chronic Menstrual disorders (20 sources) Excessive and frequent menstruation; Translations: [Excessive and frequent menstruation with regular cycle] Onset: 0 05-31-2010 Chronic Mood disorders (20 sources) Depressive disorder; Translations: [Other specified depressive episodes] Onset: 0 05-31-2010 Chronic Nonmalignant breast conditions (10 sources) Radial scar of right breast; Translations: [Other specified disorders of breast] 01-05-2020 Episodic Nonspecific chest pain (2 sources) Chest pain; Translations: [Chest pain, unspecified] 11-17-2022 Episodic Other acquired deformities (10 sources) Scoliosis deformity of spine; Translations: [Scoliosis, unspecified] 09-11-2018 Chronic Other bone disease and musculoskeletal deformities (20 sources) Segmental and somatic dysfunction; Translations: [Segmental and somatic dysfunction of lumbar region] 09-11-2018 Episodic Other connective tissue disease (1 source) Bursitis of right foot; Translations: [Other enthesopathy of right foot and ankle] Episodic Other female genital disorders (20 sources) Dyspareunia; Translations: [Dyspareunia] Onset: 0 05-31-2010 Chronic Other female genital disorders (20 sources) Premenstrual tension syndrome; Translations: [Premenstrual tension syndrome] Onset: 0 05-31-2010 Chronic Other gastrointestinal disorders (11 sources) Diarrhea; Translations: [Diarrhea, unspecified] Episodic Other gastrointestinal disorders (1 source) Constipation; Translations: [Constipation, unspecified] Episodic Other gastrointestinal disorders (2 sources) Abdominal bloating; Translations: [Abdominal distension (gaseous)] Episodic Other gastrointestinal disorders (7 sources) Antibiotic-associated diarrhea; Translations: [Toxic gastroenteritis and colitis] 05-23-2022 Episodic Other gastrointestinal disorders (2 sources) Alteration in bowel elimination; Translations: [Change in bowel habit] Episodic Other gastrointestinal disorders (2 sources) Burping; Translations: [Eructation] Episodic Other inflammatory condition of skin (3 sources) Itching ; Translations: [Pruritus, unspecified] 10-11-2022 Episodic Other injuries and conditions due to external causes (1 source) Choking; Translations: [Unspecified foreign body in larynx causing other injury, initial encounter] Episodic Other screening for suspected conditions (not mental disorders or infectious disease) (20 sources) Ultrasonography of breast abnormal; Translations: [Other abnormal and inconclusive findings on diagnostic imaging of breast] Onset: 0 Episodic Other skin disorders (2 sources) Sebaceous cyst; Translations: [Sebaceous cyst] Episodic Other upper respiratory infections (10 sources) Viral upper respiratory tract infection; Translations: [Acute upper respiratory infection, unspecified] 10-31-2021 Episodic Residual codes; unclassified (1 source) Tobacco use and exposure - finding; Translations: [Tobacco use] Episodic Skin and subcutaneous tissue infections (20 sources) Abscess of chest wall; Translations: [Cutaneous abscess of chest wall] Episodic Spondylosis; intervertebral disc disorders; other back problems (20 sources) Degeneration of lumbar intervertebral disc; Translations: [Other intervertebral disc degeneration, lumbar region] Onset: 8 01-06-2008 Chronic Sprains and strains (10 sources) Low back strain; Translations: [Strain of muscle, fascia and tendon of lower back, initial encounter] 11-12-2019 Episodic Substance-related disorders (10 sources) Tobacco dependence syndrome; Translations: [Nicotine dependence, unspecified, uncomplicated] 09-11-2018 Chronic Suicide and intentional self-inflicted injury (6 sources) Suicidal thoughts; Translations: [Suicidal ideations] 07-21-2022 Episodic Thyroid disorders (20 sources) Thyroid nodule; Translations: [Nontoxic single thyroid nodule] Chronic Unclassified (1 source) Alcohol use, unspecified, uncomplicated; Translations: [Alcohol use, unspecified, uncomplicated] Onset: 5 Viral infection (10 sources) Viral disease; Translations: [Viral infection, unspecified] 09-13-2016 Episodic Past or Other Problems Problem Classification Problem Date Documented Da te Episodic/Chronic Abdominal pain (4 sources) Pain in female pelvis; Translations: [Pelvic and perineal pain] Onset: 07-04-2023 Episodic Blindness and vision defects (1 source) Other visual disturbances; Translations: [Other visual disturbances] Onset: 10-19-2024 Episodic Genitourinary symptoms and ill-defined conditions (4 sources) Gross hematuria; Translations: [Nocturia] Onset: 07-04-2023 Episodic Other female genital disorders (16 sources) Polyp of corpus uteri; Translations: [Polyp of corpus uteri] Onset: 03-19-2016 03-19-2016 Episodic Other female genital disorders (7 sources) Polyp of corpus uteri; Translations: [Polyp of corpus uteri] Onset: 03-19-2016 03-19-2016 Episodic Other gastrointestinal disorders (5 sources) Dysphagia; Translations: [Dysphagia, unspecified] Onset: 02-21-2023 Episodic Other gastrointestinal disorders (1 source) Dysphagia, unspecified; Translations: [Dysphagia, unspecified type] Onset: 02-21-2023 Episodic Other nervous system disorders (2 sources) Paresthesia of skin; Translations: [Paresthesia of skin] Onset: 10-19-2024 Episodic Other skin disorders (20 sources) Sebaceous cyst of skin; Translations: [Sebaceous cyst] Onset: 07-24-2012 07-24-2012 Episodic Other skin disorders (20 sources) Seborrheic keratosis; Translations: [Other seborrheic keratosis] Onset: 12-26-2015 12-26-2015 Episodic Spondylosis; intervertebral disc disorders; other back problems (20 sources) Backache; Translations: [Dorsalgia, unspecified] Onset: 05-20-2006 Episodic Results Test Name Value Interpretation Reference Range Facility MR/BMS. 01-27-2025 MR/[place] [address] OFFICE VISIT Date of Service: 01/27/25 MR#: [id number] Acct: [id number] Name: MATTI THOMAS Rep #: [id number] : [id number] Provider: Dr. Jorge Luis Christy se, DO Age/Sex: 54/F Location: [facility] Status: Signed Intake Vital Signs 11/26/24 08:27 01/27/25 09:29 Height 5 ft 8 in 5 ft 8 in Weight: 143 lb 143 lb BMI 21.7 21.7 BP 117/81 H 115/79 Blood Pressure Location Lt brachial Lt brachial Position Sitting Sitting Respiration 16 16 Pulse 71 76 Pulse Source Monitor Monitor BP Intake Visit Reasons: 2 M FU Accompanied by: Self Allergies No Known Allergies Allergy (Verified 01/27/25 09:33) Medications ???Medication ???Instructions ???Recorded ???Confirmed ???Type cholecalciferol (vitamin D3) 25 25 mcg PO DAILY vitamin 09/14/22 0 01/27/25 History mcg (1,000 unit) capsule buspirone 15 mg tablet 15 mg PO BID anxiety #60 tabs 03/01/27/25 Rx 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 mg PO QDAY addiction #30 tabs 11/26/24 01/27/25 Rx sertraline 100 mg tablet 150 mg (1.5 x 100 mg) PO DAILY 01/27/25 Rx mental health 30 days #45 tabs trazodone 100 mg tablet 100 - 200 mg (1 - 2 x 100 mg) PO 0 11/26/24 01/27/25 Rx QHS PRN insomnia #60 tabs cariprazine 1.5 mg capsule 1.5 mg PO QDAY #30 caps 01/27/25 0 01/27/25 Rx (Vraylar) [facility] Medical History Alcohol use disorder Alcohol use disorder in remission Generalized anxiety disorder PTSD (post-traumatic stress disorder) Major depressive disorder, recurrent, severe with psychotic features Thyroid nodule Goiter Abnormal results of thyroid function studies Radial scar of right breast Anxiety and depression DDD (degenerative disc disease), lumbar Scoliosis Surgical History Hx of hysterectomy History of dilation and curettage History of excision of pilonidal cyst ( 1987) History of partial hysterectomy Status post left breast lumpectomy ( 2011) History of right breast biopsy Family History Father No problems noted. Social History household members: spouse and none Smoking Status: Current every day smoker tobacco type: cigarettes alcohol intake: current alcohol intake frequency: holidays/special occasions only details: occasional substance use type: does not use what type of physical activity do you participate in: walking frequency: 1-2 times per week HPI History of Present Illness History provided by: patient HPI: Matti Thomas is a 54 year old female who presents today for follow up evaluation. Patient reports that she has been ok. Has been getting red spots on her arms and legs, described as being pruritic and at times feels like she can see that things are moving on her skin. Describes as things are moving inside of me. Does show a picture of some small erythematous spots on her arm. Reports that will be following with her PCP on the . Did go to urgent care, but does have concern for bed bugs or fleas. Has not found any bugs anywhere around her house or in bed. has no symptoms in the same bed. Has only had two episodes where she drank. Does find that she is still having visual hallucinations. Still regularly having VH of critters, shadows and a figure in her house. Has been sleeping well so does not feel sleep deprived. Has been feeling much more anxious. Has been more constipated in recent past. Denies SI/HI. Does not feel like aripiprazole is as effective as it had been previously. Has been feeling tired and has low motivation. Had a panic attack in recent past when out at a concert. This was the first she has had in a prolonged period. Review of Systems Constitutional Denies: fever(s), chills, change in weight or fatigue Eyes Denies: change in vision or blurry vision Ears, Nose, Mouth, Throat Denies: throat pain, neck pain or change in hearing Cardiovascular Denies: chest pain or palpitations Respiratory Denies: cough or wheezing Gastrointestinal Reports: abdominal pain and nausea; Denies: vomiting Genitourinary Denies: dysuria or urinary frequency Musculoskeletal Denies: neck pain, joint pain or muscle weakness Integumentary/Breast Reports: rash, pruritus and other (formications); Denies: new lesions Neurological Denies: headache(s), dizziness or confusion Endocrine Denies: fatigue or excessive sweating Hematologic/Lymphatic Denies: easy bruising or easy bleeding Allergic/Immunologic Denies: wheezing Exam Mental Status Exam - Psych Appearance adequately groomed Attitude cooperative Activity/Motor Behavior MSE activity (more content not included)... Normal [facility] MR/BMS.BPon 11-26-2024 MR/BMS.BP [facility] [address], [address] [place] [address] OFFICE VISIT Date of Service: 11/26/24 MR#: [id number] Acct: [id number] Name: MATTI THOMAS Rep #: [id number] : 1970 Provider: Dr. Jorge Luis Christy se, DO Age/Sex: 54/F Location: [facility].BP Status: Signed Intake Vital Signs 10/13/24 16:43 11/26/24 08:27 Height 5 ft 8 in 5 ft 8 in Weight: 143 lb BMI 21.7 BP 117/81 H Blood Pressure Location Lt brachial Position Sitting Respiration 16 Pulse 71 Pulse Source Monitor BP Intake Visit Reasons: follow up Accompanied by: Self Allergies No Known Allergies Allergy (Verified 11/26/24 08:30) Medications ???Medication ???Instructions ???Recorded ???Confirmed ???Type cholecalciferol (vitamin D3) 25 25 mcg PO DAILY vitamin 09/14/22 0 10/14/24 History mcg (1,000 unit) capsule aripiprazole 15 mg tablet 15 mg PO QHS mental health 30 days 11/26/24 11/26/24 Rx #30 tabs buspirone 15 mg tablet 15 mg PO BID anxiety #60 tabs 03/11/26/24 Rx 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 mg PO QDAY addiction #30 tabs 11/26/24 11/26/24 Rx sertraline 100 mg tablet 150 mg (1.5 x 100 mg) PO DAILY 11/26/24 Rx mental health 30 days #45 tabs trazodone 100 mg tablet 100 - 200 mg (1 - 2 x 100 mg) PO 0 11/26/24 11/26/24 Rx QHS PRN insomnia #60 tabs PFSH Medical History Alcohol use disorder Alcohol use disorder in remission Generalized anxiety disorder PTSD (post-traumatic stress disorder) Major depressive disorder, recurrent, severe with psychotic features Thyroid nodule Goiter Abnormal results of thyroid function studies Radial scar of right breast Anxiety and depression DDD (degenerative disc disease), lumbar Scoliosis Surgical History Hx of hysterectomy History of dilation and curettage History of excision of pilonidal cyst ( 1987) History of partial hysterectomy Status post left breast lumpectomy ( 2011) History of right breast biopsy Family History Father No problems noted. Social History household members: spouse and none Smoking Status: Current every day smoker tobacco type: cigarettes alcohol intake: current alcohol intake frequency: holidays/special occasions only details: occasional substance use type: does not use what type of physical activity do you participate in: walking frequency: 1-2 times per week HPI History of Present Illness History provided by: patient HPI: Matti Thomas is a 54 year old female who presents today for follow up evaluation. Had near complete resolution of AH/VH since increasing aripiprazole. Patient was recently in the hospital for suspected stroke, but was eventually diagnosed with a stress induced migraine. Since that time has had a likely GI viral infection. Mood has been pretty good. 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 Has been doing largely well in regards to alcohol sobriety. Has only drank a few times since last appointment but no binge drinking. Has been unable to get disulfiram which she felt worked so well. Is interested in returning to medication if she can get. Sleep has been doing largely well outside of when she was sick. Feels like other medications are working well. Denies SI/HI or AVH. Review of Systems Constitutional Denies: fever(s), chills, change in weight or fatigue Eyes Denies: change in vision or blurry vision Ears, Nose, Mouth, Throat Denies: throat pain, neck pain or change in hearing Cardiovascular Denies: chest pain or palpitations Respiratory Denies: cough or wheezing Gastrointestinal Reports: abdominal pain and nausea; Denies: vomiting Genitourinary Denies: dysuria or urinary frequency Musculoskeletal Denies: neck pain, joint pain or muscle weakness Integumentary/Breast Denies: rash or new lesions Neurological Denies: headache(s), dizziness or confusion Endocrine Denies: fatigue or excessive sweating Hematologic/Lymphatic Denies: easy bruising or easy bleeding Allergic/Immunologic Denies: wheezing Exam Mental Status Exam - Psych Appearance adequately groomed Attitude cooperative Activity/Motor Behavior MSE activity/motor behavior finding no adventitious movements Speech regular rate, regular volume and regular prosody Mood anxious Affect full range (Brighter than previous encounters) Thought Process linear, logical and coherent Thought Content Type of hallucinations: visual (1 episode of VH of seeing mice in her basement) hallucinations; No delusions Suicidal Ideation none Homicidal Ideati (more content not included)... Normal [facility] Bedside Glucoseon 10-14-2024 FINGERSTICK GLU 134 mg/dL High 74-106 [facility] Comment on above: Result Comment: MARIANELA PINEDA OF PATIENT CARE PER NURSING PROTOCOL Performed By: #### L 501.080 ####[facility] [id number] [place], [address] Discharge Instructionon Discharge Instruction [facility] Medical Records Department [address] [place] [address] Instructions for Home/Discharge Instructions 10/14/24 0952 MR#: [id number] Acct: [id number] Name: MATTI THOMAS Rep #: [id number] : 1970 54 From: Michael Murillo MD PCP: [facility] Status:ADM DAPHNE Discharge Instructions Diet Discharge Diet: No restrictions DC O2, CPAP, BIPAP needs Home O2 Discharge instructions: No Dressing / Incision Discharge Activity: Return to Normal Activity Weight Bearing Status: Weight bearing as tolerated Dressing / Incision Call your doctor if you observe: Fever of 101 or Higher, Coldness, Increased Pain, Numbness or Tingling, Change in Color, Inability to urinate, Inability to have a bowel movement, Using more than 1 pad per hour, Shortness of breath, Dizziness, Fainting spells, Swelling in the ankles, Chest pain, Prolonged hiccupping, Increased palpitations (irregular heartbeat) and Calf discomfort Follow Up Care When: IN 2 WEEKS Test Results: Test results from this visit will be discussed in further detail at your follow-up appointment, if applicable. 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 Discharge Orders/Prescriptions Prescriptions: Continued cholecalciferol (vitamin D3) 25 mcg (1,000 unit) capsule 25 mcg PO DAILY varenicline tartrate [Chantix Starting Month Box] 0.5 mg (11)- 1 mg (42) tablets,dose pack See Rx Instructions PO PER PKG DIR Qty: 53 0RF Rx Instructions: PO PER PKG DIR aripiprazole 15 mg tablet 15 mg PO QHS 30 Days Qty: 30 2RF buspirone 15 mg tablet 15 mg PO BID Qty: 60 2RF trazodone 100 mg tablet 100 - 200 mg PO QHS PRN (Reason: insomnia) Qty: 60 1RF sertraline 100 mg tablet 150 mg PO DAILY 30 Days Qty: 45 2RF 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 mg PO QDAY Qty: 30 2RF Referrals / Follow Up: [facility] [Primary Care Provider] - In 1 Week Disposition Disposition (needs filled in before D/C Order can be placed): Home, Self Care 10/14/24 1247 Michael Murillo MD CC: Zulay Carballo; Ita Young; Billy Espinoza; Emani Craven MD; Bibi Colon MD; Frandy Boothe MD; Dr. Huyen Silva MD; Dr. Lew Parker MD; Dr. Millie Plaza MD; Dr. Timmy Goel MD; Dr. Rigoberto Barakat MD; Dr. Clem Florentino MD; Dr. Ruben Miller DO; Dr. Tani Garcia MD; Dr. Lani Lopez MD; Dr. Audrey Ortega MD; Dr. Nav Aleman MD; Dr. Windy Mederos MD; Amrita Olivas DO; [facility]; Ronal Copeland MD Signed Normal [facility] Hemoglobin A1con 10-14-2024 HbA1c (Bld) [Mass fraction] 5.1 % Normal 3.8-5.6 [facility] Comment on above: Result Comment: Norm al < 5.7 % Prediabetic 5.7 - 6.4 % Diabetic >or= 6.5 % Please note range changes. Performed By: #### L 501.9520, L501.9985, L500.4100 ####[facility] [address] [place], [address] Lipid Profileon 10-14-2024 Cholesterol [Mass/Vol] 149 mg/dL Normal 200 [facility] Comment on above: Order Comment: Comme nts: NPO at [place] prior to lipid panel Result Comment: <200 mg/dL Desirable 200-240 mg/dL Borderline >240 mg/dL High Risk Performed By: #### L 501.9520, L501.9985, L500.4100 #### [facility] Laboratory [address] [place], [address] Cholesterol in HDL [Mass/Vol] 53 mg/dL Normal [facility] Comment on above: Order Comment: Comme nts: NPO at [place] prior to lipid panel Result Comment: The drugs N-Acetylcysteine and Metamizole may falsely depress this assay. Reference Range HDL <40 mg/dL Low HDL Cholesterol HDL >or= 60 mg/dL High HDL Cholesterol Performed By: #### L 501.9520, L501.9985, L500.4100 #### [facility] [address] [place], [address] Cholesterol in LDL [Mass/Vol] 76 mg/dL Normal 0-130 [facility] Comment on above: Order Comment: Comme nts: NPO at [place] prior to lipid panel Performed By: #### L 501.9520, L501.9985, L500.4100 #### [facility] [address] [facility] [place], [address] Cholesterol in VLDL [Mass/Vol] 20 mg/dL Normal 5-40 [facility] Comment on above: Order Comment: Comme nts: NPO at [place] prior to lipid panel Performed By: #### L 501.9520, L501.9985, L500.4100 #### [facility] [address] [facility] [place], [address] Triglyceride [Mass/Vol] 99 mg/dL Normal [facility] Comment on above: Order Comment: Comme nts: NPO at [place] prior to lipid panel Result Comment: The drugs N-Acetylcysteine and Metamizole may falsely depress this assay. Serum Triglycerides Reference Interval Normal <150 mg/dL Borderline high 150 - 199 mg/dL High 200 - 499 mg/dL Very High > or = 500 mg/dL Performed By: #### L 501.9520, L501.9985, L500.4100 #### [facility] [address] [facility] [place], [address] MR/CON.PCM.NEon 10-14-2024 MR/CON.PCM.NE [facility] Medical Records Department [address] [place] [address] Consultation - Neurology 10/14/24 2154 MR#: [id number] Acct: [id number] Name: MATTI THOMAS Rep #: [id number] : 1970 54 From: Billy Espinoza MD PCP: [facility] Status:DIS DAPHNE Location: [address] Assessment and Plan: Neuro Assessment/Plan MATTI THOMAS is a 54 F with a past medical history of EtOH and no significant history of migraine, being evaluated by Teleneurology for intractable KIRBY with vision changes and LS facial numbness. With MRI allaying suspicion for acute intracranial process this does seem like a migrainous process, possibly triggered by stress, but without any stigmata concerning for a more malignant etiology. Discussed with her. She prefers outpatient treatment which is quite reasonable. Her left eyed (not present in right eye) vertical diplopia would be very atypical for migraine and I did recommend she see ophthalmology as outpatient. Diagnosis: migraine with aura Plan: - okay to d/c - recommend outpatient steroid taper to break status migrainosus: prednisone or decadron reasonable - recommend outpatient referral to ophthalmology to evaluate vertical diplopia of left eye I personally attended this patient and spent a total time of 30 minutes evaluating this patient including clinical assessment, review of chart, medical history imaging, and determining appropriate treatment and workup. 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 Symptoms started 10 days ago with nausea and lightheadedness, followed by head pain and LS face numbness. Notes accompanying photophobia. She saw director equipment who noted pressure behind left eye but did not appear to indicate glaucoma or raise concern for IIH and instead mentioned concern for her pituitary gland (?). He had her see PCP who, with headache continuing and vertical diplopia in L eye (present with R eye shut) recommended she present to ED. Initial concern for stroke was allayed by negative MRI. Here in ED headache has improved somewhat with NSAIDs, though NSAIDs were not effective at home. SHe does note her current glasses Rx is out of date and she is awaiting proper lenses and wonders if this is causing some sx. She also mentions significant stress recently: caregiver for mother, many ohter illnesses including terminal in family, siblings with addiction problems, marital strain. She wonders if this could contribute. [facility] Medical History Alcohol use disorder Alcohol use disorder in remission Generalized anxiety disorder PTSD (post-traumatic stress disorder) Major depressive disorder, recurrent, severe with psychotic features Thyroid nodule Goiter Abnormal results of thyroid function studies Radial scar of right breast Anxiety and depression DDD (degenerative disc disease), lumbar Scoliosis Home Medications ???Medication ???Instructions ???Recorded ???Last Taken ???Type cholecalciferol (vitamin D3) 25 25 mcg PO DAILY vitamin 09/14/22 U nknown History mcg (1,000 unit) capsule varenicline tartrate 0.5 mg (11)-1 See Rx Instructions PO PER PKG D IR 12/11/23 Unknown Rx mg (42) tablets in a dose pack #53 tabs (Chantix Starting Month Box) aripiprazole 15 mg tablet 15 mg PO QHS mental health 30 days 10/08/24 Unknown Rx #30 tabs buspirone 15 mg tablet 15 mg PO BID anxiety #60 tabs 09/11 Unknown Rx 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 mg PO QDAY addiction #30 tabs 10/08/24 Unknown Rx sertraline 100 mg tablet 150 mg (1.5 x 100 mg) PO DAILY Unknown Rx mental health 30 days #45 tabs trazodone 100 mg tablet 100 - 200 mg (1 - 2 x 100 mg) PO 0 10/08/24 Unknown Rx QHS PRN insomnia #60 tabs Allergy/AdvReac Type Severity Reaction Status Date / Time No Known Allergies Allergy Verified 10/13/24 11:54 Family History Father No problems noted. Surgical History Hx of hysterectomy History of dilation and curettage History of excision of pilonidal cyst ( 1987) History of partial hysterectomy Status post left breast lumpectomy ( 2011) History of right breast biopsy Social History household members: spouse and none Smoking Status: Current every day smoker tobacco type: cigarettes alcohol intake: current alcohol intake frequency: holidays/special occasions only details: occasional substance use type: does not use what type of (more content not included)... Normal [facility] Thyroid Stim Hormone (TSH)on 10-14-2024 TSH 0.811 uIU/mL Normal 0.358-3.74 0 [facility] Comment on above: Order Comment: Comme nts: NPO at [place] prior to lipid panel Performed By: #### L 501.9596, L501.9979, L500.4100 #### [facility] Laboratory [address] [place], [address] 12 Lead EKGon 10-13-2024 12 Lead EKG [facility] Cardiovascular Services [address] [place] [address] 12 Lead EKG 10/13/24 1308 MR#: [id number] Acct: [id number] Name: MATTI THOMAS Rep #: [id number] : 1970 54 From: Ike Steele MD Attending Dr: Dr. Michael Murillo MD Status: DIS DAPHNE Ordering Dr: Li Denton DO Date: 10/13/24 Location: [facility] Sex: F C Admitted: 10/13/24 Test Reason : numbness Blood Pressure : */* mmHG Vent. Rate : 60 BPM Atrial Rate : 60 BPM P-R Int : 150 ms QRS Dur : 86 ms QT Int : 474 ms P-R-T Axes : 13 67 72 degrees QTcB Int : 474 ms Normal sinus rhythm Normal ECG Confirmed by TORI DYKES, IKE ([id number]), graphics editor MARI ZENG ([id number]) on 10/15/2024 7:00:30 AM Referred By: Confirmed By: IKE STEELE MD 10/15/24 0700 Date Ike Steele MD CC: Dr. Michael Murillo MD; Dr. Li Denton DO; [facility] Signed Normal [facility] Basic Metabolic Profile (BMP )on 10-13-2024 BUN/CRE 12.3 RATIO Normal 10-20 [facility] Comment on above: Performed By: #### L 100.0100, L300.3900, L500.2500, L300.4310 ####[facility] [address] [place], [address] CA,Total 9.0 mg/dL Normal 8.5-10.1 [facility] Comment on above: Performed By: #### L 100.0100, L300.3900, L500.2500, L300.4310 ####[facility] [address] [place], [address] Chloride [Moles/Vol] 105 mmol/L Normal 98-107 [facility] Comment on above: Performed By: #### L 100.0100, L300.3900, L500.2500, L300.4310 ####[facility] [address] [place], [address] CO2 [Moles/Vol] 27.0 mmol/L Normal 21.0-32.0 [facility] Comment on above: Performed By: #### L 100.0100, L300.3900, L500.2500, L300.4310 ####[facility] [address] [place], [address] Creatinine [Mass/Vol] 0.81 mg/dL Normal 0.55-1.02 [facility] Comment on above: Result Comment: The validity of the calculated GFR GFRAA in patients over 70 years has not been determined. Clinical correlation is essential. Performed By: #### L 100.0100, L300.3900, L500.2500, L300.4310 ####[facility] [address] [place], [address] ECRCL 80.09 ml/min Normal [facility] Comment on above: Performed By: #### L 100.0100, L300.3900, L500.2500, L300.4310 ####[facility] [address] [place], [address] EST GFR - AA 94 mL/min Normal >60 [facility] Comment on above: Result Comment: Afri can Danish GFR Calc Performed By: #### L 100.0100, L300.3900, L500.2500, L300.4310 ####[facility] [address] [place], [address] GAP 7 Normal 5-15 [facility] Comment on above: Performed By: #### L 100.0100, L300.3900, L500.2500, L300.4310 ####[facility] [address] [place], [address] GFR/1.73 sq M.predicted among non-blacks MDRD (S/P/Bld) [Vol rate/Area] 78 mL/min/{1.73_m2} Normal >60 [facility] Comment on above: Result Comment: Non- GFR Calc Performed By: #### L 100.0100, L300.3900, L500.2500, L300.4310 ####[facility] [address] [place], [address] Glucose [Mass/Vol] 88 mg/dL Normal 74-106 [facility] Comment on above: Performed By: #### L 100.0100, L300.3900, L500.2500, L300.4310 ####[facility] [address] [place], [address] Potassium [Moles/Vol] 3.8 mmol/L Normal 3.5-5.1 [facility] Comment on above: Performed By: #### L 100.0100, L300.3900, L500.2500, L300.4310 ####[facility] [address] [place], [address] Sodium [Moles/Vol] 139 mmol/L Normal 136-145 [facility] Comment on above: Performed By: #### L 100.0100, L300.3900, L500.2500, L300.4310 ####[facility] [address] [place], [address] Urea nitrogen [Mass/Vol] 10 mg/dL Normal 7-18 [facility] Comment on above: Performed By: #### L 100.0100, L300.3900, L500.2500, L300.4310 ####[facility] [address] [place], [address] Brain without Contraston Brain without Contrast [facility] [facility] Imaging Services [address] [place] [address] Brain without Contrast MR#: [id number] Acct: [id number] Name: MATTI THOMAS Rep #: [id number] : 1970 F 54 From: Ruben Hsu MD PCP: [facility] Status: ADM DAPHNE Study: Brain without Contrast Date of Exam: 10/13/24 Exam# [id number] Ordering Dr: Michael Murillo MD CLINICAL HISTORY: Suspected stroke; progressive worsening vision in the left eye. COMPARISON: 10/13/2024 CT.. TECHNIQUE: MRI of the brain was performed without intravenous contrast. FINDINGS: The ventricles, sulci, and cisterns are age-appropriate in size. There is no evidence of intracranial bleed or focal infarction. There is no midline shift, mass effect, or extra-axial collection . No area of restricted diffusion are identified on DWI images. No abnormal T2 bright signal in the white matter is identified. The basal ganglia, pau, pituitary, corpus callosum and cerebellum appear normal. The visualized paranasal sinuses, mastoids, and orbits are unremarkable. The flow voids of the major intracranial vessels are patent. The visualized extracranial structures, within limits of technique, are not otherwise remarkable. MRI/Brain without Contrast IMPRESSION: No acute intracranial abnormality. Reading Location: [facility] CC: Dr. Michael Murillo MD; [facility] Loop Tender: Signed Normal [facility] Brain/Head without Contrasto n 10-13-2024 Brain/Head without Contrast [facility] Imaging Services [address] [place] [address] Brain/Head without Contrast MR#: [id number] Acct: [id number] Name: MATTI THOMASUERITE Rep #: [id number] : 1970 F 54 From: Serafin andre MD PCP: [facility] Status: PRE ER Study: Brain/Head without Contrast Date of Exam: 01/01 Exam# [id number] Ordering Dr: Li Denton DO EXAM: CT scan of the head without intravenous contrast administration. CLINICAL HISTORY: Headaches. Left facial paresthesias. Alcohol abuse. COMPARISON: Comparison is made with prior study dated November 17, 2022. TECHNIQUE: Helical imaging of CT head was performed without IV contrast. One or more of the following dose reduction techniques were used: automated exposure control, adjustment of the mA and/or kV according to patient size, use of iterative reconstruction technique. FINDINGS: BRAIN PARENCHYMA: No evidence for acute hemorrhage or large territory infarct. EXTRA-AXIAL SPACES: No acute extra-axial fluid collection identified. Basal cisterns are patent. MIDLINE SHIFT: None. VENTRICLES: No evidence of hydrocephalus. SCALP SOFT TISSUES: No significant abnormality. CALVARIUM: No acute process. VISUALIZED PARANASAL SINUSES: No air-fluid levels. MASTOID AIR CELLS: Grossly clear. CT/Brain/Head without Contrast IMPRESSION: No evidence of acute intracranial abnormality. Reading Location: [facility] CC: Dr. Li Denton DO; [facility] Loop Tender: Signed Normal [facility] CBC W/Diff, Automatedon Absolute Lymph 2.67 X10 3/uL Normal 0.83-4.51 [facility] Comment on above: Performed By: #### L 100.0100, L300.3900, L500.2500, L300.4310 ####[facility] [address] [place], [place], [id number] Absolute Neut 4.5 X10 3/uL Normal 2.0-7.7 [facility] Comment on above: Performed By: #### L 100.0100, L300.3900, L500.2500, L300.4310 ####[facility] [address] [place], [address] Basophils/100 WBC (Bld) 0.4 % Normal 0-1 [facility] Comment on above: Performed By: #### L 100.0100, L300.3900, L500.2500, L300.4310 ####[facility] [address] [place], [address] Eosinophils/100 WBC (Bld) 0.5 % Normal 0-5 [facility] Comment on above: Performed By: #### L 100.0100, L300.3900, L500.2500, L300.4310 ####[facility] [address] [place], [address] Erythrocyte distribution width (RBC) [Ratio] 13.6 % Normal 11.6-14.6 [facility] Comment on above: Performed By: #### L 100.0100, L300.3900, L500.2500, L300.4310 ####[facility] [address] [place], [address] Hematocrit (Bld) [Volume fraction] 41.9 % Normal 37-47 [facility] Comment on above: Performed By: #### L 100.0100, L300.3900, L500.2500, L300.4310 ####[facility] [address] [place], [address] Hemoglobin (Bld) [Mass/Vol] 13.5 g/dL Normal 12.0-15.0 [facility] Comment on above: Performed By: #### L 100.0100, L300.3900, L500.2500, L300.4310 ####[facility] [address] [place], [address] IG% 0.400 Normal 0.0-0.9 [facility] Comment on above: Result Comment: IG% - Immature Granulocytes (promyelocytes, myelocytes and metamyelocytes) > 1% indicates that a LEFT SHIFT is Present. Performed By: #### L 100.0100, L300.3900, L500.2500, L300.4310 ####[facility] [address] [place], [address] Lymphocytes/100 WBC (Bld) 33.5 % Normal 19-41 [facility] Comment on above: Performed By: #### L 100.0100, L300.3900, L500.2500, L300.4310 ####[facility] [address] [place], [address] MCH (RBC) [Entitic mass] 30.4 pg Normal 27.0-32.0 [facility] Comment on above: Performed By: #### L 100.0100, L300.3900, L500.2500, L300.4310 ####[facility] [address] [place], [address] MCHC (RBC) [Mass/Vol] 32.2 g/dL Normal 32-36 [facility] Comment on above: Performed By: #### L 100.0100, L300.3900, L500.2500, L300.4310 ####[facility] [address] [place], [address] MCV (RBC) [Entitic vol] 94.4 fL Normal 81-99 [facility] Comment on above: Performed By: #### L 100.0100, L300.3900, L500.2500, L300.4310 ####[facility] [address] [place], [address] Monocytes/100 WBC (Bld) 9.3 % Normal 0-10 [facility] Comment on above: Performed By: #### L 100.0100, L300.3900, L500.2500, L300.4310 ####[facility] [address] [place], [address] Neutrophils/100 WBC (Bld) 55.9 % Normal 47-70 [facility] Comment on above: Performed By: #### L 100.0100, L300.3900, L500.2500, L300.4310 ####[facility] [address] [place], [address] Nucleated RBC (Bld) [#/Vol] 0 10*3/uL Normal 0-5 [facility] Comment on above: Performed By: #### L 100.0100, L300.3900, L500.2500, L300.4310 ####[facility] [address] [place], [address] Platelet mean volume (Bld) [Entitic vol] 10.3 fL Normal 6.2-12.0 [facility] Comment on above: Performed By: #### L 100.0100, L300.3900, L500.2500, L300.4310 ####[facility] [address] [place], [address] Platelets (Bld) [#/Vol] 333 10*3/uL Normal 150-450 [facility] Comment on above: Performed By: #### L 100.0100, L300.3900, L500.2500, L300.4310 ####[facility] [address] [place], [address] RBC (Bld) [#/Vol] 4.44 10*6/uL Normal 4.2-5.4 [facility] Comment on above: Performed By: #### L 100.0100, L300.3900, L500.2500, L300.4310 ####[facility] [address] [place], [address] RDW SD 47.4 fl High 35.1-43.9 [facility] Comment on above: Performed By: #### L 100.0100, L300.3900, L500.2500, L300.4310 ####[facility] [address] [place], [address] WBC (Bld) [#/Vol] 8.0 10*3/uL Normal 4.4-11.0 [facility] Comment on above: Performed By: #### L 100.0100, L300.3900, L500.2500, L300.4310 ####[facility] [address] [place], [address] CTA Head AND Neck W/ Contras ton 10-13-2024 CTA Head AND Neck W/ Contrast [facility] Imaging Services [address] [place] [address] CTA Head AND Neck W/ Contrast MR#: [id number] Acct: [id number] Name: MATTI THOMAS Rep #: [id number] : 1970 F 54 From: Serafin andre MD PCP: [facility] Status: REG ER Study: CTA Head AND Neck W/ Contrast Date of Exam: Exam# [id number] Ordering Dr: Li Denton DO PROCEDURE: CTA HEAD AND NECK W/ CONTRAST REASON FOR EXAM: Left facial paresthesias. Headaches. Alcohol abuse. PTSD. TECHNIQUE: CTA imaging of the head and neck from the aortic arch to the skull vertex with intravenous contrast. 3D reconstructions. CONTRAST: 100 cc of Isovue 300. COMPARISON: Comparison is made with prior CT scan of the head done earlier in the day. FINDINGS: Aortic Arch: Normal size and branching pattern. No significant atherosclerotic plaque. Brachiocephalic and Subclavians: Unremarkable RIGHT Carotid: Right CCA: Unremarkable. Right ICA: Unremarkable. Maximum stenosis (NASCET): % Right ECA: Unremarkable. LEFT Carotid: Left CCA: Unremarkable. Left ICA: Unremarkable. Maximum stenosis (NASCET): % Left ECA: Unremarkable. Vertebrals: Codominant. Arise from the subclavians. Both vertebrals form the basilar. RIGHT Vertebral: Dominant right vertebral artery. LEFT Vertebral: Small left vertebral artery. No intracranial aneurysms or large vascular malformations are identified. Anterior cerebral arteries: Unremarkable. Middle cerebral arteries: Unremarkable. Basilar artery: Unremarkable. Posterior cerebral arteries: Unremarkable. Other major branches of the posterior circulation: Unremarkable. Major venous structures: Unremarkable. Other findings: No lymphadenopathy. Lung apices are clear. Bones are unremarkable. CT/CTA Head AND Neck W/ Contrast IMPRESSION: RIGHT CAROTID: Unremarkable. LEFT CAROTID: Unremarkable. VERTEBRALS: Unremarkable. INTRACRANIAL: Unremarkable. Normal examination. One or more dose reduction techniques were used (e.g., Automated exposure control, adjustment of the mA and/or kV according to patient size, use of iterative reconstruction technique). Reading Location: [place] [address] CC: Dr. Li Denton DO; [facility] Loop Tender: Signed Normal [facility] Chest 1 View (Portable)on Chest 1 View (Portable) [facility] Imaging Services [address] [place] [id number] Chest 1 View (Portable) MR#: [id number] Acct: [id number] Name: MATTI THOMAS Rep #: [id number] : 1970 F 54 From: Jean Marie Noriega MD PCP: [facility] Status: PRE ER Study: Chest 1 View (Portable) Date of Exam: 10/13/24 Exam# [id number] Ordering Dr: Li Denton DO EXAM: XR Chest, 1 View CLINICAL INDICATION: TECHNIQUE: Frontal view of the chest. COMPARISON: No relevant prior studies available. FINDINGS: LUNGS AND PLEURAL SPACES: Unremarkable. No consolidation. No pneumothorax. HEART: Unremarkable. No cardiomegaly. MEDIASTINUM: Unremarkable. Normal mediastinal contour. BONES/JOINTS: Unremarkable. No acute fracture. RAD/Chest 1 View (Portable) IMPRESSION: No acute cardiopulmonary process. Reading Location: [facility] CC: Dr. Li Denton DO; [facility] Loop Tender: Signed Normal [facility] Emergency Department Summary on 10-13-2024 Emergency Department Summary [facility] Medical Records Department [address] [id number] Emergency Department Summary 10/13/24 MR#: [id number] Acct: [id number] Name: MATTI THOMAS Rep #: [id number] : 1970 54 From: Li Denton DO PCP: [facility] Status:REG ER Location: ED HPI History of Present Illness Chief Complaint: Numb/Ting Detail of Chief Complaint: Decreased vision left eye and left facial paresthesias Informant: patient Narrative Narrative: Patient presents with progressive worsening of vision in the left eye for several weeks. She started having paresthesias to the left side of her face about 4 days ago. Paresthesias are continuous now. Apparently she saw a eye doctor yesterday and was told there might be a blockage in the back part of her left eye. She was told to follow-up with her primary care physician she would send Notes there. Patient followed up with her primary care physician today and was referred to the emergency department. She denies weakness in the extremities. She denies difficulty with speech. Patient also states that she has had some paresthesias in the left arm and left leg but not currently. She denies recent illness. Denies illicit drug use. [facility] Medical History Alcohol use disorder Alcohol use disorder in remission Generalized anxiety disorder PTSD (post-traumatic stress disorder) Major depressive disorder, recurrent, severe with psychotic features Thyroid nodule Goiter Abnormal results of thyroid function studies Radial scar of right breast Anxiety and depression DDD (degenerative disc disease), lumbar Scoliosis Home Medications ???Medication ???Instructions ???Recorded ???Last Taken ???Type cholecalciferol (vitamin D3) 25 25 mcg PO DAILY 09/14/22 Unknown H istory mcg (1,000 unit) capsule varenicline tartrate 0.5 mg (11)-1 See Rx Instructions PO PER PKG D IR 12/11/23 Unknown Rx mg (42) tablets in a dose pack #53 tabs (Chantix Starting Month Box) aripiprazole 15 mg tablet 15 mg PO QHS 30 days #30 tabs 09/11 Unknown Rx buspirone 15 mg tablet 15 mg PO BID #60 tabs 10/08/24 Unk nown Rx 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 mg PO QDAY #30 tabs 10/08/24 U nknown Rx sertraline 100 mg tablet 150 mg (1.5 x 100 mg) PO DAILY 30 10/08/24 Unknown Rx days #45 tabs trazodone 100 mg tablet 100 - 200 mg (1 - 2 x 100 mg) PO 0 10/08/24 Unknown Rx QHS PRN insomnia #60 tabs Allergy/AdvReac Type Severity Reaction Status Date / Time No Known Allergies Allergy Verified 10/13/24 11:54 Family History Father No problems noted. Surgical History Hx of hysterectomy History of dilation and curettage History of excision of pilonidal cyst ( 1987) History of partial hysterectomy Status post left breast lumpectomy ( 2011) History of right breast biopsy Social History household members: spouse and none Smoking Status: Current every day smoker tobacco type: cigarettes alcohol intake: current alcohol intake frequency: holidays/special occasions only details: occasional substance use type: does not use what type of physical activity do you participate in: walking frequency: 1-2 times per week ROS ROS ED Review of Systems ROS Unobtainable: other Constitutional Constitutional ED: Reports lethargy; Denies chills, fever(s), sweats or weight loss Eyes Eyes: Reports blurry vision and other; Denies change in vision or diplopia ENT ENT ED: Reports other Details: Left face paresthesias ; Denies rhinorrhea or sore throat Cardiovascular Cardiovascular: Denies chest pain, orthopnea or racing heartbeat Respiratory/Chest Respiratory/Chest: Denies cough, dyspnea, dyspnea on exertion, orthopnea or sputum Gastrointestinal Gastrointestinal: Denies abdominal pain, diarrhea, nausea or vomiting Genitourinary Genitourinary ED: Denies dysuria, hematuria or urinary frequency Musculoskeletal Musculoskeletal: Denies arthralgias, back pain, myalgias or neck pain Integumentary Denies abscess, Abrasions or rash Neurologic Neurologic: Reports headache(s); Denies weakness Psychiatric Psychiatric: Denies anxiety, depression or suicidal thoughts Endocrine Endocrinology: Denies polydipsia, polyphagia or polyuria Hematologic/Lymphatic Hematologic/Lymphatic: Denies easy bleeding, easy bruising or lymphadenopathy Allergic/Immunologic Allergic/Immunologic ED: Denies mouth swelling, tongue swelling or urticaria EXAM Physical Exam Const Vital Signs: 10/13/24 11:54 10/13/24 11:59 10/13/24 12:54 Temperature 98.6 F Temperature Source Oral Pulse Rate 72 63 Respiratory Rate (more content not included)... Normal [facility] H AND P Exam - Hospitaliston 10-13-2024 H&P Exam - Hospitalist [facility] Medical Records Department [address] [place] [address] H P Exam - Hospitalist 10/13/24 1436 MR#: [id number] Acct: [id number] Name: MATTI THOMAS Rep #: [id number] : 1970 54 From: Michael Murillo MD PCP: [facility] Status:REG ER Location: ED HPI - General General Date of Admission: 10/13/24 Date of Service: 10/13/24 Chief Complaint: Multiple neurological complaints HPI Narrative MATTI THOMAS, is a 54 F came to ED for blurry vision in the left eye for several weeks along with numbness on the left side of the face and cheek. She also complained of headache mainly on the left side of forehead. Complain of mild numbness on the left arm and left leg. She was seen by web graphic designer yesterday and was asked to follow-up with PCP and her PCP sent to the ED. Denies any weakness, altered language or dysarthria or dysphagia. Vitals and labs and imagings reviewed and discussion assessment and plan [facility] Medical History Alcohol use disorder Alcohol use disorder in remission Generalized anxiety disorder PTSD (post-traumatic stress disorder) Major depressive disorder, recurrent, severe with psychotic features Thyroid nodule Goiter Abnormal results of thyroid function studies Radial scar of right breast Anxiety and depression DDD (degenerative disc disease), lumbar Scoliosis Home Medications ???Medication ???Instructions ???Recorded ???Last Taken ???Type cholecalciferol (vitamin D3) 25 25 mcg PO DAILY 09/14/22 Unknown H istory mcg (1,000 unit) capsule varenicline tartrate 0.5 mg (11)-1 See Rx Instructions PO PER PKG D IR 12/11/23 Unknown Rx mg (42) tablets in a dose pack #53 tabs (Chantix Starting Box) aripiprazole 15 mg tablet 15 mg PO QHS 30 days #30 tabs 09/11 Unknown Rx buspirone 15 mg tablet 15 mg PO BID #60 tabs 10/08/24 Unk nown Rx 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 mg PO QDAY #30 tabs 10/08/24 U nknown Rx sertraline 100 mg tablet 150 mg (1.5 x 100 mg) PO DAILY 30 10/08/24 Unknown Rx days #45 tabs trazodone 100 mg tablet 100 - 200 mg (1 - 2 x 100 mg) PO 0 10/08/24 Unknown Rx QHS PRN insomnia #60 tabs Allergy/AdvReac Type Severity Reaction Status Date / Time No Known Allergies Allergy Verified 10/13/24 11:54 Family History Father No problems noted. Surgical History Hx of hysterectomy History of dilation and curettage History of excision of pilonidal cyst ( 1987) History of partial hysterectomy Status post left breast lumpectomy ( 2011) History of right breast biopsy Social History household members: spouse and none Smoking Status: Current every day smoker tobacco type: cigarettes alcohol intake: current alcohol intake frequency: holidays/special occasions only details: occasional substance use type: does not use what type of physical activity do you participate in: walking frequency: 1-2 times per week ROS ROS Narrative Constitutional: Reports fatigue and weakness. No fever. HEENT: Reports systems reviewed and no addt'l complaints, except as documented Respiratory/Chest: No acute shortness of breath or respiratory distress or wheezing. CVS: Denies chronic heart disease. No chest pressure or anginal-like symptoms Gastrointestinal: Denies coffee ground emesis, hematemesis or vomiting Genitourinary: Denies burning urination or new urinary tract symptoms Musculoskeletal: Denies acute joint pain or limited range of motion. No acute injury Neurologic: Denies seizure-like symptoms. As described in HPI Psychiatric: History of anxiety depression and PTSD. On multiple antipsychotic medications skin: No ulcer. No rash Endocrinology: Reports systems reviewed and no addt'l complaints, except as documented Hematologic/Lymphatic: Reports systems reviewed and no addt'l complaints, except as documented Rest 14 ROS are negative except as mentioned in HPI Vital Signs Vital Signs Vital Signs: 10/13/24 11:54 10/13/24 11:59 10/13/24 12:54 Temperature 98.6 F Temperature Source Oral Pulse Rate 72 63 Respiratory Rate 18 16 Blood Pressure 159/91 H Blood Pressure Mean 113 Pulse Ox 100 99 Oxygen Delivery Method Room Air Room Air 10/13/24 13:00 10/13/24 14:00 10/13/24 14:32 Temperature 98.0 F Temperature Source Pulse Rate 62 63 69 Respiratory Rate 16 16 16 Blood Pressure 120/76 133/73 H 135/82 H Blood Pressure Mean 90 93 99 Pulse Ox 99 97 98 Oxygen Delivery Method Room Air Weight Weight: 141 lb 3.2 oz Body Mass Index (BMI) 21.4 Physical Exam Narrative General: Alert, (more content not included)... Normal [facility] Magnesiumon 10-13-2024 Magnesium [Mass/Vol] 2.1 mg/dL Normal 1.6-2.6 [facility] Comment on above: Performed By: #### L 501.5200 ####[facility] [address] [place], [place], [id number] Partial Thromboplast Timeon 10-13-2024 aPTT Coag (Bld) [Time] 25.8 s Normal 24.1-36.2 [facility] Comment on above: Performed By: #### L 100.0100, L300.3900, L500.2500, L300.4310 ####[facility] [address] [place], [address] Prothrombin Time w/INRon INR Coag (PPP) [Relative time] 0.9 {INR} Normal [facility] Comment on above: Performed By: #### L 100.0100, L300.3900, L500.2500, L300.4310 ####[facility] [address] [place], [address] PT Coag (PPP) [Time] 12.4 s Normal 11.7-14.9 [facility] Comment on above: Performed By: #### L 100.0100, L300.3900, L500.2500, L300.4310 ####[facility] [address] [place], [address] MR/BMS.BPon 10-08-2024 MR/BMS.BP [facility] [address], [address] [place] [address] OFFICE VISIT Date of Service: 10/08/24 MR#: [id number] Acct: [id number] Name: MATTI THOMAS Rep #: [id number] : 1970 Provider: Dr. Jorge Luis Christy se, DO Age/Sex: 54/F Location: [facility] Status: Signed Intake Vital Signs 07/20/24 10:10 10/08/24 09:31 Height 5 ft 8 in 5 ft 8 in Weight: 135 lb 138 lb BMI 20.5 20.9 BP 130/84 H 148/93 H Blood Pressure Location Rt brachial Lt brachial Position Sitting Sitting Respiration 16 16 Pulse 68 103 H Pulse Source Monitor Monitor BP Intake Visit Reasons: 2 M FU Accompanied by: Self Allergies No Known Allergies Allergy (Verified 10/08/24 09:34) Medications ???Medication ???Instructions ???Recorded ???Confirmed ???Type cholecalciferol (vitamin D3) 25 25 mcg PO DAILY 09/14/22 10/08/24 History mcg (1,000 unit) capsule varenicline tartrate 0.5 mg (11)-1 See Rx Instructions PO PER PKG D IR 12/11/23 10/08/24 Rx mg (42) tablets in a dose pack #53 tabs (Chantix Starting Month Box) aripiprazole 15 mg tablet 15 mg PO QHS 30 days #30 tabs /10/08/24 Rx buspirone 15 mg tablet 15 mg PO BID #60 tabs 10/08/24 Rx 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 mg PO QDAY #30 tabs 10/08/24 0 10/08/24 Rx sertraline 100 mg tablet 150 mg (1.5 x 100 mg) PO DAILY 30 10/08/24 10/08/24 Rx days #45 tabs trazodone 100 mg tablet 100 - 200 mg (1 - 2 x 100 mg) PO 0 10/08/24 10/08/24 Rx QHS PRN insomnia #60 tabs PFSH Medical History Alcohol use disorder Alcohol use disorder in remission Generalized anxiety disorder PTSD (post-traumatic stress disorder) Major depressive disorder, recurrent, severe with psychotic features Thyroid nodule Goiter Abnormal results of thyroid function studies Radial scar of right breast Anxiety and depression DDD (degenerative disc disease), lumbar Scoliosis Surgical History Hx of hysterectomy History of dilation and curettage History of excision of pilonidal cyst ( 1987) History of partial hysterectomy Status post left breast lumpectomy ( 2011) History of right breast biopsy Family History Father No problems noted. Social History household members: spouse and none Smoking Status: Current every day smoker tobacco type: cigarettes alcohol intake: current alcohol intake frequency: holidays/special occasions only details: occasional substance use type: does not use what type of physical activity do you participate in: walking frequency: 1-2 times per week HPI History of Present Illness History provided by: patient HPI: Matti Thomas is a 54 year old female who presents today for follow up evaluation. Patient reports that she has been seeing things in the past couple weeks. Admits that she has been seeing a spirit/demon in her downstairs bathroom. Can feel his presence but doesn't feel in danger. Has also happened in her bedroom. Has also seen mice crawling around her house at night when she couldn't sleep. Has also seen numerous animals like a pack of dogs, owls/birds, or skunks outside but when she checks there is nothing there. Has been hearing whispers or chirping tones but cannot make out who/what it is. Has been somewhat distressing to her. Has had somewhat similar symptoms in the past, several years ago. Has been able to sleep fairly well at night. Has continued to struggle with alcohol. Has started drinking again in recent past. Has been drinking to the point of blacking out, and reports that she even blacked out and knows that she fell and hit her head. Has not drank at all in the past week. Stopped taking topiramate as it made her feel sick. Gilmer that she was doing very well when she was taking disulfiram. Patient recently started going to a new episcopal with her . Has been working on [employer]. Review of Systems Constitutional Denies: fever(s), chills, change in weight or fatigue Eyes Denies: change in vision or blurry vision Ears, Nose, Mouth, Throat Denies: throat pain, neck pain or change in hearing Cardiovascular Reports: chest pain; Denies: palpitations Respiratory Denies: cough or wheezing Gastrointestinal Denies: abdominal pain, nausea or vomiting Genitourinary Denies: dysuria or urinary frequency Musculoskeletal Denies: neck pain, joint pain or muscle weakness Integumentary/Breast Denies: rash or new lesions Neurological Denies: headache(s), dizziness or confusion Endocrine Denies: fatigue or excessive sweating Hematologic/Lymphatic Denies: easy bruising or easy bleeding Allergic/Immunologic Denies: wheezing (more content not included)... Normal [facility] MR/BMS.BPon 07-20-2024 MR/BMS.[address], [address] [place] [address] OFFICE VISIT Date of Service: 07/20/24 MR#: [id number] Acct: [id number] Name: MATTI THOMAS Rep #: [id number] : 1970 Provider: Dr. Jorge Luis Christy se, DO Age/Sex: 54/F Location: [facility].BP Status: Signed Intake Vital Signs 05/19/24 11:00 07/20/24 10:10 Height 5 ft 8 in 5 ft 8 in Weight: 135 lb BMI 20.5 BP 130/84 H Blood Pressure Location Rt brachial Position Sitting Respiration 16 Pulse 68 Pulse Source Monitor BP Intake Visit Reasons: 2 M FU Accompanied by: Self Allergies No Known Allergies Allergy (Verified 07/20/24 10:15) Medications ???Medication ???Instructions ???Recorded ???Confirmed ???Type cholecalciferol (vitamin D3) 25 25 mcg PO DAILY 09/14/22 07/20/24 History mcg (1,000 unit) capsule varenicline 0.5 mg (11)-1 mg (42) See Rx Instructions PO PER PKG DIR 12/11/23 07/20/24 Rx tablets in a dose pack (Chantix #53 tabs Starting Month Box) aripiprazole 10 mg tablet (Abilify) 10 mg PO QHS 30 days #30 tabs 07/20/24 07/20/24 Rx buspirone 15 mg tablet 15 mg PO BID #60 tabs 07/20/24 07/20/24 Rx sertraline 100 mg tablet 150 mg (1.5 x 100 mg) PO DAILY 30 07/20/24 07/20/24 Rx days #45 tabs topiramate 25 mg tablet 25 mg PO QHS 30 days #30 tabs 07/20/24 07/20/24 Rx trazodone 100 mg tablet 100 - 200 mg (1 - 2 x 100 mg) PO 07/20/24 07/20/24 Rx QHS PRN insomnia #60 tabs PFSH Medical History Alcohol use disorder Alcohol use disorder in remission Generalized anxiety disorder PTSD (post-traumatic stress disorder) Major depressive disorder, recurrent, severe with psychotic features Thyroid nodule Goiter Abnormal results of thyroid function studies Radial scar of right breast Anxiety and depression DDD (degenerative disc disease), lumbar Scoliosis Surgical History Hx of hysterectomy History of dilation and curettage History of excision of pilonidal cyst ( 1987) History of partial hysterectomy Status post left breast lumpectomy ( 2011) History of right breast biopsy Family History Father No problems noted. Social History household members: spouse and none Smoking Status: Current every day smoker tobacco type: cigarettes alcohol intake: current alcohol intake frequency: holidays/special occasions only details: occasional substance use type: does not use what type of physical activity do you participate in: walking frequency: 1-2 times per week HPI History of Present Illness History provided by: patient HPI: Matti Thomas is a 54 year old female who presents today for follow up evaluation. Patient reports that things have been pretty good. Recently got her license back about 2 weeks ago. Did fail her maneuverability initially, but eventually did pass. Feels like she gained a sense of independence back. Mother has been calling more often asking her to come out more frequently since this time. Continues to work on setting healthy boundaries with mother. Has been unable to get disulfiram for the last two months. Has not been drinking during this time, but feels like cravings are present. Feels like all her other medications are working largely well. Denies SI/HI or AVH. Denies any recent panic attacks. Review of Systems Constitutional Denies: fever(s), chills, change in weight or fatigue Eyes Denies: change in vision or blurry vision Ears, Nose, Mouth, Throat Denies: throat pain, neck pain or change in hearing Cardiovascular Reports: chest pain; Denies: palpitations Respiratory Denies: cough or wheezing Gastrointestinal Denies: abdominal pain, nausea or vomiting Genitourinary Denies: dysuria or urinary frequency Musculoskeletal Denies: neck pain, joint pain or muscle weakness Integumentary/Breast Denies: rash or new lesions Neurological Denies: headache(s), dizziness or confusion Endocrine Denies: fatigue or excessive sweating Hematologic/Lymphatic Denies: easy bruising or easy bleeding Allergic/Immunologic Denies: wheezing Exam Mental Status Exam - Psych Appearance adequately groomed Attitude cooperative Activity/Motor Behavior MSE activity/motor behavior finding no adventitious movements Speech regular rate, regular volume and regular prosody Mood euythmic (Doing good) Affect full range Thought Process linear, logical and coherent Thought Content no delusions and no hallucinations Suicidal Ideation none Homicidal Ideation none Attention intact Concentration intact Sensorium/Orientation awake, alert and oriented x3 Memory/Cognition other (appropriat (more content not included)... Normal [facility] HNO ID: [id number] Author: COORDINATOR, MAMMOGRAPHY, ? Service: ? Author Type: Physician Type: Letter Filed: 06/01/2024 12:07 Note Text: June 01, 2024 PID: [id number] Matti Clements Martha [address] [place] [address] Dear Ms. Thomas, We are pleased to inform you that the results of your recent breast imaging exam on 05/28/2024 are normal. Breast tissue can be either dense or not dense. Dense tissue makes it harder to find breast cancer on a mammogram and also raises the risk of developing breast cancer. Your breast tissue is dense. In some people with dense tissue, other imaging tests in addition to a mammogram may help find cancers. Talk to your healthcare provider about breast density, risks for breast cancer, and your individual situation. Early detection of cancer is very important. We also understand recommendations regarding breast cancer screening are controversial. Please discuss with your primary care provider which strategy is best for you and whether a mammogram is right for you. Your imaging studies and report will be kept on file at [facility] as part of your permanent medical record and are available for your continuing care. Thank you for allowing us to help in meeting your health care needs. Sincerely, Dr. Gill Interpreting Radiologist [facility] (Normal over 40) Normal [facility] CHRISTIANO SCREENING W TOMOon 05-28 CHRISTIANO SCREENING W BREN * * *Final Report* * * DATE OF EXAM: May 28 2024 8:50AM WRW [id number] - CHRISTIANO SCREENING W BREN / PROCEDURE REASON: Encounter for screening mammogram for malignant neoplasm of breast * * * * Physician Interpretation * * * * RESULT: #[id number] - CHRISTIANO SCREENING W BREN BILATERAL DIGITAL SCREENING MAMMOGRAM TOMOSYNTHESIS WITH CAD: 05/28/2024 HISTORY: Encounter For Screening Mammogram For Malignant Neoplasm Of Breast / Screening Mammogram-Patient reports NO symptoms. /priors available for comparison. RESULT: TECHNIQUE: The study was acquired using full field digital technology and interpreted from soft copy. Digital Breast Tomosynthesis (DBT) images were obtained and used to assist in the interpretation of this examination. Current study was also evaluated with a Computer Aided Detection (CAD). Comparison is made to exams dated: 06/08/2022 mammogram, 02/02/2021 mammogram, and 07/21/2019 mammogram - [facility]. The breasts are heterogeneously dense, which may obscure small masses. There are stable benign asymmetries in both breasts. There also are benign post operative findings in both breasts. No significant masses, calcifications, or other findings are seen in either breast. There has been no significant interval change. IMPRESSION: BENIGN There is no mammographic evidence of malignancy. A 1 year screening mammogram is recommended. Brant alvarez/laura:06/01/2024 12:07:41 Pilot Captain(s): RT Vlad(R)(M), [facility] letter sent: Normal over 40 Mammogram BI-RADS: Category 2: Benign Multiple national specialty organizations have released breast cancer screening guidelines for women at average risk for developing breast cancer - guidelines that are based on both evidence and opinion, yet differ on when to start and how often to screen for breast cancer. With representation from Breast Imaging, Internal Medicine, Women's Health, Family Medicine, and Medical/Surgical Oncology, the [facility] has carefully reviewed the data and reached the following consensus: 1) All women should engage in shared decision-making with their providers to decide when to start and how often to screen; 2) All women should have the opportunity to start screening mammography at age 40; 3) For women ages 45-55, we recommend annual screening mammograms; 4) For women ages 55 and over, we support both the transition from an annual to a biennial interval if this aligns more with patient's values and preferences, or continuation with annual screening; 5) All women should discuss with their providers when to stop screening mammograms. Loop Tender: Laura Transcribe Date/Time: May 28 2024 7:54A Dictated by: BRANT GILL MD This examination was interpreted and the report reviewed and electronically signed by: BRANT GILL MD on Jun 01 2024 12:07PM EST [id number] Normal [facility] Tsering 05-26-2024 SILVANA Telephone (OBGYWM) MARTHAMATTI Stubbs ([id number]) 1970 F CHT Date Time Provider Department 05/26/24 STEFANIE RODNEY [facility] During your visit today, we recorded the following information about you: Madie Sánchez 05/26/2024 10:52 AM Signed Patient scheduled for mammogram screening with BREN on , 05/28/24. Order pended. Please link order to scheduled appointment once signed. Stefanie Rodney MD 05/26/2024 12:52 PM Signed ordered Allergies As of Date: 05/26/2024 Noted Allergy Reaction CEFDINIR 08/20/2023 4 - Hives METHYLPREDNISOLONE 10/11/2022 2 - Rash Comments: Skin became reddened and felt like it was on fire Date Reviewed: 09/19/2023 Reviewed by: Shahab Dunlap Jr., MD - Fully Assessed Reason for Visit: Orders [681] Cmt: Mammogram Screening W BREN Primary Visit Diagnosis:Encounter for screening mammogram for malignant neoplasm of breast [Z12.31] Order(s):CHRISTIANO SCREENING W BREN [[id number]] Order #: [id number] FUTURE Prescriptions as of 05/26/2024 - ARIPiprazole (ABILIFY) 5 mg tablet Take 1 tablet by mouth every afternoon. - sertraline (ZOLOFT) 50 mg tablet Take 50 mg by mouth daily at bedtime. - iv contrast (will be provided with radiology test) CT Urogram WO/W Inject, intravenously, once for 1 dose.No IV access, insert saline lock prior to the beginning of sedation, infusion, injection of imaging exam. Discontinue saline lock post exam. If Pt. has a central line or IVAD, may access for administration according to line specific nursing protocol. Once exam is complete flush line and de-access according to line specific nursing protocol in the CT contrast administration guidelines link. - 0.9 % sodium chloride (NACL 0.9%) infusion Inject 150 mL/hr intravenously one time only for 1 dose. Administer at rate defined per CT contrast administration specifications. To be provided with radiology test. - famotidine (PEPCID) 20 mg tablet Take by mouth. - hydrOXYzine pamoate (VISTARIL) 25 mg capsule Take one Capsule By Oral Route three times a day as needed. - traZODone (DESYREL) 50 mg tablet take 1/2 tablet to 1 tablet by mouth as needed for sleep - nicotine (NICODERM) 21 mg/24 hr Apply 1 Patch as directed once daily. - busPIRone (BUSPAR) 15 mg tablet Take 1 Tablet By Oral Route 2 times per day - omeprazole (PRILOSEC) 40 mg capsule Take 1 capsule by mouth once daily. - methylcellulose, with sugar, (CITRUCEL, SUCROSE,) oral powder Follow instructions on label. - cholecalciferol, vitamin D3, (VITAMIN D3 ORAL) Take 1,000 mg by mouth once daily. - cephALEXin (KEFLEX) 500 mg capsule Take 500 mg by mouth four times daily. - propranolol (INDERAL) 20 mg tablet Take 20 mg by mouth three times daily. - FLUoxetine HCl 20 mg tablet Take 1 Tablet orally once per Day for 30 Days - naproxen (NAPROSYN) 500 mg tablet - cyclobenzaprine (FLEXERIL) 10 mg tablet Take 10 mg by mouth three times daily as needed. - DAILY MULTIVITAMIN TAB Take one(1) tablet daily. Problem List As Of Date 05/26/2024 Noted Resolved LUMBAGO [M54.50] 05/20/2006 SCIATICA [M54.30] 10/17/2006 LUMBAR DISC DISPLACEMENT [M51.26] 01/06/2008 Excessive or Frequent Menstruation [N92.0] 05/31/2010 Dysmenorrhea [N94.6] 05/31/2010 Dyspareunia [BBV3935] 05/31/2010 Symptomatic Menopausal or Female Climacteric St*05/31/2010 Depressive Disorder, not Elsewhere Classified [*05/31/2010 Anxiety State, Unspecified [F41.1] 05/31/2010 Breast Screening, Unspecified [Z12.39] 05/31/2010 Premenstrual Tension Syndromes [N94.3] 05/31/2010 Irregular menstrual cycle [N92.6] 09/25/2011 Abnormal mammogram, unspecified [R92.8] 10/12/2011 Lobular carcinoma in situ [D05.00] 10/18/2011 Sebaceous cyst [L72.3] 07/24/2012 Seborrheic keratoses [L82.1] 12/26/2015 Endometrial polyp [N84.0] 03/19/2016 Degeneration of lumbar or lumbosacral intervert*08/21/2019 Dysphagia [R13.10] 02/21/2023 Crook's esophagus with dysplasia [K22.719] 02/21/2023 Encounter Status:Closed by DANAY CLINE on 05/26/24 Normal [facility] MR/BMS.BPon 05-19-2024 MR/BMS.BP [address], [address] [place] [address] OFFICE VISIT Date of Service: 05/19/24 MR#: [id number] Acct: [id number] Name: MATTI THOMAS Rep #: [id number] : 1970 Provider: Dr. Jorge Luis Christy se, DO Age/Sex: 53/F Location: [facility].BP Status: Signed Intake Vital Signs 03/17/24 10:00 05/19/24 10:59 05/19/24 11:00 Height 5 ft 8 in 5 ft 8 in 5 ft 8 in Weight: 145 lb BMI 22.0 BP 153/83 H Respiration 17 Pulse 89 Pulse Oximetry (%) 99 BP Intake Visit Reasons: 2 M FU Accompanied by: Self Allergies No Known Allergies Allergy (Verified 05/19/24 10:59) Medications ???Medication ???Instructions ???Recorded ???Confirmed ???Type cholecalciferol (vitamin D3) 25 25 mcg PO DAILY 09/14/22 05/19/24 History mcg (1,000 unit) capsule varenicline 0.5 mg (11)-1 mg (42) See Rx Instructions PO PER PKG DIR 12/11/23 03/17/24 Rx tablets in a dose pack (Chantix #53 tabs Starting Month Box) aripiprazole 10 mg tablet (Abilify) 10 mg PO QHS 30 days #30 tabs 05/19/24 05/19/24 Rx buspirone 15 mg tablet 15 mg PO BID #60 tabs 05/19/24 05/19/24 Rx 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 mg PO DAILY #30 tabs 05/19/24 05/19/24 Rx sertraline 100 mg tablet 150 mg (1.5 x 100 mg) PO DAILY 30 05/19/24 05/19/24 Rx days #45 tabs trazodone 100 mg tablet 100 - 200 mg (1 - 2 x 100 mg) PO 05/19/24 05/19/24 Rx QHS PRN insomnia #60 tabs PFSH Medical History Alcohol use disorder Alcohol use disorder in remission Generalized anxiety disorder PTSD (post-traumatic stress disorder) Major depressive disorder, recurrent, severe with psychotic features Thyroid nodule Goiter Abnormal results of thyroid function studies Radial scar of right breast Anxiety and depression DDD (degenerative disc disease), lumbar Scoliosis Surgical History Hx of hysterectomy History of dilation and curettage History of excision of pilonidal cyst ( 1987) History of partial hysterectomy Status post left breast lumpectomy ( 2011) History of right breast biopsy Family History Father No problems noted. Social History household members: spouse and none Smoking Status: Current every day smoker tobacco type: cigarettes alcohol intake: current alcohol intake frequency: holidays/special occasions only details: occasional substance use type: does not use what type of physical activity do you participate in: walking frequency: 1-2 times per week HPI History of Present Illness History provided by: patient HPI: Matti Thomas is a 53 year old female who presents today for follow up evaluation. Patient reports that things have been not good. Has been helping mom take care of her health, but got angry with her yesterday after having to consistently be the one to manage all these things despite two siblings living next door. Feels like she can't do anything right and she will not be able to get her love/appreciation at any point despite this being all that she wants from her. Really wanted to drink yesterday but didn't. Has not drank in several months. Recently went and saw her brother this Summer in [place] in March. Sleep has been fair. Does continue to take all her medications as prescribed. Does feel like they help to some extent. Does describe feeling worthless, but denies any SI. Voices kids as positive preventative factors. Review of Systems Constitutional Reports: change in sleep pattern; Denies: fever(s), chills, change in weight or fatigue Eyes Denies: change in vision or blurry vision Ears, Nose, Mouth, Throat Denies: throat pain, neck pain or change in hearing Cardiovascular Reports: chest pain; Denies: palpitations Respiratory Denies: cough or wheezing Gastrointestinal Reports: diarrhea and constipation; Denies: abdominal pain, nausea or vomiting Genitourinary Denies: dysuria or urinary frequency Musculoskeletal Denies: neck pain, joint pain or muscle weakness Integumentary/Breast Denies: rash or new lesions Neurological Denies: headache(s), dizziness or confusion Endocrine Denies: fatigue or excessive sweating Hematologic/Lymphatic Denies: easy bruising or easy bleeding Allergic/Immunologic Denies: wheezing Exam Mental Status Exam - Psych Appearance unkempt Attitude guarded Activity/Motor Behavior MSE activity/motor behavior finding no adventitious movements Speech regular rate, regular volume and regular prosody Mood depressed and anxious Affect restricted and tearful Thought Process linear, logical and coherent Thought Content no delusions and no hallucinations Suicidal Ideation no (more content not included)... Normal [facility] CBC W Auto Differential pane l (Bld)on 03-17-2024 Basophils (Bld) [#/Vol] 0.04 10*3/uL Normal <0.11 [facility] Comment on above: Order Comment: Vincent alfred Type: BLOOD SPECIMEN Ordering Facility: External Submitter Address: , , Performed By: #### 5 7021-8 #### [facility] CLIA [id number] [address] [place] [address] [place] Basophils/100 WBC (Bld) 0.5 % Normal [facility] Comment on above: Order Comment: Vincent alfred Type: BLOOD SPECIMEN Ordering Facility: External Submitter Address: , , Performed By: #### 5 7021-8 #### [facility] CLIA [id number] [address] [place] [address] [place] Differential cell count method Nom (Bld) Auto Normal [facility] Comment on above: Order Comment: Speci men Type: BLOOD SPECIMEN Ordering Facility: External Submitter Address: , , Performed By: #### 5 7021-8 #### [facility] CLIA [id number] [address] [place] [address] [place] Eosinophils (Bld) [#/Vol] 0.15 10*3/uL Normal <0.46 [facility] Comment on above: Order Comment: Speci men Type: BLOOD SPECIMEN Ordering Facility: External Submitter Address: , , Performed By: #### 5 7021-8 #### [facility] CLIA [id number] [address] [place] [address] [place] Eosinophils/100 WBC (Bld) 1.9 % Normal [facility] Comment on above: Order Comment: Speci men Type: BLOOD SPECIMEN Ordering Facility: External Submitter Address: , , Performed By: #### 5 7021-8 #### [facility] CLIA [id number] [address] [place] [address] [place] Erythrocyte distribution width (RBC) [Ratio] 13.5 % Normal 11.5-15.0 [facility] Comment on above: Order Comment: Speci men Type: BLOOD SPECIMEN Ordering Facility: External Submitter Address: , , Performed By: #### 5 7021-8 #### [facility] CLIA [id number] [address] [place] [address] [place] Hematocrit (Bld) [Volume fraction] 41.2 % Normal 36.0-46.0 [facility] Comment on above: Order Comment: Speci men Type: BLOOD SPECIMEN Ordering Facility: External Submitter Address: , , Performed By: #### 5 7021-8 #### [facility] CLIA [id number] [address] [place] [address] [place] Hemoglobin (Bld) [Mass/Vol] 13.8 g/dL Normal 11.5-15.5 [facility] Comment on above: Order Comment: Speci men Type: BLOOD SPECIMEN Ordering Facility: External Submitter Address: , , Performed By: #### 5 7021-8 #### [facility] CLIA [id number] [address] [place] [address] OF [facility] Immature granulocytes (Bld) [#/Vol] 10*3/uL Normal <0.10 [facility] Comment on above: Order Comment: Speci men Type: BLOOD SPECIMEN Ordering Facility: External Submitter Address: , , Performed By: #### 5 7021-8 #### [facility] CLIA [id number] [address] [place] [address] [place] Immature granulocytes/100 WBC (Bld) 0.3 % Normal [facility] Comment on above: Order Comment: Speci men Type: BLOOD SPECIMEN Ordering Facility: External Submitter Address: , , Performed By: #### 5 7021-8 #### [facility] CLIA [id number] [address] [place] [address] [place] Lymphocytes (Bld) [#/Vol] 2.15 10*3/uL Normal 1.00-4.00 [facility] Comment on above: Order Comment: Speci men Type: BLOOD SPECIMEN Ordering Facility: External Submitter Address: , , Performed By: #### 5 7021-8 #### [facility] LAB CLIA [id number] [address] [place] [address] [place] Lymphocytes/100 WBC (Bld) 27.0 % Normal [facility] Comment on above: Order Comment: Speci men Type: BLOOD SPECIMEN Ordering Facility: External Submitter Address: , , Performed By: #### 5 7021-8 #### [facility] CLIA [id number] [address] [place] [address] [place] MCH (RBC) [Entitic mass] 30.7 pg Normal 26.0-34.0 [facility] Comment on above: Order Comment: Speci men Type: BLOOD SPECIMEN Ordering Facility: External Submitter Address: , , Performed By: #### 5 7021-8 #### [facility] CLIA [id number] [address] [place] [address] [place] MCHC (RBC) [Mass/Vol] 33.5 g/dL Normal 30.5-36.0 [facility] Comment on above: Order Comment: Speci men Type: BLOOD SPECIMEN Ordering Facility: External Submitter Address: , , Performed By: #### 5 7021-8 #### [facility] CLIA [id number] [address] [place] [address] [place] MCV (RBC) [Entitic vol] 91.6 fL Normal 80.0-100.0 [facility] Comment on above: Order Comment: Speci men Type: BLOOD SPECIMEN Ordering Facility: External Submitter Address: , , Performed By: #### 5 7021-8 #### [facility] CLIA [id number] [address] [place] [address] [place] Monocytes (Bld) [#/Vol] 0.65 10*3/uL Normal <0.87 [facility] Comment on above: Order Comment: Speci men Type: BLOOD SPECIMEN Ordering Facility: External Submitter Address: , , Performed By: #### 5 7021-8 #### [facility] CLIA [id number] [address] [place] [address] [place] Monocytes/100 WBC (Bld) 8.2 % Normal [facility] Comment on above: Order Comment: Speci men Type: BLOOD SPECIMEN Ordering Facility: External Submitter Address: , , Performed By: #### 5 7021-8 #### [facility] CLIA [id number] [address] [place] [address] [place] Neutrophils (Bld) [#/Vol] 4.96 10*3/uL Normal 1.45-7.50 [facility] Comment on above: Order Comment: Speci men Type: BLOOD SPECIMEN Ordering Facility: External Submitter Address: , , Performed By: #### 5 7021-8 #### [facility] CLIA [id number] [address] [place] [address] [place] Neutrophils/100 WBC (Bld) 62.1 % Normal [facility] Comment on above: Order Comment: Speci men Type: BLOOD SPECIMEN Ordering Facility: External Submitter Address: , , Performed By: #### 5 7021-8 #### [facility] CLIA [id number] [address] [place] [address] [place] Nucleated RBC (Bld) [#/Vol] 10*3/uL Normal <0.01 [facility] Comment on above: Order Comment: Speci men Type: BLOOD SPECIMEN Ordering Facility: External Submitter Address: , , Performed By: #### 5 7021-8 #### [facility] CLIA [id number] [address] [place] [address] [place] Nucleated RBC/100 WBC (Bld) [Ratio] 0.0 /100 WBC Normal [facility] Comment on above: Order Comment: Speci men Type: BLOOD SPECIMEN Ordering Facility: External Submitter Address: , , Performed By: #### 5 7021-8 #### [facility] CLIA [id number] [address] [place] [address] [place] Platelet mean volume (Bld) [Entitic vol] 11.2 fL Normal 9.0-12.7 [facility] Comment on above: Order Comment: Speci men Type: BLOOD SPECIMEN Ordering Facility: External Submitter Address: , , Performed By: #### 5 7021-8 #### [facility] CLIA [id number] [address] [place] [address] [place] Platelets (Bld) [#/Vol] 269 10*3/uL Normal 150-400 [facility] Comment on above: Order Comment: Speci men Type: BLOOD SPECIMEN Ordering Facility: External Submitter Address: , , Performed By: #### 5 7021-8 #### [facility] CLIA [id number] [address] [place] [address] [place] RBC (Bld) [#/Vol] 4.50 10*6/uL Normal 3.90-5.20 [facility] Comment on above: Order Comment: Speci men Type: BLOOD SPECIMEN Ordering Facility: External Submitter Address: , , Performed By: #### 5 7021-8 #### [facility] CLIA [id number] [address] [place] [address] [place] WBC (Bld) [#/Vol] 7.97 10*3/uL Normal 3.70-11.00 [facility] Comment on above: Order Comment: Speci men Type: BLOOD SPECIMEN Ordering Facility: External Submitter Address: , , Performed By: #### 5 7021-8 #### [facility] CLIA [id number] [address] [place] [address] [place] MR/BMS.BPon 03-17-2024 [place] [address] OFFICE VISIT Date of Service: 03/17/24 MR#: [id number] Acct: [id number] Name: MATTI THOMAS Rep #: [id number] : 1970 Provider: Dr. 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 Accompanied by: Self Is patient in pain?: No Allergies No Known Allergies Allergy (Verified 03/17/24 09:59) Medications ???Medication ???Instructions ???Recorded ???Confirmed ???Type cholecalciferol (vitamin D3) 25 25 mcg PO DAILY 09/14/22 03/17/24 History mcg (1,000 unit) capsule varenicline 0.5 mg (11)-1 mg (42) See Rx Instructions PO PER PKG DIR 12/11/23 03/17/24 Rx tablets in a dose pack (Chantix #53 tabs Starting Month Box) aripiprazole 10 mg tablet (Abilify) 10 mg PO QHS 30 days #30 tabs 03/17/24 03/17/24 Rx buspirone 15 mg tablet 15 mg PO BID #60 tabs 03/17/24 03/17/24 Rx 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 mg PO DAILY #30 tabs 03/17/24 03/17/24 Rx sertraline 100 mg tablet 150 mg (1.5 x 100 mg) PO DAILY 30 03/17/24 03/17/24 Rx days #45 tabs trazodone 100 mg tablet 100 - 200 mg (1 - 2 x 100 mg) PO 03/17/24 03/17/24 Rx QHS PRN insomnia #60 tabs Current gender identity: female Nurse's Note: Presents to the office today for follow up. [facility] Medical History Alcohol use disorder Alcohol use disorder in remission Generalized anxiety disorder PTSD (post-traumatic stress disorder) Major depressive disorder, recurrent, severe with psychotic features Thyroid nodule Goiter Abnormal results of thyroid function studies Radial scar of right breast Anxiety and depression DDD (degenerative disc disease), lumbar Scoliosis Surgical History Hx of hysterectomy History of dilation and curettage History of excision of pilonidal cyst ( 1987) History of partial hysterectomy Status post left breast lumpectomy ( 2011) History of right breast biopsy Family History Father No problems noted. Social History household members: spouse and none Smoking Status: Current every day smoker tobacco type: cigarettes alcohol intake: current alcohol intake frequency: holidays/special occasions only details: occasional substance use type: does not use what type of physical activity do you participate in: walking frequency: 1-2 times per week HPI History of Present Illness History provided by: patient HPI: Matti Thomas is a 53 year old female who presents today for follow up evaluation. Patient plans to visit brother in [place] at the end of the month. Patient reports that medication has been working great. Feels like disulfiram is working very well for alcohol cravings and drinking. Has not drank at all since last appointment. Went to a concert last on Saturday and was able to enjoy without drinking. Admits to having a history of thyroid disease, and is feeling like she has in the past when she was hyperthyroid. For the last several days has been having some more anxiety and chest pain. Feels like she has a mild tremor and a reduced appetite. Feels restless. About a year or so ago had similar symptoms which caused her to call an ambulance. She doesn't know that these are psychosomatic or thyroid related. Follows with Rebecca Zacarias at [facility] but has not seen in quite a while. Denies SI/HI or AVH. Review of Systems Constitutional Reports: change in sleep pattern; Denies: fever(s), chills, change in weight or fatigue Eyes Denies: change in vision or blurry vision Ears, Nose, Mouth, Throat Denies: throat pain, neck pain or change in hearing Cardiovascular Reports: chest pain; Denies: palpitations Respiratory Denies: cough or wheezing Gastrointestinal Reports: diarrhea and constipation; Denies: abdominal pain, nausea or vomiting Genitourinary Denies: dysuria or urinary frequency Musculoskeletal Denies: neck pain, joint pain or muscle weakness Integumentary/Breast Denies: rash or new lesions Neurological Reports: other (some mild low grade tremor); Denies: headache(s), dizziness or confusion Endocrine Denies: fatigue or excessive sweating Hematologic/Lymphatic Denies: easy bruising or easy bleeding Allergic/Immunologic Denies: wheezing Exam Mental Status Exam - Psych Appearance well kempt Attitude cooperative and engaged Activity/Motor Behavior MSE act (more content not included)... Normal [facility] T3Free SerPl-mCncon 03-17-20 24 Free T3 [Mass/Vol] 3.7 pg/mL Normal 2.3-4.1 [facility] Comment on above: Order Comment: Speci men Type: BLOOD SPECIMEN Ordering Facility: External Submitter Address: , , Performed By: #### 3 024-7, 3016-3, 305-0 #### [facility] CLIA [id number] [address] [place] [address] [place] T4 Free SerPl-mCncon 024 Free T4 [Mass/Vol] 1.6 ng/dL Normal 0.9-1.7 [facility] Comment on above: Order Comment: Vincent alfred Type: BLOOD SPECIMEN Ordering Facility: External Submitter Address: , , Performed By: #### 3 024-7, 3016-3, 305-0 #### [facility] CLIA [id number] [address] [place] [address] [place] TSH SerPl-aCncon 03-17-2024 TSH Qn 0.414 m[IU]/L Normal 0.270-4.20 0 [facility] Comment on above: Order Comment: Vincent men Type: BLOOD SPECIMEN Ordering Facility: External Submitter Address: , , Performed By: #### 3 024-7, 3016-3, 305-0 #### [facility] CLIA [id number] [address] [place] [address] [place] MR/BMS.BPon 02-11-2024 MR/BMS.BP [address], [place] [id number] OFFICE VISIT Date of Service: 02/11/24 MR#: [id number] Acct: [id number] Name: MATTI THOMAS Rep #: [id number] : 1970 Provider: Dr. 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: No Accompanied by: Self Is patient in pain?: No Allergies No Known Allergies Allergy (Verified 02/11/24 10:09) Medications ???Medication ???Instructions ???Recorded ???Confirmed ???Type cholecalciferol (vitamin D3) 25 25 mcg PO DAILY 09/14/22 02/11/24 History mcg (1,000 unit) capsule varenicline 0.5 mg (11)-1 mg (42) See Rx Instructions PO PER PKG DIR 12/11/23 02/11/24 Rx tablets in a dose pack (Chantix #53 tabs Starting Month Box) aripiprazole 10 mg tablet (Abilify) 10 mg PO QHS 30 days #30 tabs 02/11/24 02/11/24 Rx buspirone 15 mg tablet 15 mg PO BID #60 tabs 02/11/24 02/11/24 Rx 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 mg PO DAILY #30 tabs 02/11/24 02/11/24 Rx sertraline 100 mg tablet 150 mg (1.5 x 100 mg) PO DAILY 30 02/11/24 02/11/24 Rx days #45 tabs trazodone 100 mg tablet 100 - 200 mg (1 - 2 x 100 mg) PO 02/11/24 02/11/24 Rx QHS PRN insomnia #60 tabs Current gender identity: female Nurse's Note: Presents to the office today for follow up. [facility] Medical History Abnormal results of thyroid function studies Alcohol use disorder Alcohol use disorder in remission Anxiety and depression DDD (degenerative disc disease), lumbar Generalized anxiety disorder Goiter Major depressive disorder, recurrent, severe with psychotic features PTSD (post-traumatic stress disorder) Radial scar of right breast Scoliosis Thyroid nodule Surgical History History of dilation and curettage History of excision of pilonidal cyst ( 1987) History of partial hysterectomy History of right breast biopsy Hx of hysterectomy Status post left breast lumpectomy ( 2011) Family History Father No problems noted. Social History household members: spouse and none Smoking Status: Current every day smoker tobacco type: cigarettes alcohol intake: current alcohol intake frequency: holidays/special occasions only details: occasional substance use type: does not use what type of physical activity do you participate in: walking frequency: 1-2 times per week HPI History of Present Illness History provided by: patient HPI: Matti Thomas is a 53 year old female who presents today for follow up evaluation. Patient admits that she has been struggling. Feels like she has been more anxious and depressed than she had been. Mother's health has been failing which is adding to stress. Has been having urge to drink and feels like acamprosate is not working. Did drink most recently 3 beers about a month or so ago. Is interested in trialing disulfiram. Denies SI/HI or AVH. Review of Systems Constitutional Reports: change in sleep pattern; Denies: fever(s), chills, change in weight or fatigue Eyes Denies: change in vision or blurry vision Ears, Nose, Mouth, Throat Denies: throat pain, neck pain or change in hearing Cardiovascular Denies: chest pain or palpitations Respiratory Denies: cough or wheezing Gastrointestinal Reports: diarrhea and constipation; Denies: abdominal pain, nausea or vomiting Genitourinary Denies: dysuria or urinary frequency Musculoskeletal Denies: neck pain, joint pain or muscle weakness Integumentary/Breast Denies: rash or new lesions Neurological Denies: headache(s), dizziness or confusion Endocrine Denies: fatigue or excessive sweating Hematologic/Lymphatic Denies: easy bruising or easy bleeding Allergic/Immunologic Denies: wheezing Exam Mental Status Exam - Psych Appearance well kempt Attitude cooperative and engaged Activity/Motor Behavior MSE activity/motor behavior finding no adventitious movements Speech regular rate, regular volume and regular prosody Mood anxious Affect restricted Thought Process linear, logical and coherent Thought Content no delusions and no hallucinations Suicidal Ideation none Homicidal Ideation none Attention intact Concentration intact Sensorium/Orientation awake, alert and oriented x3 Memory/Cognition other (appropriate for stated age) Insight fair Judgement fair Assessme (more content not included)... Normal [facility] CNOVon 09-19-2023 CNOV Office Visit (AKURFL ) MATTI THOMAS ([id number]) 1970 [address] [facility] Date Time Provider Department 09/19/23 2:00 PM SHAHAB DUNLAP JR During your visit today, we recorded the following information about you: Pulse Blood pressure 78/minute 132/88 Shahab Dunlap Jr., MD 09/19/2023 2:21 PM Signed CYSTOSCOPY PROCEDURE NOTE: Matti Thomas is a 53 year old female who presents with hematuria gross for a cystoscopy. Pt ID verified with patient: Yes Fire risk assessment done Procedure verified with patient: Yes Procedure confirmed with physician and practice support specialist: Yes UNIVERSAL PROTOCOL / SAFETY CHECKLIST Procedure to be Performed: cystoscopy Sign In: A Moment of CARE was completed. Personnel directly involved with the procedure wore the appropriate PPE (Personal Protective Equipment). Patient/Surrogate Stated/Verified: PATIENT VERIFIED(optional for EMERGENT procedures): Patient name, Date of , Relevant allergies, and The intended procedure Time Out Communication: Intended patient and procedure match the source documents. Consent documented and matches the intended procedure. Sign Out: SIGN OUT (optional for EMERGENT procedures): No specimen collected. Shahab Dunlap Jr, MD Pre procedure dx: gross hematuria Post procedure dx: same A urinalysis was performed revealing no evidence of infection. The benefits, risks, alternatives of the cystoscopy procedure and personnel were discussed with the patient. The verbal consent was obtained and the patient agrees to proceed. Female staff present for entire exam/procedure. Procedure: The patient was placed on the procedure table in the supine position and prepped and draped in the usual sterile fashion. 2% Lidocaine Jelly was placed per urethra as an anesthetic in the standard fashion. Once adequate local anesthesia was achieved, the tip of the flexible cystoscope was carefully placed into the urethra under direct visual guidance. The scope was negotiated per urethra with no evidence of stricture into the bladder. Careful chen endoscopy was carried out. The posterior, superior and lateral matias and dome of the bladder were all well visualized and the scope was retroflexed upon itself. The findings were consistent with no evidence of bladder mucosal pathology. At the conclusion of the procedure, the flexible cystoscope was removed atraumatically. The patient tolerated the procedure without complications. Patient was given standard post-procedure instructions, and was directed to complete the course of oral antibiotics and increase oral fluid intake as directed. ASSESSMENT/PLAN: Richy cordova neg prn Shahab Dunlap Jr, MD Allergies As of Date: 09/19/2023 Noted Allergy Reaction CEFDINIR 08/20/2023 4 - Hives METHYLPREDNISOLONE 10/11/2022 2 - Rash Comments: Skin became reddened and felt like it was on fire Date Reviewed: 09/19/2023 Reviewed by: Shahab Dunlap Jr., MD - Fully Assessed Reason for Visit: Cystoscopy-1 [303] Primary Visit Diagnosis:Gross hematuria [R31.0] Order(s):[] ciprofloxacin HCl 500 mg tab(s) (CIPRO)Disp: Rfl: UA DIP, URINE (POC) [[id number]] Order #: [id number] #:[id number] [] lidocaine urojet 2 % 6 mL topical gel (GLYDO)Disp: Rfl: Prescriptions as of 09/19/2023 - ARIPiprazole (ABILIFY) 5 mg tablet Take 1 tablet by mouth every afternoon. - sertraline (ZOLOFT) 50 mg tablet Take 50 mg by mouth daily at bedtime. - iv contrast (will be provided with radiology test) CT Urogram WO/W Inject, intravenously, once for 1 dose.No IV access, insert saline lock prior to the beginning of sedation, infusion, injection of imaging exam. Discontinue saline lock post exam. If Pt. has a central line or IVAD, may access for administration according to line specific nursing protocol. Once exam is complete flush line and de-access according to line specific nursing protocol in the CT contrast administration guidelines link. - 0.9 % sodium chloride (NACL 0.9%) infusion Inject 150 mL/hr intravenously one time only for 1 dose. Administer at rate defined per CT contrast administration specifications. To be provided with radiology test. - famotidine (PEPCID) 20 mg tablet Take by mouth. - hydrOXYzine pamoate (VISTARIL) 25 mg capsule Take one Capsule By Oral Route three times a day as needed. - traZODone (DESYREL) 50 mg tablet take 1/2 tablet to 1 tablet by mouth as needed for sleep - nicotine (NICODERM) 21 mg/24 hr Apply 1 Patch as directed once daily. - busPIRone (BUSPAR) 15 mg tablet Take 1 Tablet By Oral Route 2 times per day - omeprazole (PRILOSEC) 40 mg capsule Take 1 capsule by mouth once daily. - methylcellulose, with sugar, (CITRUCEL, SUCROSE,) oral powder Follow instructions on label. - cholecalciferol, vitamin D3, (VITAMIN D3 ORAL) Take 1,000 mg by (more content not included)... Normal [facility] CT UROGRAM WO/W IVCONon - CT UROGRAM WO/W IVCON * * *Final Report* * * DATE OF EXAM: Sep 18 2023 2:31PM [facility] 0560 - CT UROGRAM WO/W IVCON / PROCEDURE REASON: Gross hematuria * * * * Physician Interpretation * * * * EXAMINATION: CT ABDOMEN AND PELVIS WITHOUT AND WITH IV CONTRAST, INCLUDING EXCRETORY PHASE IMAGING (CT UROGRAM) 3D RECONSTRUCTIONS CLINICAL HISTORY: Gross hematuria. TECHNIQUE: CT urogram protocol including unenhanced, renal parenchymal phase and excretory phase renal imaging was obtained following IV contrast. Normal saline was also administered IV. No oral contrast was given. 3D image post-processing was performed and archived at the request of the referring physician, on the CT scanner workstation without concurrent physician supervision. MQ: CTU_2 Contrast: IV: 133 ml of Omnipaque 300 IV Saline: 133 ml of 0.9% NACL Solution Oral Contrast: None CT Radiation dose: Integrated dose-length product (DLP) for this visit = 921 mGy*cm. CT Dose Reduction Employed: Automated exposure control(AEC) and iterative recon COMPARISON: None. RESULT: Kidneys and urinary tract: Right: Fat-containing 8 mm interpolar right renal mass. No stone disease. Equivocal 2-3 mm mid right ureteral calculus. The opacified calices, renal pelvis and ureter are normal without dilation, filling defect, or stricture. Left: There are no renal calculi or masses. The opacified calices, renal pelvis and ureter are normal without dilation, filling defect, or stricture. Bladder: No filling defect, calculus, focal or diffuse wall thickening. Abdomen and Pelvis: Liver: No mass. Biliary: No bile duct dilation. Spleen: No mass. No splenomegaly. Pancreas: No mass or duct dilation. Adrenals: No mass. GI tract: No dilation or wall thickening. Normal appendix Lymph nodes: No abdominal or pelvic lymphadenopathy. Mesentery/Peritoneum: No ascites or mass. Retroperitoneum: No mass. Vasculature: Atherosclerotic changes of the aorta and major branches. No aneurysm is identified. Pelvis: No mass, ascites or fluid collection. Bones and Soft Tissues: Degenerative changes. Lower thorax: Unremarkable. Geriatric Social Worker (topogram) images: Unremarkable. IMPRESSION: 2-3 mm equivocal nonobstructing mid right ureteral calculus. Tiny angiomyolipoma right renal cortex. Loop Tender: PSCB Transcribe Date/Time: Sep 18 2023 2:45P Dictated by : MENDY BARROW MD This examination was interpreted and the report reviewed and electronically signed by: MENDY BARROW MD on Sep 18 2023 2:49PM EST [id number] Normal [facility] 08-26-2023 [facility] Telephone (UROLWS) MATTI THOMAS ([id number]) 1970 [address] [facility] Date Time Provider Department 08/26/23 NICK JESUS During your visit today, we recorded the following information about you: Lorena Dunn LPN 08/26/2023 8:31 AM Signed ----- Message from Nick Jesus PA-C sent at 08/23/2023 6:58 PM EST ----- No infection in the urine No cancer cells in urine, please continue the rest of the testing Nick Jesus, [place], [place], Lorena [place] LPN 08/26/2023 8:33 AM Signed Called patient. Verified name and date of . Informed- verbalizes understanding. Lorena Dunn LPN Allergies As of Date: 08/26/2023 Noted Allergy Reaction CEFDINIR 08/20/2023 4 - Hives METHYLPREDNISOLONE 10/11/2022 2 - Rash Comments: Skin became reddened and felt like it was on fire Date Reviewed: 08/20/2023 Reviewed by: Zoey Chandler, DAWNA - Fully Assessed Reason for Visit: Results [95] Prescriptions as of 08/26/2023 - ARIPiprazole (ABILIFY) 5 mg tablet Take 1 tablet by mouth every afternoon. - sertraline (ZOLOFT) 50 mg tablet Take 50 mg by mouth daily at bedtime. - iv contrast (will be provided with radiology test) CT Urogram WO/W Inject, intravenously, once for 1 dose.No IV access, insert saline lock prior to the beginning of sedation, infusion, injection of imaging exam. Discontinue saline lock post exam. If Pt. has a central line or IVAD, may access for administration according to line specific nursing protocol. Once exam is complete flush line and de-access according to line specific nursing protocol in the CT contrast administration guidelines link. - 0.9 % sodium chloride (NACL 0.9%) infusion Inject 150 mL/hr intravenously one time only for 1 dose. Administer at rate defined per CT contrast administration specifications. To be provided with radiology test. - famotidine (PEPCID) 20 mg tablet Take by mouth. - hydrOXYzine pamoate (VISTARIL) 25 mg capsule Take one Capsule By Oral Route three times a day as needed. - traZODone (DESYREL) 50 mg tablet take 1/2 tablet to 1 tablet by mouth as needed for sleep - nicotine (NICODERM) 21 mg/24 hr Apply 1 Patch as directed once daily. - busPIRone (BUSPAR) 15 mg tablet Take 1 Tablet By Oral Route 2 times per day - omeprazole (PRILOSEC) 40 mg capsule Take 1 capsule by mouth once daily. - methylcellulose, with sugar, (CITRUCEL, SUCROSE,) oral powder Follow instructions on label. - cholecalciferol, vitamin D3, (VITAMIN D3 ORAL) Take 1,000 mg by mouth once daily. - cephALEXin (KEFLEX) 500 mg capsule Take 500 mg by mouth four times daily. - propranolol (INDERAL) 20 mg tablet Take 20 mg by mouth three times daily. - FLUoxetine HCl 20 mg tablet Take 1 Tablet orally once per Day for 30 Days - naproxen (NAPROSYN) 500 mg tablet - cyclobenzaprine (FLEXERIL) 10 mg tablet Take 10 mg by mouth three times daily as needed. - DAILY MULTIVITAMIN TAB Take one(1) tablet daily. Problem List As Of Date 08/26/2023 Noted Resolved LUMBAGO [M54.50] 05/20/2006 SCIATICA [M54.30] 10/17/2006 LUMBAR DISC DISPLACEMENT [M51.26] 01/06/2008 Excessive or Frequent Menstruation [N92.0] 05/31/2010 Dysmenorrhea [N94.6] 05/31/2010 Dyspareunia [ESR5798] 05/31/2010 Symptomatic Menopausal or Female Climacteric St*05/31/2010 Depressive Disorder, not Elsewhere Classified [*05/31/2010 Anxiety State, Unspecified [F41.1] 05/31/2010 Breast Screening, Unspecified [Z12.39] 05/31/2010 Premenstrual Tension Syndromes [N94.3] 05/31/2010 Irregular menstrual cycle [N92.6] 09/25/2011 Abnormal mammogram, unspecified [R92.8] 10/12/2011 Lobular carcinoma in situ [D05.00] 10/18/2011 Sebaceous cyst [L72.3] 07/24/2012 Seborrheic keratoses [L82.1] 12/26/2015 Endometrial polyp [N84.0] 03/19/2016 Degeneration of lumbar or lumbosacral intervert*08/21/2019 Dysphagia [R13.10] 02/21/2023 Crook's esophagus with dysplasia [K22.719] 02/21/2023 Encounter Status:Closed by LORENA DUNN LPN on 08/26/23 Normal [facility] CREATININE BLMichele 08-23-2023 Creatinine [Mass/Vol] 0.82 mg/dL Normal 0.58-0.96 [facility] Comment on above: Order Comment: Speci men Type: BLOOD SPECIMEN Ordering Facility: External Submitter Address: , , Performed By: #### 3 599-7, 2716-3, 7171-0 #### [facility] CLIA [id number] [address] [id number] [place] Creatinine and Glomerular filtration rate.predicted panel (S/P/Bld) 86 mL/min/1.73m??? Normal >=60 [facility] Comment on above: Order Comment: Speci men Type: BLOOD SPECIMEN Ordering Facility: External Submitter Address: , , Result Comment: Ivana mated Glomerular Filtration Rate (eGFR) is calculated using the 2020 CKD-EPI creatinine equation. This equation utilizes serum creatinine, sex, and age as parameters. The creatinine assay has traceable calibration to isotope dilution-mass spectrometry. Refer to KDIGO guidelines for clinical interpretation. In patients with unstable renal function, e.g. those with acute kidney injury, the eGFR may not accurately reflect actual GFR. Performed By: #### 3 024-7, 3016-3, 3051-0 #### [facility] CLIA [id number] [address] [id number] [place] Tsering 08-21-2023 CNPN Telephone (AKURFL) MATTI THOMAS ([id number]) 1970 [address] [facility] Date Time Provider Department 08/21/23 SHAHAB DUNLAP JR AKURF During your visit today, we recorded the following information about you: Diana Forbes 08/21/2023 9:00 AM Signed Pt confirmed cysto with Dr. Dunlap in [facility] 09/19/23 @ 2:[address] prior 09/03. Ref by Krysta Martinez Allergies As of Date: 08/21/2023 Noted Allergy Reaction CEFDINIR 08/20/2023 4 - Hives METHYLPREDNISOLONE 10/11/2022 2 - Rash Comments: Skin became reddened and felt like it was on fire Date Reviewed: 08/20/2023 Reviewed by: Zoey Chandler, DAWNA - Fully Assessed Reason for Visit: Appointment [186] Prescriptions as of 08/21/2023 - ARIPiprazole (ABILIFY) 5 mg tablet Take 1 tablet by mouth every afternoon. - sertraline (ZOLOFT) 50 mg tablet Take 50 mg by mouth daily at bedtime. - iv contrast (will be provided with radiology test) CT Urogram WO/W Inject, intravenously, once for 1 dose.No IV access, insert saline lock prior to the beginning of sedation, infusion, injection of imaging exam. Discontinue saline lock post exam. If Pt. has a central line or IVAD, may access for administration according to line specific nursing protocol. Once exam is complete flush line and de-access according to line specific nursing protocol in the CT contrast administration guidelines link. - 0.9 % sodium chloride (NACL 0.9%) infusion Inject 150 mL/hr intravenously one time only for 1 dose. Administer at rate defined per CT contrast administration specifications. To be provided with radiology test. - famotidine (PEPCID) 20 mg tablet Take by mouth. - hydrOXYzine pamoate (VISTARIL) 25 mg capsule Take one Capsule By Oral Route three times a day as needed. - traZODone (DESYREL) 50 mg tablet take 1/2 tablet to 1 tablet by mouth as needed for sleep - nicotine (NICODERM) 21 mg/24 hr Apply 1 Patch as directed once daily. - busPIRone (BUSPAR) 15 mg tablet Take 1 Tablet By Oral Route 2 times per day - omeprazole (PRILOSEC) 40 mg capsule Take 1 capsule by mouth once daily. - methylcellulose, with sugar, (CITRUCEL, SUCROSE,) oral powder Follow instructions on label. - cholecalciferol, vitamin D3, (VITAMIN D3 ORAL) Take 1,000 mg by mouth once daily. - cephALEXin (KEFLEX) 500 mg capsule Take 500 mg by mouth four times daily. - propranolol (INDERAL) 20 mg tablet Take 20 mg by mouth three times daily. - FLUoxetine HCl 20 mg tablet Take 1 Tablet orally once per Day for 30 Days - naproxen (NAPROSYN) 500 mg tablet - cyclobenzaprine (FLEXERIL) 10 mg tablet Take 10 mg by mouth three times daily as needed. - DAILY MULTIVITAMIN TAB Take one(1) tablet daily. Problem List As Of Date 08/21/2023 Noted Resolved LUMBAGO [M54.50] 05/20/2006 SCIATICA [M54.30] 10/17/2006 LUMBAR DISC DISPLACEMENT [M51.26] 01/06/2008 Excessive or Frequent Menstruation [N92.0] 05/31/2010 Dysmenorrhea [N94.6] 05/31/2010 Dyspareunia [GPW2318] 05/31/2010 Symptomatic Menopausal or Female Climacteric St*05/31/2010 Depressive Disorder, not Elsewhere Classified [*05/31/2010 Anxiety State, Unspecified [F41.1] 05/31/2010 Breast Screening, Unspecified [Z12.39] 05/31/2010 Premenstrual Tension Syndromes [N94.3] 05/31/2010 Irregular menstrual cycle [N92.6] 09/25/2011 Abnormal mammogram, unspecified [R92.8] 10/12/2011 Lobular carcinoma in situ [D05.00] 10/18/2011 Sebaceous cyst [L72.3] 07/24/2012 Seborrheic keratoses [L82.1] 12/26/2015 Endometrial polyp [N84.0] 03/19/2016 Degeneration of lumbar or lumbosacral intervert*08/21/2019 Dysphagia [R13.10] 02/21/2023 Crook's esophagus with dysplasia [K22.719] 02/21/2023 Encounter Status:Closed by DIANA FORBES on 08/21/23 Normal [facility] CYTOLOGY NON-GYNon CASE REPORT Normal [facility] Comment on above: Order Comment: Speci men Type: FLUID SPECIMEN Ordering Facility: [facility] Address: [address] [place] [id number] Result Comment: [facility] Cytology Report Case: [id number] Authorizing Provider: Nick Jesus PA-C Collected: 08/21/2023 11:50 AM Ordering Location: Urology Received: 08/21/2023 01:59 PM Pathologist: David Hernandez MD Specimen: URINE VOIDED Performed By: #### C YTONON #### [facility] CLIA [id number] [address] [place] [address] [place] CLINICAL HISTORY Gross Hematuria Normal [facility] Comment on above: Order Comment: Speci men Type: FLUID SPECIMEN Ordering Facility: [facility] Address: [address] [place] [address] Performed By: #### C YTONON #### [facility] CLIA [id number] [address] [place] [address] [place] FINAL DIAGNOSIS Normal [facility] Comment on above: Order Comment: Speci men Type: FLUID SPECIMEN Ordering Facility: [facility] Address: [address] [place] [address] Result Comment: A - URINE VOIDED Negative for high-grade urothelial carcinoma. Acute inflammation Performed By: #### C YTONON #### [facility] CLIA [id number] [address] [place] [address] [place] FINAL PERFORMING LAB Normal [facility] Comment on above: Order Comment: Speci men Type: FLUID SPECIMEN Ordering Facility: [facility] Address: [address] [place] [address] Result Comment: Tech nical component, radiographer technologist screening performed at [facility], [address] [place], [place] [id number] CLIA# [id number] Diagnostic interpretation performed at [facility], [address] [place], [place] [id number] CLIA# [id number] Cotton Roll Packer: Alberto Samayoa M.D. Performed By: #### C YTONON #### [facility] CLIA [id number] [address] [place] [address] [place] GROSS DESCRIPTION A. URINE VOIDED Normal [facility] Comment on above: Order Comment: Speci men Type: FLUID SPECIMEN Ordering Facility: [facility] Address: [address] [place] [address] Result Comment: 8 cc hazy yellow fluid. ThinPrep prepared. Performed By: #### C YTONON #### [facility] CLIA [id number] [address] [place] [address] [place] Bacteria Ur Culton 3 Bacteria identified Cx Nom (U) CULTURE, URINE: No growth (<1,000 CFU/ml) Normal [facility] Comment on above: Performed By: #### 3 024-7, 3016-3, 3051-0 #### [facility] CLIA [id number] [address] [place] [address] [place] CNOVon 08-20-2023 CNOV Office Visit (UROLWS ) MATTI THOMAS ([id number]) 1970 F T Date Time Provider Department 08/20/23 4:00 PM NICK JESUS During your visit today, we recorded the following information about you: Weight 64.9 kg Nick Jesus PA-C 08/21/2023 9:57 AM Signed [facility] TIERRA AMARILLA FOR [facility] NEW PATIENT CLINIC NOTE SERVICE DATE: 08/20/2023 SERVICE TIME: 4:55 PM NAME: Matti Thomas CHIEF COMPLAINT: HISTORY OF PRESENT ILLNESS: Matti Thomas is a 53 year old female presenting as an New Patient for Gross Hematuria The patient reports she has had a few episodes of Gross Hematuria, and has a known E coli UTI recently as well, however the UTI was treated with antimitotic and had cleared, But still having gross hematuria We discussed the need for full hematuria workup due to the Gross Blood in the urine. These tests and procedures will be ordered today. LUTS: DYSURIA: yes URGENCY: Yes FREQUENCY:6 per day NOCTURIA: 3 per night STRAINING TO VOID: No EMPTIES COMPLETELY: Yes UTI: 2 past 12 months GROSS HEMATURIA: yes UA DIPSTICK POSITIVE ONLY: no Other symptoms: LABS: No results found for: TESTOST No results found for: TESTFREE No results found for: PSA Hematocrit (%) Date Value 07/04/2023 38.1 11/08/2022 42.1 02/16/2022 42.1 06/18/2018 44.0 03/19/2016 39.7 01/05/2016 39.4 No results found for: PSA Creatinine Date Value Ref Range Status 07/04/2023 0.67 0.58 - 0.96 mg/dL Final 11/08/2022 0.84 0.58 - 0.96 mg/dL Final 09/12/2022 0.70 0.58 - 0.96 mg/dL Final 02/16/2022 0.73 0.58 - 0.96 mg/dL Final MEDICATIONS: ARIPiprazole (ABILIFY) 5 mg tablet Take 1 tablet by mouth every afternoon. sertraline (ZOLOFT) 50 mg tablet Take 50 mg by mouth daily at bedtime. traZODone (DESYREL) 50 mg tablet take 1/2 tablet to 1 tablet by mouth as needed for sleep cholecalciferol, vitamin D3, (VITAMIN D3 ORAL) Take 1,000 mg by mouth once daily. naproxen (NAPROSYN) 500 mg tablet iv contrast (will be provided with radiology test) CT Urogram WO/W Inject, intravenously, once for 1 dose.No IV access, insert saline lock prior to the beginning of sedation, infusion, injection of imaging exam. Discontinue saline lock post exam. If Pt. has a central line or IVAD, may access for administration according to line specific nursing protocol. Once exam is complete flush line and de-access according to line specific nursing protocol in the CT contrast administration guidelines link. 0.9 % sodium chloride (NACL 0.9%) infusion Inject 150 mL/hr intravenously one time only for 1 dose. Administer at rate defined per CT contrast administration specifications. To be provided with radiology test. famotidine (PEPCID) 20 mg tablet Take by mouth. (Patient not taking: Reported on 08/20/2023) hydrOXYzine pamoate (VISTARIL) 25 mg capsule Take one Capsule By Oral Route three times a day as needed. nicotine (NICODERM) 21 mg/24 hr Apply 1 Patch as directed once daily. busPIRone (BUSPAR) 15 mg tablet Take 1 Tablet By Oral Route 2 times per day omeprazole (PRILOSEC) 40 mg capsule Take 1 capsule by mouth once daily. methylcellulose, with sugar, (CITRUCEL, SUCROSE,) oral powder Follow instructions on label. cephALEXin (KEFLEX) 500 mg capsule Take 500 mg by mouth four times daily. (Patient not taking: Reported on 08/20/2023) propranolol (INDERAL) 20 mg tablet Take 20 mg by mouth three times daily. FLUoxetine HCl 20 mg tablet Take 1 Tablet orally once per Day for 30 Days (Patient not taking: Reported on 08/20/2023) cyclobenzaprine (FLEXERIL) 10 mg tablet Take 10 mg by mouth three times daily as needed. DAILY MULTIVITAMIN TAB Take one(1) tablet daily. 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 Marco Antonio CALLE ABD PRTMANDOMENTUM DX W/WO SPEC BR/WA SPX 2003 (more content not included)... Normal [facility] CBC W Auto Differential pane l (Bld)on 07-04-2023 Basophils (Bld) [#/Vol] 0.03 10*3/uL Normal <0.11 [facility] Comment on above: Order Comment: Speci men Type: BLOOD SPECIMEN Ordering Facility: [facility] Address: [address] [place] [address] Performed By: #### 5 7021-8 #### [facility] CLIA [id number] [address] [place] [address] [place] Basophils/100 WBC (Bld) 0.3 % Normal [facility] Comment on above: Order Comment: Speci men Type: BLOOD SPECIMEN Ordering Facility: [facility] Address: [address] [place] [address] Performed By: #### 5 7021-8 #### [facility] CLIA [id number] [address] [place] [address] [place] Differential cell count method Nom (Bld) Auto Normal [facility] Comment on above: Order Comment: Speci men Type: BLOOD SPECIMEN Ordering Facility: [facility] Address: [address] [place] [address] Performed By: #### 5 7021-8 #### [facility] CLIA [id number] [address] [place] [address] [place] Eosinophils (Bld) [#/Vol] 0.09 10*3/uL Normal <0.46 [facility] Comment on above: Order Comment: Speci men Type: BLOOD SPECIMEN Ordering Facility: [facility] Address: [address] [place] [address] Performed By: #### 5 7021-8 #### [facility] CLIA [id number] [address] [place] [address] [place] Eosinophils/100 WBC (Bld) 1.0 % Normal [facility] Comment on above: Order Comment: Speci men Type: BLOOD SPECIMEN Ordering Facility: [facility] Address: [address] [place] [address] Performed By: #### 5 7021-8 #### [facility] CLIA [id number] [address] [place] [address] [place] Erythrocyte distribution width (RBC) [Ratio] 14.6 % Normal 11.5-15.0 [facility] Comment on above: Order Comment: Speci men Type: BLOOD SPECIMEN Ordering Facility: [facility] Address: [address] [place] [address] Performed By: #### 5 7021-8 #### [facility] CLIA [id number] [address] [place] [address] [place] Hematocrit (Bld) [Volume fraction] 38.1 % Normal 36.0-46.0 [facility] Comment on above: Order Comment: Speci men Type: BLOOD SPECIMEN Ordering Facility: [facility] Address: [address] [place] [address] Performed By: #### 5 7021-8 #### [facility] CLIA [id number] [address] [place] [address] [place] Hemoglobin (Bld) [Mass/Vol] 12.3 g/dL Normal 11.5-15.5 [facility] Comment on above: Order Comment: Speci men Type: BLOOD SPECIMEN Ordering Facility: [facility] Address: [address] [place] [address] Performed By: #### 5 7021-8 #### [facility] CLIA [id number] [address] [place] [address] [place] Immature granulocytes (Bld) [#/Vol] 0.03 10*3/uL Normal <0.10 [facility] Comment on above: Order Comment: Speci men Type: BLOOD SPECIMEN Ordering Facility: [facility] Address: [address] [place] [address] Performed By: #### 5 7021-8 #### [facility] CLIA [id number] [address] [place] [address] [place] Immature granulocytes/100 WBC (Bld) 0.3 % Normal [facility] Comment on above: Order Comment: Speci men Type: BLOOD SPECIMEN Ordering Facility: [facility] Address: [address] [place] [address] Performed By: #### 5 7021-8 #### [facility] CLIA [id number] [address] [place] [address] [place] Lymphocytes (Bld) [#/Vol] 1.43 10*3/uL Normal 1.00-4.00 [facility] Comment on above: Order Comment: Speci men Type: BLOOD SPECIMEN Ordering Facility: [facility] Address: [address] [place] [address] Performed By: #### 5 7021-8 #### [facility] CLIA [id number] [address] [place] [address] [place] Lymphocytes/100 WBC (Bld) 16.3 % Normal [facility] Comment on above: Order Comment: Speci men Type: BLOOD SPECIMEN Ordering Facility: [facility] Address: [address] [place] [address] Performed By: #### 5 7021-8 #### [facility] CLIA [id number] [address] [place] [address] [place] MCH (RBC) [Entitic mass] 30.4 pg Normal 26.0-34.0 [facility] Comment on above: Order Comment: Speci men Type: BLOOD SPECIMEN Ordering Facility: [facility] Address: [address] [place] [address] Performed By: #### 5 7021-8 #### [facility] CLIA [id number] [address] [place] [address] [place] MCHC (RBC) [Mass/Vol] 32.3 g/dL Normal 30.5-36.0 [facility] Comment on above: Order Comment: Speci men Type: BLOOD SPECIMEN Ordering Facility: [facility] Address: [address] [place] [address] Performed By: #### 5 7021-8 #### [facility] CLIA [id number] [address] [place] [address] [place] MCV (RBC) [Entitic vol] 94.1 fL Normal 80.0-100.0 [facility] Comment on above: Order Comment: Speci men Type: BLOOD SPECIMEN Ordering Facility: [facility] Address: [address] [place] [address] Performed By: #### 5 7021-8 #### [facility] CLIA [id number] [address] [place] [address] [place] Monocytes (Bld) [#/Vol] 0.78 10*3/uL Normal <0.87 [facility] Comment on above: Order Comment: Speci men Type: BLOOD SPECIMEN Ordering Facility: [facility] Address: [address] [place] [address] Performed By: #### 5 7021-8 #### [facility] CLIA [id number] [address] [place] [address] [place] Monocytes/100 WBC (Bld) 8.9 % Normal [facility] Comment on above: Order Comment: Speci men Type: BLOOD SPECIMEN Ordering Facility: [facility] Address: [address] [place] [address] Performed By: #### 5 7021-8 #### [facility] CLIA [id number] [address] [place] [address] [place] Neutrophils (Bld) [#/Vol] 6.43 10*3/uL Normal 1.45-7.50 [facility] Comment on above: Order Comment: Speci men Type: BLOOD SPECIMEN Ordering Facility: [facility] Address: [address] [place] [address] Performed By: #### 5 7021-8 #### [facility] CLIA [id number] [address] [place] [address] [place] Neutrophils/100 WBC (Bld) 73.2 % Normal [facility] Comment on above: Order Comment: Speci men Type: BLOOD SPECIMEN Ordering Facility: [facility] Address: [address] [place] [address] Performed By: #### 5 7021-8 #### [facility] CLIA [id number] [address] [place] [address] [place] Nucleated RBC (Bld) [#/Vol] 10*3/uL Normal <0.01 [facility] Comment on above: Order Comment: Speci men Type: BLOOD SPECIMEN Ordering Facility: [facility] Address: [address] [place] [address] Performed By: #### 5 7021-8 #### [facility] CLIA [id number] [address] [place] [address] [place] Nucleated RBC/100 WBC (Bld) [Ratio] 0.0 /100 WBC Normal [facility] Comment on above: Order Comment: Speci men Type: BLOOD SPECIMEN Ordering Facility: [facility] Address: [address] [place] [address] Performed By: #### 5 7021-8 #### [facility] CLIA [id number] [address] [place] [address] [place] Platelet mean volume (Bld) [Entitic vol] 10.6 fL Normal 9.0-12.7 [facility] [facility] Comment on above: Order Comment: Speci men Type: BLOOD SPECIMEN Ordering Facility: [facility] Address: [address] [place] [address] Performed By: #### 5 7021-8 #### [facility] CLIA [id number] [address] [place] [address] [place] Platelets (Bld) [#/Vol] 276 10*3/uL Normal 150-400 [facility] Comment on above: Order Comment: Speci men Type: BLOOD SPECIMEN Ordering Facility: [facility] Address: [address] [place] [address], [place] [address] Performed By: #### 5 7021-8 #### [facility] CLIA [id number] [address] [place] [address] [place] RBC (Bld) [#/Vol] 4.05 10*6/uL Normal 3.90-5.20 [facility] Comment on above: Order Comment: Speci men Type: BLOOD SPECIMEN Ordering Facility: [facility] Address: [address] [place] [address], [place] [address] Performed By: #### 5 7021-8 #### [facility] CLIA [id number] [address] [place] [address] [place] WBC (Bld) [#/Vol] 8.79 10*3/uL Normal 3.70-11.00 [facility] Comment on above: Order Comment: Speci men Type: BLOOD SPECIMEN Ordering Facility: [facility] Address: [address] [place] [address], [place] [address] Performed By: #### 5 7021-8 #### [facility] CLIA [id number] [address] [place] [address] [place] Comprehensive metabolic 2000 panelon 07-04-2023 Albumin [Mass/Vol] 4.4 g/dL Normal 3.9-4.9 [facility] Comment on above: Order Comment: Speci men Type: BLOOD SPECIMEN Ordering Facility: [facility] Address: [address] [place] [address] Performed By: #### 2 4323-8 #### [facility] CLIA [id number] [address] [place] [address] [place] ALP [Catalytic activity/Vol] 85 U/L Normal 34-123 [facility] Comment on above: Order Comment: Speci men Type: BLOOD SPECIMEN Ordering Facility: [facility] Address: [address] [facility], [place] [address] Performed By: #### 2 4323-8 #### [facility] CLIA [id number] [address] [place] [address] [place] ALT [Catalytic activity/Vol] 23 U/L Normal 7-38 [facility] Comment on above: Order Comment: Speci men Type: BLOOD SPECIMEN Ordering Facility: [facility] Address: [address] [place] [address], [place] [address] Performed By: #### 2 4323-8 #### [facility] CLIA [id number] [address] [place] [address] [place] Anion gap [Moles/Vol] 13 mmol/L Normal 9-18 [facility] Comment on above: Order Comment: Speci men Type: BLOOD SPECIMEN Ordering Facility: [facility] Address: [address] [place] [address], [place] [address] Performed By: #### 2 4323-8 #### [facility] CLIA [id number] [address] [place] [address] [place] AST [Catalytic activity/Vol] 28 U/L Normal 13-35 [facility] Comment on above: Order Comment: Speci men Type: BLOOD SPECIMEN Ordering Facility: [facility] Address: [address] [facility], [place] [address] Performed By: #### 2 4323-8 #### [facility] CLIA [id number] [address] [place] [address] [place] Bilirubin [Mass/Vol] 0.3 mg/dL Normal 0.2-1.3 [facility] Comment on above: Order Comment: Speci men Type: BLOOD SPECIMEN Ordering Facility: [facility] Address: [address] [place] [address], [place] [address] Performed By: #### 2 4323-8 #### [facility] CLIA [id number] [address] [place] [id number] [place] Calcium [Mass/Vol] 9.0 mg/dL Normal 8.5-10.2 [facility] Comment on above: Order Comment: Speci men Type: BLOOD SPECIMEN Ordering Facility: [facility] Address: [address] [place] [address], [place] [address] Performed By: #### 2 4323-8 #### [facility] CLIA [id number] [address] [place] [address] [place] Chloride [Moles/Vol] 104 mmol/L Normal 97-105 [facility] Comment on above: Order Comment: Speci men Type: BLOOD SPECIMEN Ordering Facility: [facility] Address: [address] [place] [address], [place] [address] Performed By: #### 2 4323-8 #### [facility] CLIA [id number] [address] [place] [address] [place] CO2 [Moles/Vol] 22 mmol/L Normal 22-30 [facility] Comment on above: Order Comment: Speci men Type: BLOOD SPECIMEN Ordering Facility: [facility] Address: [address] [place] [address], [place] [address] Performed By: #### 2 4323-8 #### [facility] CLIA [id number] [address] [place] [id number] [place] Creatinine [Mass/Vol] 0.67 mg/dL Normal 0.58-0.96 [facility] Comment on above: Order Comment: Speci men Type: BLOOD SPECIMEN Ordering Facility: [facility] Address: [address] [place] [address], [place] [address] Performed By: #### 2 4323-8 #### [facility] CLIA [id number] [address] [place] [id number] [place] Creatinine and Glomerular filtration rate.predicted panel (S/P/Bld) 105 mL/min/1.73m??? Normal >=60 [facility] Comment on above: Order Comment: Vincent alfred Type: BLOOD SPECIMEN Ordering Facility: [facility] Address: [address] [place] [address], [place] [address] Result Comment: Ivana mated Glomerular Filtration Rate (eGFR) is calculated using the 2020 CKD-EPI creatinine equation. This equation utilizes serum creatinine, sex, and age as parameters. The creatinine assay has traceable calibration to isotope dilution-mass spectrometry. Refer to KDIGO guidelines for clinical interpretation. In patients with unstable renal function, e.g. those with acute kidney injury, the eGFR may not accurately reflect actual GFR. Performed By: #### 2 4323-8 #### [facility] CLIA [id number] [address] [place] [address] [place] Glucose [Mass/Vol] 100 mg/dL High 74-99 [facility] Comment on above: Order Comment: Vincent alfred Type: BLOOD SPECIMEN Ordering Facility: [facility] Address: [address] [place] [address], [place] [address] Result Comment: The [place] Diabetes Association (ADA) provides guidance for cutoff values for fasting glucose and random glucose. The ADA defines fasting as no caloric intake for at least 8 hours. Fasting plasma glucose results between 100 to 125 mg/dL indicate increased risk for diabetes (prediabetes). Fasting plasma glucose results greater than or equal to 126 mg/dL meet the criteria for diagnosis of diabetes. In the absence of unequivocal hyperglycemia, results should be confirmed by repeat testing. In a patient with classic symptoms of hyperglycemia or hyperglycemic crisis, random plasma glucose results greater than or equal to 200 mg/dL meet the criteria for diagnosis of diabetes. Reference: Standards of Medical Care in Diabetes 2016, [place] Diabetes Association. Diabetes Care. 2016.39(Suppl 1). Performed By: #### 2 4323-8 #### [facility] CLIA [id number] [address] [place] [address] [place] Potassium [Moles/Vol] 4.5 mmol/L Normal 3.7-5.1 [facility] Comment on above: Order Comment: Vincent alfred Type: BLOOD SPECIMEN Ordering Facility: [facility] Address: [address] [place] [address] Performed By: #### 2 4323-8 #### [facility] CLIA [id number] [address] [place] [address] [place] Protein [Mass/Vol] 6.9 g/dL Normal 6.3-8.0 [facility] Comment on above: Order Comment: Speci men Type: BLOOD SPECIMEN Ordering Facility: [facility] Address: [address] [place] [address], [place] [address] Performed By: #### 2 4323-8 #### [facility] CLIA [id number] [address] [place] [address] [place] Sodium [Moles/Vol] 139 mmol/L Normal 136-144 [facility] Comment on above: Order Comment: Speci men Type: BLOOD SPECIMEN Ordering Facility: [facility] Address: [address] [place] [address] Performed By: #### 2 4323-8 #### [facility] CLIA [id number] [address] [place] [address] [place] Urea nitrogen [Mass/Vol] 14 mg/dL Normal 7-21 [facility] Comment on above: Order Comment: Speci men Type: BLOOD SPECIMEN Ordering Facility: [facility] Address: [address] [place] [address] Performed By: #### 2 4323-8 #### [facility] CLIA [id number] [address] [place], [place] [id number] [place] No Panel Informationon 04-[address] [facility] ANES POSTPROC EVALon 023 ANES POSTPROC EVAL HNO ID: [id number] Author: Joanne Swain MD Service: Anesthesiology Author Type: Physician Type: Anesthesia Postprocedure Evaluation Filed: 02/21/2023 12:53 PM Note Text: POST ANESTHESIA EVALUATION NOTE : 1970 Procedure Summary Date: 06/15/23 Room / Location: [facility] Anesthesia Start: 1229 Anesthesia Stop: Procedure: EGD DIAGNOSTIC Diagnosis: Dysphagia, unspecified type Crook's esophagus with dysplasia Dysphagia, unspecified type Crook's esophagus with dysplasia Scheduled Providers: Diana Cardozo MD; Joanne Swain MD; ST Lance; Fazal Alatorre RN Responsible Provider: Joanne Swain MD Anesthesia Type: MAC ASA Status: 2 Anesthesia Type: MAC Last Vitals Vitals Value Taken Time BP 139/91 02/21/23 1252 Temp 96.9 02/21/23 1252 Pulse 56 02/21/23 1252 Resp 17 02/21/23 1252 SpO2 99% 02/21/23 1252 Post Anesthesia Patient Status Patient Evaluation: bedside. Anticipated Disposition: phase 2 then home. Neurological Status: aware and responsive. Pulmonary Status: breathing comfortably on room air Airway Control: returned to baseline unsupported. Cardiovascular Status: stable. Pain Management: clinically adequate Postoperative Hydration: acceptable. Intraoperative Events: no significant anesthesia events Post Operative Nausea/Vomiting Status: no significant post operative nausea or vomiting Recommendation: continue current plan of care. Anesthesia Observations No Documentation SIGNATURE: Joanne Swain MD PATIENT NAME: Matti Thomas DATE: February 21, 2023 TIME: 12:52 PM CSN: [id number] [facility] ANES PRE-OPon 02-21-2023 ANES PRE-OP HNO ID: [id number] Author: Joanne Swain MD Service: Anesthesiology Author Type: Physician Type: Anesthesia Preprocedure Evaluation Filed: 02/21/2023 12:21 PM Note Text: ANESTHESIOLOGY DAY OF SURGERY NOTE : 1970 Procedure Information Date/Time: 02/21/23 1300 Scheduled providers: Diana Cardozo MD; Joanne Swain MD; ST Lance; Fazal Alatorre RN Procedure: EGD DIAGNOSTIC Location: [facility] Estimated body mass index is 19.46 kg/m? as calculated from the following: Height as of this encounter: 172.7 cm (5' 8). Weight as of this encounter: 58.1 kg (128 lb). Most recent hematocrit and potassium results: Hematocrit 42.1 11/08/2022 Potassium 4.0 11/08/2022 Relevant Problems No relevant active problems I - PHYSICAL EVALUATION AIRWAY Patient intubated: No. Tracheostomy tube not present Mallampati: I. TM distance: >3 FB. Neck ROM: full ROM without neurological symptoms. Mouth opening: adequate. Short neck: no. Thick neck: no Baldwin present: no Microretrognathia/Micronagth ia/Recessed Chin: No DENTAL Dental findings: teeth intact. Additional exam findings: yes. CARDIOVASCULAR Normal cardiovascular observations. PULMONARY Normal pulmonary observations. II - ANESTHESIA PLAN ASA Score: 2 Anesthetic Plan: MAC The patient is a current smoker. (1ppd) NPO Status: adequate Beta Anitha Monitoring Plan Monitoring plan: standard ASA. Post Procedure Analgesic Plan Postoperative analgesic plan: parenteral or oral opioids. Informed Consent Anesthetic risks, benefits, alternatives, personnel and consent discussed: yes. Patient / Responsible Democrat agrees to proceed: yes Patient / Surrogate agrees to blood products: Yes DNR status not reviewed with patient and/or family prior to surgery. Significant changes in the patient condition since the History and Physical, not otherwise documented in primary service progress note: no. Potential Anesthesia issues that may suggest increased risk of complications or contraindication to planned procedure: none. Vitals Value Taken Time BP 126/85 02/21/23 1206 Pulse Resp 15 02/21/23 1206 Temp 36.4 ?C (97.5 ?F) 02/21/23 1206 SpO2 100 % 02/21/23 1206 Facility-Administered Medications as of 02/21/2023 Medication Dose Route Frequency - lidocaine (PF) 10 mg/mL (1 %) 1-2 mg injection (XYLOCAINE) 0.1-0.2 mL INTRADERMAL PRN - lactated ringers iv infusion 75 mL/hr INTRAVENOUS CONTINUOUS Outpatient Medications as of 02/21/2023 Medication Sig - famotidine (PEPCID) 20 mg tablet Take by mouth. - traZODone (DESYREL) 50 mg tablet take 1/2 tablet to 1 tablet by mouth as needed for sleep - cholecalciferol, vitamin D3, (VITAMIN D3 ORAL) Take 1,000 mg by mouth once daily. - FLUoxetine HCl 20 mg tablet Take 1 Tablet orally once per Day for 30 Days - hydrOXYzine pamoate (VISTARIL) 25 mg capsule Take one Capsule By Oral Route three times a day as needed. - nicotine (NICODERM) 21 mg/24 hr Apply 1 Patch as directed once daily. - busPIRone (BUSPAR) 15 mg tablet Take 1 Tablet By Oral Route 2 times per day - omeprazole (PRILOSEC) 40 mg capsule Take 1 capsule by mouth once daily. - methylcellulose, with sugar, (CITRUCEL, SUCROSE,) oral powder Follow instructions on label. - cephALEXin (KEFLEX) 500 mg capsule Take 500 mg by mouth four times daily. - propranolol (INDERAL) 20 mg tablet Take 20 mg by mouth three times daily. - naproxen (NAPROSYN) 500 mg tablet - cyclobenzaprine (FLEXERIL) 10 mg tablet Take 10 mg by mouth three times daily as needed. - DAILY MULTIVITAMIN TAB Take one(1) tablet daily. I have interviewed and examined the patient. I have reviewed the medical record and/or the pre-anesthesia evaluation, pertinent labs, and test results. This contains updated information obtained within 48 hours of Surgery/Procedure. SIGNATURE: Joanne Swain MD PATIENT NAME: Matti Thomas DATE: February 21, 2023 TIME: 12:21 PM CSN: [id number] [facility] BRIEF OP NOTon 02-21-2023 BRIEF OP NOT HNO ID: [id number] Author: Diana Cardozo MD Service: General Surgery Author Type: Physician Type: Brief Op Note Filed: 02/21/2023 12:50 PM Note Text: BRIEF OPERATIVE NOTE SURGERY DATE: 02/21/2023 Incision/Procedure Start Time: 12:38 Incision Close/Procedure End Time: 12:46 Surgeon(s)/Proceduralist(s) and Public Relations Senior Associate(s): vasquez Procedures: EGD with biopsies Anesthesia: MAC Findings: small hiatal hernia, irregular GE junction Estimated Blood Loss: minimal Specimens: mucosal biopsies of antrum of stomach/GE junction/mid esophagus Complications: None Closure Technique: Non-primary Preop Diagnosis: GERD, history of Crook's Postop Diagnosis: GERD, history of Crook's, small hiatal hernia, irregular GE junction SIGNATURE: Diana Cardozo MD PATIENT NAME: Matti Montanoinn DATE: February 21, 2023 TIME: 12:47 PM Normal [facility] HISTORY PHYSICALon 3 HISTORY PHYSICAL HNO ID: [id number] Author: Diana Cardozo MD Service: General Surgery Author Type: Physician Type: HANDP Filed: 02/21/2023 12:17 PM Note Text: HISTORY AND PHYSICAL Matti Thomas 1970 REFERRING PHYSICIAN: No ref. provider found CHIEF COMPLAINT: Consult (Bowel issues and pain, last colonoscopy 06/2022) HPI: The patient is a 52 year old female who presents to discuss repeat endoscopy. Patient had EGD by Dr. Cardozo on 06/07/22. Biopsies at that time showed: FINAL DIAGNOSIS A. Duodenum, second portion, biopsy: -- Small bowel mucosa with no significant histopathologic abnormalities. -- Villous architecture is preserved with no increase in intraepithelial lymphocytes. B. Antrum (stomach), biopsy: -- Gastric mucosa with change of reactive gastropathy and focal crush artifact, see comment. -- No H. pylori organisms are identified on MELODIE sections. C. Esophagogastric junction, biopsy: -- Glandular mucosa with intestinal metaplasia, most compatible with Crook's esophagus in the appropriate endoscopic findings. -- Squamous mucosa with basal cell hyperplasia. -- No evidence of dysplasia or malignancy. Repeat EGD with additional biopsies was recommended to confirm diagnosis of Crook's esophagus. Patient notes she has had some issues with worsening dysphagia for the last 2-3 weeks. Will feel sensation of choking regardless of food type. Notes this is happening with increasing frequency. She is a tobacco user, currently working on quitting. 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 Bernard LAPS ABD PRTMANDOMENTUM DX W/WO SPEC BR/WA SPX 2003 Laparoscopy for pain and normal LIG/TRNSXJ FLP TUBE ABDL/VAG APPR UNI/BI Tubal ligation NOVASURE 2015 OOPHORECTOMY PARTIAL/TOTAL UNI/BI Left 09/11/2018 Left oophorectomy at [facility]-Dr. Bernard PAST SURGICAL HISTORY OF 1988 pilonidal cyst PAST SURGICAL HISTORY OF Salpingostomy for Ectopic [open procedure][[[ PREOP PLACEMENT NEEDLE LOC 10/30/2011 LEFT REM LESION FACE,EAR,EYEL <5MM 08/13/2012 Exc. right nasal jie cyst and left arm lesion SALPINGECTOMY Bilateral 09/11/2018 B/L Salpingectomy at [facility]-Dr. Bernard CURRENT MEDICATIONS Current Outpatient Medications Medication Sig hydrOXYzine pamoate (VISTARIL) 25 mg capsule Take one Capsule By Oral Route three times a day as needed. traZODone (DESYREL) 50 mg tablet take 1/2 tablet to 1 tablet by mouth as needed for sleep nicotine (NICODERM) 21 mg/24 hr Apply 1 Patch as directed once daily. busPIRone (BUSPAR) 15 mg tablet Take 1 Tablet By Oral Route 2 times per day cholecalciferol, vitamin D3, (VITAMIN D3 ORAL) Take 1,000 mg by mouth once daily. propranolol (INDERAL) 20 mg tablet Take 20 mg by mouth three times daily. FLUoxetine HCl 20 mg tablet Take 1 Tablet orally once per Day for 30 Days cyclobenzaprine (FLEXERIL) 10 mg tablet Take 10 mg by mouth three times daily as needed. DAILY MULTIVITAMIN TAB Take one(1) tablet daily. omeprazole (PRILOSEC) 40 mg capsule Take 1 capsule by mouth once daily. methylcellulose, with sugar, (CITRUCEL, SUCROSE,) oral powder Follow instructions on label. cephALEXin (KEFLEX) 500 mg capsule Take 500 mg by mouth four times daily. naproxen (NAPROSYN) 500 mg tablet No current facility-administered medications for this visit. ALLERGIES: Methylprednisolone PERSONAL HISTORY: SOCIAL HISTORY Social History Tobacco Use Smoking status: Every Day Packs/day: 1.00 Years: 15.00 Pack years: 15.00 Types: Cigarettes Smokeless tobacco: Never Vaping Use Vaping Use: Never used Substance Use Topics Alcohol use: Never Drug use: No FAMILY HISTORY: FAMILY HISTORY FAMILY HISTORY Problem Relation Age of Onset other (Lung cancer) Father Cancer Maternal Grandmother great grandmother ovarian and breast Heart Maternal Grandmother REVIEW OF SYMPTOMS: The review of systems data was entered by the nurse and reviewed by me Nursing N (more content not included)... [facility] NURSING PROGon 02-21-2023 NURSING PROG HNO ID: [id number] Author: Geraldine Herrera RN Service: Nursing Author Type: Registered Nurse Type: Nursing Progress Note Filed: 02/21/2023 12:16 PM Note Text: Other:Patient ready for procedure. Patient education completed with patient. Patient verbalizes understanding of instructions given. [facility] OPERATIVE NOon 02-21-2023 OPERATIVE NO HNO ID: [id number] Author: Diana Cardozo MD Service: General Surgery Author Type: Physician Type: Operative Report Filed: 02/22/2023 9:36 AM Note Text: [facility] - Operative Report - MATTI Coughlin : 1970 AGE: 52. SEX: F PATIENT TYPE: O [facility] LOCATION: [facility] ATTENDING PHYSICIAN: Diana Cardozo MD CSN NUMBER: [id number] DATE OF SURGERY/PROCEDURE: 02/21/2023 INCISION/PROCEDURE START TIME: 1238 INCISION CLOSE/PROCEDURE END TIME: 1246 PREOPERATIVE DIAGNOSIS: Acid reflux and history of Crook's. POSTOPERATIVE DIAGNOSIS: History of Crook's, small hiatal hernia and irregular GE junction. SURGEON: Diana Cardozo MD PROCESS DESIGN ENGINEER: No Additional Staff SURGERY/PROCEDURE: Esophagogastroduodenoscopy with biopsies. ANESTHESIA: Monitored anesthesia care. INDICATIONS: Matti Thomas is a 52-year-old female who presents with complaints of acid reflux despite PPI use and also history of Crook's. She therefore presents for evaluation with upper endoscopy. She also states that she has some dysphagia. She has been counseled for upper endoscopy. She has been counseled as to the risks of procedure including, but not limited to infection, bleeding, injury to any bowel or bladder, perforation of GI tract, inability to complete the procedure, injury to any internal organs such as liver, spleen, etc. The patient understands and agrees to proceed. DESCRIPTION OF PROCEDURE: After informed consent was given, the patient was brought to the endoscopy suite. Appropriate time-out protocol was followed. Patient was given IV anesthesia by the anesthesia provider. A bite block was placed. The patient was placed in left lateral decubitus position. The endoscope was lubricated, carefully inserted in the patient's mouth and advanced into the esophagus. It was then advanced into the stomach, then passed the pylorus into the first and then the second portion of the duodenum. There was no evidence of any masses, polyps, or lesions in the duodenum. The endoscope was retracted back into the stomach. Because of the patient's complaint, mucosal biopsies were taken of the antrum of the stomach to rule out H pylori. Retroflexed view into the fundus of the body of the stomach revealed a small hiatal hernia. The endoscope was retracted back into the esophagus. The GE junction appeared minimally irregular and mucosal biopsies were taken using cold grasper forceps. Because of the patient's complaint of dysphagia, mucosal biopsies of the midesophagus were obtained. The remainder of the esophagus appeared normal. The endoscope was removed intact. The patient tolerated the procedure well, was brought to recovery room in stable condition. ESTIMATED BLOOD LOSS: Minimal. SPECIMENS: Mucosal biopsies of the antrum of stomach, GE junction, and mid esophagus. COMPLICATIONS: None. RECOMMENDATIONS: Patient will follow up with her referring provider for pathology results. Diana Cardozo MD [id number] [facility] SURGICAL PATHOLOGYon 023 CASE REPORT [facility] Comment on above: Order Comment: Speci men Type: TISSUE SPECIMEN Ordering Facility: [facility] Address: [address] [place] [address] [place] [address] Result Comment: Surg ica Pathology Report Case: [id number] Authorizing Provider: Diana Cardozo MD Collected: 02/21/2023 12:41 PM Ordering Location: [facility] SURGERY Received: 02/22/2023 10:22 AM Pathologist: Kameron Contreras MD Specimens: A) - ANTRUM (STOMACH) BIOPSY B) - ESOPHAGOGASTRIC JUNCTION BIOPSY C) - ESOPHAGUS BIOPSY Performed By: #### S #### [facility] CLIA [id number] [address] CLINICAL HISTORY GERD [facility] Comment on above: Order Comment: Speci men Type: TISSUE SPECIMEN Ordering Facility: [facility] Address: [address] [place] [address] Result Comment: Hist ory of Crook's Performed By: #### S #### [facility] CLIA [id number] [address] DIAGNOSIS COMMENT [facility] Comment on above: Order Comment: Speci men Type: TISSUE SPECIMEN Ordering Facility: [facility] Address: [address] [place] [address] Result Comment: Appr oximately 30% of patients with gastroesophageal reflux disease (GERD) will have focal intestinal metaplasia at the junction/cardia. Based on this high prevalence, focal intestinal metaplasia at the junction cannot therefore confer the same increased cancer risk as true Crook's esophagus. Accordingly, the [employer] guidelines indicate that true Crook's esophagus should be defined by both endoscopic and histologic parameters. Furthermore, 2016 ACG guidelines require an endoscopic abnormality that extends at least 1 cm proximal to the GEJ in addition to a histologic finding of intestinal metaplasia in order to establish a diagnosis of BE. While the focal intestinal metaplasia in this biopsy raises the possibility of Crook's, endoscopic correlation will be required to establish a definitive diagnosis. If there is remaining clinical uncertainty, additional biopsies may also be helpful. Zac MENDEZ, et al. ACG Clinical Guideline: Diagnosis and management of Crook's esophagus. Am J Gastroenterol 2016;111:30-50. Performed By: #### S #### [facility] CLIA [id number] [address] FINAL DIAGNOSIS [facility] Comment on above: Order Comment: Speci men Type: TISSUE SPECIMEN Ordering Facility: [facility] Address: [address] [address] Result Comment: Shraddha Johnson tomach, antrum, biopsy: - No pathologic abnormalities. B. Gastroesophageal junction, biopsy: - Positive for specialized intestinal (goblet cell) metaplasia. Negative for dysplasia. See comment. C. Esophagus, biopsy: - Squamous mucosa showing no pathologic abnormalities. Performed By: #### S #### [facility] CLIA [id number] [address] [place] [address] FINAL PERFORMING LAB [facility] Comment on above: Order Comment: Speci men Type: TISSUE SPECIMEN Ordering Facility: [facility] Address: [address] [place] [address] Result Comment: Diag nostic interpretation performed at [facility], [address] [place] [address] CLIA# [id number] Cotton Roll Packer: Kameron Contreras M.D. Performed By: #### S #### [facility] CLIA [id number] [address] [place] [address] GROSS DESCRIPTION [facility] Comment on above: Order Comment: Speci men Type: TISSUE SPECIMEN Ordering Facility: [facility] Address: [address] [place] [address] Result Comment: A. A NTRUM (STOMACH) BIOPSY Received in formalin labeled antrum (stomach) biopsy is one piece of jett, soft tissue measuring 0.3 x 0.2 x 0.2 cm. Totally submitted in one cassette. B. ESOPHAGOGASTRIC JUNCTION BIOPSY Received in formalin labeled esophagogastric biopsy are multiple pieces of jett, soft tissue aggregating to 1.0 x 0.2 x 0.2 cm. Totally submitted in one cassette. C. ESOPHAGUS BIOPSY Received in formalin labeled esophagus biopsy are multiple pieces of jett, soft tissue aggregating to 0.6 x 0.2 x 0.2 cm. Totally submitted in one cassette. Gross examination performed at [facility], [address] [place] [address] CLIA#[id number] [facility] February 22, 2023 2:38 PM Performed By: #### S #### [facility] CLIA [id number] [address] [place] [address] [place] [facility] Absolute lymphocyte countOrd ered By: Dr. Hill on 02-13-2023 Lymphocytes Auto (Unsp spec) [#/Vol] 2.51 10*3/uL 0.83-4.51 [facility] Basophil percentageOrdered B y: Dr. Hill on 02-13-2023 Basophil percentage 0 SEEN /hpf 0-5 [facility] Basophils/100 WBC (Bld) 0.5 % 0-1 [facility] Bilirubin [Mass/Vol] 0.50 mg/dL 0.20-1.00 [facility] Comment on above: For patients on eltr ombopag therapy, use of Dimension [place] TBIL is not recommended. Chloride [Moles/Vol] 103 mmol/L 98-107 [facility] Eosinophils/100 WBC (Bld) 0.6 % 0-5 [facility] Glucose [Mass/Vol] 92 mg/dL 74-106 [facility] Neutrophils (Bld) [#/Vol] 4.8 10*3/uL 2.0-7.7 [facility] Neutrophils/100 WBC (Bld) 57.1 % 47-70 [facility] Potassium [Moles/Vol] 3.6 mmol/L 3.5-5.1 [facility] Protein [Mass/Vol] 7.1 g/dL 6.4-8.2 [facility] Sodium [Moles/Vol] 135 mmol/L 136-145 [facility] WBC (Bld) [#/Vol] 8.3 10*3/uL 4.4-11.0 [facility] Bilirubin Test strip Ql (U)O rdered By: Dr. Hill on 02-13-2023 Bilirubin Ql (U) Negative Negative [facility] Blood erythrocytes count (nu mber/volume)Ordered By: Dr. Hill on 02-13-2023 RBC (Bld) [#/Vol] 4.15 10*6/uL 4.2-5.4 [facility] Blood hemoglobin measurement (mass/volume)Ordered By: Dr. Hill on 02-13-2023 Hemoglobin (Bld) [Mass/Vol] 12.3 g/dL 12.0-15.0 [facility] Blood lymphocytes/100 leukoc ytesOrdered By: Dr. Hill on 02-13-2023 Lymphocytes/100 WBC (Bld) 30.1 % 19-41 [facility] Blood monocytes/100 leukocyt esOrdered By: Dr. Hill on 02-13-2023 Monocytes/100 WBC (Bld) 11.5 % 0-10 [facility] Blood platelet mean volumeOr dered By: Dr. Hill on 02-13-2023 Platelet mean volume (Bld) [Entitic vol] 9.6 fL 6.2-12.0 [facility] Determination of erythrocyte mean corpuscular volume (MCV)Ordered By: Dr. Hill on 02-13-2023 MCV (RBC) [Entitic vol] 88.9 fL 81-99 [facility] Hematocrit Auto (Bld) [Volum e fraction]Ordered By: Dr. Hill on 02-13-2023 Hematocrit (Bld) [Volume fraction] 36.9 % 37-47 [facility] Ketones Test strip Ql (U)Ord ered By: Dr. Hill on 02-13-2023 Ketones Ql (U) 15 mg/dl Negative [facility] Laboratory - Chemistry and C hemistry - challengeOrdered By: Dr. Hill on 02-13-2023 HCG ( test) Ql (U) Negative [facility] Comment on above: Very dilute urine sp ecimens, as indicated by a low specificgravity, may not contain outbound telemarketing representative levels of hCG. If is still suspected, a first morning urinespecimen should be collected 48 hours later and tested. ALP [Catalytic activity/Vol] 72 U/L 45-117 [facility] ALT [Catalytic activity/Vol] 24 U/L 13-56 [facility] CO2 [Moles/Vol] 25.0 mmol/L 21.0-32.0 [facility] Globulin (S) [Mass/Vol] 3.3 g/dL 2.2-4.2 [facility] Lipase [Catalytic activity/Vol] 28 U/L 13-75 [facility] Comment on above: Please note:LIPASE r evised reference range effective 22. New Lipase methodology. Expected to produce lower values than the previous assay method. NEW Reference Range: 13 - 75 U/L Urea nitrogen/Creatinine [Mass ratio] 19.0 mg/mg 10-20 [facility] Laboratory - Hematology and Cell countsOrdered By: Dr. Hill on 02-13-2023 Erythrocyte distribution width (RBC) [Entitic vol] 42.1 fL 35.1-43.9 [facility] Erythrocyte distribution width (RBC) [Ratio] 12.9 % 11.6-14.6 [facility] Immature granulocytes/100 WBC (Bld) 0.200 % 0.0-0.9 [facility] Comment on above: IG% - Immature Granu locytes (promyelocytes, myelocytes and metamyelocytes) > 1% indicates that a LEFT SHIFT is Present. MCH (RBC) [Entitic mass] 29.6 pg 27.0-32.0 [facility] Nucleated RBC/100 WBC (Bld) [Ratio] 0 % 0-5 [facility] MCHC Auto (RBC) [Mass/Vol]Or dered By: Dr. Hill on 02-13-2023 MCHC (RBC) [Mass/Vol] 33.3 g/dL 32-36 [facility] Mucus LM Ql (Urine sed)Order ed By: Dr. Hill on 02-13-2023 Mucus Ql (Urine sed) 0 SEEN /hpf [facility] NURSING PROGon 02-13-2023 NURSING PROG HNO ID: [id number] Author: Pinky Hand RN Service: ? Author Type: Registered Nurse Type: Nursing Progress Note Filed: 02/13/2023 3:57 PM Note Text: Pre-Procedure Checklist Matti Thomas [phone] (home) 1970 52 year old Body mass index is 19.77 kg/m?. Allergies: Methylprednisolone Rash Comment:Skin became reddened and felt like it was on fire Procedure: EGD Date of Procedure: 02/21/2023 Smoke: Yes Alcohol: No Street Drugs: No Diabetic: No Insulin: No 1ppd Problems with Anesthesia (Self or Family?) No Panel Beater: None Saw federal java developer in the last 6 months? No Recent EKG/Cardiac Testing: No Chest pain in the last 6 months (<6 months cardiac clearance needed): No History of: Heart Attack/Stroke/Blood Clot?: No Shortness of Breath: No Asthma: No Inhalers: No Any Outstanding Consults?: No If yes, list: no Additional Notes: [facility] Nitrite Test strip Ql (U)Ord ered By: Dr. Hill on 02-13-2023 Nitrite Ql (U) Negative Negative [facility] No Panel InformationOrdered By: Dr. Hill on 02-13-2023 Estimated Creatinine Clearance Calc 72.93 ml/min [facility] Estimated GFR (MDRD) Amer 91 mL/min >60 [facility] Comment on above: GFR Calc Estimated GFR (MDRD) Non-Af Amer 76 mL/min >60 [facility] Comment on above: Non- GFR Calc Platelets bldOrdered By: Dr. Hill on 02-13-2023 Platelets (Bld) [#/Vol] 274 10*3/uL 150-450 [facility] Protein Test strip Ql (U)Ord ered By: Dr. Hill on 02-13-2023 Protein Ql (U) Negative Negative [facility] Serum or plasma albumin niecy urement (mass/volume)Ordered By: Dr. Hill on 02-13-2023 Albumin [Mass/Vol] 3.8 g/dL 3.2-5.0 [facility] Serum or plasma albumin/glob ulin mass ratioOrdered By: Dr. Hill on 02-13-2023 Albumin/Globulin [Mass ratio] 1.2 {ratio} 0.9-2.4 [facility] Serum or plasma calcium niecy urement (mass/volume)Ordered By: Dr. Hill on 02-13-2023 Calcium [Mass/Vol] 9.4 mg/dL 8.5-10.1 [facility] Serum or plasma creatinine m easurement (mass/volume)Ordered By: Dr. Hill on 02-13-2023 Creatinine [Mass/Vol] 0.84 mg/dL 0.55-1.02 [facility] Comment on above: The validity of the calculated GFR & GFRAA in patients over 70 years has not been determined. Clinical correlation is essential. Serum or plasma urea nitroge n measurement (mass/volume)Ordered By: Dr. Hill on 02-13-2023 Urea nitrogen [Mass/Vol] 16 mg/dL 7-18 [facility] Squamous epithelial cells de tection in urine sediment by light microscopyOrdered By: Dr. Hill on 02-13-2023 Epithelial cells.squamous LM Ql (Urine sed) 0 SEEN /hpf 5-10 [facility] Thin prep Papanicolaou smear with manual screeningOrdered By: Dr. Hill on 02-13-2023 Thin prep Papanicolaou smear with manual screening 22 U/L 15-37 [facility] Thin prep Papanicolaou smear with manual screening 7 5-15 [facility] Urine blood detectionOrdered By: Dr. Hill on 02-13-2023 RBC Ql (U) Negative Negative [facility] RBC Ql (U) 0 SEEN /hpf 0-5 [facility] Urine clarityOrdered By: Dr. Hill on 02-13-2023 Clarity (U) Clear Clear [facility] Urine color determinationOrd ered By: Dr. Hill on 02-13-2023 Color (U) Yellow Yellow [facility] Urine glucose detectionOrder ed By: Dr. Hill on 02-13-2023 Glucose Ql (U) Normal mg/dl Normal [facility] Urine leukocyte esterase det ection by dipstickOrdered By: Dr. Hill on 02-13-2023 Leukocyte esterase Test strip Ql (U) Negative Negative [facility] Urine pHOrdered By: Dr. Shruti santiago on 02-13-2023 pH (U) 8.0 [pH] 5.0 - 8.0 [facility] Urine sediment bacteria coun t by microscopy (number/high power field)Ordered By: Dr. Hill on 02-13-2023 Bacteria LM.HPF (Urine sed) [#/Area] 0 /[HPF] None Seen [facility] Urine specific gravity measu rementOrdered By: Dr. Hill on 02-13-2023 Specific gravity (U) [Rel density] 1.010 1.002-1.03 0 [facility] Urobilinogen Auto test strip Ql (U)Ordered By: Dr. Hill on 02-13-2023 Urobilinogen Ql (U) Normal mg/dl Normal [facility] Absolute lymphocyte countOrd ered By: Dr. Hill on 11-17-2022 Lymphocytes Auto (Unsp spec) [#/Vol] 2.99 10*3/uL 0.83-4.51 [facility] Basophil percentageOrdered B y: Dr. Hill on 11-17-2022 Basophils/100 WBC (Bld) 0.2 % 0-1 [facility] Chloride [Moles/Vol] 102 mmol/L 98-107 [facility] Eosinophils/100 WBC (Bld) 0.1 % 0-5 [facility] Glucose [Mass/Vol] 87 mg/dL 74-106 [facility] Neutrophils (Bld) [#/Vol] 5.1 10*3/uL 2.0-7.7 [facility] Neutrophils/100 WBC (Bld) 58.1 % 47-70 [facility] Potassium [Moles/Vol] 3.5 mmol/L 3.5-5.1 [facility] Sodium [Moles/Vol] 138 mmol/L 136-145 [facility] WBC (Bld) [#/Vol] 8.8 10*3/uL 4.4-11.0 [facility] Blood erythrocytes count (nu mber/volume)Ordered By: Dr. Hill on 11-17-2022 RBC (Bld) [#/Vol] 3.38 10*6/uL 4.2-5.4 [facility] Blood hemoglobin measurement (mass/volume)Ordered By: Dr. Hill on 11-17-2022 Hemoglobin (Bld) [Mass/Vol] 10.4 g/dL 12.0-15.0 [facility] Blood lymphocytes/100 leukoc ytesOrdered By: Dr. Hill on 11-17-2022 Lymphocytes/100 WBC (Bld) 33.8 % 19-41 [facility] Blood monocytes/100 leukocyt esOrdered By: Dr. Hill on 11-17-2022 Monocytes/100 WBC (Bld) 7.6 % 0-10 [facility] Blood platelet mean volumeOr dered By: Dr. Hill on 11-17-2022 Platelet mean volume (Bld) [Entitic vol] 9.8 fL 6.2-12.0 [facility] Determination of erythrocyte mean corpuscular volume (MCV)Ordered By: Dr. Hill on 11-17-2022 MCV (RBC) [Entitic vol] 90.8 fL 81-99 [facility] Hematocrit Auto (Bld) [Volum e fraction]Ordered By: Dr. Hill on 11-17-2022 Hematocrit (Bld) [Volume fraction] 30.7 % 37-47 [facility] Laboratory - Chemistry and C hemistry - challengeOrdered By: Dr. Hill on 11-17-2022 CO2 [Moles/Vol] 23.0 mmol/L 21.0-32.0 [facility] Urea nitrogen/Creatinine [Mass ratio] 20.6 mg/mg 10-20 [facility] Laboratory - Hematology and Cell countsOrdered By: Dr. Hill on 11-17-2022 Erythrocyte distribution width (RBC) [Entitic vol] 45.2 fL 35.1-43.9 [facility] Erythrocyte distribution width (RBC) [Ratio] 13.6 % 11.6-14.6 [facility] Immature granulocytes/100 WBC (Bld) 0.200 % 0.0-0.9 [facility] Comment on above: IG% - Immature Granu locytes (promyelocytes, myelocytes and metamyelocytes) > 1% indicates that a LEFT SHIFT is Present. MCH (RBC) [Entitic mass] 30.8 pg 27.0-32.0 [facility] Nucleated RBC/100 WBC (Bld) [Ratio] 0 % 0-5 [facility] MCHC Auto (RBC) [Mass/Vol]Or dered By: Dr. Hill on 11-17-2022 MCHC (RBC) [Mass/Vol] 33.9 g/dL 32-36 [facility] No Panel InformationOrdered By: Dr. Hill on 11-17-2022 Troponin I High Sensitivity 6 pg/mL 3.0-54.0 [facility] Comment on above: Please Note: New Naty t Units and Gender Specific Reference Ranges. For more information see Policy Stat Procedure [place] High Sensitivity Troponin (TNIH) and attachments. Ethyl Alcohol Level 9.0 mg/dL [facility] Comment on above: The serum:whole bloo d ethanol ratio is approximately 1.14and varies slightly with hematocrit. Medical Alcohol reference interval and critical value innon-tolerant individuals; 50 - 100 Impairment 100 Intoxication 100 - 250 Severe Poisoning 250 - 400 Deep/possible fatal coma D-Dimer Quantitative (PE/DVT) 0.30 FEU/ug/m 0.27-0.49 [facility] Comment on above: NORMAL D-Dimer level (<0.50) indicates no DVT or PE. Estimated Creatinine Clearance Calc 81.97 ml/min [facility] Estimated GFR (MDRD) Amer 108 mL/min >60 [facility] Comment on above: GFR Calc Estimated GFR (MDRD) Non-Af Amer 89 mL/min >60 [facility] Comment on above: Non- GFR Calc Platelets bldOrdered By: Dr. Hill on 11-17-2022 Platelets (Bld) [#/Vol] 262 10*3/uL 150-450 [facility] Serum or plasma calcium niecy urement (mass/volume)Ordered By: Dr. Hill on 11-17-2022 Calcium [Mass/Vol] 9.4 mg/dL 8.5-10.1 [facility] Serum or plasma creatinine m easurement (mass/volume)Ordered By: Dr. Hill on 11-17-2022 Creatinine [Mass/Vol] 0.73 mg/dL 0.55-1.02 [facility] Comment on above: The validity of the calculated GFR & GFRAA in patients over 70 years has not been determined. Clinical correlation is essential. Serum or plasma urea nitroge n measurement (mass/volume)Ordered By: Dr. Hill on 11-17-2022 Urea nitrogen [Mass/Vol] 15 mg/dL 7-18 [facility] Thin prep Papanicolaou smear with manual screeningOrdered By: Dr. Hill on 11-17-2022 Thin prep Papanicolaou smear with manual screening 13 5-15 [facility] MR BRAIN WITH AND WITHOUT CO NTRASTon 07-13-2022 MR BRAIN WITH AND WITHOUT CONTRAST EXAMINATION: MR BRAIN WITH AND WITHOUT CONTRAST HISTORY: chronic left facial pain after left wisdom tooth abscess with numbness and tingling in left arm. trigeminal neuralgia vs TIA stroke Order changed ok'd by Dr. Richards for Trigeminal neuralgia vs stroke Injury/Trauma or Illness?:Illness/Other How long have you had these symptoms (acute/chronic)?:Acute Reason for exam?:Lt. facial numbness, pain s/p wisdom tooth removeal x 4 weeks, Lt. arm numbness x 2 days Type of Exam?:Initial Order changed ok'd by Dr. Richards for Trigeminal neuralgia vs stroke Injury/Trauma or Illness?:Illness/Other TECHNIQUE: Multiplanar multiecho sequences were performed through the brain utilizing T1 and T2 weighting, as well as T2 gradient echo sequences, and axial diffusion weighted images. 3D T1 MPR postcontrast with reformatted as well as T2 gradient echo sequences, and axial diffusion weighted images. Imaging was performed with and without contrast administration: 10 mL of contrast:DOTAREM FINDINGS: Diagnostic Quality: Adequate. The brain sulci and ventricles are overall within normal limits for patient age. There are minimal scattered T2 hyperintensity foci in the subcortical white matter both cerebral hemispheres which are nonspecific in appearance. There is no intraparenchymal mass, mass effect or midline shift is noted. No abnormal extra-axial fluid collections are seen. The basal cisterns are patent. No evidence of acute infarction or definite intracranial hemorrhage within limitations. No abnormal intracranial enhancement is present. The trigeminal nerves demonstrate no abnormal enhancement or masses within limitation of the study. Vascular Flow Voids: Normal. Paranasal Sinuses and Mastoid Air Cells: Mild effusion in the mastoid air cells bilaterally.. Orbits: No definite masses within the limitations of the study. Extracranial Findings: None. Craniocervical Junction and Skull Base: No tonsillar ectopia or mass is present. IMPRESSION: 1. No acute intracranial abnormality and no abnormal enhancement. 2. The trigeminal nerves demonstrate no abnormal enhancement or masses within limitation of the study. Workstation ID: [id number] Dictated by: LINETTE WHYTE on Sat Jul 14, 2022 10:13:28 AM EDT Transcribed by: LINETTE WHYTE on Sat Jul 14, 2022 10:13:28 AM EDT Finalized by: LINETTE WHYTE on Sat Jul 14, 2022 10:13:[address] [facility] Comment on above: Order Comment: Order changed ok'd by Dr. Richards for Trigeminal neuralgia vs stroke Injury/Trauma or Illness?:Illness/Other How long have you had these symptoms (acute/chronic)?:Acute Reason for exam?:Lt. facial numbness, pain s/p wisdom tooth removeal x 4 weeks, Lt. arm numbness x 2 days Type of Exam?:Initial Additional signs and symptoms?:na Absolute lymphocyte countOrd ered By: Dr. Ornelas on 07-12-2022 Lymphocytes Auto (Unsp spec) [#/Vol] 2.43 10*3/uL 0.83-4.51 [facility] Basophil percentageOrdered B y: Dr. Ornelas on 07-12-2022 Basophils/100 WBC (Bld) 0.4 % 0-1 [facility] Chloride [Moles/Vol] 107 mmol/L 98-107 [facility] Eosinophils/100 WBC (Bld) 3.7 % 0-5 [facility] Glucose [Mass/Vol] 105 mg/dL 74-106 [facility] Comment on above: Fasting Glucose resu lt from 100 to 125 mg/dL suggests IMPAIRED HOMEOSTASIS per A.D.A. criteria. Neutrophils (Bld) [#/Vol] 3.5 10*3/uL 2.0-7.7 [facility] Neutrophils/100 WBC (Bld) 51.2 % 47-70 [facility] Potassium [Moles/Vol] 3.9 mmol/L 3.5-5.1 [facility] Sodium [Moles/Vol] 138 mmol/L 136-145 [facility] WBC (Bld) [#/Vol] 6.8 10*3/uL 4.4-11.0 [facility] Beta hCG serum qualOrdered B y: Dr. Ornelas on 07-12-2022 Beta HCG ( test) Ql Negative [facility] Blood erythrocytes count (nu mber/volume)Ordered By: Dr. Ornelas on 07-12-2022 RBC (Bld) [#/Vol] 3.77 10*6/uL 4.2-5.4 [facility] Blood hemoglobin measurement (mass/volume)Ordered By: Dr. Ornelas on 07-12-2022 Hemoglobin (Bld) [Mass/Vol] 11.9 g/dL 12.0-15.0 [facility] Blood lymphocytes/100 leukoc ytesOrdered By: Dr. Ornelas on 07-12-2022 Lymphocytes/100 WBC (Bld) 35.8 % 19-41 [facility] Blood monocytes/100 leukocyt esOrdered By: Dr. Ornelas on 07-12-2022 Monocytes/100 WBC (Bld) 8.6 % 0-10 [facility] Blood platelet mean volumeOr dered By: Dr. Ornelas on 07-12-2022 Platelet mean volume (Bld) [Entitic vol] 10.9 fL 6.2-12.0 [facility] [facility] virus antigen assay Ordered By: Dr. Ornelas on 07-12-2022 SARS-CoV-2 (COVID-19) Ag IA.rapid Ql (Resp) [facility] Determination of erythrocyte mean corpuscular volume (MCV)Ordered By: Dr. Ornelas on 07-12-2022 MCV (RBC) [Entitic vol] 95.5 fL 81-99 [facility] Hematocrit Auto (Bld) [Volum e fraction]Ordered By: Dr. Ornelas on 07-12-2022 Hematocrit (Bld) [Volume fraction] 36.0 % 37-47 [facility] Laboratory - Chemistry and C hemistry - challengeOrdered By: Dr. Ornelas on 07-12-2022 CO2 [Moles/Vol] 27.0 mmol/L 21.0-32.0 [facility] Urea nitrogen/Creatinine [Mass ratio] 13.3 mg/mg 10-20 [facility] Laboratory - Drug toxicology Ordered By: Dr. Ornelas on 07-12-2022 Amphetamines Ql (U) Negative <1000 ng/mL [facility] Benzodiazepines Ql (U) Negative < 200 ng/mL [facility] Cannabinoids Screen Ql (U) Negative < 50 ng/mL [facility] Cocaine Ql (U) Negative < 300 ng/mL [facility] Opiates Ql (U) Negative < 300 ng/mL [facility] Laboratory - Hematology and Cell countsOrdered By: Dr. Ornelas on 07-12-2022 Erythrocyte distribution width (RBC) [Entitic vol] 47.7 fL 35.1-43.9 [facility] Erythrocyte distribution width (RBC) [Ratio] 13.5 % 11.6-14.6 [facility] Immature granulocytes/100 WBC (Bld) 0.300 % 0.0-0.9 [facility] Comment on above: IG% - Immature Granu locytes (promyelocytes, myelocytes and metamyelocytes) > 1% indicates that a LEFT SHIFT is Present. MCH (RBC) [Entitic mass] 31.6 pg 27.0-32.0 [facility] Nucleated RBC/100 WBC (Bld) [Ratio] 0 % 0-5 [facility] MCHC Auto (RBC) [Mass/Vol]Or dered By: Dr. Ornelas on 07-12-2022 MCHC (RBC) [Mass/Vol] 33.1 g/dL 32-36 [facility] No Panel InformationOrdered By: Dr. Ornelas on 07-12-2022 MDMA (Ecstasy) Screen Negative < 500 ng/mL [facility] Urine Barbiturates Screen Negative < 200 ng/mL [facility] Urine Drug Screen Comment [facility] Comment on above: CONFIRMATORY TESTING FOR ALL POSITIVE URINE DRUG SCREENRESULTS WILL ONLY BE SENT OUT UPON PHYSICIAN ORDER. VISTA Urine Drug Screen methods provide only preliminaryanalytical test results. A more specific alternate chemicalmethod must be used in order to obtain a confirmedanalytical result. Gas chromatography/mass spectrometery(GC/MS) is the preferred confirmatory method. Clinicalconsideration and professional judgement should be appliedto any drug of abuse test result, particularly whenpreliminary positive results are used. URINE TCA TESTING MUST BE ORDERED SEPARATELY. USE TESTMNEMONIC: [facility] Urine Methadone Screen Negative < 300 ng/mL [facility] Estimated Creatinine Clearance Calc 66.99 ml/min [facility] Estimated GFR (MDRD) Amer 93 mL/min >60 [facility] Comment on above: GFR Calc Estimated GFR (MDRD) Non-Af Amer 77 mL/min >60 [facility] Comment on above: Non- GFR Calc Ethyl Alcohol Level < 3.0 mg/dL [facility] Comment on above: The serum:whole bloo d ethanol ratio is approximately 1.14and varies slightly with hematocrit. Medical Alcohol reference interval and critical value innon-tolerant individuals; 50 - 100 Impairment 100 Intoxication 100 - 250 Severe Poisoning 250 - 400 Deep/possible fatal coma Platelets bldOrdered By: Dr. Ornelas on 07-12-2022 Platelets (Bld) [#/Vol] 336 10*3/uL 150-450 [facility] Serum or plasma calcium niecy urement (mass/volume)Ordered By: Dr. Ornelas on 07-12-2022 Calcium [Mass/Vol] 8.7 mg/dL 8.5-10.1 [facility] Serum or plasma creatinine m easurement (mass/volume)Ordered By: Dr. Ornelas on 07-12-2022 Creatinine [Mass/Vol] 0.83 mg/dL 0.55-1.02 [facility] Comment on above: The validity of the calculated GFR & GFRAA in patients over 70 years has not been determined. Clinical correlation is essential. Serum or plasma urea nitroge n measurement (mass/volume)Ordered By: Dr. Ornelas on 07-12-2022 Urea nitrogen [Mass/Vol] 11 mg/dL 7-18 [facility] Thin prep Papanicolaou smear with manual screeningOrdered By: Dr. Ornelas on 07-12-2022 Thin prep Papanicolaou smear with manual screening 4 5-15 [facility] Urine phencyclidine (PCP) de tectionOrdered By: Dr. Ornelas on 07-12-2022 Phencyclidine Ql (U) Negative < 25 ng/mL [facility] CHRISTIANO DIAG W BREN LTon [address] [facility] US BREAST LTD LTon [address] [facility] CHRISTIANO SCREENING W TOMOon 06-[address] [facility] Absolute lymphocyte counton 05-15-2022 Lymphocytes Auto (Unsp spec) [#/Vol] 2.32 10*3/uL 0.83-4.51 [facility] Work Phone: [phone] Basophil percentageon 2021 Basophils/100 WBC (Bld) 0.5 % 0-1 [facility] Work Phone: Chloride [Moles/Vol] 104 mmol/L 98-107 [facility] Work Phone: Eosinophils/100 WBC (Bld) 2.3 % 0-5 [facility] Work Phone: Glucose [Mass/Vol] 91 mg/dL 74-106 [facility] Work Phone: Neutrophils (Bld) [#/Vol] 4.5 10*3/uL 2.0-7.7 [facility] Work Phone: Neutrophils/100 WBC (Bld) 58.9 % 47-70 [facility] Work Phone: Potassium [Moles/Vol] 4.6 mmol/L 3.5-5.[address] [facility] Work Phone: Sodium [Moles/Vol] 138 mmol/L 136-145 [facility] Work Phone: WBC (Bld) [#/Vol] 7.7 10*3/uL 4.4-11.0 [facility] Work Phone: Blood erythrocytes count (nu mber/volume)on 05-15-2022 RBC (Bld) [#/Vol] 4.43 10*6/uL 4.2-5.4 [facility] Work Phone: Blood hemoglobin measurement (mass/volume)on 05-15-2022 Hemoglobin (Bld) [Mass/Vol] 13.3 g/dL 12.0-15.0 [facility] Work Phone: Blood lymphocytes/100 leukoc yteson 05-15-2022 Lymphocytes/100 WBC (Bld) 30.1 % 19-41 [facility] Work Phone: Blood monocytes/100 leukocyt eson 05-15-2022 Monocytes/100 WBC (Bld) 7.7 % 0-10 [facility] Work Phone: Blood platelet mean volumeon 05-15-2022 Platelet mean volume (Bld) [Entitic vol] 9.5 fL 6.2-12.0 [facility] Work Phone: [phone] Determination of erythrocyte mean corpuscular volume (MCV)on 05-15-2022 MCV (RBC) [Entitic vol] 92.1 fL 81-99 [facility] Work Phone: Hematocrit Auto (Bld) [Volum e fraction]on 05-15-2022 Hematocrit (Bld) [Volume fraction] 40.8 % 37-47 [facility] Work Phone: [phone] Laboratory - Chemistry and C hemistry - challengeon 05-15-2022 CO2 [Moles/Vol] 30.0 mmol/L 21.0-32.0 [facility] Work Phone: Urea nitrogen/Creatinine [Mass ratio] 16.5 mg/mg 10-20 [facility] Work Phone: Laboratory - Hematology and Cell countson 05-15-2022 Erythrocyte distribution width (RBC) [Entitic vol] 49.1 fL 35.1-43.9 [facility] Work Phone: Erythrocyte distribution width (RBC) [Ratio] 14.4 % 11.6-14.6 [facility] Work Phone: Immature granulocytes/100 WBC (Bld) 0.500 % 0.0-0.9 [facility] Work Phone: Comment on above: IG% - Immature Granu locytes (promyelocytes, myelocytes and metamyelocytes) > 1% indicates that a LEFT SHIFT is Present. MCH (RBC) [Entitic mass] 30.0 pg 27.0-32.0 [facility] Work Phone: Nucleated RBC/100 WBC (Bld) [Ratio] 0 % 0-5 [facility] Work Phone: MCHC Auto (RBC) [Mass/Vol]on 05-15-2022 MCHC (RBC) [Mass/Vol] 32.6 g/dL 32-36 [facility] Work Phone: No Panel Informationon 05-15 Estimated Creatinine Clearance Calc 69.38 ml/min [facility] Work Phone: Estimated GFR (MDRD) Amer 98 mL/min >60 [facility] Work Phone: Comment on above: GFR Calc Estimated GFR (MDRD) Non-Af Amer 81 mL/min >60 [facility] Work Phone: Comment on above: Non- GFR Calc Platelets bldon 05-15-2022 Platelets (Bld) [#/Vol] 347 10*3/uL 150-450 [facility] Work Phone: Serum or plasma calcium niecy urement (mass/volume)on 05-15-2022 Calcium [Mass/Vol] 9.5 mg/dL 8.5-10.1 [facility] Work Phone: Serum or plasma creatinine m easurement (mass/volume)on 05-15-2022 Creatinine [Mass/Vol] 0.79 mg/dL 0.55-1.02 [facility] Work Phone: Comment on above: The validity of the calculated GFR & GFRAA in patients over 70 years has not been determined. Clinical correlation is essential. Serum or plasma urea nitroge n measurement (mass/volume)on 05-15-2022 Urea nitrogen [Mass/Vol] 13 mg/dL 7-18 [facility] Work Phone: Thin prep Papanicolaou smear with manual screeningon 05-15-2022 Thin prep Papanicolaou smear with manual screening 4 5-15 [facility] Work Phone: Absolute lymphocyte counton 04-18-2022 Lymphocytes Auto (Unsp spec) [#/Vol] 2.18 10*3/uL 0.83-4.51 [facility] Work Phone: Basophil percentageon 2021 Basophils/100 WBC (Bld) 0.4 % 0-1 [facility] Work Phone: Bilirubin [Mass/Vol] 0.30 mg/dL 0.20-1.00 [facility] Work Phone: Comment on above: For patients on eltr ombopag therapy, use of Dimension [place] TBIL is not recommended. Chloride [Moles/Vol] 105 mmol/L 98-107 [facility] Work Phone: Eosinophils/100 WBC (Bld) 2.4 % 0-5 [facility] Work Phone: Glucose [Mass/Vol] 98 mg/dL 74-106 [facility] Work Phone: Neutrophils (Bld) [#/Vol] 4.4 10*3/uL 2.0-7.7 [facility] Work Phone: Neutrophils/100 WBC (Bld) 59.3 % 47-70 [facility] Work Phone: Potassium [Moles/Vol] 4.7 mmol/L 3.5-5.1 [facility] Work Phone: Protein [Mass/Vol] 6.8 g/dL 6.4-8.2 [facility] Work Phone: Sodium [Moles/Vol] 139 mmol/L 136-145 [facility] Work Phone: WBC (Bld) [#/Vol] 7.4 10*3/uL 4.4-11.0 [facility] Work Phone: Blood erythrocytes count (nu mber/volume)on 04-18-2022 RBC (Bld) [#/Vol] 4.19 10*6/uL 4.2-5.4 [facility]: Blood hemoglobin measurement (mass/volume)on 04-18-2022 Hemoglobin (Bld) [Mass/Vol] 13.0 g/dL 12.0-15.0 [facility] Work Phone: Blood lymphocytes/100 leukoc yteson 04-18-2022 Lymphocytes/100 WBC (Bld) 29.3 % 19-41 [facility] Work Phone: Blood monocytes/100 leukocyt eson 04-18-2022 Monocytes/100 WBC (Bld) 8.3 % 0-10 [facility] Work Phone: Blood platelet mean volumeon 04-18-2022 Platelet mean volume (Bld) [Entitic vol] 9.7 fL 6.2-12.0 [facility] Work Phone: Determination of erythrocyte mean corpuscular volume (MCV)on 04-18-2022 MCV (RBC) [Entitic vol] 91.9 fL 81-99 [facility] Work Phone: Hematocrit Auto (Bld) [Volum e fraction]on 04-18-2022 Hematocrit (Bld) [Volume fraction] 38.5 % 37-47 [facility] Work Phone: [phone] Laboratory - Chemistry and C hemistry - challengeon 04-18-2022 ALP [Catalytic activity/Vol] 76 U/L 45-117 [facility] Work Phone: ALT [Catalytic activity/Vol] 31 U/L 13-56 [facility] Work Phone: CO2 [Moles/Vol] 28.0 mmol/L 21.0-32.0 [facility] Work Phone: Globulin (S) [Mass/Vol] 3.3 g/dL 2.2-4.2 [facility] Work Phone: [phone] Urea nitrogen/Creatinine [Mass ratio] 18.0 mg/mg 10-20 [facility] Work Phone: Laboratory - Hematology and Cell countson 04-18-2022 Erythrocyte distribution width (RBC) [Entitic vol] 48.3 fL 35.1-43.9 [facility] Work Phone: Erythrocyte distribution width (RBC) [Ratio] 14.3 % 11.6-14.6 [facility] Work Phone: [phone] Immature granulocytes/100 WBC (Bld) 0.300 % 0.0-0.9 [facility] Work Phone: [phone] Comment on above: IG% - Immature Granu locytes (promyelocytes, myelocytes and metamyelocytes) > 1% indicates that a LEFT SHIFT is Present. MCH (RBC) [Entitic mass] 31.0 pg 27.0-32.0 [facility] Work Phone: Nucleated RBC/100 WBC (Bld) [Ratio] 0 % 0-5 [facility] Work Phone: MCHC Auto (RBC) [Mass/Vol]on 04-18-2022 MCHC (RBC) [Mass/Vol] 33.8 g/dL 32-[address] [facility] [address] [facility] Work Phone: [phone] No Panel Informationon 04-18 Estimated Creatinine Clearance Calc 67.21 ml/min [facility] Work Phone: Estimated GFR (MDRD) Amer 100 mL/min >60 [facility] Work Phone: Comment on above: GFR Calc Estimated GFR (MDRD) Non-Af Amer 83 mL/min >60 [facility] Work Phone: Comment on above: Non- GFR Calc Platelets bldon 04-18-2022 Platelets (Bld) [#/Vol] 324 10*3/uL 150-450 [facility] Work Phone: Serum or plasma albumin niecy urement (mass/volume)on 04-18-2022 Albumin [Mass/Vol] 3.5 g/dL 3.2-5.0 [facility] Work Phone: Serum or plasma albumin/glob ulin mass ratioon 04-18-2022 Albumin/Globulin [Mass ratio] 1.1 {ratio} 0.9-2.4 [facility] Work Phone: Serum or plasma calcium niecy urement (mass/volume)on 04-18-2022 Calcium [Mass/Vol] 9.1 mg/dL 8.5-10.1 [facility] Work Phone: Serum or plasma creatinine m easurement (mass/volume)on 04-18-2022 Creatinine [Mass/Vol] 0.78 mg/dL 0.55-1.02 [facility] Work Phone: Comment on above: The validity of the calculated GFR & GFRAA in patients over 70 years has not been determined. Clinical correlation is essential. Serum or plasma urea nitroge n measurement (mass/volume)on 04-18-2022 Urea nitrogen [Mass/Vol] 14 mg/dL 7-18 [facility] Work Phone: Thin prep Papanicolaou smear with manual screeningon 04-18-2022 Thin prep Papanicolaou smear with manual screening 22 U/L 15-37 [facility] Work Phone: Thin prep Papanicolaou smear with manual screening 6 5-15 [facility] Work Phone: Laboratory - Chemistry and C hemistry - challengeon 04-13-2022 Free T4 [Mass/Vol] 1.00 ng/dL 0.76-1.46 [facility] Work Phone: No Panel Informationon 04-13 Free Triiodothyronine (T3) pg/dL 2.4 pg/mL 2.18-3.98 [facility] Work Phone: Thyroid Stimulating Hormone (TSH) 0.45 uIU/mL 0.358-3.74 [facility] Work Phone: CBC W Auto Differential pane l (Bld)on 02-16-2022 Basophils (Bld) [#/Vol] 0.06 10*3/uL Normal <0.11 [facility] Comment on above: Order Comment: Speci men Type: BLOOD SPECIMEN Ordering Facility: [facility] Address: [address] [place] [address] Performed By: #### 5 7021-8, 70454-6, 3053-6, 3026-2, 3016-3, XMICTG #### [facility] CLIA [id number] [address] [place] [address] [place] Basophils/100 WBC (Bld) 0.9 % Normal [facility] Comment on above: Order Comment: Speci men Type: BLOOD SPECIMEN Ordering Facility: [facility] Address: [address] [place] [address] Performed By: #### 5 7021-8, 39758-8, 3053-6, 3026-2, 3016-3, XMICTG #### [facility] CLIA [id number] [address] [place] [address] [place] Differential cell count method Nom (Bld) Auto Normal [facility] Comment on above: Order Comment: Speci men Type: BLOOD SPECIMEN Ordering Facility: [facility] Address: [address] [place] [address] Performed By: #### 5 7021-8, 31980-8, 3053-6, 3026-2, 3016-3, XMICTG #### [facility] CLIA [id number] [address] [address] [place] Eosinophils (Bld) [#/Vol] 0.17 10*3/uL Normal <0.46 [facility] Comment on above: Order Comment: Speci men Type: BLOOD SPECIMEN Ordering Facility: [facility] Address: [facility], [place] [address] Performed By: #### 5 7021-8, 41737-2, 3053-6, 3026-2, 3016-3, XMICTG #### [facility] CLIA [id number] [address] [place] [place] [id number] [place] Eosinophils/100 WBC (Bld) 2.6 % Normal [facility] Comment on above: Order Comment: Speci men Type: BLOOD SPECIMEN Ordering Facility: [facility] Address: [facility] [facility], [place] [address] Performed By: #### 5 7021-8, 61450-7, 3053-6, 3026-2, 3016-3, XMICTG #### [facility] CLIA [id number] [address] [place] [place] [id number] [place] Erythrocyte distribution width (RBC) [Ratio] 13.7 % Normal 11.5-15.0 [facility] Comment on above: Order Comment: Speci men Type: BLOOD SPECIMEN Ordering Facility: [facility] Address: [facility] [facility], [place] [address] Performed By: #### 5 7021-8, 94936-5, 3053-6, 3026-2, 3016-3, XMICTG #### [facility] CLIA [id number] [address] [place] [place] [id number] [place] Hematocrit (Bld) [Volume fraction] 42.1 % Normal 36.0-46.0 [facility] Comment on above: Order Comment: Speci men Type: BLOOD SPECIMEN Ordering Facility: [facility] Address: [address] [place] [address] Performed By: #### 5 7021-8, 45438-8, 3053-6, 3026-2, 3016-3, XMICTG #### [facility] CLIA [id number] [address] [place] [address] [place] Hemoglobin (Bld) [Mass/Vol] 13.7 g/dL Normal 11.5-15.5 [facility] Comment on above: Order Comment: Speci men Type: BLOOD SPECIMEN Ordering Facility: [facility] Address: [address] [place] [address] Performed By: #### 5 7021-8, 48935-9, 3053-6, 3026-2, 3016-3, XMICTG #### [facility] CLIA [id number] [address] [place] [address] [place] IMMATURE GRAN % 0.5 % Normal [facility] Comment on above: Order Comment: Speci men Type: BLOOD SPECIMEN Ordering Facility: [facility] Address: [address] [place] [address] Performed By: #### 5 7021-8, 20166-5, 3053-6, 3026-2, 3016-3, XMICTG #### [facility] CLIA [id number] [address] [place] [address] [place] IMMATURE GRAN ABS 0.03 k/uL Normal <0.10 [facility] Comment on above: Order Comment: Speci men Type: BLOOD SPECIMEN Ordering Facility: [facility] Address: [address] [place] [address] Performed By: #### 5 7021-8, 74971-5, 3053-6, 3026-2, 3016-3, XMICTG #### [facility] CLIA [id number] [address] [place] [id number] [place] Lymphocytes (Bld) [#/Vol] 2.01 10*3/uL Normal 1.00-4.00 [facility] Comment on above: Order Comment: Speci men Type: BLOOD SPECIMEN Ordering Facility: [facility] Address: [address] [place] [address] Performed By: #### 5 7021-8, 57085-4, 3053-6, 3026-2, 3016-3, XMICTG #### [facility] CLIA [id number] [address] [place] [address] [place] Lymphocytes/100 WBC (Bld) 31.1 % Normal [facility] Comment on above: Order Comment: Speci men Type: BLOOD SPECIMEN Ordering Facility: [facility] Address: [address] [place] [address] Performed By: #### 5 7021-8, 96281-6, 3053-6, 3026-2, 3016-3, XMICTG #### [facility] IA [id number] [address] [place] [address] [place] MCH (RBC) [Entitic mass] 30.2 pg Normal 26.0-34.0 [facility] Comment on above: Order Comment: Speci men Type: BLOOD SPECIMEN Ordering Facility: [facility] Address: [address] [place] [address] Performed By: #### 5 7021-8, 60451-2, 3053-6, 3026-2, 3016-3, XMICTG #### [facility] CLIA [id number] [address] [place] [address] [place] MCHC (RBC) [Mass/Vol] 32.5 g/dL Normal 30.5-36.0 [facility] Comment on above: Order Comment: Speci men Type: BLOOD SPECIMEN Ordering Facility: [facility] Address: [address] [place] [address], [place] [address] Performed By: #### 5 7021-8, 87521-8, 3053-6, 3026-2, 3016-3, XMICTG #### [facility] CLIA [id number] [address] [address] [place] MCV (RBC) [Entitic vol] 92.9 fL Normal 80.0-100.0 [facility] Comment on above: Order Comment: Speci men Type: BLOOD SPECIMEN Ordering Facility: [facility] Address: [address] [place] [address], [place] [address] Performed By: #### 5 7021-8, 56578-3, 3053-6, 3026-2, 3016-3, XMICTG #### [facility] CLIA [id number] [address] [address] [place] Monocytes (Bld) [#/Vol] 0.52 10*3/uL Normal <0.87 [facility] Comment on above: Order Comment: Speci men Type: BLOOD SPECIMEN Ordering Facility: [facility] Address: [address] [place] [address], [place] [address] Performed By: #### 5 7021-8, 59122-4, 3053-6, 3026-2, 3016-3, XMICTG #### [facility] CLIA [id number] [address] [place] [id number] [place] Monocytes/100 WBC (Bld) 8.0 % Normal [facility] Comment on above: Order Comment: Speci men Type: BLOOD SPECIMEN Ordering Facility: [facility] Address: [address] [place] [address], [place] [address] Performed By: #### 5 7021-8, 42441-3, 3053-6, 3026-2, 3016-3, XMICTG #### [facility] CLIA [id number] [address] [address] [place] Neutrophils (Bld) [#/Vol] 3.67 10*3/uL Normal 1.45-7.50 [facility] Comment on above: Order Comment: Speci men Type: BLOOD SPECIMEN Ordering Facility: [facility] Address: [address] [place] [address] Performed By: #### 5 7021-8, 70512-9, 3053-6, 3026-2, 3016-3, XMICTG #### [facility] CLIA [id number] [address] [place], [place] [id number] [place] Neutrophils/100 WBC (Bld) 56.9 % Normal [facility] Comment on above: Order Comment: Speci men Type: BLOOD SPECIMEN Ordering Facility: [facility] Address: [address] [place] [address] Performed By: #### 5 7021-8, 34451-4, 3053-6, 3026-2, 3016-3, XMICTG #### [facility] CLIA [id number] [address] [place] [address] [place] Nucleated RBC (Bld) [#/Vol] 10*3/uL Normal <0.01 [facility] Comment on above: Order Comment: Speci men Type: BLOOD SPECIMEN Ordering Facility: [facility] Address: [address] [place] [address] Performed By: #### 5 7021-8, 00806-0, 3053-6, 3026-2, 3016-3, XMICTG #### [facility] CLIA [id number] [address] [place] [address] [place] Nucleated RBC/100 WBC (Bld) [Ratio] 0.0 /100 WBC Normal [facility] Comment on above: Order Comment: Speci men Type: BLOOD SPECIMEN Ordering Facility: [facility] Address: [address] [place] [address] Performed By: #### 5 7021-8, 96055-2, 3053-6, 3026-2, 3016-3, XMICTG #### [facility] CLIA [id number] [address] [id number] [place] Platelet mean volume (Bld) [Entitic vol] 10.7 fL Normal 9.0-12.7 [facility] Comment on above: Order Comment: Speci men Type: BLOOD SPECIMEN Ordering Facility: [facility] Address: [address] [place] [address] Performed By: #### 5 7021-8, 60283-4, 3053-6, 3026-2, 3016-3, XMICTG #### [facility] CLIA [id number] [address] [place] [address] [place] Platelets (Bld) [#/Vol] 348 10*3/uL Normal 150-400 [facility] Comment on above: Order Comment: Speci men Type: BLOOD SPECIMEN Ordering Facility: [facility] Address: [address] [place] [address] Performed By: #### 5 7021-8, 81763-9, 3053-6, 3026-2, 3016-3, XMICTG #### [facility] CLIA [id number] [address] [place] [address] [place] RBC (Bld) [#/Vol] 4.53 10*6/uL Normal 3.90-5.20 [facility] Comment on above: Order Comment: Speci men Type: BLOOD SPECIMEN Ordering Facility: [facility] Address: [address] [place] [address] Performed By: #### 5 7021-8, 10100-4, 3053-6, 3026-2, 3016-3, XMICTG #### [facility] CLIA [id number] [address] [id number] [place] WBC (Bld) [#/Vol] 6.46 10*3/uL Normal 3.70-11.00 [facility] Comment on above: Order Comment: Speci men Type: BLOOD SPECIMEN Ordering Facility: [facility] Address: [address] [place] [address], [place] [address] Performed By: #### 5 7021-8, 97973-6, 3053-6, 3026-2, 3016-3, XMICTG #### [facility] CLIA [id number] [address] [place] [address] [place] Comprehensive metabolic 2000 panelon 02-16-2022 Albumin [Mass/Vol] 4.6 g/dL Normal 3.9-4.9 [facility] Comment on above: Order Comment: Speci men Type: BLOOD SPECIMEN Ordering Facility: [facility] Address: [address] [place] [address], [place] [address] Performed By: #### 5 7021-8, 34183-3, 3053-6, 3026-2, 3016-3, XMICTG #### [facility] CLIA [id number] [address] [place], [place] [id number] [place] ALP [Catalytic activity/Vol] 85 U/L Normal 34-123 [facility] Comment on above: Order Comment: Speci men Type: BLOOD SPECIMEN Ordering Facility: [facility] Address: [address] [place] [address], [place] [address] Performed By: #### 5 7021-8, 46376-8, 3053-6, 3026-2, 3016-3, XMICTG #### [facility] CLIA [id number] [address] [place], [place] [id number] [place] ALT [Catalytic activity/Vol] 22 U/L Normal 7-38 [facility] Comment on above: Order Comment: Speci men Type: BLOOD SPECIMEN Ordering Facility: [facility] Address: [address] [place] [address], [place] [address] Performed By: #### 5 7021-8, 53794-7, 3053-6, 3026-2, 3016-3, XMICTG #### [facility] CLIA [id number] [address] [address] [place] Anion gap [Moles/Vol] 10 mmol/L Normal 9-18 [facility] Comment on above: Order Comment: Speci men Type: BLOOD SPECIMEN Ordering Facility: [facility] Address: [address] [place] [address], [place] [address] Performed By: #### 5 7021-8, 41341-9, 3053-6, 3026-2, 3016-3, XMICTG #### [facility] CLIA [id number] [address] [id number] [place] AST [Catalytic activity/Vol] 26 U/L Normal 13-35 [facility] Comment on above: Order Comment: Speci men Type: BLOOD SPECIMEN Ordering Facility: [facility] Address: [address] [place] [address], [place] [address] Performed By: #### 5 7021-8, 44832-4, 3053-6, 3026-2, 3016-3, XMICTG #### [facility] CLIA [id number] [address] [place], [place] [phone] [place] Bilirubin [Mass/Vol] 0.3 mg/dL Normal 0.2-1.3 [facility] Comment on above: Order Comment: Speci men Type: BLOOD SPECIMEN Ordering Facility: [facility] Address: [address] [place] [address], [place] [address] Performed By: #### 5 7021-8, 54389-0, 3053-6, 3026-2, 3016-3, XMICTG #### [facility] CLIA [id number] [address] [place], [place] [phone] [place] Calcium [Mass/Vol] 9.8 mg/dL Normal 8.5-10.2 [facility] Comment on above: Order Comment: Speci men Type: BLOOD SPECIMEN Ordering Facility: [facility] Address: [address] [place] [address], [place] [address] Performed By: #### 5 7021-8, 16177-6, 3053-6, 3026-2, 3016-3, XMICTG #### [facility] CLIA [id number] [address] [address] [place] Chloride [Moles/Vol] 101 mmol/L Normal 97-105 [facility] Comment on above: Order Comment: Speci men Type: BLOOD SPECIMEN Ordering Facility: [facility] Address: [address] [facility], [place] [address] Performed By: #### 5 7021-8, 89132-3, 3053-6, 3026-2, 3016-3, XMICTG #### [facility] CLIA [id number] [address] [id number] [place] CO2 [Moles/Vol] 26 mmol/L Normal 22-30 [facility] Comment on above: Order Comment: Speci men Type: BLOOD SPECIMEN Ordering Facility: [facility] Address: [address] [facility], [place] [address] Performed By: #### 5 7021-8, 66494-0, 3053-6, 3026-2, 3016-3, XMICTG #### [facility] CLIA [id number] [address] [id number] [place] Creatinine [Mass/Vol] 0.73 mg/dL Normal 0.58-0.96 [facility] Comment on above: Order Comment: Speci men Type: BLOOD SPECIMEN Ordering Facility: [facility] Address: [address] [facility], [place] [address] Performed By: #### 5 7021-8, 85619-8, 3053-6, 3026-2, 3016-3, XMICTG #### [facility] CLIA [id number] [address] [address] [place] ESTIMATED GLOMERULAR FILTRATION RATE 100 mL/min/1.73m??? Normal >=60 [facility] Comment on above: Order Comment: Arashadriana aubrie Type: BLOOD SPECIMEN Ordering Facility: [facility] Address: [address] [place] [address], [place] [id number] Result Comment: Ivana mated Glomerular Filtration Rate (eGFR) is calculated using the 2020 CKD-EPI creatinine equation. This equation utilizes serum creatinine, sex, and age as parameters. The creatinine assay has traceable calibration to isotope dilution-mass spectrometry. Refer to KDIGO guidelines for clinical interpretation. In patients with unstable renal function, e.g. those with acute kidney injury, the eGFR may not accurately reflect actual GFR. Performed By: #### 5 7021-8, 37549-2, 3053-6, 3026-2, 3016-3, XMICTG #### [facility] CLIA [id number] [address] [address] [place] Glucose [Mass/Vol] 80 mg/dL Normal 74-99 [facility] Comment on above: Order Comment: Vincent alfred Type: BLOOD SPECIMEN Ordering Facility: [facility] Address: [address] [place] [address], [place] [address] Result Comment: The [place] Diabetes [employer] (ADA) provides guidance for cutoff values for fasting glucose and random glucose. The ADA defines fasting as no caloric intake for at least 8 hours. Fasting plasma glucose results between 100 to 125 mg/dL indicate increased risk for diabetes (prediabetes). Fasting plasma glucose results greater than or equal to 126 mg/dL meet the criteria for diagnosis of diabetes. In the absence of unequivocal hyperglycemia, results should be confirmed by repeat testing. In a patient with classic symptoms of hyperglycemia or hyperglycemic crisis, random plasma glucose results greater than or equal to 200 mg/dL meet the criteria for diagnosis of diabetes. Reference: Standards of Medical Care in Diabetes 2016, [place] Diabetes Association. Diabetes Care. 2016.39(Suppl 1). Performed By: #### 5 7021-8, 17551-6, 3053-6, 3026-2, 3016-3, XMICTG #### [facility] CLIA [id number] [address] [address] [place] Potassium [Moles/Vol] 5.0 mmol/L Normal 3.7-5.1 [facility] Comment on above: Order Comment: Speci men Type: BLOOD SPECIMEN Ordering Facility: [facility] Address: [address] [place] [address], [place] [address] Performed By: #### 5 7021-8, 02014-2, 3053-6, 3026-2, 3016-3, XMICTG #### [facility] CLIA [id number] [address] [place], [place] [phone] [place] Protein [Mass/Vol] 6.7 g/dL Normal 6.3-8.0 [facility] Comment on above: Order Comment: Speci men Type: BLOOD SPECIMEN Ordering Facility: [facility] Address: [address] [place] [address], [place] [address] Performed By: #### 5 7021-8, 84064-0, 3053-6, 3026-2, 3016-3, XMICTG #### [facility] CLIA [id number] [address] [place], [place] [phone] [place] Sodium [Moles/Vol] 137 mmol/L Normal 136-144 [facility] Comment on above: Order Comment: Speci men Type: BLOOD SPECIMEN Ordering Facility: [facility] Address: [address] [place] [address], [place] [address] Performed By: #### 5 7021-8, 90426-4, 3053-6, 3026-2, 3016-3, XMICTG #### [facility] CLIA [id number] [address] [place] [address] [place] Urea nitrogen [Mass/Vol] 14 mg/dL Normal 7-21 [facility] Comment on above: Order Comment: Speci men Type: BLOOD SPECIMEN Ordering Facility: [facility] Address: [address] [place] [address], [place] [address] Performed By: #### 5 7021-8, 06844-1, 3053-6, 3026-2, 3016-3, XMICTG #### [facility] CLIA [id number] [address] [place] [address] [place] T3 SerPl-mCncon 02-16-2022 T3 [Mass/Vol] 99 ng/dL Normal 79-165 [facility] Comment on above: Order Comment: Speci men Type: BLOOD SPECIMEN Ordering Facility: [facility] Address: [address] [place] [address], [place] [address] Performed By: #### 5 7021-8, 60563-0, 3053-6, 3026-2, 3016-3, XMICTG #### [facility] CLIA [id number] [address] [place] [address] [place] T4 SerPl-mCncon 02-16-2022 T4 [Mass/Vol] 6.2 ug/dL Normal 5.5-10.2 [facility] Comment on above: Order Comment: Speci men Type: BLOOD SPECIMEN Ordering Facility: [facility] Address: [address] [place] [address], [place] [address] Performed By: #### 5 7021-8, 55227-6, 3053-6, 3026-2, 3016-3, XMICTG #### [facility] CLIA [id number] [address] [place] [address] [place] THYROGLOBULIN ANTIBon 2021 Thyroglobulin Ab Qn 1.1 [IU]/mL Normal <14.4 [facility] Comment on above: Order Comment: Speci men Type: BLOOD SPECIMEN Ordering Facility: [facility] Address: [address] [place] [address], [place] [address] Performed By: #### 5 7021-8, 63645-1, 3053-6, 3026-2, 3016-3, XMICTG #### [facility] CLIA [id number] [address] [place] [address] [place] TPO Ab Qn 1.1 [IU]/mL Normal <5.6 [facility] Comment on above: Order Comment: Speci men Type: BLOOD SPECIMEN Ordering Facility: [facility] Address: [address] [place] [address], [place] [address] Performed By: #### 5 7021-8, 34426-5, 3053-6, 3026-2, 3016-3, XMICTG #### [facility] CLIA [id number] [address] [place] [address] [place] TSH SerPl-aCncon 02-16-2022 TSH Qn 0.340 m[IU]/L Normal 0.270-4.20 0 [facility] Comment on above: Order Comment: Speci men Type: BLOOD SPECIMEN Ordering Facility: [facility] Address: [address] [place] [address], [place] [address] Performed By: #### 5 7021-8, 23292-0, 3053-6, 3026-2, 3016-3, XMICTG #### [facility] CLIA [id number] [facility] [address] [place] Absolute lymphocyte counton 01-17-2022 Lymphocytes Auto (Unsp spec) [#/Vol] 2.04 10*3/uL 0.83-4.51 [facility] Work Phone: Basophil percentageon 2021 Basophils/100 WBC (Bld) 0.5 % 0-1 [facility] Work Phone: [phone] Bilirubin [Mass/Vol] 0.40 mg/dL 0.20-1.00 [facility] Work Phone: [phone] Comment on above: For patients on eltr ombopag therapy, use of Dimension [place] TBIL is not recommended. Chloride [Moles/Vol] 105 mmol/L 98-107 [facility] Work Phone: Eosinophils/100 WBC (Bld) 1.3 % 0-5 [facility] Work Phone: [phone] Glucose [Mass/Vol] 71 mg/dL 74-106 [facility] Work Phone: Neutrophils (Bld) [#/Vol] 3.6 10*3/uL 2.0-7.7 [facility] Work Phone: Neutrophils/100 WBC (Bld) 56.0 % 47-70 [facility] Work Phone: Potassium [Moles/Vol] 3.9 mmol/L 3.5-5.[address] [facility] Work Phone: Protein [Mass/Vol] 7.6 g/dL 6.4-8.2 [facility] Work Phone: Sodium [Moles/Vol] 138 mmol/L 136-145 [facility] Work Phone: WBC (Bld) [#/Vol] 6.3 10*3/uL 4.4-11.0 [facility] Work Phone: Blood erythrocytes count (nu mber/volume)on 01-17-2022 RBC (Bld) [#/Vol] 4.55 10*6/uL 4.2-5.4 [facility] Work Phone: Blood hemoglobin measurement (mass/volume)on 01-17-2022 Hemoglobin (Bld) [Mass/Vol] 13.6 g/dL 12.0-15.0 [facility] Work Phone: Blood lymphocytes/100 leukoc yteson 01-17-2022 Lymphocytes/100 WBC (Bld) 32.2 % 19-41 [facility] Work Phone: Blood monocytes/100 leukocyt eson 01-17-2022 Monocytes/100 WBC (Bld) 9.2 % 0-10 [facility] Work Phone: Blood platelet mean volumeon 01-17-2022 Platelet mean volume (Bld) [Entitic vol] 9.7 fL 6.2-12.0 [facility] Work Phone: Determination of erythrocyte mean corpuscular volume (MCV)on 05-11-2022 MCV (RBC) [Entitic vol] 91.4 fL 81-99 [facility] Work Phone: Hematocrit Auto (Bld) [Volum e fraction]on 01-17-2022 Hematocrit (Bld) [Volume fraction] 41.6 % 37-47 [facility] Work Phone: [phone] Laboratory - Chemistry and C hemistry - challengeon 01-17-2022 ALP [Catalytic activity/Vol] 87 U/L 45-117 [facility] Work Phone: ALT [Catalytic activity/Vol] 27 U/L 13-56 [facility] Work Phone: CO2 [Moles/Vol] 28.0 mmol/L 21.0-32.0 [facility] Work Phone: [phone] Globulin (S) [Mass/Vol] 3.7 g/dL 2.2-4.2 [facility] Work Phone: [phone] Lipase [Catalytic activity/Vol] 58 U/L 73-393 [facility] Work Phone: [phone] Urea nitrogen/Creatinine [Mass ratio] 11.7 mg/mg 10-20 [facility] Work Phone: [phone] Laboratory - Hematology and Cell countson 01-17-2022 Erythrocyte distribution width (RBC) [Entitic vol] 44.8 fL 35.1-43.9 [facility] Work Phone: [phone] Erythrocyte distribution width (RBC) [Ratio] 13.3 % 11.6-14.6 [facility] Work Phone: Immature granulocytes/100 WBC (Bld) 0.800 % 0.0-0.9 [facility] Work Phone: [phone] Comment on above: IG% - Immature Granu locytes (promyelocytes, myelocytes and metamyelocytes) > 1% indicates that a LEFT SHIFT is Present. MCH (RBC) [Entitic mass] 29.9 pg 27.0-32.0 [facility] Work Phone: [phone] Nucleated RBC/100 WBC (Bld) [Ratio] 0 % 0-5 [facility] Work Phone: MCHC Auto (RBC) [Mass/Vol]on 01-17-2022 MCHC (RBC) [Mass/Vol] 32.7 g/dL 32-36 [facility] Work Phone: No Panel Informationon 01-17 Estimated Creatinine Clearance Calc 64.48 ml/min [facility] Work Phone: Estimated GFR (MDRD) Amer 90 mL/min >60 [facility] Work Phone: Comment on above: GFR Calc Estimated GFR (MDRD) Non-Af Amer 74 mL/min >60 [facility] Work Phone: Comment on above: Non- GFR Calc Platelets bldon 01-17-2022 Platelets (Bld) [#/Vol] 306 10*3/uL 150-450 [facility] Work Phone: Serum or plasma albumin niecy urement (mass/volume)on 01-17-2022 Albumin [Mass/Vol] 3.9 g/dL 3.2-5.0 [facility] Work Phone: Serum or plasma albumin/glob ulin mass ratioon 01-17-2022 Albumin/Globulin [Mass ratio] 1.1 {ratio} 0.9-2.4 [facility] Work Phone: Serum or plasma calcium niecy urement (mass/volume)on 01-17-2022 Calcium [Mass/Vol] 9.3 mg/dL 8.5-10.1 [facility] Work Phone: Serum or plasma creatinine m easurement (mass/volume)on 01-17-2022 Creatinine [Mass/Vol] 0.85 mg/dL 0.55-1.02 [facility] Work Phone: Comment on above: The validity of the calculated GFR & GFRAA in patients over 70 years has not been determined. Clinical correlation is essential. Serum or plasma urea nitroge n measurement (mass/volume)on 01-17-2022 Urea nitrogen [Mass/Vol] 10 mg/dL 7-18 [facility] Work Phone: [phone] Thin prep Papanicolaou smear with manual screeningon 01-17-2022 Thin prep Papanicolaou smear with manual screening 23 U/L 15-37 [facility] Work Phone: Thin prep Papanicolaou smear with manual screening 5 5-15 [facility] Work Phone: [phone] No Panel Informationon 10-23 Influenza Types A,B Direct FA (RYAN) [facility] Work Phone: [phone] Absolute lymphocyte counton 10-18-2021 Lymphocytes Auto (Unsp spec) [#/Vol] 2.26 10*3/uL 0.83-4.51 [facility] Work Phone: Basophil percentageon 2021 Basophils/100 WBC (Bld) 0.4 % 0-1 [facility] Work Phone: Chloride [Moles/Vol] 105 mmol/L 98-[address] [facility] Work Phone: Eosinophils/100 WBC (Bld) 1.1 % 0-5 [facility] Work Phone: Glucose [Mass/Vol] 79 mg/dL 74-106 [facility] Work Phone: Neutrophils (Bld) [#/Vol] 6.9 10*3/uL 2.0-7.7 [facility] Work Phone: Neutrophils/100 WBC (Bld) 68.8 % 47-70 [facility] Work Phone: Potassium [Moles/Vol] 4.1 mmol/L 3.5-5.1 [facility] Work Phone: Sodium [Moles/Vol] 137 mmol/L 136-145 [facility] Work Phone: WBC (Bld) [#/Vol] 10.1 10*3/uL 4.4-11.0 [facility] Work Phone: Blood erythrocytes count (nu mber/volume)on 10-18-2021 RBC (Bld) [#/Vol] 4.44 10*6/uL 4.2-5.4 [facility] Work Phone: Blood hemoglobin measurement (mass/volume)on 10-18-2021 Hemoglobin (Bld) [Mass/Vol] 13.9 g/dL 12.0-15.0 [facility] Work Phone: Blood lymphocytes/100 leukoc yteson 10-18-2021 Lymphocytes/100 WBC (Bld) 22.4 % 19-41 [facility] Work Phone: Blood monocytes/100 leukocyt eson 10-18-2021 Monocytes/100 WBC (Bld) 7.0 % 0-10 [facility] Work Phone: [phone] Blood platelet mean volumeon 10-18-2021 Platelet mean volume (Bld) [Entitic vol] 9.8 fL 6.2-12.0 [facility] Work Phone: Determination of erythrocyte mean corpuscular volume (MCV)on 10-18-2021 MCV (RBC) [Entitic vol] 93.5 fL 81-99 [facility] Work Phone: [phone] Hematocrit Auto (Bld) [Volum e fraction]on 10-18-2021 Hematocrit (Bld) [Volume fraction] 41.5 % 37-47 [facility] Work Phone: [phone] Laboratory - Chemistry and C hemistry - challengeon 10-18-2021 CO2 [Moles/Vol] 25.0 mmol/L 21.0-32.0 [facility] Work Phone: [phone] Urea nitrogen/Creatinine [Mass ratio] 12.1 mg/mg 10-20 [facility] Work Phone: [phone] Laboratory - Hematology and Cell countson 10-18-2021 Erythrocyte distribution width (RBC) [Entitic vol] 45.6 fL 35.1-43.9 [facility] Work Phone: [phone] Erythrocyte distribution width (RBC) [Ratio] 13.3 % 11.6-14.6 [facility] Work Phone: [phone] Immature granulocytes/100 WBC (Bld) 0.300 % 0.0-0.9 [facility] Work Phone: Comment on above: IG% - Immature Granu locytes (promyelocytes, myelocytes and metamyelocytes) > 1% indicates that a LEFT SHIFT is Present. MCH (RBC) [Entitic mass] 31.3 pg 27.0-32.0 [facility] Work Phone: Nucleated RBC/100 WBC (Bld) [Ratio] 0 % 0-5 [facility] Work Phone: MCHC Auto (RBC) [Mass/Vol]on 10-18-2021 MCHC (RBC) [Mass/Vol] 33.5 g/dL 32-36 [facility] Work Phone: No Panel Informationon 10-18 Troponin I High Sensitivity 6 pg/mL 3.0-54.0 [facility] Work Phone: Comment on above: Please Note: New Naty t Units and Gender Specific Reference Ranges. For more information see Policy Stat Procedure [place] High Sensitivity Troponin (TNIH) and attachments. D-Dimer Quantitative (PE/DVT) <= 0.27 FEU/ug/m 0.27-0.49 [facility] Work Phone: Comment on above: NORMAL D-Dimer level (<0.50) indicates no DVT or PE. Estimated Creatinine Clearance Calc 71.87 ml/min [facility] Work Phone: Estimated GFR (MDRD) Amer 105 mL/min >60 [facility] Work Phone: Comment on above: GFR Calc Estimated GFR (MDRD) Non-Af Amer 87 mL/min >60 [facility] Work Phone: Comment on above: Non- GFR Calc Platelets bldon 10-18-2021 Platelets (Bld) [#/Vol] 310 10*3/uL 150-450 [facility] Work Phone: Serum or plasma calcium niecy urement (mass/volume)on 10-18-2021 Calcium [Mass/Vol] 9.3 mg/dL 8.5-10.1 [facility] Work Phone: Serum or plasma creatinine m easurement (mass/volume)on 10-18-2021 Creatinine [Mass/Vol] 0.75 mg/dL 0.55-1.02 [facility] Work Phone: Comment on above: The validity of the calculated GFR & GFRAA in patients over 70 years has not been determined. Clinical correlation is essential. Serum or plasma urea nitroge n measurement (mass/volume)on 10-18-2021 Urea nitrogen [Mass/Vol] 9 mg/dL 7-18 [facility] Work Phone: Thin prep Papanicolaou smear with manual screeningon 10-18-2021 Thin prep Papanicolaou smear with manual screening 7 -15 [facility] Work Phone: CHRISTIANO STEREO BX BREAST RTon CHRISTIANO STEREO BX BREAST RT * * *Final Report* * * * * * SEE BOTTOM OF REPORT FOR ADDENDED TEXT * * * DATE OF EXAM: Dec 15 2019 1:40PM AA [id number] - [facility] STEREO BX BREAST RT / PROCEDURE REASON: Abnormal finding on breast imaging * * * * Physician Interpretation * * * * FINAL REPORT #[id number] - [facility] STEREO BX BREAST RT DIGITAL TOMOGRAPHIC MAMMOGRAPHY GUIDED STEREOTACTIC GUIDED BIOPSY RIGHT BREAST USING VACUUM DEVICE WITH MARKING DEVICE INSERTED AND POST DIGITAL MAMMOGRAPHIC IMAGIN12/15/2019 HISTORY: Patient presents for a stereotactic guided biopsy of the right breast. PATIENT CONSENT: A time out was performed immediately prior to procedure start with the nursing and radiology team, correctly identifying the patient name, date of , procedure, anatomy (including marking of site and side), patient position, relevant diagnostic and radiology test results, safety precautions, and procedure-specific equipment needs. The procedure was explained to the patient including the risks, benefits and alternatives. Medications were also reviewed. The risks, including but not limited to infection and bleeding, were reviewed by the performing physician and the patient agreed to undergo the procedure. Dr. Laureano and technologist were present throughout the entire procedure. Audible Time Out Time: 1315 Procedure Start Time: 1316 Procedure Stop Time: 1340 Dr. Laureano performed the entire procedure without an payroll administrative assistant. Correlation is made to exams dated: 12/14/2019 ultrasound and 12/14/2019 mammogram - [facility]. A stereotactic guided biopsy was performed for the concerning area of architectural distortion located in the right breast lower outer aspect middle depth. This was described on the previous mammography report. The skin was prepped in the usual manner. Local anesthetic was administered to the access site. A skin basil was made in the breast. The abnormality was approached from the lateral aspect using an upright digital tomographic mammography unit. A 9 gauge biopsy needle was placed adjacent to the abnormality under computer guidance and confirmatory stereotactic mammography images were obtained to document needle placement. Once the needle was documented to be in the correct location, six cores were obtained using the [employer] system. A top hat clip was inserted into the biopsy cavity. A skin closure strip and a sterile dressing were applied to the access site. Post procedure digital mammographic imaging demonstrates the location device at the targeted area. The specimens were sent to the laboratory for pathological analysis. IMPRESSION: STEREOTACTIC GUIDED BIOPSY HIGH RISK BENIGN Stereotactic guided biopsy of the area of architectural distortion in the right breast lower outer aspect middle depth was successful with no apparent post procedure complications. 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 Pathology results are concordant with imaging findings. A surgical consultation is recommended. SUMMARY: Pathology results are as follows: FINAL DIAGNOSIS: BREAST, RIGHT, CORE BIOPSIES AT 9 O'CLOCK - BENIGN BREAST TISSUE WITH FIBROCYSTIC CHANGES INCLUDING RADIAL SCAR, SCLEROSING ADENOSIS, FOCAL USUAL DUCTAL HYPERPLASIA, AND APOCRINE METAPLASIA WITH CYST FORMATION. The patient is under the care of Dr. Nicky Kearney for the above results and surgical management of newly diagnosed right breast radial scar. Lorena branham/laura:12/18/2019 08:09:17 Pilot Captain(s): RT Scott(R)(M), [facility] Multiple national specialty organizations have released breast cancer screening guidelines for women at average risk for developing breast cancer - guidelines that are based on both evidence and opinion, yet differ on when to start and how often to screen for breast cancer. With representation from Breast Imaging, Internal Medicine, Women's Health, Family Medicine, and Medical/Surgical Oncology, the [facility] has carefully reviewed the data and reached the following consensus: 1) All women should engage in shared decision-making with their providers to decide when to start and how often to screen; 2) All women should have the opportunity to start screening mammography at age 40; 3) For women ages 45-55, we recommend annual screening mammograms; 4) For women ages 55 and over, we support both the transition from an annual to a biennial interval if this aligns more with patient's values and preferences, or continuation with annual screening; 5) All women should discuss with their providers when to stop screening mammograms. Loop Tender: Laura Transcribe Date/Time: Dec 15 2019 1:08P Dictated by : LORENA LAUREANO MD This examination was interpreted and the report reviewed and electronically signed by: LORENA LAUREANO MD on Dec 15 2019 1:47PM EST This document has been addended by: LORENA LAUREANO MD on Dec 18 2019 8:09AM EST Normal [facility] Surgical Tissue Examon 12-14 Surgical Tissue Exam Test performed at [place] [address] NAME: MATTI THOMAS REQUESTING: NICKY KEARNEY M.D. COPY TO: LORENA LAUREANO; [facility] RADIOLOGY FINAL DIAGNOSIS: BREAST, RIGHT, CORE BIOPSIES AT 9 O'CLOCK - BENIGN BREAST TISSUE WITH FIBROCYSTIC CHANGES INCLUDING RADIAL SCAR, SCLEROSING ADENOSIS, FOCAL USUAL DUCTAL HYPERPLASIA, AND APOCRINE METAPLASIA WITH CYST FORMATION. OPERATIVE PROCEDURE: Stereotactic biopsy CLINICAL INFORMATION: Right breast arch distortion 9 o'clock, Top hat clip; Architectural distortion, R/O fibrosis, malignancy, radial scar; Collected 1320, Formalin 1325 GROSS DESCRIPTION: Right breast Received in formalin labeled right breast, arch distortion 9 o'clock (top-hat clip) are multiple irregular-shaped segments of yellow fibrofatty tissue aggregating to 3.5 x 3.0 x 0.3 cm. The specimen is entirely submitted in formalin in three cassettes. Time collected: 1:20 pm on 12-15-2019; time placed in formalin: 1:25 pm on 12-15-2019. ARH:kevin CONTRERAS M.D., PATHOLOGIST (Electronic signature on file) Signed out: 12/17/2019 15:12 PRINTED: 12/17/2019 Page 1 of 1 Normal [facility] Comment on above: Performed By: #### S URG #### [facility] [address] DIAGNOSTIC RTon 12-14-19 20 [facility] DIAGNOSTIC RT * * *Final Report* * * DATE OF EXAM: Dec 14 2019 1:47PM [id number] - [facility] DIAGNOSTIC RT / PROCEDURE REASON: Abnormal mammogram * * * * Physician Interpretation * * * * #[id number] - [facility] DIAGNOSTIC RT #[id number] - [facility] US BREAST LTD RT UNILATERAL RIGHT DIGITAL DIAGNOSTIC MAMMOGRAM WITH CAD SHORT-TERM FOLLOW-UP: 12/14/2019 HISTORY: Six month follow up mammogram. Followup abnormal mammogram. Six month follow up ultrasound. RESULT: TECHNIQUE: The study was acquired using full field digital technology and interpreted from soft copy. Current study was also evaluated with a Computer Aided Detection (CAD). Comparison is made to exams dated: 07/21/2019 ultrasound, 07/21/2019 mammogram - [facility], 07/01/2019 mammogram, 06/04/2018 mammogram, 04/02/2017 mammogram, and 01/05/2016 mammogram - [facility]. The tissue of right breast is heterogeneously dense. This may lower the sensitivity of mammography. There is architectural distortion in the right breast at 8 o'clock middle depth. This can be seen on Hologic bren CC image 19 and Siemens bren CC image 20. This can be seen on Siemens MLO bren image 21 and Hologic ML bren image 19. There also is a stable benign cluster of cysts in the right breast at 1 o'clock middle depth. No other significant masses or calcifications are seen in the breast. IMPRESSION: SUSPICIOUS FINDING - BIOPSY SHOULD BE CONSIDERED The architectural distortion in the right breast at 8 o'clock middle depth is suspicious of malignancy. A stereotactic biopsy is recommended. No corresponding finding on ultrasound. Tomosynthesis guided biopsy is recommend. LIMITED ULTRASOUND OF RIGHT BREAST: 12/14/2019 RESULT: Comparison is made to exams dated: 07/21/2019 ultrasound, 07/21/2019 mammogram - [facility], 07/01/2019 mammogram, 06/04/2018 mammogram, 04/02/2017 mammogram, and 01/05/2016 mammogram - [facility]. Color flow and real-time ultrasound of the right breast 1 o'clock and 8 o'clock regions were performed. Gonzalez scale images of the real-time examination were reviewed. There is a stable benign 0.6 cm x 0.6 cm x 0.6 cm oval cyst in the right breast at 1 o'clock middle depth 4 cm from the nipple. This correlates with mammography findings. Color flow imaging demonstrates that there is no vascularity present. IMPRESSION: INCOMPLETE: NEEDS ADDITIONAL IMAGING EVALUATION The stable 0.6 cm x 0.6 cm x 0.6 cm oval cyst in the right breast is consistent with a simple cyst and is benign. There is an adjacent 0.8 x 0.9 x 0.4 cm mildly complicated cyst. There is no abnormality seen in the right breast to correspond with the architectural distortion in the lower outer quadrant, however, biopsy is recommended. SUMMARY: Tomosynthesis guided biopsy is recommended for the architectural distortion in the lower outer aspect. Rojas hicks/laura:12/14/2019 15:31:30 Multiple national specialty organizations have released breast cancer screening guidelines for women at average risk for developing breast cancer - guidelines that are based on both evidence and opinion, yet differ on when to start and how often to screen for breast cancer. With representation from Breast Imaging, Internal Medicine, Women's Health, Family Medicine, and Medical/Surgical Oncology, the [facility] has carefully reviewed the data and reached the following consensus: 1) All women should engage in shared decision-making with their providers to decide when to start and how often to screen; 2) All women should have the opportunity to start screening mammography at age 40; 3) For women ages 45-55, we recommend annual screening mammograms; 4) For women ages 55 and over, we support both the transition from an annual to a biennial interval if this aligns more with patient's values and preferences, or continuation with annual screening; 5) All women should discuss with their providers when to stop screening mammograms. Pilot Captain(s): Diandra Mina R.D.M.S., [employer]; RT Scott(Ana)(M), [employer] OVERALL STUDY BIRADS: 4 Suspicious finding - Biopsy should be considered Loop Tender: Laura Transcribe Date/Time: Dec 14 2019 1:08P Dictated by : ROJAS GRANADOS MD This examination was interpreted and the report reviewed and electronically signed by: ROJAS GRANADOS MD on Dec 14 2019 3:31PM EST Normal [facility] US BREAST LTD RTon 12-13 [facility] US BREAST LTD RT * * *Final Report* * * DATE OF EXAM: Dec 14 2019 2:31PM [id number] - CHRISTIANO US BREAST LTD RT / PROCEDURE REASON: Abnormal mammogram * * * * Physician Interpretation * * * * #[id number] - [facility] DIAGNOSTIC RT #[id number] - [facility] US BREAST LTD RT UNILATERAL RIGHT DIGITAL DIAGNOSTIC MAMMOGRAM WITH CAD SHORT-TERM FOLLOW-UP: 12/14/2019 HISTORY: Six month follow up mammogram. Followup abnormal mammogram. Six month follow up ultrasound. RESULT: TECHNIQUE: The study was acquired using full field digital technology and interpreted from soft copy. Current study was also evaluated with a Computer Aided Detection (CAD). Comparison is made to exams dated: 07/21/2019 ultrasound, 07/21/2019 mammogram - [facility], 07/01/2019 mammogram, 06/04/2018 mammogram, 04/02/2017 mammogram, and 01/05/2016 mammogram - [facility]. The tissue of right breast is heterogeneously dense. This may lower the sensitivity of mammography. There is architectural distortion in the right breast at 8 o'clock middle depth. This can be seen on Hologic bren CC image 19 and Siemens bren CC image 20. This can be seen on Siemens MLO bren image 21 and Hologic ML bren image 19. There also is a stable benign cluster of cysts in the right breast at 1 o'clock middle depth. No other significant masses or calcifications are seen in the breast. IMPRESSION: SUSPICIOUS FINDING - BIOPSY SHOULD BE CONSIDERED The architectural distortion in the right breast at 8 o'clock middle depth is suspicious of malignancy. A stereotactic biopsy is recommended. No corresponding finding on ultrasound. Tomosynthesis guided biopsy is recommend. LIMITED ULTRASOUND OF RIGHT BREAST: 12/14/2019 RESULT: Comparison is made to exams dated: 07/21/2019 ultrasound, 07/21/2019 mammogram - [facility], 07/01/2019 mammogram, 06/04/2018 mammogram, 04/02/2017 mammogram, and 01/05/2016 mammogram - [facility]. Color flow and real-time ultrasound of the right breast 1 o'clock and 8 o'clock regions were performed. Gonzalez scale images of the real-time examination were reviewed. There is a stable benign 0.6 cm x 0.6 cm x 0.6 cm oval cyst in the right breast at 1 o'clock middle depth 4 cm from the nipple. This correlates with mammography findings. Color flow imaging demonstrates that there is no vascularity present. IMPRESSION: INCOMPLETE: NEEDS ADDITIONAL IMAGING EVALUATION The stable 0.6 cm x 0.6 cm x 0.6 cm oval cyst in the right breast is consistent with a simple cyst and is benign. There is an adjacent 0.8 x 0.9 x 0.4 cm mildly complicated cyst. There is no abnormality seen in the right breast to correspond with the architectural distortion in the lower outer quadrant, however, biopsy is recommended. SUMMARY: Tomosynthesis guided biopsy is recommended for the architectural distortion in the lower outer aspect. Rojas Granados M.D. tab/laura:12/14/2019 15:31:30 Multiple national specialty organizations have released breast cancer screening guidelines for women at average risk for developing breast cancer - guidelines that are based on both evidence and opinion, yet differ on when to start and how often to screen for breast cancer. With representation from Breast Imaging, Internal Medicine, Women's Health, Family Medicine, and Medical/Surgical Oncology, the [facility] has carefully reviewed the data and reached the following consensus: 1) All women should engage in shared decision-making with their providers to decide when to start and how often to screen; 2) All women should have the opportunity to start screening mammography at age 40; 3) For women ages 45-55, we recommend annual screening mammograms; 4) For women ages 55 and over, we support both the transition from an annual to a biennial interval if this aligns more with patient's values and preferences, or continuation with annual screening; 5) All women should discuss with their providers when to stop screening mammograms. Pilot Captain(s): Diandra Mina R.D.M.S., [employer]; RT Scott(Ana)(M), [employer] OVERALL STUDY BIRADS: 4 Suspicious finding - Biopsy should be considered Loop Tender: Laura Transcribe Date/Time: Dec 14 2019 1:08P Dictated by : ROJAS GRANADOS MD This examination was interpreted and the report reviewed and electronically signed by: ROJAS GRANADOS MD on Dec 14 2019 3:31PM EST Normal [facility] COVID-19 virus antigen assay SARS-CoV-2 (COVID-19) Ag IA.rapid Ql (Resp) [facility] Work Phone: Clostridium difficile detect ion by polymerase chain reaction C. difficile DNA MICHELLE+probe Ql (Unsp spec) [facility] Work Phone: Vital Signs Date Time Vital Sign Value Performing Clinician Facility 02-13-2023 04:44-0400 Diastolic blood pressure 98 mm[Hg] [facility] 02-13-2023 04:44-0400 Heart rate 103 /min [facility] 02-13-2023 04:44-0400 Respiratory rate 16 /min [facility] 02-13-2023 04:44-0400 SaO2% (BldA) [Mass fraction] 100 % [facility] 02-13-2023 04:44-0400 Systolic blood pressure 158 mm[Hg] [facility] 02-12-2023 23:03-0400 Body height 172.72 cm [facility] 02-12-2023 23:03-0400 Body mass index (BMI) [Ratio] 19.8 kg/m2 [facility] 02-12-2023 23:03-0400 Body temperature 98.3 [degF] [facility] 02-12-2023 23:03-0400 Body weight 58.96 kg [facility] 12-20-2022 09:50-0400 Body height 172.7 cm Mari Lee PA-C Work Phone: [facility] 12-20-2022 09:50-0400 Body temperature 97.39 [degF] Mari [place] PA-C Work Phone: [facility] 12-20-2022 09:50-0400 Body weight 58.06 kg Mariadrian Lee PA-C Work Phone: [facility] 12-20-2022 09:50-0400 Diastolic blood pressure 72 mm[Hg] Mari [place] PA-C Work Phone: [facility] 12-20-2022 09:50-0400 Heart rate 69 /min Mari Lee PA-C Work Phone: [facility] 12-20-2022 09:50-0400 SaO2% (BldA) [Mass fraction] 99 % Mari Lee PA-C Work Phone: [facility] 12-20-2022 09:50-0400 Systolic blood pressure 112 mm[Hg] Mari Lee PA-C Work Phone: [facility] 11-17-2022 14:35-0500 Diastolic blood pressure 87 mm[Hg] No Primary Care Physician [facility] 11-17-2022 14:35-0500 Heart rate 82 /min No Primary Care Physician [facility] 11-17-2022 14:35-0500 Respiratory rate 20 /min No Primary Care Physician [facility] 11-17-2022 14:35-0500 Systolic blood pressure 151 mm[Hg] No Primary Care Physician [facility] 11-17-2022 11:54-0500 Body height 172.72 cm No Primary Care Physician [facility] 11-17-2022 11:54-0500 Body mass index (BMI) [Ratio] 19.3 kg/m2 No Primary Care Physician [facility] 11-17-2022 11:54-0500 Body temperature 98 [degF] No Primary Care Physician [facility] 11-17-2022 11:54-0500 Body weight 57.6 kg No Primary Care Physician [facility] 11-17-2022 11:54-0500 SaO2% (BldA) [Mass fraction] 97 % No Primary Care Physician [facility] 10-11-2022 13:26-0500 Diastolic blood pressure 71 mm[Hg] No Primary Care Physician [facility] 10-11-2022 13:26-0500 Heart rate 74 /min No Primary Care Physician [facility] 10-11-2022 13:26-0500 Respiratory rate 16 /min No Primary Care Physician [facility] 10-11-2022 13:26-0500 SaO2% (BldA) [Mass fraction] 99 % No Primary Care Physician [facility] 10-11-2022 13:26-0500 Systolic blood pressure 127 mm[Hg] No Primary Care Physician [facility] 10-11-2022 12:05-0500 Body height 172.72 cm No Primary Care Physician [facility] 10-11-2022 12:05-0500 Body mass index (BMI) [Ratio] 18.9 kg/m2 No Primary Care Physician [facility] 10-11-2022 12:05-0500 Body temperature 97 [degF] No Primary Care Physician [facility] 10-11-2022 12:05-0500 Body weight 56.6 kg No Primary Care Physician [facility] 09-14-2022 13:04-0500 Body height 170.18 cm No Primary Care Physician [facility] 09-14-2022 13:04-0500 Body mass index (BMI) [Ratio] 19.4 kg/m2 No Primary Care Physician [facility] 09-14-2022 13:04-0500 Body temperature 97.4 [degF] No Primary Care Physician [facility] 09-14-2022 13:04-0500 Body weight 56.3 kg No Primary Care Physician [facility] 09-14-2022 13:04-0500 Diastolic blood pressure 88 mm[Hg] No Primary Care Physician [facility] 09-14-2022 13:04-0500 Heart rate 74 /min No Primary Care Physician [facility] 09-14-2022 13:04-0500 Respiratory rate 18 /min No Primary Care Physician [facility] 09-14-2022 13:04-0500 SaO2% (BldA) [Mass fraction] 96 % No Primary Care Physician [facility] 09-14-2022 13:04-0500 Systolic blood pressure 132 mm[Hg] No Primary Care Physician [facility] 08-13-2022 10:04-0500 Body height 170.18 cm No Primary Care Physician [facility] Work Phone: 08-13-2022 10:04-0500 Body mass index (BMI) [Ratio] 19.4 kg/m2 No Primary Care Physician [facility] 08-13-2022 10:04-0500 Body temperature 97.1 [degF] No Primary Care Physician [facility] 08-13-2022 10:04-0500 Body weight 56.24 kg No Primary Care Physician [facility] 08-13-2022 10:04-0500 Diastolic blood pressure 85 mm[Hg] No Primary Care Physician [facility] 08-13-2022 10:04-0500 Heart rate 77 /min No Primary Care Physician [facility] 08-13-2022 10:04-0500 Respiratory rate 20 /min No Primary Care Physician [facility] 08-13-2022 10:04-0500 SaO2% (BldA) [Mass fraction] 97 % No Primary Care Physician [facility] 08-13-2022 10:04-0500 Systolic blood pressure 158 mm[Hg] No Primary Care Physician [facility] 07-13-2022 09:23-0400 Diastolic blood pressure 97 mm[Hg] [facility] 07-13-2022 09:23-0400 Heart rate 69 /min [facility] 07-13-2022 09:23-0400 Respiratory rate 14 /min [facility] 07-13-2022 09:23-0400 SaO2% (BldA) [Mass fraction] 100 % [facility] 07-13-2022 09:23-0400 Systolic blood pressure 130 mm[Hg] [facility] 07-12-2022 17:38-0400 Body height 172.72 cm [facility] Work Phone: 07-12-2022 17:38-0400 Body mass index (BMI) [Ratio] 17.9 kg/m2 [facility] 07-12-2022 17:38-0400 Body temperature 97.8 [degF] [facility] 07-12-2022 17:38-0400 Body weight 53.52 kg [facility] 06-20-2022 10:01-0400 Body temperature 97.81 [degF] Mari Lee PA-C Work Phone: [facility] 06-20-2022 10:01-0400 Body weight 53.16 kg Mari Lee PA-C Work Phone: [facility] 06-20-2022 10:01-0400 Diastolic blood pressure 81 mm[Hg] Mari Yoni PA-C Work Phone: [facility] 06-20-2022 10:01-0400 Heart rate 77 /min Mari [place] PA-C Work Phone: [facility] 06-20-2022 10:01-0400 SaO2% (BldA) [Mass fraction] 98 % Mari [place] PA-C Work Phone: [facility] 06-20-2022 10:01-0400 Systolic blood pressure 112 mm[Hg] Mari [place] PA-C Work Phone: [facility] 06-15-2022 10:51-0400 Body temperature 97.81 [degF] Farooq Pendlebury ACCOUNTING RECRUITER.PROGRAM MANAGEMENT MANAGER Work Phone: [facility] 06-15-2022 10:51-0400 Body weight 52.71 kg Farooq Pendlebury ACCOUNTING RECRUITER.PROGRAM MANAGEMENT MANAGER Work Phone: [facility] 06-15-2022 10:51-0400 Diastolic blood pressure 88 mm[Hg] Farooq Pendlebury ACCOUNTING RECRUITER.PROGRAM MANAGEMENT MANAGER Work Phone: [facility] 06-15-2022 10:51-0400 Heart rate 79 /min Farooq Pendlebury ACCOUNTING RECRUITER.PROGRAM MANAGEMENT MANAGER Work Phone: [facility] 06-15-2022 10:51-0400 Respiratory rate 18 /min Farooq Pendlebury ACCOUNTING RECRUITER.PROGRAM MANAGEMENT MANAGER Work Phone: [facility] 06-15-2022 10:51-0400 SaO2% (BldA) [Mass fraction] 97 % Farooq Pendleluis m ACCOUNTING RECRUITER.PROGRAM MANAGEMENT MANAGER Work Phone: [facility] 06-15-2022 10:51-0400 Systolic blood pressure 138 mm[Hg] Farooq Pendlebury ACCOUNTING RECRUITER.PROGRAM MANAGEMENT MANAGER Work Phone: [facility] 06-07-2022 13:56-0400 Heart rate 70 /min Diana Cardozo MD Work Phone: [facility] 06-07-2022 13:56-0400 Respiratory rate 15 /min Diana Cardozo MD Work Phone: [facility] 06-07-2022 13:56-0400 SaO2% (BldA) [Mass fraction] 100 % Diana Cardozo MD Work Phone: [facility] 06-07-2022 13:55-0400 Diastolic blood pressure 87 mm[Hg] Diana Cardozo MD Work Phone: [facility] 06-07-2022 13:55-0400 Systolic blood pressure 128 mm[Hg] Diana Cardozo MD Work Phone: [facility] 06-07-2022 13:24-0400 Body temperature 97.59 [degF] Diana Cardozo MD Work Phone: [facility] 06-05-2022 15:44-0400 Body height 172.7 cm Diana Cardozo MD Work Phone: [facility] 06-05-2022 15:44-0400 Body weight 53.52 kg Diana Cardozo MD Work Phone: [facility] 05-18-2022 12:53-0400 Body height 172.7 cm Mari Yoni PA-C Work Phone: [facility] 05-18-2022 12:53-0400 Body temperature 97 [degF] Mari [place] PA-C Work Phone: [facility] 05-18-2022 12:53-0400 Body weight 52.53 kg Mari Yoni PA-C Work Phone: [facility] 05-18-2022 12:53-0400 Diastolic blood pressure 74 mm[Hg] Mari Yoni PA-C Work Phone: [facility] 05-18-2022 12:53-0400 Heart rate 89 /min Mari [place] PA-C Work Phone: [facility] 05-18-2022 12:53-0400 SaO2% (BldA) [Mass fraction] 99 % Mari [place] PA-C Work Phone: [facility] 05-18-2022 12:53-0400 Systolic blood pressure 132 mm[Hg] Mari Lee PA-C Work Phone: [facility] 05-15-2022 16:03-0400 Heart rate 79 /min [facility] Work Phone: 05-15-2022 16:03-0400 Respiratory rate 15 /min [facility] Work Phone: 05-15-2022 16:03-0400 SaO2% (BldA) [Mass fraction] 99 % [facility] Work Phone: 05-15-2022 12:26-0400 Body temperature 98.4 [degF] [facility] Work Phone: 05-15-2022 12:26-0400 Diastolic blood pressure 99 mm[Hg] [facility] Work Phone: 05-15-2022 12:26-0400 Systolic blood pressure 152 mm[Hg] [facility] Work Phone: 05-15-2022 12:23-0400 Body height 172.72 cm [facility] Work Phone: 05-15-2022 12:23-0400 Body mass index (BMI) [Ratio] 17.4 kg/m2 [facility] Work Phone: 05-15-2022 12:23-0400 Body weight 52.16 kg [facility] Work Phone: 05-09-2022 11:28-0400 Body weight 52.16 kg Stefanie Bernard MD Work Phone: [facility] 05-09-2022 11:28-0400 Diastolic blood pressure 70 mm[Hg] Stefanie Bernard MD Work Phone: [facility] 05-09-2022 11:28-0400 Systolic blood pressure 106 mm[Hg] Stefanie Bernard MD Work Phone: [facility] 04-18-2022 12:58-0400 Body height 172.72 cm [facility] Work Phone: 04-18-2022 12:58-0400 Body mass index (BMI) [Ratio] 16.7 kg/m2 [facility] Work Phone: 04-18-2022 12:58-0400 Body temperature 97.8 [degF] [facility] Work Phone: 04-18-2022 12:58-0400 Body weight 49.89 kg [facility] Work Phone: 04-18-2022 12:58-0400 Diastolic blood pressure 103 mm[Hg] [facility] Work Phone: 04-18-2022 12:58-0400 Heart rate 74 /min [facility] Work Phone: 04-18-2022 12:58-0400 Respiratory rate 16 /min [facility] Work Phone: 04-18-2022 12:58-0400 SaO2% (BldA) [Mass fraction] 100 % [facility] Work Phone: 04-18-2022 12:58-0400 Systolic blood pressure 143 mm[Hg] [facility] Work Phone: 01-17-2022 11:33-0400 Body height 172.[address] Eliel Becerra Work Phone: [facility] Work Phone: 01-17-2022 11:33-0400 Body mass index (BMI) [Ratio] 17.4 kg/m2 Dr. Eliel Becerra Work Phone: [facility] Work Phone: 01-17-2022 11:33-0400 Body temperature 98.4 [degF] Dr. Eliel Becerra Work Phone: [facility] Work Phone: 01-17-2022 11:33-0400 Body weight 52.[address] Eliel Becerra Work Phone: [facility] Work Phone: 01-17-2022 11:33-0400 Diastolic blood pressure 90 mm[Hg] Dr. Eliel Becerra Work Phone: [facility] Work Phone: 01-17-2022 11:33-0400 Heart rate 100 /min Dr. Eliel Becerra Work Phone: [facility] Work Phone: 01-17-2022 11:33-0400 Respiratory rate 24 /min Dr. Eliel Becerra Work Phone: [facility] Work Phone: 01-17-2022 11:33-0400 SaO2% (BldA) [Mass fraction] 96 % Dr. Eliel Becerra Work Phone: [facility] Work Phone: 01-17-2022 11:33-0400 Systolic blood pressure 133 mm[Hg] Dr. Eliel Becerra Work Phone: [facility] Work Phone: 10-23-2021 15:14-0500 Diastolic blood pressure 88 mm[Hg] Dr. Eliel Becerra Work Phone: [facility] Work Phone: 10-23-2021 15:14-0500 Heart rate 75 /min Dr. Eliel Becerra Work Phone: [facility] Work Phone: 10-23-2021 15:14-0500 Respiratory rate 15 /min Dr. Eliel Becerra Work Phone: [facility] Work Phone: 10-23-2021 15:14-0500 SaO2% (BldA) [Mass fraction] 99 % Dr. Eliel Becerra Work Phone: [facility] Work Phone: 10-23-2021 15:14-0500 Systolic blood pressure 136 mm[Hg] Dr. Eliel Becerra Work Phone: [facility] Work Phone: 10-23-2021 10:38-0500 Body mass index (BMI) [Ratio] 17 kg/m2 Dr. Eliel Becerra Work Phone: [facility] Work Phone: 10-23-2021 10:38-0500 Body temperature 98 [degF] Dr. Eliel Becerra Work Phone: [facility] Work Phone: 10-23-2021 10:38-0500 Body weight 50.[address] Eliel Becerra Work Phone: [facility] Work Phone: 10-18-2021 12:29-0500 Diastolic blood pressure 90 mm[Hg] Dr. Eliel Becerra Work Phone: [facility] Work Phone: 10-18-2021 12:29-0500 Heart rate 73 /min Dr. Eliel Becerra Work Phone: [facility] Work Phone: 10-18-2021 12:29-0500 Respiratory rate 12 /min Dr. Eliel Becerra Work Phone: [facility] Work Phone: 10-18-2021 12:29-0500 SaO2% (BldA) [Mass fraction] 100 % Dr. Eliel Becerra Work Phone: [facility] Work Phone: 10-18-2021 12:29-0500 Systolic blood pressure 147 mm[Hg] Dr. Eliel Becerra Work Phone: [facility] Work Phone: 10-18-2021 10:37-0500 Body mass index (BMI) [Ratio] 17.2 kg/m2 Dr. Eliel Becerra Work Phone: [facility] Work Phone: 10-18-2021 10:37-0500 Body temperature 97.2 [degF] Dr. Eliel Becerra Work Phone: [facility] Work Phone: 10-18-2021 10:37-0500 Body weight 51.[address] Eliel Becerra Work Phone: [facility] Work Phone: Encounters Encounter Date Encounter Type Care Provider Facility Start: 01-27-2025 End: 01-27-2025 [facility] Facility:[facility] Start: 11-26-2024 End: 11-26-2024 [facility] Facility:[facility] Start: 10-14-2024 [facility] Facility:[facility] Start: 10-13-2024 End: 10-14-2024 [facility] Facility:[facility] Start: 10-08-2024 End: 10-08-2024 [facility] Facility:[facility] Start: 07-20-2024 End: 07-20-2024 [facility] Facility:[facility] Start: 06-01-2024 End: 06-02-2024 Documentation procedure Mammography Coordinator [facility] Department Start: 06-01-2024 End: 06-02-2024 Letter encounter Mammography Coordinator [facility] Start: 05-28-2024 End: 05-28-2024 [facility] Facility:[facility] Start: 05-28-2024 End: 05-28-2024 Subsequent hospital visit by physician Screen Mammo [facility] Mammogram Comment on above: Encounter for screen ing mammogram for malignant neoplasm of breast [Z12.31] Start: 05-26-2024 End: 05-26-2024 Telephone encounter Stefanie Bernard MD Work Phone: OB/Gynecology Comment on above: Orders (Mammogram Sc madonna CORREIA) Start: 05-19-2024 End: 05-19-2024 [address] [facility] Facility:[facility] Start: 03-17-2024 End: 03-17-2024 ambulatory [facility] Start: 03-17-2024 End: 03-17-2024 ambulatory [facility] Facility:[facility] Start: 02-11-2024 End: 02-11-2024 ambulatory [facility] Facility:[facility] Start: 09-19-2023 End: 09-19-2023 ambulatory SHAHAB DUNLAP JR Facility:[facility] Start: 09-18-2023 End: 09-18-2023 ambulatory [facility] Facility:[facility] Start: 08-23-2023 End: 08-23-2023 ambulatory [facility] Facility:[facility] Start: 08-20-2023 End: 08-20-2023 ambulatory NICK JESUS Facility:[facility] Start: 07-04-2023 End: 07-04-2023 ambulatory [facility] Facility:[facility] Start: 04-29-2023 End: 04-29-2023 Subsequent hospital visit by physician Go [facility] Gregg Solomon Work Phone: Radiology Start: 02-21-2023 End: 02-21-2023 ambulatory DIANA VASQUEZ Facility:[facility] Start: 02-12-2023 End: 02-13-2023 Emergency department patient visit [facility]Emergency Department Start: 12-20-2022 End: 12-20-2022 Patient encounter procedure Mari Lee PA-C Work Phone: General Surgery Comment on above: Dysphagia, unspecifi ed type (Primary Dx); Choking, initial encounter; Tobacco use Start: 12-04-2022 End: 12-04-2022 ambulatory Anup Mcpherson PT Work Phone: [facility] Comment on above: 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 (Primary Dx) Start: 11-17-2022 End: 11-17-2022 Emergency department patient visit No Primary Care Physician [facility]-Emergency Department Start: 11-05-2022 Telephone encounter Storm javed MD Work Phone: Mammography Comment on above: Mammogram Result Joesph l Back Start: 10-11-2022 Telephone encounter Ruben Izaguirre Work Phone: Podiatry Comment on above: Medication Problem Start: 10-11-2022 End: 10-11-2022 Emergency department patient visit No Primary Care Physician [facility]-Emergency Department Start: 10-09-2022 End: 10-09-2022 Patient encounter procedure Ruben Christensen Work Phone: Podiatry Comment on above: Bursitis of right fo ot (Primary Dx); Tailor's bunion of right foot Start: 09-14-2022 End: 09-14-2022 ambulatory No Primary Care Physician [facility] Work Phone: Start: 09-14-2022 End: 09-14-2022 Patient encounter procedure No Primary Care Physician [facility]-Laboratory, Specimen Start: 09-14-2022 End: 09-14-2022 Patient encounter procedure No Primary Care Physician [facility] Start: 08-22-2022 End: 08-22-2022 ambulatory No Primary Care Physician [facility] Work Phone: Start: 08-22-2022 End: 08-22-2022 Patient encounter procedure No Primary Care Physician [facility] Start: 08-13-2022 End: 08-13-2022 Patient encounter procedure No Primary Care Physician [facility] Start: 07-13-2022 End: 07-19-2022 Evaluation and management of inpatient [facility] Start: 07-12-2022 End: 07-13-2022 Emergency department patient visit [facility]Emergency Department Start: 07-11-2022 Telephone encounter Stefanie Bernard MD Work Phone: OB/Gynecology Comment on above: Orders Start: 07-11-2022 End: 07-11-2022 Subsequent hospital visit by physician Diagnostic Mammo [facility] Mammogram Comment on above: Abnormal mammogram [ R92.8] Start: 07-09-2022 Telephone encounter Diana Penn MD Work Phone: General Surgery Comment on above: Results Start: 06-20-2022 End: 06-20-2022 Patient encounter procedure Mari Lee PA-C Work Phone: General Surgery Comment on above: Change in bowel habi ts (Primary Dx); Belching; Diarrhea, unspecified type; Gastroesophageal reflux disease, unspecified whether esophagitis present Start: 06-15-2022 End: 06-15-2022 Patient encounter procedure Farooq Mabryluis m WALLSPROGRAM MANAGEMENT MANAGER Work Phone: [facility] Comment on above: Pain, dental (Primar y Dx) Start: 06-11-2022 Orders Only Stefanie Bernard MD Work Phone: OB/Gynecology Comment on above: Abnormal mammogram ( Primary Dx) Start: 06-08-2022 Documentation procedure Mammog lenore Coordinator [facility] Start: 06-08-2022 Letter encounter Mammography Coordinator [facility] Department Start: 06-08-2022 End: 06-08-2022 Subsequent hospital visit by physician Screen Mammo [facility] Mammogram Comment on above: Encounter for screen ing mammogram for malignant neoplasm of breast [Z12.31] Start: 06-07-2022 End: 06-07-2022 Subsequent hospital visit by physician Diana Cardozo MD Work Phone: LD SURGERY Comment on above: Change in bowel habi ts [R19.4], Abdominal bloating [R14.0], Belching [R14.2], Diarrhea, unspecified type [R19.7] Start: 05-18-2022 End: 05-18-2022 Patient encounter procedure Mari Lee PA-C Work Phone: General Surgery Comment on above: Encounter for screen ing for malignant neoplasm of colon (Primary Dx) Start: 05-15-2022 ambulatory No Pcp (Historical) [facility] Start: 05-15-2022 End: 05-15-2022 Emergency department patient visit [facility]Emergency Department Start: 05-11-2022 End: 05-11-2022 Patient encounter procedure Stefanie Bernard MD Work Phone: OB/Gynecology Comment on above: Pelvic pain in femal e (Primary Dx) Start: 05-09-2022 End: 05-09-2022 Patient encounter procedure Stefanie Bernard MD Work Phone: OB/Gynecology Comment on above: Encounter for gyneco logical examination with abnormal finding (Primary Dx); Encounter for screening mammogram for malignant neoplasm of breast; Screen for colon cancer; Chronic low back pain, unspecified back pain laterality, unspecified whether sciatica present; Pelvic pain in female; Diarrhea, unspecified type; Constipation, unspecified constipation type; Bloating Start: 05-09-2022 End: 05-09-2022 Patient encounter status Stefanie Bernard MD Work Phone: OB/Gynecology Start: 04-18-2022 End: 04-18-2022 [facility] Start: 04-13-2022 End: 04-13-2022 Patient encounter procedure [facility]Labor[facility] Start: 01-17-2022 End: 01-17-2022 Emergency department patient visit Dr. Eliel Becerra Work Phone: [facility]Emergency Department Start: 10-23-2021 End: 10-23-2021 Emergency department patient visit Dr. Eliel Becerra Work Phone: [facility]Emergency Department Start: 10-18-2021 End: 10-18-2021 Emergency department patient visit Dr. Eliel Becerra Work Phone: [facility]Emergency Department Start: 10-11-2021 End: 10-11-[address] Eliel Becerra Work Phone: [facility] Start: 10-10-2021 End: 10-10-[address] Eliel Becerra Work Phone: [facility] Start: 10-04-2021 End: 10-04-[address] [facility] Start: 10-04-2021 End: 10-04-[address] Eliel eBcerra Work Phone: [facility] Procedures Date Procedure Procedure Detail Performing Clinician Start: 04-29-2023 Radex spine lumbosacral 2/3 views [facility] Start: 02-13-2023 Computed tomography of abdomen and pelvis with intravenous contrast Start: 02-13-2023 Plain chest X-ray Start: 11-17-2022 CT of head without contrast No Primary C are Physician Start: 11-17-2022 Plain chest X-ray No Primary Care Physician Start: 11-08-2022 Lipid 1996 panel - Serum or Plasma Xr Mo b Work Phone: Start: 08-22-2022 US scan of thyroid No Primary Care Physician Start: 07-11-2022 Us breast uni real time with image limited Stefanie Bernard MD Work Phone: Start: 07-11-2022 CHRISTIANO DIAG W BREN LEFT Stefanie Bernard MD Work Phone: Start: 07-05-2022 Colonoscopy Diana Cardozo MD Work Phone: Start: 06-08-2022 CHRISTIANO SCREENING W BREN Stefanie Bernard MD Work Phone: Start: 06-08-2022 Mammography Screen Wstr Start: 06-07-2022 End: 06-07-2022 Colonoscopy flx dx w/collj spec when pfrmd Diana Cardozo MD Work Phone: Start: 06-07-2022 End: 06-07-2022 Esophagogastroduodenoscopy transoral diagnostic Diana Cardozo MD Work Phone: Start: 01-17-2022 Computed tomography of abdomen and pelvis with contrast Dr. Eliel Becerra Work Phone: Start: 10-23-2021 Influenza Types A,B Direct FA (RYAN) Dr. Eliel Becerra Work Phone: Start: 10-23-2021 Plain chest X-ray Dr. Eliel Becerra Work Phone: Start: 10-18-2021 Plain chest X-ray Dr. Eliel Becerra Work Phone: Start: 10-11-2021 CT Chest, Abd, Pel w/Contrast Dr. Eliel olivarez Work Phone: Start: 10-11-2021 CT of head without contrast Dr. Eliel Becerra Work Phone: Start: 02-02-2021 Mammography Stefanie Bernard MD Work Phone: Clostridium difficile detection Viral antigen assay Viral antigen assay No Prima Care Physician Plan of Treatment Date Care Activity Detail Author Start: 11-09-2027 Lipid 1996 panel - S abby or Plasma Lipid Screening [facility] Start: 11-09-2027 Lipid panel Lipid Screening [facility] Start: 11-09-2027 LIPID SCREEN LIPID SCREEN [facility] Start: 07-04-2026 Diabetes Screening Diabetes Screenin g [facility] Start: 11-08-2025 DIABETES SCREEN DIABETES SCREEN [facility] Start: 09-12-2025 DIABETES SCREEN DIABETES SCREEN [facility] Start: 07-05-[address] [facility] Start: 07-05-2025 COLORECTAL CANCER SCREENING COLORECTAL CANCER SCREENING [facility] Start: 07-05-2025 Screening for malign ant neoplasm of colon [facility] Start: 05-28-2025 Screening for malign ant neoplasm of breast Mammogram Screening [facility] Start: 05-28-2024 End: 05-28-2024 Patient encounter procedure 05/28/2024 7:50 AM EDT Appointment Mammogram [address] [place] [address] Mammo Screen W BREN (order requested) Mammogram Comment on above: Mammo Screen W BREN (order requested) Start: 05-10-2024 Covid-19 Vaccine () Covid-19 Vaccine () [facility] Start: 05-10-2024 Covid-19 Vaccine ( season) Covid-19 Vaccine ( season) [facility] Start: 05-10-2024 Influenza vaccination Influenza Vacc ine (#1) [facility] Start: 06-18-2023 HPV TESTING HPV TESTING [facility] Start: 06-18-2023 PAP TESTING PAP TESTING [facility] Start: 06-18-2023 Screening for malign ant neoplasm of cervix Cervical Cancer Screening [facility] Start: 06-08-[address] [facility] Start: 06-08-2023 Screening for malign ant neoplasm of breast Mammogram Screening [facility] Start: 05-10-2023 Covid-19 Vaccine ( season) Covid-19 Vaccine () [facility] Start: 05-10-2023 Influenza vaccination Influenza Vacc ine (#1) [facility] Start: 11-17-2022 [facility] Start: 10-16-2022 COVID-19 VACCINE (3 - Booster for Pfizer series) COVID-19 VACCINE (3 - Booster for Pfizer series) [facility] Start: 07-12-2022 Suicide precautions [facility] Start: 05-15-2022 Enteric precautions [facility] Work Phone: Start: 05-10-2022 Influenza vaccination INFLUENZA (#1) [facility] Start: 02-02-[address] [facility] Start: 2020 SHINGRIX VACCINE (1 of 2) SHINGRIX VACCINE (1 of 2) [facility] Start: 07-22-2015 Pneumococcal vaccination [facility] Start: 07-20-2015 Urine microalbumin profile [facility] Start: 2015 COLOGUARD (FIT-DNA) COLOGUARD (FIT-D NA) [facility] Start: [address] [facility] Start: 2015 COLORECTAL CANCER SCREENING COLORECTAL CANCER SCREENING [facility] Start: [address] COLONOGRAPHY [facility] Start: 2015 DIABETES SCREEN DIABETES SCREEN [facility] Start: 2015 FECAL OCCULT BLOOD FECAL OCCULT BLOO D [facility] Start: 2015 LIPID SCREEN LIPID SCREEN [facility] Start: 2015 Screening for malign ant neoplasm of colon [facility] Start: 2015 SIGMOIDOSCOPY SIGMOIDOSCOPY [facility] Start: 02-25-2012 Hepatitis B Vaccine (3 of 3 - 19+ 3-dose series) Hepatitis B Vaccine (3 of 3 - 19+ 3-dose series) [facility] Start: 1988 HEPATITIS C SCREENING HEPATITIS C [facility] Start: 1988 Hepatitis C screening Hepatitis C [facility] Start: 1988 HIV SCREENING HIV SCREENING [facility] Start: 1988 HIV screening HIV Screening [facility] Start: 1976 PNEUMOCOCCAL (1 - PCV) PNEUMOCOCCAL (1 - PCV) [facility] Start: 1970 COVID-19 VACCINE (#1) COVID-19 VACCI NE (#1) [facility] Start: 1970 HEPATITIS B (1 of 3 - 3-dose series) HEPATITIS B (1 of 3 - 3-dose series) [facility] End: 06-25-2025 DBT Breast - bilateral screening CHRISTIANO SCREENING W BREN Radiology Routine Encounter for screening mammogram for malignant neoplasm of breast 1 Occurrences starting 05/26/2024 until 06/25/2025 [facility] Work Phone: Comment on above: 1 Occurrences starti ng 05/26/2024 until 06/25/2025 DBT Breast - bilater al screening CHRISTIANO SCREENING W BREN Radiology Routine Encounter for screening mammogram for malignant neoplasm of breast 05/28/2024 8:50 AM EDT [facility] Work Phone: End: 07-11-2023 Diagnostic mammography computer-aided detcj uni [facility] DIAGNOSTIC LT Radiology Routine Abnormal mammogram 1 Occurrences starting 06/11/2022 until 07/11/2023 [facility] Work Phone: Comment on above: 1 Occurrences starti ng 06/11/2022 until 07/11/2023 End: 08-10-2023 Diagnostic mammography computer-aided detcj uni [facility]NO[facility] Radiology Routine Category 3 mammography result with short follow-up interval suggested for probably benign finding 1 Occurrences starting 07/11/2022 until 08/10/2023 [facility] [facility] Work Phone: Comment on above: 1 Occurrences starti ng 07/11/2022 until 08/10/2023 End: 06-08-2023 CHRISTIANO SCREENING W BREN CHRISTIANO SCREENING W BREN Radiology Routine Encounter for screening mammogram for malignant neoplasm of breast 1 Occurrences starting 05/09/2022 until 06/08/2023 [facility] Work Phone: Comment on above: 1 Occurrences starti ng 05/09/2022 until 06/08/2023 Patient Education [facility] Work Phone: Patient referral [facility] Work Phone: PELVIC US WHI PELVIC US WHI An c Imaging Routine Pelvic pain in female Ordered: 05/09/2022 [facility] Work Phone: Comment on above: Ordered: 05/09/2022 End: 05-09-2023 Screening colonoscopy COLONOSCOPY SCREENING Endoscopy Routine Screen for colon cancer 1 Occurrences starting 05/09/2022 until 05/09/2023 [facility] Work Phone: Comment on above: 1 Occurrences starti ng 05/09/2022 until 05/09/2023 SURGICAL PATHOLOGY SURGICAL PATH OLOGY Lab Routine Change in bowel habits Abdominal bloating Belching Diarrhea, unspecified type Release Upon Ordering for 1 Occurrences starting 06/07/2022 [facility] Work Phone: Comment on above: Release Upon Orderin g for 1 Occurrences starting 06/07/2022 End: 07-11-2023 Us breast uni real time with image limited US BREAST LTD Radiology Routine Abnormal mammogram 1 Occurrences starting 06/11/2022 until 07/11/2023 [facility] Work Phone: Comment on above: 1 Occurrences starti ng 06/11/2022 until 07/11/2023 End: 08-10-2023 Us breast uni real time with image limited US BREAST LTD LT Radiology Routine Category 3 mammography result with short follow-up interval suggested for probably benign finding 1 Occurrences starting 07/11/2022 until 08/10/2023 [facility] Work Phone: Comment on above: 1 Occurrences starti ng 07/11/2022 until 08/10/2023 [facility] Immunizations Immunization Date Immunization Notes Care Provider Fa cili 07-27-2022 influenza virus vaccine, unspecified formulation [employer] Work Phone: [facility] 07-19-2015 tetanus and diphther ia toxoids, adsorbed, preservative free, for adult use (5 Lf of tetanus toxoid and 2 Lf of diphtheria toxoid) Stefanie Bernard MD Work Phone: [facility] 06-29-[address] Eliel Becerra Work Phone: [facility] Payers Date Payer Category Payer Unknown [id number] 2024 Self-pay [id number] 2022 Medicaid [id number] ef [id number] 2022 Medicaid [id number] 1970 Unknown [id number] 2.16. [id number] Unknown [id number] Unknown [id number] [facility] [id number] Unknown [id number] 2.16.8 [id number] Unknown [id number] 2.16.8 [id number] Unknown [id number] 2.16.8 [id number] Unknown [id number] 2.16.8 [id number] Unknown [id number] 2.16.8 [id number] Unknown [id number] 2.16.8 [id number] Unknown [id number] 2.16.8 [id number] Unknown [id number] 2.16.8 [id number] Unknown [id number] 2.16.8 [id number] Unknown [id number] 2.16.8 [id number] Unknown [id number] 2.16.8 [id number] Social History Date Type Detail Facility Start: 01-17-2022 End: 02-13-2023 Tobacco smoking status MIIS Unknown if ever smoked [facility] Start: 01-13-2020 Cigarettes [facility] Start: 1970 Sex Assigned At Female [facility] Start: 05-09-2022 End: 10-09-2022 Tobacco smoking status MIIS Smokes tobacco daily [facility] History of tobacco use Cigarette Smoker [facility] Start: 05-09-2022 End: 01-15-2023 Cigarettes smoked current (pack per day) - Reported 0.[address] [facility] Start: 05-09-2022 End: 10-09-2022 Tobacco use and exposure Smokeless tobacco non-user [facility] Start: 05-09-2022 Alcohol intake Current drinke r of alcohol (finding) [facility] Start: 09-25-2011 History SDOH Alcohol Comment occasionally [facility] Start: 04-29-2022 End: 07-11-2022 Exposure to SARS-CoV-2 (event) Not sure [facility] Start: 05-18-2022 End: 09-19-2023 Alcohol intake Lifetime non-drinker (finding) [facility] Start: 07-05-2022 End: 01-15-2023 Tobacco use panel [facility] National Score (1-10 0), lower number is lower risk Not on file [facility] Start: 02-08-2021 Gender identity Identifies as female gender (finding) [facility] Start: 02-08-2021 Sexual orientation Heterosexual (jay yoon) [facility] Medical Equipment Procedure Code Equipment Code Equipment Origin al Text Equipment Identifier Dates Laparoscopy with vaginal hysterectomy BELKYS 3GRM HEMOSTAT ABS FDA Start: 09-11-2018 Laparoscopy with vaginal hysterectomy BELKYS 3GRM HEMOSTAT ABS FDA Start: 09-11-2018 Laparoscopy with vaginal hysterectomy BELKYS 3GRM HEMOSTAT ABS FDA Start: 09-11-2018 Laparoscopy with vaginal hysterectomy BELKYS 3GRM HEMOSTAT ABS FDA Start: 09-11-2018 Laparoscopy with vaginal hysterectomy BELKYS 3GRM HEMOSTAT ABS FDA Start: 09-11-2018 Laparoscopy with vaginal hysterectomy BELKYS 3GRM HEMOSTAT ABS FDA Start: 09-11-2018 Laparoscopy with vaginal hysterectomy BELKYS 3GRM HEMOSTAT ABS FDA Start: 09-11-2018 Laparoscopy with vaginal hysterectomy BELKYS 3GRM HEMOSTAT ABS FDA Start: 09-11-2018 Laparoscopy with vaginal hysterectomy BELKYS 3GRM HEMOSTAT ABS FDA Start: 09-11-2018 Laparoscopy with vaginal hysterectomy BELKYS 3GRM HEMOSTAT ABS FDA Start: 09-11-2018 Goals Date Patient Goal Desired Activity /State Mental Status Date Assessment Result Facility 11-17-2022 Cognitive function Voice/Name [facility] Work Phone: 07-12-2022 Cognitive function Voice/Name [facility] Work Phone: 10-23-2021 Cognitive function Level Of Cons ciousness Awake;Alert;Appropriate;Follow s Commands [facility] Work Phone: 10-18-2021 Cognitive function Level Of Cons ciousness Awake;Alert;Appropriate;Follow s Commands [facility] Work Phone: Clinical Notes 05-09-2022 to 10-14-2024 Letter - Coordinator, Mammography - 06/01/2024 12:07 PM Monica - Coordinator, Mammography - 06/01/2024 12:07 PM Yoshi Vargas Mammo Tech - 05/28/2024 7:50 AM EDT Note Date & Type Note Facility 10-14-2024 Note [facility] Medical Records Department [address] [place] [address] Discharge Summary 10/14/24 1247 MR#: [id number] Acct: [id number] Name: MATTI THOMAS Rep #: [id number] : 1970 54 From: Michael Murillo MD PCP: [facility] Status:ADM DAPHNE Location: [place] [id number] Providers Date of Admission: 10/13/24 Date of Discharge: 10/14/24 Primary Care Physician: [place] Consultations 10/13/24 15:06 Consult: Tele-Neurology Routine Consulting Provider: [facility] Reason for Consult: Acute Ischemic Stroke/TIA EMERGENT Consult: No MD Notified: Yes Date Notified: 10/14/24 Time Notified: 09:06 Method of Notification: Text Nursing Unit Staff Notify [facility] of Tele-Neurology Consult: Yes Reason For Visit: MULTIPLE HEUROLOGICAL COMPLAINTS, LOSS OF VISION Diagnosis Discharge Diagnosis (1) Paresthesias: Status: Acute Code(s): R20.2 - Paresthesia of skin (2) Blurred vision: Status: Acute Code(s): H53.8 - Other visual disturbances Plan This is 54-year-old female who is being admitted for multiple neurological complaints to rule out a stroke 1. Left-sided headache, blurry vision and numbness, possible migraine/headache syndrome, rule out stroke: Patient is being admitted in PCU. PT, OT, speech therapy/swallow evaluation and management, nursing NIH stroke scale, BP and glucose monitoring and control as per stroke protocol. TSH, A1c fasting lipid profile tomorrow AM. MRI brain and 2D echo ordered. Started on baby aspirin empirically along with high intensity statin. [facility] neuro[facility]ult afterwards. Twelve-lead EKG shows normal sinus rhythm. QTc [address] head and head CTA head and neck unremarkable 2/5: In the morning, today patient complain of headache. Ibuprofen given bradycardia better. Earlier, MRI brain did not show acute evidence of acute stroke, reported unremarkable 2. Major depressive disorder with psychotic features, LINDA and PTSD: Patient follows psychiatrist Dr. Panda. She is on Abilify, BuSpar, trazodone and sertraline. 3. Chronic alcohol use: Patient is stated she did not drink for 2 weeks. Psychiatrist discontinued topiramate and restarted on disulfiram. 4. Chronic nicotine use/cigarette smoking: Nicotine patch offered. Counseling done to quit smoking. 5. Goiter and thyroid nodule: Advised follow-up with PCP. TSH ordered. DVT prophylaxis, moderate risk: Lovenox 40 mg subcu daily. Living will/advanced directive/end of life care: Patient does not have living will or advanced directive. After discussion of benefits/risks procedures involved with full code, DNR CC arrest and DNR CC, the patient opted for full code. Patient does want artificial life support including intubation, tube feed, ventilator and/chest compression, central venous catheter, vasopressor and DC shock if needed Total time spent in [id number] encounter in discussion of advanced directive 17 minutes. Laboratory Results 10/13/24 12:15: WBC 8.0, RBC 4.44, Hgb 13.5, Hct 41.9, MCV 94.4, MCH 30.4, MCHC 32.2, RDW Std Deviation 47.4 H, RDW Coeff of Dariela 13.6, Plt Count 333, MPV 10.3, Immature Gran % (Auto) 0.400, Neut % (Auto) 55.9, Lymph % (Auto) 33.5, Jones % (Auto) 9.3, Eos % (Auto) 0.5, Baso % (Auto) 0.4, Absolute Neuts (auto) 4.5, Absolute Lymphs (auto) 2.67, Nucleated RBC % 0, PT 12.4, INR 0.9, APTT 25.8, Sodium 139, Potassium 3.8, Chloride 105, Carbon Dioxide 27.0, Anion Gap 7, BUN 10, Creatinine 0.81, Estim Creat Clear Calc 80.09, Est GFR (MDRD) Af Amer 94, Est GFR (MDRD) Non-Af 78, BUN/Creatinine Ratio 12.3, Glucose 88, Calcium 9.0 Clinical Impression(s) from Imaging Studies Chest X-Ray 10/13/24 12:33 IMPRESSION: No acute cardiopulmonary process. Reading Location: [facility] Brain CT 10/13/24 12:51 IMPRESSION: No evidence of acute intracranial abnormality. Reading Location: [facility]-1 Head/Neck CTA 10/13/24 12:51 IMPRESSION: RIGHT CAROTID: Unremarkable. LEFT CAROTID: Unremarkable. VERTEBRALS: Unremarkable. INTRACRANIAL: Unremarkable. Normal examination. One or more dose reduction techniques were used (e.g., Automated exposure control, adjustment of the mA and/or kV according to patient size, use of iterative reconstruction technique). Reading Location: [facility]--1 Brain MRI 10/13/24 15:06 IMPRESSION: No acute intracranial abnormality. Reading Location: [facility] Clinical Impression(s) from Imaging Studies Chest X-Ray 10/13/24 12:33 IMPRESSION: No acute cardiopulmonary process. Electronically Signed By: Jean Marie Noriega on (more content not included)... [facility] 06-01-2024 Note Formatting of this n ote might be different from the original. June 01, 2024 PID: [id number] Matti Thomas [address] [place] [address] Dear Ms. Thomas, We are pleased to inform you that the results of your recent breast imaging exam on 05/28/2024 are normal. Breast tissue can be either dense or not dense. Dense tissue makes it harder to find breast cancer on a mammogram and also raises the risk of developing breast cancer. Your breast tissue is dense. In some people with dense tissue, other imaging tests in addition to a mammogram may help find cancers. Talk to your healthcare provider about breast density, risks for breast cancer, and your individual situation. Early detection of cancer is very important. We also understand recommendations regarding breast cancer screening are controversial. Please discuss with your primary care provider which strategy is best for you and whether a mammogram is right for you. Your imaging studies and report will be kept on file at [facility] as part of your permanent medical record and are available for your continuing care. Thank you for allowing us to help in meeting your health care needs. Sincerely, Dr. Gill Interpreting Radiologist [facility] (Normal over 40) [facility] 06-01-2024 Miscellaneous Notes June 01, 2024 PID: [id number] Matti Thomas [address] [place] [address] Dear Ms. Martha, We are pleased to inform you that the results of your recent breast imaging exam on 05/28/2024 are normal. Breast tissue can be either dense or not dense. Dense tissue makes it harder to find breast cancer on a mammogram and also raises the risk of developing breast cancer. Your breast tissue is dense. In some people with dense tissue, other imaging tests in addition to a mammogram may help find cancers. Talk to your healthcare provider about breast density, risks for breast cancer, and your individual situation. Early detection of cancer is very important. We also understand recommendations regarding breast cancer screening are controversial. Please discuss with your primary care provider which strategy is best for you and whether a mammogram is right for you. Your imaging studies and report will be kept on file at [facility] as part of your permanent medical record and are available for your continuing care. Thank you for allowing us to help in meeting your health care needs. Sincerely, Dr. Gill Interpreting Radiologist [facility] (Normal over 40) documented in this encounter [facility] 05-28-2024 History of Present illness Narrative Radiology Service Progress Note PATIENT NAME: Matti Thomas DATE OF SERVICE: May 28, 2024 TIME: 8:47 AM PATIENT IDENTITY VERIFICATION COMPLETED USING TWO (2) IDENTIFIERS: Name and Date of confirmed by patient verbally. FALL SCREENING: Has the patient had 2 falls in the last year or 1 fall with injury or currently using an Ambulatory Assistive Device (Walker, Cane, Wheelchair, Crutches, etc.)? No PATIENT GENDER DATA: Female. status: : No status: NO. PATIENT RELEVANT IMPLANT DATA REVIEWED: Not Applicable PATIENT PRESENTS WITH AN IMPLANTABLE OR ATTACHED CABINET BUILDER: No RADIOLOGY DEPARTMENT: Mammography PERIPHERAL IV DATA: Not applicable SIGNED BY: Klarissa Chu May 28, 2024 8:47 AM documented in this encounter [facility] 05-28-2024 Note HNO ID: [id number] Author: YOSHI MOLINA Mammo Tech Service: ? Author Type: Technologist Type: Progress Notes Filed: 05/28/2024 08:48 Note Text: Radiology Service Progress Note PATIENT NAME: Matti Thomas DATE OF SERVICE: May 28, 2024 TIME: 8:47 AM PATIENT IDENTITY VERIFICATION COMPLETED USING TWO (2) IDENTIFIERS: Name and Date of confirmed by patient verbally. FALL SCREENING: Has the patient had 2 falls in the last year or 1 fall with injury or currently using an Ambulatory Assistive Device (Walker, Cane, Wheelchair, Crutches, etc.)? No PATIENT GENDER DATA: Female. status: : No status: NO. PATIENT RELEVANT IMPLANT DATA REVIEWED: Not Applicable PATIENT PRESENTS WITH AN IMPLANTABLE OR ATTACHED CABINET BUILDER: No RADIOLOGY DEPARTMENT: Mammography PERIPHERAL IV DATA: Not applicable SIGNED BY: Klarissa Cuh May 28, 2024 8:47 AM [facility] 05-26-2024 Telephone encounter Note ordered [facility] Work Phone: 05-26-2024 Miscellaneous Notes ordered Patient scheduled for mammogram screening with BREN on , 05/28/24. Order pended. Please link order to scheduled appointment once signed. documented in this encounter [facility] 05-26-2024 Telephone encounter Note Patient scheduled for mammogram screening with BREN on , 05/28/24. Order pended. Please link order to scheduled appointment once signed. [facility] 09-19-2023 Note HNO ID: [id number] Author: SHAHAB DUNLAP JR, MD Service: ? Author Type: Physician Type: Procedures Filed: 09/19/2023 14:21 Note Text: CYSTOSCOPY PROCEDURE NOTE: Matti Thomas is a 53 year old female who presents with hematuria gross for a cystoscopy. Pt ID verified with patient: Yes Fire risk assessment done Procedure verified with patient: Yes Procedure confirmed with physician and practice support specialist: Yes UNIVERSAL PROTOCOL / SAFETY CHECKLIST Procedure to be Performed: cystoscopy Sign In: A Moment of CARE was completed. Personnel directly involved with the procedure wore the appropriate PPE (Personal Protective Equipment). Patient/Surrogate Stated/Verified: PATIENT VERIFIED(optional for EMERGENT procedures): Patient name, Date of , Relevant allergies, and The intended procedure Time Out Communication: Intended patient and procedure match the source documents. Consent documented and matches the intended procedure. Sign Out: SIGN OUT (optional for EMERGENT procedures): No specimen collected. Shahab Dunlap Jr, MD Pre procedure dx: gross hematuria Post procedure dx: same A urinalysis was performed revealing no evidence of infection. The benefits, risks, alternatives of the cystoscopy procedure and personnel were discussed with the patient. The verbal consent was obtained and the patient agrees to proceed. Female staff present for entire exam/procedure. Procedure: The patient was placed on the procedure table in the supine position and prepped and draped in the usual sterile fashion. 2% Lidocaine Jelly was placed per urethra as an anesthetic in the standard fashion. Once adequate local anesthesia was achieved, the tip of the flexible cystoscope was carefully placed into the urethra under direct visual guidance. The scope was negotiated per urethra with no evidence of stricture into the bladder. Careful chen endoscopy was carried out. The posterior, superior and lateral matias and dome of the bladder were all well visualized and the scope was retroflexed upon itself. The findings were consistent with no evidence of bladder mucosal pathology. At the conclusion of the procedure, the flexible cystoscope was removed atraumatically. The patient tolerated the procedure without complications. Patient was given standard post-procedure instructions, and was directed to complete the course of oral antibiotics and increase oral fluid intake as directed. ASSESSMENT/PLAN: Richy Dunlap Jr, MD [facility] 09-18-2023 Note HNO ID: [id number] Author: LORENA MARTINEZ RT(R) Service: ? Author Type: Candy Cutter Hand Type: Progress Notes Filed: 09/18/2023 15:03 Note Text: Radiology Service Progress Note DATE OF SERVICE: September 18, 2023 TIME: 3:02 PM PATIENT IDENTITY VERIFICATION COMPLETED USING TWO (2) STANDARD IDENTIFIERS: Name and Date of confirmed by patient verbally. FALL SCREENING: Has the patient had 2 falls in the last year or 1 fall with injury or currently using an Ambulatory Assistive Device (Walker, Cane, Wheelchair, Crutches, etc.)? No PATIENT GENDER DATA: Female. status: : No status: NO. PATIENT RELEVANT IMPLANT DATA REVIEWED: Yes ALLERGIES: Reviewed and unchanged CONTRAST ALLERGY: NO. EXAM: CT -CONTRAST INDUCED NEPHROPATHY RISK FACTORS: Not applicable CREATININE: Creatinine Date Value Ref Range Status 08/23/2023 0.82 0.58 - 0.96 mg/dL Final 07/04/2023 0.67 0.58 - 0.96 mg/dL Final 11/08/2022 0.84 0.58 - 0.96 mg/dL Final Estimated Glomerular Filtration Rate Date Value Ref Range Status 08/23/2023 86 >=60 mL/min/1.73m? Final Comment: Estimated Glomerular Filtration Rate (eGFR) is calculated using the 2020 CKD-EPI creatinine equation. This equation utilizes serum creatinine, sex, and age as parameters. The creatinine assay has traceable calibration to isotope dilution-mass spectrometry. Refer to KDIGO guidelines for clinical interpretation. In patients with unstable renal function, e.g. those with acute kidney injury, the eGFR may not accurately reflect actual GFR. P.O.C.T. RESULTS: POC done: Yes, See Lab Tab September 18, 2023 TREATMENT: N/A PERIPHERAL IV DATA: Ambulatory: A peripheral IV was started in the Left antecubital site with a Angio cath: 22 gauge. RADIOLOGY DEPARTMENT: CT; Exam(s) Completed: urogram SIGNATURE: RT Yumiko(R) PATIENT NAME: Matti Thomas DATE: September 18, 2023 TIME: 3:02 PM [facility] 08-20-2023 Note HNO ID: [id number] Author: Nick Jesus PA-C Service: ? Author Type: Physician Public Relations Senior Associate Type: Progress Notes Filed: 08/21/2023 9:57 AM Note Text: [facility] NEW PATIENT CLINIC NOTE SERVICE DATE: 08/20/2023 SERVICE TIME: 4:55 PM NAME: Matti Thomas CHIEF COMPLAINT: HISTORY OF PRESENT ILLNESS: Matti Thomas is a 53 year old female presenting as an New Patient for Gross Hematuria The patient reports she has had a few episodes of Gross Hematuria, and has a known E coli UTI recently as well, however the UTI was treated with antimitotic and had cleared, But still having gross hematuria We discussed the need for full hematuria workup due to the Gross Blood in the urine. These tests and procedures will be ordered today. LUTS: DYSURIA: yes URGENCY: Yes FREQUENCY:6 per day NOCTURIA: 3 per night STRAINING TO VOID: No EMPTIES COMPLETELY: Yes UTI: 2 past 12 months GROSS HEMATURIA: yes UA DIPSTICK POSITIVE ONLY: no Other symptoms: LABS: No results found for: TESTOST No results found for: TESTFREE No results found for: PSA Hematocrit (%) Date Value 07/04/2023 38.1 11/08/2022 42.1 02/16/2022 42.1 06/18/2018 44.0 03/19/2016 39.7 01/05/2016 39.4 No results found for: PSA Creatinine Date Value Ref Range Status 07/04/2023 0.67 0.58 - 0.96 mg/dL Final 11/08/2022 0.84 0.58 - 0.96 mg/dL Final 09/12/2022 0.70 0.58 - 0.96 mg/dL Final 02/16/2022 0.73 0.58 - 0.96 mg/dL Final MEDICATIONS: ARIPiprazole (ABILIFY) 5 mg tablet Take 1 tablet by mouth every afternoon. sertraline (ZOLOFT) 50 mg tablet Take 50 mg by mouth daily at bedtime. traZODone (DESYREL) 50 mg tablet take 1/2 tablet to 1 tablet by mouth as needed for sleep cholecalciferol, vitamin D3, (VITAMIN D3 ORAL) Take 1,000 mg by mouth once daily. naproxen (NAPROSYN) 500 mg tablet iv contrast (will be provided with radiology test) CT Urogram WO/W Inject, intravenously, once for 1 dose.No IV access, insert saline lock prior to the beginning of sedation, infusion, injection of imaging exam. Discontinue saline lock post exam. If Pt. has a central line or IVAD, may access for administration according to line specific nursing protocol. Once exam is complete flush line and de-access according to line specific nursing protocol in the CT contrast administration guidelines link. 0.9 % sodium chloride (NACL 0.9%) infusion Inject 150 mL/hr intravenously one time only for 1 dose. Administer at rate defined per CT contrast administration specifications. To be provided with radiology test. famotidine (PEPCID) 20 mg tablet Take by mouth. (Patient not taking: Reported on 08/20/2023) hydrOXYzine pamoate (VISTARIL) 25 mg capsule Take one Capsule By Oral Route three times a day as needed. nicotine (NICODERM) 21 mg/24 hr Apply 1 Patch as directed once daily. busPIRone (BUSPAR) 15 mg tablet Take 1 Tablet By Oral Route 2 times per day omeprazole (PRILOSEC) 40 mg capsule Take 1 capsule by mouth once daily. methylcellulose, with sugar, (CITRUCEL, SUCROSE,) oral powder Follow instructions on label. cephALEXin (KEFLEX) 500 mg capsule Take 500 mg by mouth four times daily. (Patient not taking: Reported on 08/20/2023) propranolol (INDERAL) 20 mg tablet Take 20 mg by mouth three times daily. FLUoxetine HCl 20 mg tablet Take 1 Tablet orally once per Day for 30 Days (Patient not taking: Reported on 08/20/2023) cyclobenzaprine (FLEXERIL) 10 mg tablet Take 10 mg by mouth three times daily as needed. DAILY MULTIVITAMIN TAB Take one(1) tablet daily. 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 Bernard LAPS ABD PRTMANDOMENTUM DX W/WO SPEC BR/WA SPX 2003 Laparoscopy for pain and normal LIG/TRNSXJ FLP TUBE ABDL/VAG APPR UNI/BI Tubal ligation NOVASURE 2015 OOPHORECTOMY PARTIAL/TOTAL UNI/BI Left 09/11/2018 Left oophorectomy at [facility]-Dr. Bernard (more content not included)... [facility] 04-29-2023 History of Present illness Narrative Radiology Service Progress Note PATIENT NAME: Matti Thomas DATE OF SERVICE: April 29, 2023 TIME: 12:20 PM PATIENT IDENTITY VERIFICATION COMPLETED USING TWO (2) IDENTIFIERS: Name and Date of confirmed by patient verbally. FALL SCREENING: Has the patient had 2 falls in the last year or 1 fall with injury or currently using an Ambulatory Assistive Device (Walker, Cane, Wheelchair, Crutches, etc.)? No PATIENT GENDER DATA: Female. status: : No status: NO. PATIENT RELEVANT IMPLANT DATA REVIEWED: Yes RADIOLOGY DEPARTMENT: General X-ray: Exam(s) Completed: Spine X-Ray(s): Lumbar AP / LAT / L5-S1 and Sacrum/Coccyx PERIPHERAL IV DATA: Not applicable SIGNED BY: RT Jennifer(R) April 29, 2023 12:20 PM documented in this encounter [facility] 12-20-2022 History of Present illness Narrative HISTORY AND PHYSICAL Matti Thomas 1970 REFERRING PHYSICIAN: No ref. provider found CHIEF COMPLAINT: Consult (Bowel issues and pain, last colonoscopy 06/2022) HPI: The patient is a 52 year old female who presents to discuss repeat endoscopy. Patient had EGD by Dr. Cardozo on 06/07/22. Biopsies at that time showed: FINAL DIAGNOSIS A. Duodenum, second portion, biopsy: -- Small bowel mucosa with no significant histopathologic abnormalities. -- Villous architecture is preserved with no increase in intraepithelial lymphocytes. B. Antrum (stomach), biopsy: -- Gastric mucosa with change of reactive gastropathy and focal crush artifact, see comment. -- No H. pylori organisms are identified on H&E sections. C. Esophagogastric junction, biopsy: -- Glandular mucosa with intestinal metaplasia, most compatible with Crook's esophagus in the appropriate endoscopic findings. -- Squamous mucosa with basal cell hyperplasia. -- No evidence of dysplasia or malignancy. Repeat EGD with additional biopsies was recommended to confirm diagnosis of Crook's esophagus. Patient notes she has had some issues with worsening dysphagia for the last 2-3 weeks. Will feel sensation of choking regardless of food type. Notes this is happening with increasing frequency. She is a tobacco user, currently working on quitting. 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 Bernard LAPS ABD PRTM&OMENTUM DX W/WO SPEC BR/WA SPX 2003 Laparoscopy for pain and normal LIG/TRNSXJ FLP TUBE ABDL/VAG APPR UNI/BI Tubal ligation ALEXSANDER 2016 OOPHORECTOMY PARTIAL/TOTAL UNI/BI Left 09/11/2018 Left oophorectomy at [facility]-Dr. Bernard PAST SURGICAL HISTORY OF 1988 pilonidal cyst PAST SURGICAL HISTORY OF Salpingostomy for Ectopic [open procedure][[[ PREOP PLACEMENT NEEDLE LOC 10/30/2011 LEFT REM LESION FACE,EAR,EYEL <5MM 08/13/2012 Exc. right nasal jie cyst and left arm lesion SALPINGECTOMY Bilateral 09/11/2018 B/L Salpingectomy at [facility]-Dr. Bernard Current Outpatient Medications Medication Sig hydrOXYzine pamoate (VISTARIL) 25 mg capsule Take one Capsule By Oral Route three times a day as needed. traZODone (DESYREL) 50 mg tablet take 1/2 tablet to 1 tablet by mouth as needed for sleep nicotine (NICODERM) 21 mg/24 hr Apply 1 Patch as directed once daily. busPIRone (BUSPAR) 15 mg tablet Take 1 Tablet By Oral Route 2 times per day cholecalciferol, vitamin D3, (VITAMIN D3 ORAL) Take 1,000 mg by mouth once daily. propranolol (INDERAL) 20 mg tablet Take 20 mg by mouth three times daily. FLUoxetine HCl 20 mg tablet Take 1 Tablet orally once per Day for 30 Days cyclobenzaprine (FLEXERIL) 10 mg tablet Take 10 mg by mouth three times daily as needed. DAILY MULTIVITAMIN TAB Take one(1) tablet daily. omeprazole (PRILOSEC) 40 mg capsule Take 1 capsule by mouth once daily. methylcellulose, with sugar, (CITRUCEL, SUCROSE,) oral powder Follow instructions on label. cephALEXin (KEFLEX) 500 mg capsule Take 500 mg by mouth four times daily. naproxen (NAPROSYN) 500 mg tablet No current facility-administered medications for this visit. ALLERGIES: Methylprednisolone PERSONAL HISTORY: Social History Tobacco Use Smoking status: Every Day Packs/day: 1.00 Years: 15.00 Pack years: 15.00 Types: Cigarettes Smokeless tobacco: Never Vaping Use Vaping Use: Never used Substance Use Topics Alcohol use: Never Drug use: No FAMILY HISTORY: FAMILY HISTORY Problem Relation Age of Onset other (Lung cancer) Father Cancer Maternal Grandmother great grandmother ovarian and breast Heart Maternal Grandmother REVIEW OF SYMPTOMS: The review of systems data was entered by the nurse and reviewed by tn Nursing Notes: Nicky Tabor LPN 12/20/2022 9:53 AM Signed REVIEW OF SYSTEMS: General: The patient denies fatigue, notes weight loss, denies weight gain, denies feeling hot, and denies feelings of cold. Eyes: The patient denies glaucoma, denies eye injury/surgery, wears glasses or contacts. Ear/Nose/Throat: The patient notes allergies, denies hayfever, denies ear infections, and denies bloody noses. Cardiovascular: The patient denies chest pain, denies heart disease, denies high blood pressure,denies cardiac stent, denies prior heart attack, denies irregular heart beat, denies high cholesterol, denies poor circulation, denies heart failure, other cardiac issues, notes claudication, denies cold feet, denies peripheral arterial stent. Respiratory: The patient denies tuberculosis, denies pneumonia, denies frequent cough, denies pulmonary embolism, denies shortness of breath, and denies coughing up blood. Gastrointestinal: The patient notes difficulty swallowing, notes acid reflux, denies ulcers, denies vomiting, denies jaundice/hepatitis, denies gallbladder problems, denies black or tarry stools, denies hemorrhoids, denies bleeding from rectum, denies diverticulitis, notes constipation, denies diarrhea, denies loss of stool control, and denies hernias. Kidney/Bladder: The patient denies kidney stones, denies urine infections, and denies bloody urine. Skin: The patient denies a history of skin cancer, denies bleeding/changing moles, and denies a history of skin rash. Neurologic: The patient denies a history of epilepsy/convulsions, denies headaches, denies head/spinal injuries, and denies stroke/TIA. Psychiatric: The patient notes psychiatric medications, notes depression, and notes voices, denies substance abuse. Endocrine: The patient notes thyroid disorders, denies diabetes, and denies hormonal problems. Hematologic: The patient denies a history of bruising, denies bleeding, and denies anemia, denies blood clots. Infections: The patient denies a history of measles and mumps, denies rheumatic fever, and denies sexually transmitted diseases. Musculoskeletal: The patient denies back pain/injury, notes back problems, denies sciatica, denies knee/foot trouble, denies arthritis, or denies gout. When was patient's last Mammogram screening? 2021 Last Colonoscopy: 06/2022 Nicky Tabor LPN I have confirmed and edited as necessary, the PFSH and ROS obtained by others. Mari Lee PA-C PHYSICAL EXAMINATION: General: The patient is 52 year old female, well nourished, well hydrated in no acute distress. The patient is oriented to time, place, and person. VITALS: Blood pressure 112/72, pulse 69, temperature 36.3 C (97.4 F), height 172.7 cm (5' 8), weight 58.1 kg (128 lb), last menstrual period 09/03/2018, SpO2 99 %. Body mass index is 19.46 kg/m . HEENT: Normal cephalic, ataumatic, pupils are equally round, sclera are anicteric, mucous membranes are moist, oropharynx is clear. Neck has no masses, asymmetry or lymphadenopathy. Respiratory: Clear to auscultation and percussion. Normal respiratory excursion and pattern. Cardiac: Examination is regular rate and rhythm. Normal S1/S2 Abdominal exam: Soft, nontender, with no palpable masses. No hepatosplenomegaly. No palpable hernias. Extremities: no clubbing, cyanosis or edema. No adenopathy. LABORATORY VALUES: As Noted RADIOLOGIC STUDIES: As Noted Assessment IMPRESSION: progressive dysphagia and choking episodes, questionable Crook's on EGD from last year, tobacco use PLAN: I have reviewed my findings with the surgeon. Will plan for upper endoscopy with additional biopsies to confirm diagnosis of suspected Crook's esophagus. We discussed the risks and benefits of the planned endoscopy. I have informed the patient that complications can occur including failure to complete the endoscopy and perforation. The patient had the opportunity to ask questions concerning the planned endoscopy. My staff has also explained the procedure to the patient in understandable terms and has given the patient printed material concerning the procedure. The patient freely consents to surgery. The patient was offered a surgery/procedure at a [facility] facility. I have counseled the patient regarding the risk of exposure to and/or potential harm posed by the COVID-19 virus with having a surgery/procedure at this time versus the risk of delaying the surgery/procedure. It is not possible to know either the risk of delaying the surgery or procedure or chance of getting an infection with perfect accuracy, but a joint decision was made between the patient and myself to proceed at this time with endoscopy. -Increase omeprazole to 40 mg daily -Strongly recommend tobacco cessation We will plan for Monitored Anesthetic Care. Diagnoses: (R13.10) Dysphagia, unspecified type (primary encounter diagnosis) (T17.308A) Choking, initial encounter (Z72.0) Tobacco use I spent a total of 24 minutes on the date of the service which included preparing to see the patient, [id number] patient care, completing clinical documentation, obtaining and/or reviewing separately obtained history, performing a medically appropriate examination, counseling and educating the patient/family/caregiver, ordering medications, tests, or procedures, and communicating with other HCPs (not separately reported). Mari Lee PA-C documented in this encounter [facility] 12-20-2022 Nurse Note REVIEW OF SYSTEMS: General: The patient denies fatigue, notes weight loss, denies weight gain, denies feeling hot, and denies feelings of cold. Eyes: The patient denies glaucoma, denies eye injury/surgery, wears glasses or contacts. Ear/Nose/Throat: The patient notes allergies, denies hayfever, denies ear infections, and denies bloody noses. Cardiovascular: The patient denies chest pain, denies heart disease, denies high blood pressure,denies cardiac stent, denies prior heart attack, denies irregular heart beat, denies high cholesterol, denies poor circulation, denies heart failure, other cardiac issues, notes claudication, denies cold feet, denies peripheral arterial stent. Respiratory: The patient denies tuberculosis, denies pneumonia, denies frequent cough, denies pulmonary embolism, denies shortness of breath, and denies coughing up blood. Gastrointestinal: The patient notes difficulty swallowing, notes acid reflux, denies ulcers, denies vomiting, denies jaundice/hepatitis, denies gallbladder problems, denies black or tarry stools, denies hemorrhoids, denies bleeding from rectum, denies diverticulitis, notes constipation, denies diarrhea, denies loss of stool control, and denies hernias. Kidney/Bladder: The patient denies kidney stones, denies urine infections, and denies bloody urine. Skin: The patient denies a history of skin cancer, denies bleeding/changing moles, and denies a history of skin rash. Neurologic: The patient denies a history of epilepsy/convulsions, denies headaches, denies head/spinal injuries, and denies stroke/TIA. Psychiatric: The patient notes psychiatric medications, notes depression, and notes voices, denies substance abuse. Endocrine: The patient notes thyroid disorders, denies diabetes, and denies hormonal problems. Hematologic: The patient denies a history of bruising, denies bleeding, and denies anemia, denies blood clots. Infections: The patient denies a history of measles and mumps, denies rheumatic fever, and denies sexually transmitted diseases. Musculoskeletal: The patient denies back pain/injury, notes back problems, denies sciatica, denies knee/foot trouble, denies arthritis, or denies gout. When was patient's last Mammogram screening? 2021 Last Colonoscopy: 06/2022 Nicky Tabor LPN documented in this encounter [facility] 12-04-2022 History of Present illness Narrative Episode Visit Count: 1 Therapist That Will Accept/Oversee The Plan Of Care: Anup Mcpherson Start of Care Date: 12/04/22 Onset Date: 09/09/04 Plan of Care Certification Date: 08/21/19 Next Certification Due Date: 10/16/19 Patient Identified by Name and Date of : Yes REHABILITATION AND SPORTS THERAPY PHYSICAL THERAPY EVALUATION PLAN OF CARE: Assessment: Matti Thomas presents with chief complaint of LBP and RLE radicular symptoms that interferes with lifting, sitting, standing, stair negotiation . She presents with impairments in gait, overall function, range of motion, and strength. PROMIS (Patient-Reported Outcomes Measurement Information System) scores were reviewed and all domains identified as a rehabilitation concern. Prognosis for therapy is . Pt does not demonstrate a direction of preference and pt reports worsening of Leg symptoms via increased numbness and weakness by the end of the session. She will benefit from skilled therapy services to meet the goals established for this plan of care as noted below. Classification Low Back Pain Subgroup Classification: Core stabilization subgroup: recommended visits 10. Core Stabilization Subgroup Classification based on: pain with transitional movements Goals for Episode of Care: created on 12/04/22 through 01/29/23 Pt will report decreased LBP by 2 points in 4 weeks or less for improved QOL Pt will report RLE radicular symptoms that are above the knee showing decreased compression of the nerve roots Pt will report no pain with transitional movements (getting in bed and out of a car) in 8 weeks or less [place] in home exercise program. Patient Goals: Wants to be pain free Planned Interventions, Frequency, and Duration: Current Frequency: 1x/week Duration: 4 weeks Total Number of Visits Planned: 4 Planned Treatment Interventions: Therapeutic exercise (95262), Neuromuscular re-education (98123), Manual therapy (95459), Self-fpc management (55099), Gait Training (11546), Therapeutic activities (92046), Patient/Family/Caregiver Education PLAN FOR NEXT VISIT: Trial MT over trigger points on inferior postion of illiocostalis muscles on the R to determine benefit of this. Neutral spine strengthening Patient demonstrates good understanding of plan of care and treatment. The above goals and plan of care were discussed and agreed upon by patient/family. SUBJECTIVE: Matti Thomas is a 52 year old female seen today for Tingling and numbness to the R foot. Hard to get out of bed and out of a car. Getting an injection soon. They may have talked about burning the nerve. Sitting, standing, laying flat can only do for a short period of time before needing to move. Feels the leg symptoms are worse sitting vs standing. Patient Goals: Wants to be pain free Functional Limitations: lifting, sitting, standing, stair negotiation Prior Level of Function: Independent without limitations Intake Information: Prescription present Previous Treatment: Physical Therapy , Pain Management , Chiropractor Pain: Pain Pain Level: 7 Pain Location: Back Post Treatment Pain Post Treatment Pain Level: Worse Post Treatment Pain Location: Back, Leg - Right PROMIS Scales Higher is Better 12/01/2022 09/21/2019 Phys Func - Score 29 (severe dysfunction) 35 (moderate dysfunction) Phys Func - Percentile 2 % 7 % Self-Eff Symptom - Score 25 (Very Low) - Self-Eff Symptom - Percentile 1 % - T-scores: mean of general population = 50. 5 points is clinically meaningfully difference Percentiles provide an indication of how the patient's score ranks in relation to the general population. Higher percentile rankings indicate better function/quality of life. 50th percentile is the average of the general population and indicates half of respondents had a worse score. OBJECTIVE MEASURES WITH LEVEL OF FUNCTION: Reflexes - Lower Extremity R Patellar: 2+ R Achilles: Absent L Patellar: 2+ L Achilles: 2+ Lumbar Spine AROM Lumbar Extension: Major limitation, Increased pain, Peripheralizing Lumbar R Side-Bend: Moderate limitation, Increased pain Lumbar Spine AROM Comments: Pt needs to stop ROM testing due to pain and leg weakness worsening LE AROM Tested?: Yes LE AROM R LE AROM: WNL L LE AROM: WNL LE Strength R LE Strength: Not tested due to pain and low tolerance to activity Gait Gait: Independent Gait Distance (feet): 50 Gait Device: None Gait Deviations: Right Lower Extremity Gait Deviations Right Lower Extremity: Weight bearing decreased, Step length decreased, Stance time decreased Education: Education Learning Preferences: Demonstration, Explanation, Performance, Printed Materials Barriers: None Learning/educational needs: Home exercise program, Plan of Care Education Provided: Yes, see treatment interventions for education provided Education Provided To: Patient Education Mode/Type: Demonstration, Explanation/Discussion, Literature/Printed Materials, Performance Response to Education/Teach Back: States/Identifies, Return Demonstration TREATMENT: PT Treatment Interventions: Therapeutic Exercise Evaluation Therapeutic Exercise: 1: Discussed therapy goals and exam findings. Discussed symptoms of nerve compression and how this can cause LE weakness. 2: SKTC x 5 holding 5 each (No better in the leg) 3: Seated TA bracing with alt arm flexion x 8 each (More soreness in the back) Skilled Intervention: Patient was educated in proper exercise technique and purpose for exercises. Skilled judgment was provided in selection of appropriate interventions. Provided written instruction for home exercise program to facilitate proper performance and compliance. Correct performance of therapeutic exercises was facilitated with verbal and visual cuing. Billing * Evaluation Moderate Complexity: 1 Unit Therapeutic Exercise Treatment Minutes: 10 Total Treatment Time Minutes (timed/untimed): 45 Anup Mcpherson PT documented in this encounter [facility] 11-17-2022 Discharge summary Note Date/Time November 17, 2022 5:16pm [facility] Medical Records Department [address] [place] [id number] Emergency Department Summary 11/17/22 MR#: [id number] Acct: [id number] Name: MATTI THOMAS Rep #[id number] : 1970 52 From: Joanie Rowley PCP: REEMA Malcolm Status:REG ER Location: ED HPI History of Present Illness Chief Complaint: Chest Pain Informant: patient Narrative Narrative: Patient is a 52-year-old female with history of anxiety and depression as well as elevated thyroid and reportedly Crook's esophagus presenting with chest pain. She states I feel like I am having a heart attack. She states that shefeels very anxious and this is causing her to feel shaky and short of breath. She states she has pressure in her chest and feels like she cannot breathe. Shehas had similar symptoms in the past that have been noncardiac. She also notes her legs are starting to feel tingly. She states she has a lot of stressors at home and is been going through marital issues with her . She reports that she does feel safe at home. States that she was arguing with her last night and told him to leave and then she felt alone which seem to worsen her symptoms. She denies any history of blood clots. Denies any swelling of her legs. Notes that she does have a history of alcohol abuse and did drink recently but does not feel like she is going to withdrawal right now. Denies any other complaints at this time. [facility] Medical History Abnormal results of thyroid function studies Anxiety and depression DDD (degenerative disc disease), lumbar Goiter Radial scar of right breast Scoliosis Thyroid nodule Home Medications cyclobenzaprine 10 mg tablet 10 mg PO PRN PRN BACK SPASMS 01/17/22 [History Last Taken Unknown] fluoxetine 40 mg capsule 40 mg PO DAILY 01/17/22 [History Last Taken Unknown] omeprazole 40 mg capsule,delayed release 20 ea PO DAILY 08/13/22 [History Last Taken Unknown] propranolol 20 mg tablet 20 ea PO DAILY 08/13/22 [History Last Taken Unknown] venlafaxine 37.5 mg tablet 37.5 mg PO DAILY 08/13/22 [History Last Taken Unknown] cholecalciferol (vitamin D3) 25 mcg (1,000 unit) capsule 25 mcg PO DAILY 09/14/22 [History Last Taken Unknown] famotidine 20 mg tablet 20 mg PO BID #10 TABLETS 10/11/22 [Rx Last Taken Unknown] prednisone 20 mg tablet 60 mg PO DAILY #12 TABLETS 10/11/22 [Rx Last Taken Unknown] hydroxyzine pamoate 25 mg capsule 50 mg PO TID PRN PRN Anxiety #30 CAPSULES 11/17/22 [Rx Last Taken Unknown] Allergy/AdvReac Type Severity Reaction Status Date / Time No Known Allergies Allergy Verified 10/11/22 12:05 Family History Father No problems noted. Surgical History History of dilation and curettage History of excision of pilonidal cyst (~1987) History of partial hysterectomy History of right breast biopsy Status post left breast lumpectomy (~2011) Social History household members: none Smoking Status: Current every day smoker tobacco type: cigarettes alcohol intake: current alcohol intake frequency: holidays/special occasions only substance use type: does not use what type of physical activity do you participate in: walking frequency: 1-2 times per week ROS ROS ED Constitutional Constitutional ED: Denies chills or fever(s) ENT ENT ED: Denies sore throat Cardiovascular Cardiovascular: Reports as per HPI and chest pain Respiratory/Chest Respiratory/Chest: Reports dyspnea; Denies cough Gastrointestinal Gastrointestinal: Denies abdominal pain, diarrhea or vomiting Musculoskeletal Musculoskeletal: Denies arthralgias, myalgias or neck pain Neurologic Neurologic: Reports paresthesias and other Details: Tremor ; Denies headache(s) or weakness Psychiatric Psychiatric: Reports anxiety Hematologic/Lymphatic Hematologic/Lymphatic: Denies easy bleeding or easy bruising EXAM Physical Exam Const Vital Signs: 11/17/22 11:54 11/17/22 13:14 11/17/22 14:35 Temperature 98 F Temperature Source Temporal Pulse Rate 83 82 Respiratory Rate 18 20 H Blood Pressure 163/95 H 151/87 H Blood Pressure Mean 117 108 Pulse Ox 97 Oxygen Delivery Method Room Air Room Air Positive well nourished and well developed General Appearance ED: well developed and NAD HEENT Reports moist mucous membranes normocephalic and atraumatic Eyes PERRL and EOMs intact bilaterally General Eye ED: Negative for scleral icterus Neck supple and no JVD Chest Wall inspection of chest normal and palpation of chest normal Resp normal respiratory effort and clear to auscultation bilaterally Resp Narrative: Patient speaking in rapid speech with no perceived dyspnea Effort and Inspection: Negative for respiratory distress Auscultation: Negative for wheezes Cardio regular rate, regular rhythm and no murmurs GI normal to inspection, nondistended, normoactive bowel sounds and soft to palpation Extremity normal to inspection General Extremety ED: Negative for edema General Extremity: Negative for edema Neuro oriented x3 Neuro Narrative: Subtle tremor of the hands noted. Does seem improved with distraction. No focal neurologic deficits appreciated. Normal [id number]. Normal coordination. Sensorium / Orientation: awake and alert Motor Exam: Negative for general weakness Psych Psych Narrative: Specifically denies any HI or SI and states she feels safe at home Mood & Affect: anxious and tearful; Negative for depressed Skin no rashes or lesions noted Heart Score History: Slightly/Non-Suspicious ECG: Normal Age: >45 - <65 years Risk Factors: 1 or 2 Risk Factors Troponin: </= Normal Limit Score: 2 MDM MDM MDM Narrative Medical decision making narrative: Patient is evaluated for chest pain and concern for ACS. Patient presentation is most consistent with a panic attack. EKG is not consistent with acute ischemia. Her delta high-sensitivity is troponin at 6x2. Patient is found to have a mild anemia with a hemoglobin of 10.4. She is informed of this finding. Her platelets are normal. I do not think this is the cause of her presentation. She does not have any risk factors for PE. Her only PERC criteria is her age and D-dimer is obtained which is normal at 0.30. I do not think she has a PE and I do not think she requires a CTA of the chest. Patient did report that over the past months she has had some episodes of unsteady gait. I did obtain a head CT. She currently has a normal neurologic exam. CT of the brain does not show any acute intracranial process. Presentation is not consistent with acute stroke. BMP unremarkable, blood alcohol is normal at 9 and chest x-ray interpreted myself as well as radiology does not show any acute process. Patient is given a dose of IV Ativan with significant improvement of her symptoms in the emergency room. Patient is now in the room with her . She is ambulating with a steady gait. We will continue to follow-up outpatient for her thyroid. It looks like she had recent consult with Dr. Aleman for evaluation of thyroid fine-needle aspiration. Patient has euthyroid sick syndrome and goiter. This note was independently reviewed by myself. Patient also follows with [facility] center [place] and is encouraged to continue to follow-up with them. Counseled to abstain from alcohol. Will be given a prescription for hydroxyzine to help with her symptoms. Patient verbalizes agreement understands this plan. Discharged home in stable and improved condition. We will follow-up outpatient for her anemia and for her chest pain. Lab Data Labs: Laboratory Results - last 24 hr 11/17/22 11/17/22 11/17/22 13:33 13:33 13:33 WBC 8.8 RBC 3.38 L Hgb 10.4 L Hct 30.7 L MCV 90.8 MCH 30.8 MCHC 33.9 RDW Std Deviation 45.2 H RDW Coeff of Dariela 13.6 Plt Count 262 MPV 9.8 Immature Gran % (Auto) 0.200 Neut % (Auto) 58.1 Lymph % (Auto) 33.8 Jones % (Auto) 7.6 Eos % (Auto) 0.1 Baso % (Auto) 0.2 Absolute Neuts (auto) 5.1 Absolute Lymphs (auto) 2.99 Nucleated RBC % 0 D-Dimer Quant (PE/DVT) 0.30 Sodium 138 Potassium 3.5 Chloride 102 Carbon Dioxide 23.0 Anion Gap 13 BUN 15 Creatinine 0.73 Estim Creat Clear Calc 81.97 Est GFR (MDRD) Af Amer 108 Est GFR (MDRD) Non-Af 89 BUN/Creatinine Ratio 20.6 H Glucose 87 Calcium 9.4 Troponin I High Sens 6 Ethyl Alcohol 11/17/22 11/17/22 14:11 15:57 WBC RBC Hgb Hct MCV MCH MCHC RDW Std Deviation RDW Coeff of Dariela Plt Count MPV Immature Gran % (Auto) Neut % (Auto) Lymph % (Auto) Jones % (Auto) Eos % (Auto) Baso % (Auto) Absolute Neuts (auto) Absolute Lymphs (auto) Nucleated RBC % D-Dimer Quant (PE/DVT) Sodium Potassium Chloride Carbon Dioxide Anion Gap BUN Creatinine Estim Creat Clear Calc Est GFR (MDRD) Af Amer Est GFR (MDRD) Non-Af BUN/Creatinine Ratio Glucose Calcium Troponin I High Sens 6 Ethyl Alcohol 9.0 Radiography Diagnostic Testing: Clinical Impression(s) from Imaging Studies Chest X-Ray 11/17/22 12:03 IMPRESSION: No radiographic evidence of acute cardiopulmonary disease. Electronically Signed: Tanvir Rebolledo MD at 13:03 EST , Brain CT 11/17/22 13:21 IMPRESSION: No acute intracranial process. Electronically Signed: Tanvir Rebolledo MD at 15:13 EST , Rhythm Strip Rhythm Strip: Sinus Rhythm Rate: 79 Ectopy: None EKG Initial EKG: Attestation: I personally reviewed and interpreted this EKG as follows: Interpretation: Sinus Rhythm Comments: Normal sinus rhythm at a rate of 79 bpm Normal axis Normal intervals QTc [address] segments Compared to prior EKG on 10/18/2021 patient no longer has an incomplete right bundle branch block and QTc at that time was 458 Differential Diagnosis Chest pain/SOB: pulmonary embolism Reason(s) PE less likely: Positive for Well's<3, D-Dimer negative, not tachycardic and not hypoxic, ACS ACS: Positive for no evidence of ACS based on cardiac biomarkers, EKG without ischemia and history not suggestive of ischemia pain and pneumonia Reason(s) pneumonia less likely: Positive for no infiltrate on CXR, no elevation in WBC count and symptoms not consistent with acute infection Discharge Plan Triage Chief Complaint: Chest Pain ED Provider: Joanie Hill Dx/Rx/DC Orders Clinical Impression: Chest pain, Anxiety, Anemia Instructions: ED Anemia, Type Not Specified (Adult), ED Anxiety Reaction, ED Chest Pain, Uncertain Cause Prescriptions: New hydroxyzine pamoate 25 mg capsule 50 mg PO TID PRN PRN (Reason: Anxiety) Qty: 30 0RF No Action propranolol 20 mg tablet 20 ea PO DAILY Label Comments: TAKE 1 TABLET BY MOUTH THREE TIMES DAILY omeprazole 40 mg capsule,delayed release(DR/EC) 20 ea PO DAILY Label Comments: Take 1 capsule oral once a day venlafaxine 37.5 mg tablet 37.5 mg PO DAILY cholecalciferol (vitamin D3) 25 mcg (1,000 unit) capsule 25 mcg PO DAILY fluoxetine 40 mg capsule 40 mg PO DAILY Label Comments: TAKE 1 CAPSULE DAILY FOR 90 DAYS cyclobenzaprine 10 mg tablet 10 mg PO PRN PRN (Reason: BACK SPASMS) Label Comments: TAKE 1 TABLET BY MOUTH TWICE DAILY NEEDED FOR SPASMS famotidine [famotidine] 20 mg tablet 20 mg PO BID Qty: 10 0RF prednisone 20 mg tablet 60 mg PO DAILY Qty: 12 0RF Rx Instructions: Next dose 10/12/2022 Primary Care Provider: Rebecca Zacarias NP Referrals: Rebecca Zacarias NP, [facility] [Primary Care Provider] - Disposition Disposition: Home, Self Care What to do if you have Problems For any increased pain, shortness of breath, bleeding, nausea or vomiting, chestpain, or any unexpected problems, contact your Primary Care Provider. Call [facility] ([phone]) or report to the closest Emergency Room. Call 911 if necessary. 11/17/228 <Electronically signed by Joanie Hill DO> Cosigner Signature (if applicable): CC: REEMA Zacarias ~ Signed [facility] Work Phone: [phone]) 672-169102-02-2023 Miscellaneous Notes* Telephone Encounter - Mari Kendall RN - 10/11/2022 2:03 PM EST Called patient to check up on her. She states that she went to the ED and was started on a different medication. She is feeling much better today. * Telephone Encounter - Mari Kendall RN - 10/11/2022 2:02 PM EST Images from the original note were not included. Ruben Christensen [facility] [[email or web address]] Podiatry Pool 24 minutes ago (1:34 PM) Please have patient present to ED if she had allergic reaction Ruben Christensen DPM * Telephone Encounter - Lorena Dunn LPN - 10/11/2022 11:49 AM EST Patients , Randall called. Verified name and date of of patient. Reports his has had a reaction tot he medication prescribed yesterday- methylPREDNISolone. States redness of skin and feels like it is on fire. Denies respiratory difficulties. Stopped medication. Aware to go to ED if uncontrolled pain, respiratory compromised. Please review and advise. Lorena Dunn LPN documented in [facility] History of Present illness Narrative* Ruben Amparo - 10/09/2022 8:22 AM EST Images from the original note were not included. Initial Podiatric Office Visit: Chief Complaint: This 52 year old female who presents with chief complaint:burning in right foot HPI Patient presents to clinic for evaluation of her right foot. Patient reports pain, burning and radiating pain in her right 5th toe that has been present for a couple of months. The pain varies with activity and even certain shoes. She has not really done anything for the pain. Bunions run in her family. PAIN EVALUATION 10/08/2022 1645 Pain Level: 7 Pain Location: Foot-Right Description: Burning;Sore;Stabbing/Not Incision Duration Amount of Time: 7 Duration Units: Weeks Frequency: Intermittent Intervention/Comfort measure: Relaxation No results found for: HBA1C PCP: No primary care provider on file. PAST MEDICAL HISTORY Diagnosis Date Dysmenorrhea Dyspareunia Dysthymic disorder Depression (non-psychotic) Excessive or frequent menstruation Heavy periods Generalized anxiety disorder Anxiety, Generalized Hyperthyroidism Lumbago 2 herniated discs in the back Malignant neoplasm of breast (female), unspecified site 2011 Breast cancer LEFT Premenstrual tension syndromes PMS Radial scar of breast 12/2019 Symptomatic menopausal or female climacteric states Current Outpatient Medications Medication Sig omeprazole (PRILOSEC) 20 mg capsule Take 1 capsule by mouth once daily. cholecalciferol, vitamin D3, (VITAMIN D3 ORAL) Take 1,000 mg by mouth once daily. propranolol (INDERAL) 20 mg tablet Take 20 mg by mouth three times daily. FLUoxetine HCl 20 mg tablet Take 1 Tablet orally once per Day for 30 Days cyclobenzaprine (FLEXERIL) 10 mg tablet Take 10 mg by mouth three times daily as needed. DAILY MULTIVITAMIN TAB Take one(1) tablet daily. cephALEXin (KEFLEX) 500 mg capsule Take 500 mg by mouth four times daily. naproxen (NAPROSYN) 500 mg tablet No current facility-administered medications for this visit. ALLERGIES No Known Allergies PAST SURGICAL HISTORY Procedure Laterality Date BREAST BIOPSY HX 10/15/2011 same area that was excised BREAST BIOPSY HX Right 12/15/2019 BREAST BIOPSY HX 01/2020 Radial Scar BREAST BIOPSY, INCISION 10/30/2011 LEFT COLONOSCOPY 06/07/2022 COLONOSCOPY 07/05/2022 CYSTOSCOPY 09/11/2018 DILATION & CURETTAGE DX&/THER NONOBSTETRIC Dilation & curettage [facility]/05[facility]/07/2022 EXTRACTION ERUPTED TOOTH/EXR 04/2022 HYSTERECTOMY 09/11/2018 LAVH at [facility]-Dr. Bernard LAPS ABD PRTM&OMENTUM DX W/WO SPEC BR/WA SPX 2003 Laparoscopy for pain and normal LIG/TRNSXJ FLP TUBE ABDL/VAG APPR UNI/BI Tubal ligation NOVASURE 2016 OOPHORECTOMY PARTIAL/TOTAL UNI/BI Left 09/11/2018 Left oophorectomy at [facility]-Dr. Bernard PAST SURGICAL HISTORY OF 1988 pilonidal cyst PAST SURGICAL HISTORY OF Salpingostomy for Ectopic [open procedure][[[ PREOP PLACEMENT NEEDLE LOC 10/30/2011 LEFT REM LESION FACE,EAR,EYEL <5MM 08/13/2012 Exc. right nasal jie cyst and left arm lesion SALPINGECTOMY Bilateral 09/11/2018 B/L Salpingectomy at [facility]-Dr. Bernard FAMILY HISTORY Problem Relation Age of Onset other (Lung cancer) Father Cancer Maternal Grandmother great grandmother ovarian and breast Heart Maternal Grandmother Social History Tobacco Use Smoking status: Every Day Packs/day: 1.00 Years: 15.00 Pack years: 15.00 Types: Cigarettes Smokeless tobacco: Never Vaping Use Vaping Use: Never used Substance Use Topics Alcohol use: Never Drug use: No REVIEW OF SYSTEMS GENERAL: Negative for Malaise, significant weight loss, fever RESPIRATORY: Negative for cough, wheezing and shortness of breath CARDIOVASCULAR: Negative for chest pain, leg swelling and palpitations GI: Negative for abdominal discomfort, blood in stools or black stools and change in bowel habits : Negative for dysuria, frequency and incontinence MUSCULOSKELETAL: + tailors bunion SKIN: Negative for lesions, rash, and itching. HEMATOLOGY/LYMPHOLOGY Negative for prolonged bleeding, bruising easily, and swollen nodes. ENDOCRINE: Negative for cold or heat intolerance, polyuria, polydipsia and goiter. NEURO: negative Physical Exam: Constitutional: Pt is a well developed 52 year old female who is alert, oriented and cooperative Eyes: Following during examination. No redness or drainage. Respiratory: RR normal and nonlabored. Even breathing. No evidence of distress or shortness of breath. Psychology: Patient is engaged during conversation. Normal affect and mood. Does not appear depressed or anxious during encounter. Vascular: Dorsalis pedis and posterior tibial pulses palpable as b/l Capillary Fill time < 5 seconds to digits 1-5 b/l Skin temperature warm to warm proximal to distal b/l Hair growth present to digits Neurological: intact light touch/epicritic sensation b/l intact protective sensation no significant neurological deficits Dermatological: Nails 1-5 b/l appear normal. Webspaces clean and dry 1-4 b/l. Skin appears well hydrated and supple. good color, texture, turgor. No open lesions present. No callosities present. Musculoskeletal/Orthopaedic: Patient has pain to palpation of lateral aspect of right 5th metatarsal Foot type is neutral structurally AJ ROM is full with knee extended and flexed 1st MPJ is full when loaded and no pain or crepitus are noted with ROM. MTJ, STJ are full and free of pain and crepitus. +5/5 muscle strength dorsiflexion, plantarflexion, inversion, eversion b/l Radiographs: 3 views right foot reviewed October 09, 2022: I have personally reviewed and interpreted these XR myself: small tailors bunion. Periosteal thickening is noted of right 2nd metatarsal shaft ASSESSMENT: (M77.51) Bursitis of right foot (primary encounter diagnosis) (M21.621) Tailor's bunion of right foot PLAN: 1. History and physical examination performed. 2. XR reviewed with patient and interpreted today 3. Discussed pain in right foot. Suspect component of tailors bunion with associated bursitis. Recommend wider shoes. 4. Discussed nsaids vs oral steroid vs steroid injection. She opted for oral steroid 5. Could consider surgical options but would advocate smoking cessation first 6. F/u prn Ruben Christensen DPM Podiatry [address] [facility] [address] Dept: [phone] Dept * Mari Kendall RN - 10/09/2022 8:03 AM EST AMB ROOMING INTAKE FLOWSHEET DATA Pain Pain Level: 7 Pain Location: Foot-Right Description: Burning, Sore, Stabbing/Not Incision Duration Amount of Time: 7 Duration Units: Weeks Frequency: Intermittent Intervention/Comfort measure: Relaxation Patient presents with: Right Foot - New Patient, Pain (foot) Patient presents for right foot pain that is intermittent over the last few months. States that sometimes it is a burning pain. documented in this [facility]11-02-2022 Miscellaneous Notes* Telephone Encounter - Cynthia Boo RN - 07/11/2022 1:21 PM EDT Patient notified of follow up at time of mammography appointment. Aqu[employer] Access message sent. Cynthia Boo RN * Telephone Encounter - Stefanie Bernard MD - 07/11/2022 1:18 PM EDT ordered * Telephone Encounter - Cynthia Boo RN - 07/11/2022 1:11 PM EDT Please file orders. Cynthia Boo RN * Telephone Encounter - Cynthia Boo RN - 07/11/2022 1:11 PM EDT ----- Message from Stefanie Bernard MD sent at 07/11/2022 11:52 AM EDT ----- Needs follow up mammogram in 6 months. documented [address] [facility]11-02-2022 History of Present illness Narrative* Cecilia Guerrero RDMS - 07/11/2022 10:00 AM EDT Radiology Service Progress Note PATIENT NAME: Matti Thomas DATE OF SERVICE: July 11, 2022 TIME: 10:01 AM PATIENT IDENTITY VERIFICATION COMPLETED USING TWO (2) IDENTIFIERS: Name and Date of confirmedby patient verbally. FALL SCREENING: Has the patient had 2 falls in the last year or 1 fall with injury or currently using an Ambulatory Assistive Device (Walker, Cane, Wheelchair, Crutches, etc.)? No PATIENT GENDER DATA: Female. status: : No status: NO. PATIENT RELEVANT IMPLANT DATA REVIEWED: Not Applicable RADIOLOGY DEPARTMENT: Ultrasound PERIPHERAL IV DATA: Not applicable SIGNED BY: Cecilia Guerrero RDMS July 11, 2022 10:01 AM documented in this encounterWilson [facility] Hospital11-02-2022 History of Present illness Narrative* Dena Potter RT(Ana) - 07/11/2022 9:30 AM EDT Radiology Service Progress Note PATIENT NAME: Matti Thomas DATE OF SERVICE: July 11, 2022 TIME: 9:03 AM PATIENT IDENTITY VERIFICATION COMPLETED USING TWO (2) IDENTIFIERS: Name and Date of confirmedby patient verbally. FALL SCREENING: Has the patient had 2 falls in the last year or 1 fall with injury or currently using an Ambulatory Assistive Device (Walker, Cane, Wheelchair, Crutches, etc.)? No PATIENT GENDER DATA: Female. status: : No status: NO. PATIENT RELEVANT IMPLANT DATA REVIEWED: Not Applicable RADIOLOGY DEPARTMENT: Mammography PERIPHERAL IV DATA: Not applicable SIGNED BY: Dena Potter RT(R) July 11, 2022 9:03 AM documented in this encounterWilson [facility] Hospital10-31-2022 Miscellaneous Notes* Telephone Encounter - Diana Cardozo MD - 07/09/2022 4:54 PM EDT Told patient pathology report. Given history of Crook's, she will require another surveillance EGD in one year. Also I have prescribed her omeprazole, however, she needs to follow up with a PCP for continuation of this. I have told her pathology for colonoscopy - tubular adenomas. I have recommended colonoscopy in 3 years. Patient acknowledges above. HM updated and recall letter generated. documented in this encounterWilson [facility] Hospital10-12-2022 History of Present illness Narrative* Mari Lee PA-C - 06/20/2022 10:09 AM EDT FOLLOW UP VISIT - ENDOSCOPY NAME: Matti Payan [facility] NO.: [id number] DATE OF SERVICE: 06/20/2022 : 1970 REFERRING PHYSICIAN: No primary care provider on file. Matti is a patient I am following for change in bowel habits with diarrhea as well as a recent history of blood in stool. Patient had also noted recent belching and gas pain, and EGD was recommendedin addition to colonoscopy. Dr. Cardozo performed upper and lower endoscopy on 06/07/22. Colonoscopy was incomplete as the bowel prep was noted to be suboptimal. EGD showed small hiatal hernia, retained bile in stomach and mild erythematous streaking of the antrum of the stomach. Pathology demonstrated: FINAL DIAGNOSIS A. Duodenum, second portion, biopsy: -- Small bowel mucosa with no significant histopathologic abnormalities. -- Villous architecture is preserved with no increase in intraepithelial lymphocytes. B. Antrum (stomach), biopsy: -- Gastric mucosa with change of reactive gastropathy and focal crush artifact, see comment. -- No H. pylori organisms are identified on H&E sections. C. Esophagogastric junction, biopsy: -- Glandular mucosa with intestinal metaplasia, most compatible with Crook's esophagus in the appropriate endoscopic findings. -- Squamous mucosa with basal cell hyperplasia. -- No evidence of dysplasia or malignancy. The patient notes no complaints since the procedure. VITALS: Blood pressure 112/81, pulse 77, temperature 36.6 C (97.8 F), weight 53.2 kg (117 lb 3.2 oz), last menstrual period 09/03/2018, SpO2 98 %. General: patient is alert, cooperative, pleasant and in no acute distress On examination, the abdomen is benign. Assessment IMPRESSION: likely Crook's esophagus-plan for repeat EGD with additional biopsies to confirm diagnosis. Repeat colonoscopy with alternative bowel prep d/t inadequate colon cleansing PLAN: The operative findings and pathology report were reviewed with the patient, and the patient has hadthe opportunity to ask questions and have questions answered. Will plan for repeat EGD with additional biopsies, and colonoscopy Will plan for Golytely bowel prep and 2 days of clear liquid diet Consent: The proposed procedure, risks, benefits, and alternatives were discussed with the patient in detail. All the patient's questions were answered, and the patient voiced understanding. The patient desires to proceed with surgery. Patient verbalized understanding of all above and agreed with the plan Diagnoses: (R19.4) Change in bowel habits (primary encounter diagnosis) (R14.2) Belching (R19.7) Diarrhea, unspecified type (K21.9) Gastroesophageal reflux disease, unspecified whether esophagitis present I spent a total of 24 minutes on the date of the service which included preparing to see the patient, [id number] patient care, completing clinical documentation, obtaining and/or reviewing separately obtained history, communicating with other HCPs (not separately reported), independently interpret ing results (not separately reported), and communicating results to the patient/family/caregiver. Mari Lee PA-C documented in this encounterWilson [facility] Hospital10-07-2022 History of Present illness Narrative* Farooq Sorto APRN.PROGRAM MANAGEMENT MANAGER - 06/15/2022 10:54 AM EDT Images from the original note were not included. Subjective HPI Nontoxic-appearing female presents urgent care chief complaint left-sided dental and jaw pain. Duration of symptoms ongoing for the past 2 months. Associated symptoms dental jaw pain. Patient states did have a tooth extracted April 26 of this year. Has been seen multiple times for this complaint. Has completed over 6 weeks of antibiotics for this complaint. She has not received any resolution from discomfort. Presents today for evaluation. Denies any fevers nausea vomiting abdominal pain difficulty swallowing or change in bowel or bladder habits today. Past medical history prescription medication use allergies reviewed. .Patient presents with: Pain: Pt reported (LT) tooth, jaw pain, extraction 04/26/2022, [facility] ER visit 05/2022 d/t diarrhea, pain rated 7 with visit. 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 Bernard LAPS ABD PRTM&OMENTUM DX W/WO SPEC BR/WA SPX 2004 Laparoscopy for pain and normal LIG/TRNSXJ FLP TUBE ABDL/VAG APPR UNI/BI Tubal ligation NOVASURE 2016 OOPHORECTOMY PARTIAL/TOTAL UNI/BI Left 09/11/2018 Left oophorectomy at [facility]-Dr. Bernard PAST SURGICAL HISTORY OF 1988 pilonidal cyst PAST SURGICAL HISTORY OF Salpingostomy for Ectopic [open procedure][[[ PREOP PLACEMENT NEEDLE LOC 10/30/2011 LEFT REM LESION FACE,EAR,EYEL <5MM 08/13/2012 Exc. right nasal jie cyst and left arm lesion SALPINGECTOMY Bilateral 09/11/2018 B/L Salpingectomy at [facility]-Dr. Bernard ALLERGIES Patient has no known allergies. MEDICATIONS cholecalciferol, vitamin D3, (VITAMIN D3 ORAL) Take 1,000 mg by mouth once daily. propranolol (INDERAL) 20 mg tablet Take 20 mg by mouth three times daily. FLUoxetine HCl 20 mg tablet Take 1 Tablet orally once per Day for 30 Days naproxen (NAPROSYN) 500 mg tablet cyclobenzaprine (FLEXERIL) 10 mg tablet Take 10 mg by mouth three times daily as needed. DAILY MULTIVITAMIN TAB Take one(1) tablet daily. cephALEXin (KEFLEX) 500 mg capsule Take 500 mg by mouth four times daily. (Patient not taking: Reported on 06/15/2022) FAMILY HISTORY Problem Relation Age of Onset other (Lung cancer) Father Cancer Maternal Grandmother great grandmother ovarian and breast Heart Maternal Grandmother Social History Tobacco Use Smoking status: Every Day Packs/day: 0.50 Years: 15.00 Pack years: 7.50 Types: Cigarettes Smokeless tobacco: Never Vaping Use Vaping Use: Never used Substance Use Topics Alcohol use: Never Drug use: No BP 138/88 Pulse 79 Temp 36.6 C (97.8 F) Resp 18 Wt 52.7 kg (116 lb 3.2 oz) LMP 09/03/2018 SpO2 97% BMI 17.67 kg/m Review of Systems Constitutional: Negative for chills, fever and malaise/fatigue. HENT: Negative for congestion, ear discharge, ear pain, sinus pain and sore throat. Eyes: Negative for blurred vision, pain, discharge and redness. Respiratory: Negative for cough, hemoptysis, sputum production, shortness of breath, wheezing and stridor. Cardiovascular: Negative for chest pain. Gastrointestinal: Negative for abdominal pain, diarrhea, nausea and vomiting. Musculoskeletal: Negative for myalgias. Skin: Negative for itching and rash. Neurological: Negative for dizziness and headaches. Objective Physical Exam Constitutional: General: She is not in acute distress. Appearance: She is not diaphoretic. HENT: Head: Normocephalic. Jaw: Tenderness and pain on movement present. No trismus. Mouth/Throat: Mouth: Mucous membranes are moist. Dentition: Abnormal dentition. Dental tenderness present. No dental caries or dental abscesses. Pharynx: Oropharynx is clear. No oropharyngeal exudate or posterior oropharyngeal erythema. Eyes: Conjunctiva/sclera: Conjunctivae normal. Pupils: Pupils are equal, round, and reactive to light. Cardiovascular: Rate and Rhythm: Normal rate and regular rhythm. Heart sounds: Normal heart sounds. Pulmonary: Effort: Pulmonary effort is normal. No tachypnea, accessory muscle usage or respiratory distress. Breath sounds: Normal breath sounds. No stridor. No wheezing, rhonchi or rales. Abdominal: Palpations: Abdomen is soft. Tenderness: There is no abdominal tenderness. Musculoskeletal: Cervical back: Normal range of motion and neck supple. No rigidity or tenderness. Lymphadenopathy: Cervical: No cervical adenopathy. Skin: General: Skin is warm and dry. Neurological: Mental Status: She is alert and oriented to person, place, and time. ASSESSMENT/PLAN: 1. Pain, dental - ICD9: 525.9, ICD10: K08.89 Patient diagnosed with dental pain. No evidence of infection at this time. Was instructed to contact dentist who performed surgery for further evaluation care. Patient verbalized understanding agreeswith plan of care. Red flags appropriately patient discussed. Farooq Sorto APRN.TONY documented [facility] Miscellaneous Notes* Letter - Mammography Coordinator - 06/08/2022 5:24 PM EDT June 08, 2022 PID: [id number] Matti Thomas [address] [place] [address] Dear Ms. Thomas, Your recent breast imaging exam on 06/08/2022 showed a possible finding that requires additional imaging studies for a complete evaluation. Most such findings are probably benign (not cancer). Your mammogram demonstrates that you have dense breast tissue, which could hide abnormalities. Dense breast tissue, in and of itself, is a relatively common condition. Therefore, this information is not provided to cause undue concern; rather, it is to raise your awareness and promote discussion with your health care provider regarding the presence of dense breast tissue in addition to other riskfactors. If you have a healthcare provider who ordered/prescribed your screening mammogram: Please call [phone] or EXT: [phone] to schedule an appointment for your additional imaging (if youhave not already done so). If you DO NOT have a healthcare provider (ie you did not have an order/prescription for your screening mammogram): Please call to schedule an appointment for your additional imaging (if you have not already done so). You must have an order/prescription from your physician when calling to schedule your appointment. If your order/prescription is not electronic, you must bring the hard copy with you on the day of your exam to avoid delays. Your imaging studies and reports are kept on file at [facility] as part of your permanent medical record, and are available for your continuing care. Thank you for allowing us to help in meeting your health care needs. Sincerely, Dr. Bravo Interpreting Radiologist [facility] (Additional imaging) documented in this encounterWilson [facility]09-30-2022 History of Present illness Narrative* RT Lilibeth(R) - 06/08/2022 11:10 AM EDT Radiology Service Progress Note PATIENT NAME: Matti Thomas DATE OF SERVICE: June 08, 2022 TIME: 11:27 AM PATIENT IDENTITY VERIFICATION COMPLETED USING TWO (2) IDENTIFIERS: Name and Date of confirmedby patient verbally. FALL SCREENING: Has the patient had 2 falls in the last year or 1 fall with injury or currently using an Ambulatory Assistive Device (Walker, Cane, Wheelchair, Crutches, etc.)? No PATIENT GENDER DATA: Female. status: : No status: NO. PATIENT RELEVANT IMPLANT DATA REVIEWED: Not Applicable RADIOLOGY DEPARTMENT: Mammography PERIPHERAL IV DATA: Not applicable SIGNED BY: RT Lilibeth(R) June 08, 2022 11:27 AM documented in this encounterWilson [facility] Hospital09-29-2022 Surgical operation note* Brief Op Note - Diana Cardozo MD - 06/07/2022 1:23 PM EDT BRIEF OPERATIVE NOTE SURGERY DATE: 06/07/2022 Incision/Procedure Start Time: 12:44 cecal intubation time: 13:09 Incision Close/Procedure End Time: 13:15 Surgeon(s)/Proceduralist(s) and Public Relations Senior Associate(s): vasquez Procedures: EGD with biopsies colonoscopy Anesthesia: MAC Findings: small hiatal hernia, retained bile in stomach, mild erythematous radial streaking of antrum of stomach, colon cleansing preparation suboptimal Estimated Blood Loss: minimal Specimens: mucosal biopsies of second portion of duodenum/antrum of stomach'GE junction Complications: None Preop Diagnosis: change in bowel habits, abdominal bloating, diarrhea, belching Postop Diagnosis: change in bowel habits, abdominal bloating, diarrhea, belching, small hiatal hernia, retained bile in stomach, mild erythematous radial streaking of antrum of stomach, colon cleansing preparation suboptimal SIGNATURE: Diana Cardozo MD PATIENT NAME: Matti Thomas DATE: June 07, 2022 TIME: 1:23 PM * Operative Report - Diana Cardozo MD - 06/07/2022 12:00 AM EDT [facility] - Operative Report - [place] : 1970 AGE: 52. SEX: F PATIENT TYPE: A HOSP SVC: GENS LOCATION: [facility] ATTENDING PHYSICIAN: Diana Cardozo MD CSN NUMBER: [id number] DATE OF SURGERY/PROCEDURE: 06/07/2022 INCISION/PROCEDURE START TIME: 12:44 PM INCISION CLOSE/PROCEDURE END TIME: 1:15 PM PREOPERATIVE DIAGNOSIS: Change in bowel habits, abdominal bloating, diarrhea, and belching. POSTOPERATIVE DIAGNOSIS: Change in bowel habits, abdominal bloating, diarrhea, belching, small hiatal hernia, retained bile in stomach, mild erythematous radial streaking of the antrum of the stomach. Incomplete colonoscopy due to colon cleansing preparation suboptimal. SURGEON: Diana Cardozo MD PROCESS DESIGN ENGINEER: No Additional Staff SURGERY/PROCEDURE: Esophagogastroduodenoscopy with biopsies, diagnostic colonoscopy ANESTHESIA: Monitored Anesthesia Care [facility] INDICATIONS: Matti Thomas is a 52-year-old white female, who presents with complaints of change in bowel habits, abdominal bloating, abdominal pain, and also noted weight loss. She has not had any previous colonoscopy. She notes no GI cancers in her family. She, therefore, presents for upper and lower endoscopy. She has been counseled of the risks of procedure including, but not limited to infection, bleeding, perforation, GI tract requiring emergency surgery, inability to complete the procedure, complications of anesthesia, injury to any internal organs such as liver or spleen, etc. The patient understands and agrees to proceed. DESCRIPTION OF PROCEDURE: After informed consent was given, the patient was brought to the endoscopy suite. Appropriate time-out protocol was done in the preprocedure area as well as in the endoscopysuite. The patient was then given IV anesthesia by the anesthesia provider. The posterior pharynx of the patient was sprayed with local anesthetic. A bite block was placed. The upper endoscope was lubricated, carefully inserted into the patient's mouth, and advanced into the esophagus. It was then advanced down the stomach, through the pylorus, then into the 1st, then 2nd, and then 3rd portion ofthe duodenum. No masses, lesions, or polyps were noted in the duodenum. Because of the patient's complaint, mucosal biopsies of the second portion of the duodenum were obtained using cold grasper forceps. The endoscope was retracted back into the stomach. There was no evidence of any polyps or masses in the stomach. There appeared to be very mild erythematous radial streaking of the antrum of thestomach with no stigmata of bleeding. There was also retained bile in the stomach. Because the patient's complaint, mucosal biopsies of the antrum of the stomach were taken using cold grasper forceps. Retroflexed view into the fundus and the body of the stomach revealed a small hiatal hernia. The endoscope was retracted back into the esophagus. The GE junction appeared normal, but because of the patient's complaint, mucosal biopsies of the GE junction were taken using cold grasper forceps. The remainder of the esophagus appeared normal. The upper endoscope was removed intact. The patient tolerated this procedure well. Next, procedure performed was the colonoscopy. The colonoscope was lubricated and carefully inserted into the patient's anus and advanced into the rectum. Immediately, it was noted that the patient had a suboptimal colon cleansing preparation. However, because of the patient's complaint, the colonoscopy was continued. The colonoscope was advanced, into the rectum, then into the sigmoid colon, then into the left colon, past the splenic flexure into the transverse colon, past the hepatic flexure down the right colon into the cecum. The cecum was identified by transillumination, confluence of teniae coli, identification of the appendiceal orifice. Of note is that the entire colon was filled with solid and liquid feces. This essentially precluded visualization of the colon. Only about 10% of the colon could be visualized adequately. However, it appeared that there were no large intraluminalobstructions noted. The colonoscope was slowly retracted back to determine if identification of anylesions could be done. However, once again, this was could not be done. The endoscope was removed intact. The patient tolerated the procedure well. She was brought to recovery room in stable condition. ESTIMATED BLOOD LOSS: Minimal. SPECIMENS: Mucosal biopsy, 2nd portion of the duodenum, antrum, stomach, and GE junction. COMPLICATIONS: None. Diana Cardozo MD [id number] /[id number] documented in [address] encounterWilson [facility] Hospital09-29-2022 History and physical note * Diana Cardozo MD - 06/07/2022 12:29 PM EDT UPDATED HISTORY AND PHYSICAL EXAMINATION SERVICE DATE: 06/07/2022 SERVICE TIME: 12:29 PHYSICAL EXAM MUST BE COMPLETED ON ADMISSION The History and Physical (completed in the past 30 days) has been reviewed and the patient has beenexamined. The contents accurately reflect the patient's condition with the following additions or revisions since the H&P was completed. Examination indicates no changes. This H&P can be found in the Electronic Medical Record . SIGNATURE: Diana Cardozo MD PATIENT NAME: Matti Thomas DATE: June 07, 2022 TIME: 12:29 PM Source Note - Diana Cardozo MD - 06/06/2022 4:37 PM EDT HISTORY AND PHYSICAL Matti Thomas 1970 REFERRING PHYSICIAN: Van Rodney* CHIEF COMPLAINT: Consult (Colonoscopy consult) HPI: The patient is a 51 year old female referred for endoscopy. Matti notes a recent history of alternating diarrhea and constipation, as well as bright red blood in her stool for around 4-5 months. She does note she was recently on antibiotics for a dental infection in April. Had stool checked for C. Diff which was negative. Patient denies any change in bowel habits, weight changes, blood in stools, black tarry stools or abdominal pain. Denies family history of colon issues. The patient notes upper GI complaints including gas pain and frequent belching, some reflux. She has tried activia, fiber, stool softeners, milk of mag to help regulate symptoms. She notes she has changed her diet recently and is eating more fruits and vegetables. She has noted weight loss but was unsure if that was related to her thyroid issues. Matti has not undergone prior endoscopy. Patient's past medical history is significant for hyperthyroidism, breast cancer, anxiety, depression. She follows with Dr. Bernard in [place] who had referred her for colonoscopy/ Patient denies chest pain, shortness of breath or recent hospitalizations. Denies problems with sedation in the past. 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 Bernard LAPS ABD PRTM&OMENTUM DX W/WO SPEC BR/WA SPX 2003 Laparoscopy for pain and normal LIG/TRNSXJ FLP TUBE ABDL/VAG APPR UNI/BI Tubal ligation NOVASURE 2016 OOPHORECTOMY PARTIAL/TOTAL UNI/BI Left 09/11/2018 Left oophorectomy at [facility]-Dr. Bernard PAST SURGICAL HISTORY OF 1988 pilonidal cyst PAST SURGICAL HISTORY OF Salpingostomy for Ectopic [open procedure][[[ PREOP PLACEMENT NEEDLE LOC 10/30/2011 LEFT REM LESION FACE,EAR,EYEL <5MM 08/13/2012 Exc. right nasal jie cyst and left arm lesion SALPINGECTOMY Bilateral 09/11/2018 B/L Salpingectomy at [facility]-Dr. Bernard CURRENT MEDICATIONS Current Outpatient Medications Medication Sig propranolol (INDERAL) 20 mg tablet Take 20 mg by mouth three times daily. FLUoxetine HCl 20 mg tablet Take 1 Tablet orally once per Day for 30 Days cyclobenzaprine (FLEXERIL) 10 mg tablet Take 10 mg by mouth three times daily as needed. DAILY MULTIVITAMIN TAB Take one(1) tablet daily. cephALEXin (KEFLEX) 500 mg capsule Take 500 mg by mouth four times daily. (Patient not taking: Reported on 05/18/2022) naproxen (NAPROSYN) 500 mg tablet Naproxen Active 500 MG TWICE DAILY NEEDED September 16, 20193:22pm (Patient not taking: Reported on 05/18/2022) No current facility-administered medications for this visit. ALLERGIES: Patient has no known allergies. PERSONAL HISTORY: SOCIAL HISTORY Social History Tobacco Use Smoking status: Every Day Packs/day: 0.50 Years: 15.00 Pack years: 7.50 Types: Cigarettes Smokeless tobacco: Never Vaping Use Vaping Use: Never used Substance Use Topics Alcohol use: Never Drug use: No FAMILY HISTORY: FAMILY HISTORY FAMILY HISTORY Problem Relation Age of Onset other (Lung cancer) Father Cancer Maternal Grandmother great grandmother ovarian and breast Heart Maternal Grandmother REVIEW OF SYMPTOMS: The review of systems data was entered by the nurse and reviewed by tn Nursing Notes: Lucille Herring RN 05/18/2022 12:58 PM Signed REVIEW OF SYSTEMS: General: The patient denies fatigue, NOTES weight loss, denies weight gain, NOTES feeling hot, and denies feelings of cold. Eyes: The patient denies glaucoma, denies eye injury/surgery, wears glasses or contacts. Ear/Nose/Throat: The patient denies allergies, denies hayfever, denies ear infections, and denies bloody noses. Cardiovascular: The patient denies chest pain, denies heart disease, denies high blood pressure,denies cardiac stent, denies prior heart attack, denies irregular heart beat, denies high cholesterol, denies poor circulation, denies heart failure, other cardiac issues, denies claudication, denies cold feet, denies peripheral arterial stent. Respiratory: The patient denies tuberculosis, denies pneumonia, denies frequent cough, denies pulmonary embolism, denies shortness of breath, and denies coughing up blood. Gastrointestinal: The patient denies difficulty swallowing, denies acid reflux, denies ulcers, denies vomiting, denies jaundice/hepatitis, denies gallbladder problems, denies black or tarry stools, denies hemorrhoids, denies bleeding from rectum, denies diverticulitis, NOTES constipation, NOTES diarrhea, denies loss of stool control, and denies hernias. Kidney/Bladder: The patient denies kidney stones, denies urine infections, and denies bloody urine. Skin: The patient denies a history of skin cancer, denies bleeding/changing moles, and denies a history of skin rash. Neurologic: The patient denies a history of epilepsy/convulsions, denies headaches, denies head/spinal injuries, and denies stroke/TIA. Psychiatric: The patient denies psychiatric medications, NOTES depression, and denies voices, denies substance abuse. Endocrine: The patient NOTES thyroid disorders, denies diabetes, and denies hormonal problems. Hematologic: The patient denies a history of bruising, denies bleeding, and denies anemia, denies blood clots. Infections: The patient denies a history of measles and mumps, denies rheumatic fever, and denies sexually transmitted diseases. Musculoskeletal: The patient denies back pain/injury, NOTES back problems, NOTES sciatica, denies knee/foot trouble, denies arthritis, or denies gout. When was patient's last Mammogram screening? 2021 Last Colonoscopy: None Lucille Herring RN I have confirmed and edited as necessary, the PFSH and ROS obtained by others. Mari Lee PA-C PHYSICAL EXAMINATION: General: The patient is 51 year old female, well nourished, well hydrated in no acute distress. Thepatient is oriented to time, place, and person. VITALS: Blood pressure 132/74, pulse 89, temperature 36.1 C (97 F), height 172.7 cm (5' 8), .5 kg (115 lb 12.8 oz), last menstrual period 09/03/2018, SpO2 99 %. Body mass index is 17.61 kg/m . HEENT: Normal cephalic, ataumatic, pupils are equally round, sclera are anicteric, mucous membranesare moist, oropharynx is clear. Neck has no masses, asymmetry or lymphadenopathy. Respiratory: Clear to auscultation and percussion. Normal respiratory excursion and pattern. Cardiac: Examination is regular rate and rhythm. Normal S1/S2 Abdominal exam: Soft, nontender, with no palpable masses. No hepatosplenomegaly. No palpable hernias. Extremities: no clubbing, cyanosis or edema. No adenopathy. LABORATORY VALUES: As Noted RADIOLOGIC STUDIES: As Noted Assessment IMPRESSION: encounter for colonoscopy. Change in bowel habits, belching, blood in stools, gas pain-recommend EGD as well as colonoscopy with biopsies PLAN: I have reviewed my findings with the surgeon. Will plan for upper and lower endoscopy with biopsies. We discussed the risks and benefits of the planned endoscopy. I have informed the patient that complications can occur including failure to complete the endoscopy and perforation. The patient had the opportunity to ask questions concerning the planned endoscopy. My staff has also explained the procedure to the patient in understandable terms and has given the patient printed material concerning the procedure. The patient freely consents to surgery. The patient was offered a surgery/procedure at a [facility] facility. I have counseled the patient regarding the risk of exposure to and/or potential harm posed by the COVID-19 virus with having a surgery/procedure at this time versus the risk of delaying the surgery/procedure. It is not possible to know either the risk of delaying the surgery or procedure or chance of getting an infection with perfect accuracy, but a joint decision was made between the patient and myself to proceed at this time with endoscopy. I plan to use Miralax/Dulcolax bowel preparation. Note order for Rosa Maria sent to pharmacy in error-called to cancel order I have explained to the patient the difference between IV conscious sedation and MAC anesthesia - and I have offered either, according to the patient's wishes. I have explained that with IV conscioussedation there is no anesthesia provider available and therefore there is a limitation of the amount of IV medications that can be given and that the patient may wake up in the middle of the procedure and/or experience pain/discomfort during the procedure. Further discussion was done and the patient was given the opportunity to ask questions and all questions were answered. The patient chooses MAC anesthesia Diagnoses: (Z12.11) Encounter for screening for malignant neoplasm of colon (primary encounter diagnosis) Consultation requested by Dr. Bernard for an opinion regarding screening colonoscopy. My final recommendations will be communicated back to the requesting physician by way of shared Medical record or letter to requesting physician via US mail. Mari Lee PA-C * Diana Cardozo MD - 06/06/2022 4:37 PM EDT HISTORY AND PHYSICAL Matti Payan Martha 1970 REFERRING PHYSICIAN: Van Rodney* CHIEF COMPLAINT: Consult (Colonoscopy consult) HPI: The patient is a 51 year old female referred for endoscopy. Matti notes a recent history of alternating diarrhea and constipation, as well as bright red blood in her stool for around 4-5 months. She does note she was recently on antibiotics for a dental infection in April. Had stool checked for C. Diff which was negative. Patient denies any change in bowel habits, weight changes, blood in stools, black tarry stools or abdominal pain. Denies family history of colon issues. The patient notes upper GI complaints including gas pain and frequent belching, some reflux. She has tried activia, fiber, stool softeners, milk of mag to help regulate symptoms. She notes she has changed her diet recently and is eating more fruits and vegetables. She has noted weight loss but was unsure if that was related to her thyroid issues. Matti has not undergone prior endoscopy. Patient's past medical history is significant for hyperthyroidism, breast cancer, anxiety, depression. She follows with Dr. Bernard in [place] who had referred her for colonoscopy/ Patient denies chest pain, shortness of breath or recent hospitalizations. Denies problems with sedation in the past. 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 Bernard LAPS ABD PRTM&OMENTUM DX W/WO SPEC BR/WA SPX 2003 Laparoscopy for pain and normal LIG/TRNSXJ FLP TUBE ABDL/VAG APPR UNI/BI Tubal ligation NOVASURE 2016 OOPHORECTOMY PARTIAL/TOTAL UNI/BI Left 09/11/2018 Left oophorectomy at [facility]-Dr. Bernard PAST SURGICAL HISTORY OF 1988 pilonidal cyst PAST SURGICAL HISTORY OF Salpingostomy for Ectopic [open procedure][[[ PREOP PLACEMENT NEEDLE LOC 10/30/2011 LEFT REM LESION FACE,EAR,EYEL <5MM 08/13/2012 Exc. right nasal jie cyst and left arm lesion SALPINGECTOMY Bilateral 09/11/2018 B/L Salpingectomy at [facility]-Dr. Bernard CURRENT MEDICATIONS Current Outpatient Medications Medication Sig propranolol (INDERAL) 20 mg tablet Take 20 mg by mouth three times daily. FLUoxetine HCl 20 mg tablet Take 1 Tablet orally once per Day for 30 Days cyclobenzaprine (FLEXERIL) 10 mg tablet Take 10 mg by mouth three times daily as needed. DAILY MULTIVITAMIN TAB Take one(1) tablet daily. cephALEXin (KEFLEX) 500 mg capsule Take 500 mg by mouth four times daily. (Patient not taking: Reported on 05/18/2022) naproxen (NAPROSYN) 500 mg tablet Naproxen Active 500 MG TWICE DAILY NEEDED September 16, 20193:22pm (Patient not taking: Reported on 05/18/2022) No current facility-administered medications for this visit. ALLERGIES: Patient has no known allergies. PERSONAL HISTORY: SOCIAL HISTORY Social History Tobacco Use Smoking status: Every Day Packs/day: 0.50 Years: 15.00 Pack years: 7.50 Types: Cigarettes Smokeless tobacco: Never Vaping Use Vaping Use: Never used Substance Use Topics Alcohol use: Never Drug use: No FAMILY HISTORY: FAMILY HISTORY FAMILY HISTORY Problem Relation Age of Onset other (Lung cancer) Father Cancer Maternal Grandmother great grandmother ovarian and breast Heart Maternal Grandmother REVIEW OF SYMPTOMS: The review of systems data was entered by the nurse and reviewed by tn Nursing Notes: Lucille Herring RN 05/18/2022 12:58 PM Signed REVIEW OF SYSTEMS: General: The patient denies fatigue, NOTES weight loss, denies weight gain, NOTES feeling hot, and denies feelings of cold. Eyes: The patient denies glaucoma, denies eye injury/surgery, wears glasses or contacts. Ear/Nose/Throat: The patient denies allergies, denies hayfever, denies ear infections, and denies bloody noses. Cardiovascular: The patient denies chest pain, denies heart disease, denies high blood pressure,denies cardiac stent, denies prior heart attack, denies irregular heart beat, denies high cholesterol, denies poor circulation, denies heart failure, other cardiac issues, denies claudication, denies cold feet, denies peripheral arterial stent. Respiratory: The patient denies tuberculosis, denies pneumonia, denies frequent cough, denies pulmonary embolism, denies shortness of breath, and denies coughing up blood. Gastrointestinal: The patient denies difficulty swallowing, denies acid reflux, denies ulcers, denies vomiting, denies jaundice/hepatitis, denies gallbladder problems, denies black or tarry stools, denies hemorrhoids, denies bleeding from rectum, denies diverticulitis, NOTES constipation, NOTES diarrhea, denies loss of stool control, and denies hernias. Kidney/Bladder: The patient denies kidney stones, denies urine infections, and denies bloody urine. Skin: The patient denies a history of skin cancer, denies bleeding/changing moles, and denies a history of skin rash. Neurologic: The patient denies a history of epilepsy/convulsions, denies headaches, denies head/spinal injuries, and denies stroke/TIA. Psychiatric: The patient denies psychiatric medications, NOTES depression, and denies voices, denies substance abuse. Endocrine: The patient NOTES thyroid disorders, denies diabetes, and denies hormonal problems. Hematologic: The patient denies a history of bruising, denies bleeding, and denies anemia, denies blood clots. Infections: The patient denies a history of measles and mumps, denies rheumatic fever, and denies sexually transmitted diseases. Musculoskeletal: The patient denies back pain/injury, NOTES back problems, NOTES sciatica, denies knee/foot trouble, denies arthritis, or denies gout. When was patient's last Mammogram screening? 2021 Last Colonoscopy: None Lucille Herring RN I have confirmed and edited as necessary, the PFSH and ROS obtained by others. Mari Lee PA-C PHYSICAL EXAMINATION: General: The patient is 51 year old female, well nourished, well hydrated in no acute distress. Thepatient is oriented to time, place, and person. VITALS: Blood pressure 132/74, pulse 89, temperature 36.1 C (97 F), height 172.7 cm (5' 8), asomhq62.5 kg (115 lb 12.8 oz), last menstrual period 09/03/2018, SpO2 99 %. Body mass index is 17.61 kg/m . HEENT: Normal cephalic, ataumatic, pupils are equally round, sclera are anicteric, mucous membranesare moist, oropharynx is clear. Neck has no masses, asymmetry or lymphadenopathy. Respiratory: Clear to auscultation and percussion. Normal respiratory excursion and pattern. Cardiac: Examination is regular rate and rhythm. Normal S1/S2 Abdominal exam: Soft, nontender, with no palpable masses. No hepatosplenomegaly. No palpable hernias. Extremities: no clubbing, cyanosis or edema. No adenopathy. LABORATORY VALUES: As Noted RADIOLOGIC STUDIES: As Noted Assessment IMPRESSION: encounter for colonoscopy. Change in bowel habits, belching, blood in stools, gas pain-recommend EGD as well as colonoscopy with biopsies PLAN: I have reviewed my findings with the surgeon. Will plan for upper and lower endoscopy with biopsies. We discussed the risks and benefits of the planned endoscopy. I have informed the patient that complications can occur including failure to complete the endoscopy and perforation. The patient had the opportunity to ask questions concerning the planned endoscopy. My staff has also explained the procedure to the patient in understandable terms and has given the patient printed material concerning the procedure. The patient freely consents to surgery. The patient was offered a surgery/procedure at a [facility] facility. I have counseled the patient regarding the risk of exposure to and/or potential harm posed by the COVID-19 virus with having a surgery/procedure at this time versus the risk of delaying the surgery/procedure. It is not possible to know either the risk of delaying the surgery or procedure or chance of getting an infection with perfect accuracy, but a joint decision was made between the patient and myself to proceed at this time with endoscopy. I plan to use Miralax/Dulcolax bowel preparation. Note order for Golytely sent to pharmacy in error-called to cancel order I have explained to the patient the difference between IV conscious sedation and MAC anesthesia - and I have offered either, according to the patient's wishes. I have explained that with IV conscioussedation there is no anesthesia provider available and therefore there is a limitation of the amount of IV medications that can be given and that the patient may wake up in the middle of the procedure and/or experience pain/discomfort during the procedure. Further discussion was done and the patient was given the opportunity to ask questions and all questions were answered. The patient chooses MAC anesthesia Diagnoses: (Z12.11) Encounter for screening for malignant neoplasm of colon (primary encounter diagnosis) Consultation requested by Dr. Bernard for an opinion regarding screening colonoscopy. My final recommendations will be communicated back to the requesting physician by way of shared Medical record or letter to requesting physician via US mail. Mari Lee PA-C documented [facility] History of Present illness Narrative* Mari Lee PA-C - 05/18/2022 1:17 PM EDT HISTORY AND PHYSICAL Matti Thomas 1970 REFERRING PHYSICIAN: Van Rodney* CHIEF COMPLAINT: Consult (Colonoscopy consult) HPI: The patient is a 51 year old female referred for endoscopy. Matti notes a recent history of alternating diarrhea and constipation, as well as bright red blood in her stool for around 4-5 months. She does note she was recently on antibiotics for a dental infection in April. Had stool checked for C. Diff which was negative. Patient denies any change in bowel habits, weight changes, blood in stools, black tarry stools or abdominal pain. Denies family history of colon issues. The patient notes upper GI complaints including gas pain and frequent belching, some reflux. She has tried activia, fiber, stool softeners, milk of mag to help regulate symptoms. She notes she has changed her diet recently and is eating more fruits and vegetables. She has noted weight loss but was unsure if that was related to her thyroid issues. Matti has not undergone prior endoscopy. Patient's past medical history is significant for hyperthyroidism, breast cancer, anxiety, depression. She follows with Dr. Bernard in [place] who had referred her for colonoscopy/ Patient denies chest pain, shortness of breath or recent hospitalizations. Denies problems with sedation in the past. PAST MEDICAL HISTORY Diagnosis Date Dysmenorrhea Dyspareunia Dysthymic disorder Depression (non-psychotic) Excessive or frequent menstruation Heavy periods Generalized anxiety disorder Anxiety, Generalized Hyperthyroidism Lumbago 2 herniated discs in the back Malignant neoplasm of breast (female), unspecified site 2011 Breast cancer LEFT Premenstrual tension syndromes PMS Radial scar of breast 12/2019 Symptomatic menopausal or female climacteric states PAST SURGICAL HISTORY Procedure Laterality Date BREAST BIOPSY HX 10/15/2011 same area that was excised BREAST BIOPSY HX Right 12/15/2019 BREAST BIOPSY HX 01/2020 Radial Scar BREAST BIOPSY, INCISION 10/30/2011 LEFT CYSTOSCOPY 09/11/2018 DILATION & CURETTAGE DX&/THER NONOBSTETRIC Dilation & curettage EXTRACTION ERUPTED TOOTH/EXR 04/2022 HYSTERECTOMY 09/11/2018 [facility] at [facility]-Dr. Bernard LAPS ABD PRTM&OMENTUM DX W/WO SPEC BR/WA SPX 2003 Laparoscopy for pain and normal LIG/TRNSXJ FLP TUBE ABDL/VAG APPR UNI/BI Tubal ligation NOVASURE 2016 OOPHORECTOMY PARTIAL/TOTAL UNI/BI Left 09/11/2018 Left oophorectomy at [facility]-Dr. Bernard PAST SURGICAL HISTORY OF 1988 pilonidal cyst PAST SURGICAL HISTORY OF Salpingostomy for Ectopic [open procedure][[[ PREOP PLACEMENT NEEDLE LOC 10/30/2011 LEFT REM LESION FACE,EAR,EYEL <5MM 08/13/2012 Exc. right nasal jie cyst and left arm lesion SALPINGECTOMY Bilateral 09/11/2018 B/L Salpingectomy at [facility]-Dr. Bernard Current Outpatient Medications Medication Sig propranolol (INDERAL) 20 mg tablet Take 20 mg by mouth three times daily. FLUoxetine HCl 20 mg tablet Take 1 Tablet orally once per Day for 30 Days cyclobenzaprine (FLEXERIL) 10 mg tablet Take 10 mg by mouth three times daily as needed. DAILY MULTIVITAMIN TAB Take one(1) tablet daily. cephALEXin (KEFLEX) 500 mg capsule Take 500 mg by mouth four times daily. (Patient not taking: Reported on 05/18/2022) naproxen (NAPROSYN) 500 mg tablet Naproxen Active 500 MG TWICE DAILY NEEDED September 16, 20193:22pm (Patient not taking: Reported on 05/18/2022) No current facility-administered medications for this visit. ALLERGIES: Patient has no known allergies. PERSONAL HISTORY: Social History Tobacco Use Smoking status: Every Day Packs/day: 0.50 Years: 15.00 Pack years: 7.50 Types: Cigarettes Smokeless tobacco: Never Vaping Use Vaping Use: Never used Substance Use Topics Alcohol use: Never Drug use: No FAMILY HISTORY: FAMILY HISTORY Problem Relation Age of Onset other (Lung cancer) Father Cancer Maternal Grandmother great grandmother ovarian and breast Heart Maternal Grandmother REVIEW OF SYMPTOMS: The review of systems data was entered by the nurse and reviewed by tn Nursing Notes: Lucille Herring RN 05/18/2022 12:58 PM Signed REVIEW OF SYSTEMS: General: The patient denies fatigue, NOTES weight loss, denies weight gain, NOTES feeling hot, and denies feelings of cold. Eyes: The patient denies glaucoma, denies eye injury/surgery, wears glasses or contacts. Ear/Nose/Throat: The patient denies allergies, denies hayfever, denies ear infections, and denies bloody noses. Cardiovascular: The patient denies chest pain, denies heart disease, denies high blood pressure,denies cardiac stent, denies prior heart attack, denies irregular heart beat, denies high cholesterol, denies poor circulation, denies heart failure, other cardiac issues, denies claudication, denies cold feet, denies peripheral arterial stent. Respiratory: The patient denies tuberculosis, denies pneumonia, denies frequent cough, denies pulmonary embolism, denies shortness of breath, and denies coughing up blood. Gastrointestinal: The patient denies difficulty swallowing, denies acid reflux, denies ulcers, denies vomiting, denies jaundice/hepatitis, denies gallbladder problems, denies black or tarry stools, denies hemorrhoids, denies bleeding from rectum, denies diverticulitis, NOTES constipation, NOTES diarrhea, denies loss of stool control, and denies hernias. Kidney/Bladder: The patient denies kidney stones, denies urine infections, and denies bloody urine. Skin: The patient denies a history of skin cancer, denies bleeding/changing moles, and denies a history of skin rash. Neurologic: The patient denies a history of epilepsy/convulsions, denies headaches, denies head/spinal injuries, and denies stroke/TIA. Psychiatric: The patient denies psychiatric medications, NOTES depression, and denies voices, denies substance abuse. Endocrine: The patient NOTES thyroid disorders, denies diabetes, and denies hormonal problems. Hematologic: The patient denies a history of bruising, denies bleeding, and denies anemia, denies blood clots. Infections: The patient denies a history of measles and mumps, denies rheumatic fever, and denies sexually transmitted diseases. Musculoskeletal: The patient denies back pain/injury, NOTES back problems, NOTES sciatica, denies knee/foot trouble, denies arthritis, or denies gout. When was patient's last Mammogram screening? 2021 Last Colonoscopy: None Lucille Herring RN I have confirmed and edited as necessary, the PFSH and ROS obtained by others. Mari Lee PA-C PHYSICAL EXAMINATION: General: The patient is 51 year old female, well nourished, well hydrated in no acute distress. Thepatient is oriented to time, place, and person. VITALS: Blood pressure 132/74, pulse 89, temperature 36.1 C (97 F), height 172.7 cm (5' 8), tsnimt04.5 kg (115 lb 12.8 oz), last menstrual period 09/03/2018, SpO2 99 %. Body mass index is 17.61 kg/m . HEENT: Normal cephalic, ataumatic, pupils are equally round, sclera are anicteric, mucous membranesare moist, oropharynx is clear. Neck has no masses, asymmetry or lymphadenopathy. Respiratory: Clear to auscultation and percussion. Normal respiratory excursion and pattern. Cardiac: Examination is regular rate and rhythm. Normal S1/S2 Abdominal exam: Soft, nontender, with no palpable masses. No hepatosplenomegaly. No palpable hernias. Extremities: no clubbing, cyanosis or edema. No adenopathy. LABORATORY VALUES: As Noted RADIOLOGIC STUDIES: As Noted Assessment IMPRESSION: encounter for colonoscopy. Change in bowel habits, belching, blood in stools, gas pain-recommend EGD as well as colonoscopy with biopsies PLAN: I have reviewed my findings with the surgeon. Will plan for upper and lower endoscopy with biopsies. We discussed the risks and benefits of the planned endoscopy. I have informed the patient that complications can occur including failure to complete the endoscopy and perforation. The patient had the opportunity to ask questions concerning the planned endoscopy. My staff has also explained the procedure to the patient in understandable terms and has given the patient printed material concerning the procedure. The patient freely consents to surgery. The patient was offered a surgery/procedure at a [facility] facility. I have counseled the patient regarding the risk of exposure to and/or potential harm posed by the COVID-19 virus with having a surgery/procedure at this time versus the risk of delaying the surgery/procedure. It is not possible to know either the risk of delaying the surgery or procedure or chance of getting an infection with perfect accuracy, but a joint decision was made between the patient and myself to proceed at this time with endoscopy. I plan to use Miralax/Dulcolax bowel preparation. Note order for Rosa Maria sent to pharmacy in error-called to cancel order I have explained to the patient the difference between IV conscious sedation and MAC anesthesia - and I have offered either, according to the patient's wishes. I have explained that with IV conscioussedation there is no anesthesia provider available and therefore there is a limitation of the amount of IV medications that can be given and that the patient may wake up in the middle of the procedure and/or experience pain/discomfort during the procedure. Further discussion was done and the patient was given the opportunity to ask questions and all questions were answered. The patient chooses MAC anesthesia Diagnoses: (Z12.11) Encounter for screening for malignant neoplasm of colon (primary encounter diagnosis) Consultation requested by Dr. Bernard for an opinion regarding screening colonoscopy. My final recommendations will be communicated back to the requesting physician by way of shared Medical record or letter to requesting physician via US mail. Mari Lee PA-C documented in this encounter[facility]09-09-[facility]22 Nurse Note* Lucille Herring RN - 05/18/2022 12:57 PM EDT REVIEW OF SYSTEMS: General: The patient denies fatigue, NOTES weight loss, denies weight gain, NOTES feeling hot, and denies feelings of cold. Eyes: The patient denies glaucoma, denies eye injury/surgery, wears glasses or contacts. Ear/Nose/Throat: The patient denies allergies, denies hayfever, denies ear infections, and denies bloody noses. Cardiovascular: The patient denies chest pain, denies heart disease, denies high blood pressure,denies cardiac stent, denies prior heart attack, denies irregular heart beat, denies high cholesterol, denies poor circulation, denies heart failure, other cardiac issues, denies claudication, denies cold feet, denies peripheral arterial stent. Respiratory: The patient denies tuberculosis, denies pneumonia, denies frequent cough, denies pulmonary embolism, denies shortness of breath, and denies coughing up blood. Gastrointestinal: The patient denies difficulty swallowing, denies acid reflux, denies ulcers, denies vomiting, denies jaundice/hepatitis, denies gallbladder problems, denies black or tarry stools, denies hemorrhoids, denies bleeding from rectum, denies diverticulitis, NOTES constipation, NOTES diarrhea, denies loss of stool control, and denies hernias. Kidney/Bladder: The patient denies kidney stones, denies urine infections, and denies bloody urine. Skin: The patient denies a history of skin cancer, denies bleeding/changing moles, and denies a history of skin rash. Neurologic: The patient denies a history of epilepsy/convulsions, denies headaches, denies head/spinal injuries, and denies stroke/TIA. Psychiatric: The patient denies psychiatric medications, NOTES depression, and denies voices, denies substance abuse. Endocrine: The patient NOTES thyroid disorders, denies diabetes, and denies hormonal problems. Hematologic: The patient denies a history of bruising, denies bleeding, and denies anemia, denies blood clots. Infections: The patient denies a history of measles and mumps, denies rheumatic fever, and denies sexually transmitted diseases. Musculoskeletal: The patient denies back pain/injury, NOTES back problems, NOTES sciatica, denies knee/foot trouble, denies arthritis, or denies gout. When was patient's last Mammogram screening? 2021 Last Colonoscopy: None Lucille Herring RN documented in this [facility]09-06-2022 History of Present illness Narrative* Teresa Pereira - 05/15/2022 5:19 PM EDT POPULATION HEALTH NAVIGATION OUTREACH Action/FYI [place] Support: Called pt to schedule an appt in Pain Management. Lvm for pt to call [phone] for scheduling. Pt identified by name and : NO Outreach Outcome/Action Unable to reach patient: Left message Did you use a PCP flex slot to schedule this appointment? No Reason for Outreach Care Gap or Scheduling/Wellness visits Payer: Payor: MEDICAID [place] / Plan: [place] MEDICAID / Product Type: Medicaid / Care Gap Reviewed:: Specialty Scheduling Reminder: Reminder note to check Health Maintenance for items below Health Maintenance items due: HEPATITIS B(1 of 3 - 3-dose series) Never done COVID-19 VACCINE(1) Never done PNEUMOCOCCAL(1 - PCV) Never done HEPATITIS C SCREENING Never done HIV SCREENING Never done LIPID SCREEN Never done DIABETES SCREEN Never done COLORECTAL CANCER SCREENING Never done DTAP,TDAP,TD(1 - Tdap) due on 07/20/2015 SHINGRIX VACCINE(1 of 2) Never done MAMMOGRAM due on 02/02/2022 INFLUENZA(1) due on 05/10/2022 Message Sent to Practice: No Navigation Signature: Teresa Pereira May 15, 2022 5:19 PM documented in this encounterWilson [facility]08-31-2022 Instructions* Patient Instructions* Stefanie Bernard MD - 05/09/2022 12:03 PM EDT Images from the original note were not included. Miralax/Dulcolax Bowel Prep For this bowel preparation, you will need to purchase the following medications at any pharmacy: Over the counter Miralax (generic name is polyethylene glycol) 8.3 oz or 238 grams Four (4) Dulcolax (generic name is Bisacodyl) tablets 3 days prior to your procedure, you need to be on a low fiber diet (Such as popcorn, beans, seeds, nuts, salad and raw vegetables, corn, fresh and dried fruit and multi-grain bread) YOU MUST BE ON CLEAR LIQUIDS FOR 2 FULL DAYS PRIOR TO YOUR COLONOSCOPY Day one which would be two days before your colonoscopy, you will need to be on clear liquids all day. You may have coffee or tea-black only (no cream), clear broths (beef, chicken or vegetable), apple juice, white grape juice, pop, Gatorade, Powerade, lemonade, Jello, popsicles, Oneil-aid, and water-But nothing red or dark purple in color and no dairy products, tomato or orange juices. Day two which would be the day before your colonoscopy continue clear liquids all day as above. And follow the instructions below: 8:00 AM - Mix the Miralax with 64 oz of Gatorade or another clear liquid of choice and place in refrigerator. Most people say the drink is better cold. 4:00 PM - Take 2 of the Dulcolax tablets with 8 oz of water. 6:00 PM - Start to drink the Miralax mixture. You must finish it by midnight. 8:00 PM - Take the other 2 Dulcolax tablets with 8 oz of water. You may continue to drink clear liquids while you are taking your prep and after you finish it as long as it is before midnight. Drink lots of fluids so you don t become dehydrated. Nothing to drink after midnight the night before the procedure unless you are instructed differently by the physician or nurses. Please remember to take your normal medications the morning of the procedure with a small sip of water especially your blood pressure medications. If you are diabetic, you need to contact your physician about how to take your diabetic medications and/or insulin during the prepping period and the day of your procedure. Any questions please call: Dr. Cardozo or Dr. Sierra [phone] Geraldine Hernandez [phone] Dr. Woodall [phone] [facility] nurses [phone] DIETARY GUIDELINES FOR INTERSTITIAL CYSTITIS FOOD CATEGORY PERMITTED FOODS FOODS TO AVOID OR USE CAUTIOUSLY Fruits Blueberries, melons other than cantaloupe and pears All other fruits and juices made from them Vegetables Potatoes, homegrown tomatoes, and vegetables other than those listed on the right Bev beans, blanco beans, onions, rhubarb, tofu, and store-bought tomatoes Milk/Dairy White chocolate, cottage cheese, Danish cheese, milk Aged cheese, sour cream, eggs, yogurt, chocolate Carbohydrates/Grains Pasta, rice, and breads other than those listed on the right [place] and sourdoughbreads Meats/Fish Poultry, fish and meats other than those listed on the right Aged, canned and cured, processed and smoked meats and fish, anchovies, caviar, chicken livers, corned beef and meats that contain nitrates or nitrites Nuts Almonds, cashews and pine nuts Most other nuts Beverages Bottled or spring water, decaffeinated, acid-free coffee and tea, some herbal teas Alcoholic beverages, beer and wine, carbonated drinks, coffee, tea and cranberry juice Seasonings Garlic and seasonings other than below Mayonnaise, miso, spicy foods (especially English, Moroccan, Swiss and Jerald foods.) *Adapted with permission from the [employer] On Course for Better [facility] AZO urinary complete, D-[place] [facility] History of Present illness Narrative* Stefanie Bernard MD - 05/09/2022 11:22 AM EDT Nelia is a 51 year old who presents for an annual gynecologic exam with complaints, pelvic pain and hyperthyroidism within the past year . Reports has IBS symptoms. Right sided pelvic pain that is intermittent and some pressure. Feels like she has to strain to empty bladder Postmenopausal: Hx of hysterectomy at the age 45 HRT use: No. Last Pap: 06/26/2018 normal HPV: 06/23/2018 negative History of abnormal pap: No Last mammogram: 2020 abnormal, diagnostic mammogram with right breast biopsy (-). History of abnormal mammogram: Yes Sexually active: No Hot flashes: Yes Night sweats: Yes Vaginal dryness: Yes Insomnia: Yes, trial with melatonin - minimal relief. Exercise: 7 times a week for 15-30 minutes. Type: Walking Diet: Regular, 2-3 meals a day, good appetite and fluid intake. (Decreased food intake due to recent dental oral infection) OB History T0 L2 SAB1 IAB0 Ectopic1 Multiple0 Live Births0 Netsuite Consultant History LMP: 09/03/2018, Hysterectomy Age at Menarche: Age at First : Age at Menopause: Netsuite Consultant History Comments: Sexual Activity: Yes; Male Contraception: Tubal Ligation PAST MEDICAL HISTORY Diagnosis Date Dysmenorrhea Dyspareunia Dysthymic disorder Depression (non-psychotic) Excessive or frequent menstruation Heavy periods Generalized anxiety disorder Anxiety, Generalized Hyperthyroidism Lumbago 2 herniated discs in the back Malignant neoplasm of breast (female), unspecified site 2011 Breast cancer LEFT Premenstrual tension syndromes PMS Radial scar of breast 12/2019 Symptomatic menopausal or female climacteric states PAST SURGICAL HISTORY Procedure Laterality Date BREAST BIOPSY HX 10/15/2011 same area that was excised BREAST BIOPSY HX Right 12/15/2019 BREAST BIOPSY HX 01/2020 Radial Scar BREAST BIOPSY, INCISION 10/30/2011 LEFT CYSTOSCOPY 09/11/2018 DILATION & CURETTAGE DX&/THER NONOBSTETRIC Dilation & curettage EXTRACTION ERUPTED TOOTH/EXR 04/2022 HYSTERECTOMY 09/11/2018 LAV at [facility]-Dr. Bernard LAPS ABD PRTM&OMENTUM DX W/WO SPEC BR/WA SPX 2003 Laparoscopy for pain and normal LIG/TRNSXJ FLP TUBE ABDL/VAG APPR UNI/BI Tubal ligation ALEXSANDER 2016 OOPHORECTOMY PARTIAL/TOTAL UNI/BI Left 09/11/2018 Left oophorectomy at [facility]-Dr. Bernard PAST SURGICAL HISTORY OF 1988 pilonidal cyst PAST SURGICAL HISTORY OF Salpingostomy for Ectopic [open procedure][[[ PREOP PLACEMENT NEEDLE LOC 10/30/2011 LEFT REM LESION FACE,EAR,EYEL <5MM 08/13/2012 Exc. right nasal jie cyst and left arm lesion SALPINGECTOMY Bilateral 09/11/2018 B/L Salpingectomy at [facility]-Dr. Bernard FAMILY HISTORY Problem Relation Age of Onset other (Lung cancer) Father Cancer Maternal Grandmother great grandmother ovarian and breast Heart Maternal Grandmother SOCIAL HISTORY Social History Tobacco Use Smoking status: Every Day Packs/day: 0.50 Years: 15.00 Pack years: 7.50 Types: Cigarettes Smokeless tobacco: Never Vaping Use Vaping Use: Never used Substance Use Topics Alcohol use: Yes Alcohol/week: 2.5 - 5.0 standard drinks Types: 1 - 2 Glasses of Wine (5oz) per week Comment: occasionally Drug use: No REVIEW OF SYSTEMS Abdomen: No abdominal pain, nausea or vomiting. Increased bloating, indigestion and flatulence. Intermittent periods of diarrhea and constipation. Patient treats with OTC meds. Bladder: No dysuria, gross hematuria, urinary frequency, or urinary urgency. Patient voices that she has to strain when voiding in order to completely empty her bladder within the last year. Breast: No breast lumps, nipple d/c, overlying skin changes, redness or skin retraction. Hx of abnormal mammograms. Allergies and current medication updated:Yes EXAM: BP 106/70 Wt 115 lb (52.2kg) LMP 09/03/2018 GENERAL: pleasant, female in no apparent distress HEENT: Normocephalic, atraumatic, mucus membranes moist, and no lesions NECK: Supple, full range of motion, no adenopathy, and thyroid normal DERMATOLOGY: Normal, without lesions, non-icteric, and non-hirsute BREAST: soft, non-tender, symmetric, no dominant mass, normal nipple-areolar complex, no lymphadenopathy, and no nipple discharge ABDOMEN: soft, non-tender, and no masses PELVIC: external genitalia normal, normal Bartholin's glands, urethra, Burrows's glands, no vulvar lesions, cervix surgically absent, good vaginal support, physiologic discharge present, normal appearing perineal body and perianal region BIMANUAL: Uterus surgically absent, no adnexal masses, and non-tender. Bladder tender to palpation. RECTOVAGINAL: deferred. NEURO: alert and oriented x3,exam grossly non-focal EXTREMITIES: normal ASSESSMENT/PLAN: 1) Health maintenance: Pap/HPV screening no longer needed Mammogram ordered Nutrition, exercise and routine health maintenance exams reviewed. Calcium/Vitamin D supplementation information provided. Colon cancer screening: ordered 2) Follow up one year or sooner as needed Stefanie Aguilar MD Anesthesia Attending offered: Patient declines. documented [facility]* Diagnosis Onset Date Resolution Status Cellulitis acute Sebaceous cyst acute Sebaceous cyst acute [facility] Work Phone: Evaluation noteNo assessment information available [facility] Work Phone: Evaluation note* Diagnosis Encounter for gynecological examination with abnormal finding- Primary Routine gynecological examination Encounter for screening mammogram for malignant neoplasm of breast Other screening mammogram Screen for colon cancer Special screening for malignant neoplasms, colon Chronic low back pain, unspecified back pain laterality, unspecified whether sciatica present Pelvic pain in female Unspecified symptom associated with female genital organs Diarrhea, unspecified type Constipation, unspecified constipation type Bloating Flatulence, eructation, and gas pain documented in this encounter [facility]* Diagnosis Pelvic pain in female- Primary Unspecified symptom associated with female genital organs documented in this encounter [facility]* Diagnosis Encounter for screening for malignant neoplasm of colon- Primary Special screening for malignant neoplasms, colon Change in bowel habits Other symptoms involving digestive system Abdominal bloating Flatulence, eructation, and gas pain Belching Flatulence, eructation, and gas pain Diarrhea, unspecified type documented in this encounter [facility] note* Diagnosis Change in bowel habits Other symptoms involving digestive system Abdominal bloating Flatulence, eructation, and gas pain Belching Flatulence, eructation, and gas pain Diarrhea, unspecified type documented in this encounter [facility] note* Diagnosis Encounter for screening mammogram for malignant neoplasm of breast Other screening mammogram documented in this encounter [facility] note* Diagnosis Abnormal mammogram- Primary Abnormal mammogram, unspecified documented in this encounter [facility] note* Diagnosis Pain, dental- Primary Unspecified disorder of the teeth and supporting structures documented in this encounter [facility] note* Diagnosis Change in bowel habits- Primary Other symptoms involving digestive system Belching Flatulence, eructation, and gas pain Diarrhea, unspecified type Gastroesophageal reflux disease, unspecified whether esophagitis present Change in bowel habits Other symptoms involving digestive system Alternating constipation and diarrhea Other symptoms involving digestive system Crook's esophagus determined by biopsy documented in this encounter [facility] note* Diagnosis Category 3 mammography result with short follow-up interval suggested for probably benign finding- Primary Inconclusive mammogram documented in this encounter [facility] note* Diagnosis Onset Date Resolution Status Goiter acute [facility] Work Phone: Evaluation note* Diagnosis Onset Date Resolution Status Goiter acute Goiter acute Thyroid nodule acute [facility] Work Phone: Evaluation note* Diagnosis Bursitis of right foot- Primary Tailor's bunion of right foot documented in this encounter [facility] note* Diagnosis Chronic bilateral low back pain with right-sided sciatica- Primary documented in this encounter [facility] note* Diagnosis Dysphagia, unspecified type- Primary Choking, initial encounter Tobacco use Tobacco use disorder [facility] this [facility] Diagnosis Abnormal mammogram Abnormal mammogram, unspecified [facility] this encounter [facility] Diagnosis Abnormal mammogram Abnormal mammogram, unspecified [facility] Diagnosis Encounter for screening mammogram for malignant neoplasm of breast- Primary Other screening mammogram documented in this encounter [facility] note* Diagnosis Encounter for screening mammogram for malignant neoplasm of breast Other screening mammogram [facility] Additional Instructions Medrol Dosepak. Use prednisone and Pepcid as prescribed. 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 Discussed with your foot doctor with you stopping the medications. However you are now on prednisone which is a different steroid. Follow-up with your doctors. Return if any worsening symptoms.[facility] Work Phone: Hospital Discharge instructions Additional Instructions Your CT did not show any signs of an obstruction or other acute pathology. 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 Your lab work is largely normal. I do recommend you take Gas-X at home as your CT does show a lot of gas in your GI track. Please follow-up with your primary care doctor. Return to the ER if you have a progression or worsening of your symptoms.[facility] Work Phone: Reason for referral (narrative)* Diagnostic Procedure Only (Routine) - Closed Specialty Diagnoses / Procedures Referred By Rogerio morton Referred To Contact [facility] Diagnoses Encounter for screening mammogram for malignant neoplasm of breast Procedures CHRISTIANO SCREENING W BREN SCREENING DIGITAL BREAST TOMOSYNTHESIS BI SCREENING MAMMOGRAPHY BI 2-VIEW BREAST INC CAD Stefanie Rodney MD [address] [place] [address] [facility] [address] [facility] [place] [address] Referral ID Status Reason Start Date Expiration Date V isits Requested Visits Authorized [id number] Closed Auto-Generate d Referral 05/09/2022 06/08/2023 1 1 [facility] for referral (narrative)* Diagnostic Procedure Only (Routine) - Pending Review Specialty Diagnoses / Procedures Referred By Rogerio morton Referred To Contact [facility] Diagnoses Abnormal mammogram Procedures CHRISTIANO DIAGNOSTIC LT DIAGNOSTIC MAMMOGRAPHY COMPUTER-AIDED DETCJ UNI Stefanie Rodney MD [address] [place] [address] [facility] [address] [place] [address] Referral ID Status Reason Start Date Expiration Date Visits Requested Visits Authorized [id number] Pending Review Auto-Generat ed Referral 06/11/2022 07/11/2023 1 1 * Diagnostic Procedure Only (Routine) - Pending Review Specialty Diagnoses / Procedures Referred By Rogerio morton Referred To Contact [facility] Diagnoses Abnormal mammogram Procedures US BREAST LTD LT US BREAST UNI REAL TIME WITH IMAGE LIMITED Stefanie Rodney MD [address] [place] [address] [facility] [address] [place] [address] Referral ID Status Reason Start Date Expiration Date Visits Requested Visits Authorized [id number] Pending Review Auto-Generat ed Referral 06/11/2022 07/11/2023 1 1 [facility] for referral (narrative)* Diagnostic Procedure Only (Routine) - Pending Review Specialty Diagnoses / Procedures Referred By Rogerio morton Referred To Contact [facility] Diagnoses Category 3 mammography result with short follow-up interval suggested for probably benign finding Procedures US BREAST LTD LT US BREAST UNI REAL TIME WITH IMAGE LIMITED Stefanie Rodney MD [address] [place] [address] [facility] [address] [place] [address] Referral ID Status Reason Start Date Expiration Date Visits Requested Visits Authorized [id number] Pending Review Auto-Generat ed Referral 07/11/2022 08/10/2023 1 1 * Diagnostic Procedure Only (Routine) - Pending Review Specialty Diagnoses / Procedures Referred By Rogerio morton Referred To Contact [facility] Diagnoses Category 3 mammography result with short follow-up interval suggested for probably benign finding Procedures CHRISTIANO DIAGNOSTIC LT DIAGNOSTIC MAMMOGRAPHY COMPUTER-AIDED DETCJ UNI Stefanie Rodney MD [address] [place] [address] [facility] [address] [place] [address] Referral ID Status Reason Start Date Expiration Date Visits Requested Visits Authorized [id number] Pending Review Auto-Generat ed Referral 07/11/2022 08/10/2023 1 1 [facility] for referral (narrative)* Diagnostic Procedure Only (Routine) - Closed Specialty Diagnoses / Procedures Referred By Rogerio morton Referred To Contact [facility] Diagnoses Abnormal mammogram Procedures US BREAST LTD LT US BREAST UNI REAL TIME WITH IMAGE LIMITED Stefanie Rodney MD [address] [place] [address] [facility] [address] [place] [address] Referral ID Status Reason Start Date Expiration Date V isits Requested Visits Authorized [id number] Closed Auto-Generate d Referral 06/11/2022 07/11/2023 1 1 [facility] for referral (narrative)* Diagnostic Procedure Only (Routine) - Authorized Specialty Diagnoses / Procedures Referred By Rogerio morton Referred To Contact [facility] Diagnoses Encounter for screening mammogram for malignant neoplasm of breast Procedures CHRISTIANO SCREENING W BREN SCREENING DIGITAL BREAST TOMOSYNTHESIS BI SCREENING MAMMOGRAPHY BI 2-VIEW BREAST INC CAD Stefanie Rodney MD [address] [place] [address] [facility] [address] [place] [address] Referral ID Status Reason Start Date Expiration Date Visits Requested Visits Authorized [id number] Authorized Auto-Generat ed Referral 05/26/2024 06/25/2025 1 1 [facility] for visit Narrative* Diagnostic Procedure Only (Routine) - Closed Specialty Diagnoses / Procedures Referred By Contac t Referred To Contact [facility] Diagnoses Encounter for screening mammogram for malignant neoplasm of breast Procedures CHRISTIANO SCREENING W BREN SCREENING DIGITAL BREAST TOMOSYNTHESIS BI SCREENING MAMMOGRAPHY BI 2-VIEW BREAST INC CAD Stefanie Rodney MD [address] [place] [address] [facility] [address] [place] [address] Referral ID Status Reason Start Date Expiration Date V isits Requested Visits Authorized [id number] Closed Auto-Generate d Referral 05/09/2022 06/08/2023 1 1 [facility] for visit Narrative* Diagnostic Procedure Only (Routine) - Closed Specialty Diagnoses / Procedures Referred By Contamanda t Referred To Contact [facility] Diagnoses Abnormal mammogram Procedures CHRISTIANO DIAGNOSTIC LT DIAGNOSTIC MAMMOGRAPHY COMPUTER-AIDED DETCJ UNI Stefanie Rodney MD [address] [place] [address] [facility] [address] [place] [address] Referral ID Status Reason Start Date Expiration Date V isits Requested Visits Authorized [id number] Closed Auto-Generate d Referral 06/11/2022 07/11/2023 1 1 [facility] for visit Narrative* Diagnostic Procedure Only (Routine) - Closed Specialty Diagnoses / Procedures Referred By Contac t Referred To Contact [facility] Diagnoses Encounter for screening mammogram for malignant neoplasm of breast Procedures CHRISTIANO SCREENING W BREN SCREENING DIGITAL BREAST TOMOSYNTHESIS BI SCREENING MAMMOGRAPHY BI 2-VIEW BREAST INC CAD Stefanie Rodney MD [address] [place] [address] [facility] [address] [place] [address] Referral ID Status Reason Start Date Expiration Date V isits Requested Visits Authorized [id number] Closed Auto-Generate d Referral 05/26/2024 06/25/[address] [facility] [address] [facility] Summary Purpose Family History No Family History Records Found Relationship Condition Age at Onset Recorded Date/T raina Unknown Family History?No pe rtinent history Unknown July 20, 2014 5:53pm Family History?No pe rtinent history Unknown July 20, 2014 5:53pm Relationship Condition Age at Onset Recorded Date/T raina Unknown Family History?No pe rtinent history Unknown July 20, 2014 4:53pm Family History?No pe rtinent history Unknown July 20, 2014 4:53pm Advance Directives No Advanced Directives Records Found Advance Directive Response Recorded Date/ Time Advance Directives No September 12, 2016 2:09pm Living Will No January 17, 2022 1 2:18pm Power of Health Inspector No January 17, 2022 12:18pm Advance Directive Response Recorded Date/ Time Advance Directives No September 12, 2016 2:09pm Living Will No April 18 1:04pm Power of Health Inspector No April 18 022 1:04pm Advance Directive Response Recorded Date/ Time Advance Directives No September 12, 2016 2:09pm Living Will No May 15 12:26pm Power of Health Inspector No May 15, 2022 12:26pm Advance Directive Response Recorded Date/ Time Advance Directives No September 12, 2016 2:09pm Living Will No July 12 6:01pm Power of Health Inspector No July 12, 2022 6:01pm Advance Directive Response Recorded Date/ Time Advance Directives No September 12, 2016 1:09pm Living Will No July 12 5:01pm Power of Health Inspector No July 12, 2022 5:01pm Advance Directive Response Recorded Date/ Time Advance Directives No September 12, 2016 1:09pm Living Will No October 11 12:23pm Power of Health Inspector No October 11, 2022 12:23pm Advance Directive Response Recorded Date/ Time Advance Directives No September 12, 2016 1:09pm Living Will No November 17, 2022 12:01pm Power of Health Inspector No November 17 12:01pm Advance Directive Response Recorded Date/ Time Advance Directives No September 12, 2016 2:09pm Living Will No February 13, 2023 1 2:34am Power of Health Inspector No February 13, 2023 12:34am Chief Complaint and Reason for Visit Chief Complaint excision right breas t jie cyst EXCISION OF CYST R. LATERAL CHEST suture removal 10/04 R/O DEASEASES GENERAL ILLNESS GENERAL/COUGH/ constipated, nausea Reason for Visit Cellulitis Sebaceous cyst Sebaceous cyst Chief Complaint constipated, nausea Chief Complaint constipated, nausea DIARRHEA Chief Complaint constipated, nausea DIARRHEA DENTAL PAIN Chief Complaint DIARRHEA DENTAL PAIN NUMBNESS Chief Complaint DENTAL PAIN NUMBNESS Thyroid GOITER Reason for Visit Goiter Chief Complaint NUMBNESS Thyroid GOITER THYROID NODULE LOWER THYROID NODULE Reason for Visit Goiter Goiter Thyroid nodule Chief Complaint NUMBNESS Thyroid GOITER THYROID NODULE LOWER THYROID NODULE ALLERGIC RXN Reason for Visit Goiter Goiter Thyroid nodule Chief Complaint Thyroid GOITER THYROID NODULE LOWER THYROID NODULE ALLERGIC RXN cp Reason for Visit Goiter Goiter Thyroid nodule Chief Complaint cp ABD PAIN, CONSTIPATION Reason for Referral Specialty Diagnoses / Procedures Referred By Rogerio morton Referred To Contact Gastroenterology Diagnoses Diarrhea, unspecified type Constipation, unspecified constipation type Bloating Procedures CONSULT TO GASTROENTEROLOGY OFFICE/OUTPATIENT [facility] 60-74 MINUTES Stefanie Rodney MD [address] [place] [address] Referral ID Status Reason Start Date Expiration Date Visits Requested Visits Authorized [id number] Authorized PCP Requested Referral 05/09/2022 05/09/2023 1 1 Specialty Diagnoses / Procedures Referred By Rogerio morton Referred To Contact [facility] Diagnoses Pelvic pain in female Procedures PELVIC US WHI US PELVIC NONOBSTETRIC REAL-TIME IMAGE COMPLETE Stefanie Rodney MD [address] [place] [address] [facility] [address] [place] [address] Referral ID Status Reason Start Date Expiration Date Visits Requested Visits Authorized [id number] Authorized Auto-Generat ed Referral 05/09/2022 05/09/2023 1 1 Specialty Diagnoses / Procedures Referred By Contac t Referred To Contact Pain Management Diagnoses Chronic low back pain, unspecified back pain laterality, unspecified whether sciatica present Procedures CONSULT TO PAIN MGT OFFICE/OUTPATIENT NEW HIGH MDM 60-74 MINUTES Stefanie Rodney MD [address] [place] [address] Referral ID Status Reason Start Date Expiration Date Visits Requested Visits Authorized [id number] Authorized PCP Requested Referral 05/09/2022 05/09/2023 1 1 Specialty Diagnoses / Procedures Referred By Kulwinderac t Referred To Contact [facility] Diagnoses Screen for colon cancer Procedures COLONOSCOPY SCREENING COLONOSCOPY FLX DX W/COLLJ SPEC WHEN PFRMD Stefanie Rodney MD [address] [place] [address] [facility] [address] [place] [address] Referral ID Status Reason Start Date Expiration Date Visits Requested Visits Authorized [id number] Pending Review Auto-Generat ed Referral 05/09/2022 05/09/2023 1 1 Specialty Diagnoses / Procedures Referred By Rogerio t Referred To Contact [facility] Diagnoses Encounter for screening mammogram for malignant neoplasm of breast Procedures CHRISTIANO SCREENING W BREN SCREENING DIGITAL BREAST TOMOSYNTHESIS BI SCREENING MAMMOGRAPHY BI 2-VIEW BREAST INC CAD Stefanie Rodney MD [address] [place] [address] [facility] [address] [place] [address] Referral ID Status Reason Start Date Expiration Date Visits Requested Visits Authorized [id number] Authorized Auto-Generat ed Referral 05/09/2022 06/08/2023 1 1 Specialty Diagnoses / Procedures Referred By Contac t Referred To Contact [facility] Diagnoses Chronic bilateral low back pain with right-sided sciatica Procedures PT REHAB FOLLOW UP ORDER THERAPEUTIC EXERCISES RE, EA 15 MIN. Anup Mcpherson, PT [address] [place] [address] [facility] [address] [place] [address] Referral ID Status Reason Start Date Expiration Date Visits Requested Visits Authorized [id number] Pending Review PCP Requested Referral Auto-Generate d Referral 12/04/2022 03/04/2023 1 1 Medications Administered Section Inactive Administered Medications - up to 3 most recent administrations Medication Order MAR Action Action Date Dose Rate Site lactated ringers iv infusion 75 mL/hr, INTRAVENOUS, CONTINUOUS, Starting on Bibi 06/07/22 at 1200, Until Bibi 06/07/22 at 1420, Preprocedure Continued by Anesthesia 06/07/2022 12:41 PM EDT 75 mL/hr New Bag/Syringe/Bottle 06/07/2022 11:49 AM EDT 75 mL/hr 75 mL/hr Additional Source Comments INFORMATION SOURCE (unrecogn ized section and content) DATE CREATED AUTHOR 12/22/2019 [facility] DATE CREATED AUTHOR AUTHOR'S ORGANIZ ATION 02/17/2022 [facility] DATE CREATED AUTHOR AUTHOR'S ORGANIZ ATION 07/19/2022 [facility] DATE CREATED AUTHOR AUTHOR'S ORGANIZ ATION 09/20/2023 [facility] [facility] DATE CREATED AUTHOR AUTHOR'S ORGANIZ ATION 06/03/2024 [facility] DATE CREATED AUTHOR AUTHOR'S ORGANIZ ATION 02/03/2025 [facility] Source Comments (unrecognize d section and content) In the event this informatio n is protected by the Federal Confidentiality of Alcohol and Drug Abuse Patient Records regulations: The Federal rules restrict any use of the information to criminally investigate or prosecute any alcohol or drug abuse patient.[facility] [address] HospitalIn the event this information is protected by the Federal Confidentiality of Alcohol and Drug Abuse Patient Records regulations: The Federal rules restrict any use of the information to criminally investigate or prosecute any alcohol or drug abuse patient.[facility] [address] HospitalIn the event this information is protected by the Federal Confidentiality of Alcohol and Drug Abuse Patient Records regulations: The Federal rules restrict any use of the information to criminally investigate or prosecute any alcohol or drug abuse patient.[facility] HospitalIn the event this information is protected by the Federal Confidentiality of Alcohol and Drug Abuse Patient Records regulations: The Federal rules restrict any use of the information to criminally investigate or prosecute any alcohol or drug abuse patient.[facility] [address] HospitalIn the event this information is protected by the Federal Confidentiality of Alcohol and Drug Abuse Patient Records regulations: The Federal rules restrict any use of the information to criminally investigate or prosecute any alcohol or drug abuse patient.[facility] HospitalIn the event this information is protected by the Federal Confidentiality of Alcohol and Drug Abuse Patient Records regulations: The Federal rules restrict any use of the information to criminally investigate or prosecute any alcohol or drug abuse patient.[facility] [address] HospitalIn the event this information is protected by the Federal Confidentiality of Alcohol and Drug Abuse Patient Records regulations: The Federal rules restrict any use of the information to criminally investigate or prosecute any alcohol or drug abuse patient.[facility] HospitalIn the event this information is protected by the Federal Confidentiality of Alcohol and Drug Abuse Patient Records regulations: The Federal rules restrict any use of the information to criminally investigate or prosecute any alcohol or drug abuse patient.[facility] HospitalIn the event this information is protected by the Federal Confidentiality of Alcohol and Drug Abuse Patient Records regulations: The Federal rules restrict any use of the information to criminally investigate or prosecute any alcohol or drug abuse patient.[facility] HospitalIn the event this information is protected by the Federal Confidentiality of Alcohol and Drug Abuse Patient Records regulations: The Federal rules restrict any use of the information to criminally investigate or prosecute any alcohol or drug abuse patient.[facility] HospitalIn the event this information is protected by the Federal Confidentiality of Alcohol and Drug Abuse Patient Records regulations: The Federal rules restrict any use of the information to criminally investigate or prosecute any alcohol or drug abuse patient.[facility] HospitalIn the event this information is protected by the Federal Confidentiality of Alcohol and Drug Abuse Patient Records regulations: The Federal rules restrict any use of the information to criminally investigate or prosecute any alcohol or drug abuse patient.[facility] HospitalIn the event this information is protected by the Federal Confidentiality of Alcohol and Drug Abuse Patient Records regulations: The Federal rules restrict any use of the information to criminally investigate or prosecute any alcohol or drug abuse patient.[facility] HospitalIn the event this information is protected by the Federal Confidentiality of Alcohol and Drug Abuse Patient Records regulations: The Federal rules restrict any use of the information to criminally investigate or prosecute any alcohol or drug abuse patient.[facility] HospitalIn the event this information is protected by the Federal Confidentiality of Alcohol and Drug Abuse Patient Records regulations: The Federal rules restrict any use of the information to criminally investigate or prosecute any alcohol or drug abuse patient.[facility] HospitalIn the event this information is protected by the Federal Confidentiality of Alcohol and Drug Abuse Patient Records regulations: The Federal rules restrict any use of the information to criminally investigate or prosecute any alcohol or drug abuse patient.[facility] HospitalIn the event this information is protected by the Federal Confidentiality of Alcohol and Drug Abuse Patient Records regulations: The Federal rules restrict any use of the information to criminally investigate or prosecute any alcohol or drug abuse patient.[facility] HospitalIn the event this information is protected by the Federal Confidentiality of Alcohol and Drug Abuse Patient Records regulations: The Federal rules restrict any use of the information to criminally investigate or prosecute any alcohol or drug abuse patient.[facility] HospitalIn the event this information is protected by the Federal Confidentiality of Alcohol and Drug Abuse Patient Records regulations: The Federal rules restrict any use of the information to criminally investigate or prosecute any alcohol or drug abuse patient.[facility] HospitalIn the event this information is protected by the Federal Confidentiality of Alcohol and Drug Abuse Patient Records regulations: The Federal rules restrict any use of the information to criminally investigate or prosecute any alcohol or drug abuse patient.[facility] HospitalIn the event this information is protected by the Federal Confidentiality of Alcohol and Drug Abuse Patient Records regulations: The Federal rules restrict any use of the information to criminally investigate or prosecute any alcohol or drug abuse patient.[facility] HospitalIn the event this information is protected by the Federal Confidentiality of Alcohol and Drug Abuse Patient Records regulations: The Federal rules restrict any use of the information to criminally investigate or prosecute any alcohol or drug abuse patient.[facility] HospitalIn the event this information is protected by the Federal Confidentiality of Alcohol and Drug Abuse Patient Records regulations: The Federal rules restrict any use of the information to criminally investigate or prosecute any alcohol or drug abuse patient.[facility] Reason for Visit (unrecogniz ed section and content) Reason Comments Yearly Exam Reason Comments 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 Ultrasound Reason Comments Consult Colonoscopy consult Specialty Diagnoses / Procedures Referred By Rogerio t Referred To Contact Diagnoses Change in bowel habits Abdominal bloating Belching Diarrhea, unspecified type Change in bowel habits [R19.4] Abdominal bloating [R14.0] Belching [R14.2] Diarrhea, unspecified type [R19.7] Procedures COLONOSCOPY FLX DX W/COLLJ SPEC WHEN PFRMD ESOPHAGOGASTRODUODENOSCOPY TRANSORAL DIAGNOSTIC COLONOSCOPY EGD [address] Surgery [address] [place] [address] Referral ID Status Reason Start Date Expiration Date Visits Re quested Visits Authorized [id number] 1 Reason Comments Pain Pt reported (LT) too th, jaw pain, extraction 04/26/2022, [facility] ER visit 05/2022 d/t diarrhea, pain rated 7 with visit. Reason Comments Follow Up EGD and colonoscopy results Reason Comments Results Reason Comments Orders Reason Comments New Patient Pain (foot) Reason Comments Medication Problem Reason Comments Mammogram Result Call Back Reason Comments PT Eval Specialty Diagnoses / Procedures Referred By Contac t Referred To Contact Physical Therapy / PHYSICAL THERAPY Diagnoses LBP Procedures NEW RS PT SPINE Self Anup Mcpherson, PT [address] [place] [address] Referral ID Status Reason Start Date Expiration Date V isits Requested Visits Authorized [id number] Authorized 11/29/2022 09/08/2023 30 30 Reason Comments Consult Bowel issues and caridad n, last colonoscopy 06/2022 Reason Comments Radiology US Specialty Diagnoses / Procedures Referred By Contac t Referred To Contact [facility] IMAGING Diagnoses Abnormal mammogram Procedures US BREAST LTD LT US BREAST UNI REAL TIME WITH IMAGE LIMITED Stefanie Rodney MD [address] [place] [address] Br Imaging [address] [place] [address] Referral ID Status Reason Start Date Expiration Date V isits Requested Visits Authorized [id number] Closed Auto-Generate d Referral 06/11/2022 07/11/2023 1 1 Reason Comments Orders Mammogram Screening W BREN Care Teams (unrecognized sec tion and content) Copy Holder Relationship Specialty Start Date End Date Eliel Becerra Chi [address] [facility] [address] [place] [address] PCP - General Gerontology 12/14/19 Stefanie Rodney MD [address] [place] [address] Physician CHUTE TENDER 12/15/19 Nusrat Chamberlain CNP [address] [place] [address] Referring Family Practice 02/22/22 Copy Holder Relationship Specialty Start Date End Date Eliel Becerra Chi [address] [facility] [address] [place], [place] [id number] PCP - General Gerontology 12/14/19 Stefanie Rodney MD [address] [place] [address] Physician CHUTE TENDER 12/15/19 Nusrat Chamberlain, PROGRAM MANAGEMENT MANAGER [address] [place] [address] Referring Family Practice 02/22/22 Copy Holder Relationship Specialty Start Date End Date Eliel Becerra Chi [address] [place] [address] [place] [address] PCP - General Gerontology 12/14/19 Stefanie Rodney MD [address] [place] [address] Physician CHUTE TENDER 12/15/19 Nusrat Chamberlain, PROGRAM MANAGEMENT MANAGER [address] [place] [address] Referring Family Practice 02/22/22 Copy Holder Relationship Specialty Start Date End Date Stefanie Rodney MD [address] [place] [address] Physician CHUTE TENDER 12/15/19 Nusrat Chamberlain, PROGRAM MANAGEMENT MANAGER [address] [place] [address] Referring Family Practice 02/22/22 Copy Holder Relationship Specialty Start Date End Date Stefanie Rodney MD [address] [place] [address] Physician CHUTE TENDER 12/15/19 Nusrat Chamberlain, PROGRAM MANAGEMENT MANAGER [address] [place] [address] Referring Family Medicine 02/22/22 Copy Holder Relationship Specialty Start Date End Date Stefanie Rodney MD [address] [place] [address] Physician CHUTE TENDER 12/15/19 Nsurat Chamberlain, PROGRAM MANAGEMENT MANAGER [address] [place] [address] Referring Family Medicine 02/22/22 Copy Holder Relationship Specialty Start Date End Date Stefanie Rodney MD [address] [place] [address] Physician CHUTE TENDER 12/15/19 Nusrat Chamberlain, PROGRAM MANAGEMENT MANAGER [address] [place] [address] Referring Family Medicine 02/22/22 Copy Holder Relationship Specialty Start Date End Date Stefanie Rodney MD [address] [place] [address] Physician CHUTE TENDER 12/15/19 Nusrat Chamberlain, PROGRAM MANAGEMENT MANAGER [address] [place] [address] Referring Family Medicine 02/22/22 Copy Holder Relationship Specialty Start Date End Date Stefanie Rodney MD [address] [place] [address] Physician CHUTE TENDER 12/15/19 Nusrat Chamberlain, PROGRAM MANAGEMENT MANAGER [address] [place] [address] Referring Family Medicine 02/22/22 Copy Holder Relationship Specialty Start Date End Date Stefanie Rodney MD [address] [place] [address] Physician CHUTE TENDER 12/15/19 Nusrat Chamberlain, PROGRAM MANAGEMENT MANAGER [address] [place] [address] Referring Family Medicine 02/22/22 Copy Holder Relationship Specialty Start Date End Date Stefanie Rodney MD [address] [place] [address] Physician CHUTE TENDER 12/15/19 Nusrat Chamberlain, PROGRAM MANAGEMENT MANAGER [address] [place] [address] Referring Family Medicine 02/22/22 Team Status: Active Member Role Status Dates Dr. Eliel Becerra MD Family Provider Active Rebecca Zacarias SKID MAN, SKID MAN-C Primary Care Provider Active Team Status: Inactive Member Role Status Dates No Primary Care Physician Primary Care Provider, Refer ring Provider Active Dr. Isaac Sauceda MD Attending Provider Active Team Status: Inactive Member Role Status Dates Rebecca Zacarias NP, SKID MAN-C Primary Care Provider, Refer ring Provider Active Dr. Mendy Aleman MD Attending Provider Active Team Status: Inactive Member Role Status Dates No Primary Care Physician Primary Care Provider Active Dr. Chauncey Ornelas MD Attending Provider, Emergency Provi dawson Active Team Status: Inactive Member Role Status Dates Dr. Isaac Sauceda MD Attending Provider, Referring Provi dawson Active Rebecca Zacarias SKID MAN, SKID MAN-C Primary Care Provider Active Team Status: Inactive Member Role Status Dates Rebecca Zacarias NP, SKID MAN-C Primary Care Provider Active Dr. Mendy Aleman MD Attending Provider, Referring Provider Active Copy Holder Relationship Specialty Start Date End Date Stefanie Rodney MD [address] [place] [address] Physician CHUTE TENDER 12/15/19 Nusrat Chamberlain, PROGRAM MANAGEMENT MANAGER [address] [place] [address] Referring Family Medicine 02/22/22 Rebecca Zacarias NP [address] [place] [address] Referring Family Medicine 09/11/22 Team Status: Inactive Member Role Status Dates Rebecca Zacarias NP, SKID MAN-C Primary Care Provider Active Dr. Dez Noriega DO Emergency Provider Active Copy Holder Relationship Specialty Start Date End Date Stefanie Rodney MD [address] [place] [address] Physician CHUTE TENDER 12/15/19 Nusrat Chamberlain, PROGRAM MANAGEMENT MANAGER [address] [place] [address] Referring Family Medicine 02/22/22 Rebecca Zacarias NP [address] [place] [address] Referring Family Medicine 09/11/22 Copy Holder Relationship Specialty Start Date End Date Stefanie Rodney MD [address] [place] [address] Physician CHUTE TENDER 12/15/19 Nusrat Chamberlain, PROGRAM MANAGEMENT MANAGER [address] [place] [address] Referring Family Medicine 02/22/22 Rebecca Zacarias NP [address] [place] [address] Referring Family Medicine 09/11/22 Team Status: Inactive Member Role Status Dates Rebecca Zacarias SKID MAN, SKID MAN-C Primary Care Provider Active Dr. Dez Noriega , DO Attending Provider, Emergency Provide r Active Team Status: Inactive Member Role Status Dates Rebecca Zacarias SKID MAN, SKID MAN-C Primary Care Provider Active Dr. Joanie Hill , DO Emergency Provider Active Copy Holder Relationship Specialty Start Date End Date Stefanie Rodney MD [address] [place] [address] Physician CHUTE TENDER 12/15/19 Nusrat Chamberlain, PROGRAM MANAGEMENT MANAGER [address] [place] [address] Referring Family Medicine 02/22/22 Rebecca Zacarias NP [address] [place] [address] Referring Family Medicine 09/11/22 Copy Holder Relationship Specialty Start Date End Date Stefanie Rodney MD [address] [place] [address] Physician CHUTE TENDER 12/15/19 Nusrat Chamberlain, PROGRAM MANAGEMENT MANAGER [address] [place] [address] Referring Family Medicine 02/22/22 Rebecca Zacarias NP [address] [place] [address] Referring Family Medicine 09/11/22 Team Status: Inactive Member Role Status Dates Rebecca Zacarias SKID MAN, SKID MAN-C Primary Care Provider Active Dr. Joanie Hill DO Attending Provider, Tony gonzalez Active Copy Holder Relationship Specialty Start Date End Date Stefanie Rodney MD [address] [place] [address] Physician CHUTE TENDER 12/15/19 Nusrat Chamberlain CNP [address] [place] [address] Referring Family Medicine 02/22/22 Copy Holder Relationship Specialty Start Date End Date Stefanie Rodney MD [address] [place] [address] Physician CHUTE TENDER 12/15/19 Nusrat Chamberlain CNP [address] [place] [address] Referring Family Medicine 02/22/22 Copy Holder Relationship Specialty Start Date End Date Rebecca Zacarias NP [address] [place] [address] PCP - General Family Medicine 02/21/23 Stefanie Rodney MD [address] [place] [address] Physician CHUTE TENDER 12/15/19 Nusrat Chamberlain CNP [address] [place] [address] Referring Family Medicine 02/22/22 Rebecca Zacarias NP [address] [place] [address] Referring Family Medicine 09/11/22 Copy Holder Relationship Specialty Start Date End Date Rebecca Zacarias NP [address] [place] [phone] PCP - General Family Medicine 02/21/23 Stefanie Rodney MD [address] [place] [address] Physician Senior Treasury Consultant 12/15/19 Nusrat Chamberlain PROGRAM MANAGEMENT MANAGER [address] [place] [address] Referring Family Medicine 02/22/22 Rebecca Zacarias NP [address] [place] [address] Referring Family Medicine 09/11/22 Rebecca Zacarias NP [address] [place] [phone] Referring Family Medicine 07/08/23 Copy Holder Relationship Specialty Start Date End Date Rebecca Zacarias NP [address] [place] [phone] PCP - General Family Medicine 02/21/23 Stefanie Rodney MD [address] [place] [address] Physician Senior Treasury Consultant 12/15/19 Nusrat Chamberlain PROGRAM MANAGEMENT MANAGER [address] [place] [address] Referring Family Medicine 02/22/22 Rebecca Zacarias NP [address] [place], [place] [address] Referring Family Medicine 09/11/22 Rebecca Zacarias NP [address] [facility] [phone] Referring Family Medicine 07/08/23 Copy Holder Relationship Specialty Start Date End Date Rebecca Zacarias NP [address] [facility] [place] [phone] PCP - General Family Medicine 02/21/23 Stefanie Rodney MD [address] [facility] [place] [address] Physician Senior Treasury Consultant 12/15/19 Nusrat Chamberlain CNP [address] [facility] [place] [phone] Referring Family Medicine 02/22/22 Rebecca Zacarias NP [address] [facility] [place] [address] Referring Family Medicine 09/11/22 Rebecca Zacarias NP [address] [facility] [place] [address] Referring Family Medicine 07/08/23 Continuous Active and Recently Administ ered Medications (unrecognized section and content) Medication Order 06/05/2022 06/06/2022 06/07/2022 lactated ringers iv infusion (CANCELED) 75 mL/hr, INTRAVENOUS, CONTINUOUS, Starting on Bibi 06/07/22 at 1200, Until Bibi 06/07/22 at 1420, Preprocedure 1149 (New Bag/Syring e/Bottle - Provider: Anisha Pak RN)1241 (Continued by Anesthesia - Provider: Tono Amado APRN.ELECTRICAL & INSTRUMENTATION SUPERVISOR)1315 (Anesthesia Volume Adjustment - Provider: Tono C Aneudy, ACCOUNTING RECRUITER.ELECTRICAL & INSTRUMENTATION SUPERVISOR)1420 (Due: Infusion Complete) PRN Medication Order 06/05/2022 06/06/2022 06/07/2022 benzocaine 20 % (CANCELED) X (OR/PROCEDURE) PRN, Starting on Bibi 06/07/22 at 1241, Until Bibi 06/07/22 at 1337, Intraprocedure 1241 (Given - Provid er: Philip Galloway RN) FOR RECORDS PERTAINING TO PATIENTS WHO ARE OR HAVE BEEN ENROLLED IN A CHEMICAL DEPENDENCY/SUBSTANCEABUSE PROGRAM, SOME INFORMATION MAY BE OMITTED. This clinical summary was aggregated from multiple sources. Caution should be exercised in using it in the provision of clinical care. This summary normalizes information from multiple sources, and as a consequence, information in this document may materially change the coding, format and clinical context of patient data. In addition, data may be omitted in some cases. CLINICAL DECISIONS SHOULD BE BASED ON THE PRIMARY CLINICAL RECORDS. [facility] [employer] [facility]. provides no warranty or guarantee of the accuracy or completeness of information in this document.
== END | disposition home or self-care (01) ==
LOC: VSLAB 15:31
PROVIDERS: PCP Nurse Practitioner Family; Visit Provider Nurse Practitioner Family
DX: R20.2 Paresthesia of skin (principal); E55.9 Vitamin D deficiency, unspecified; K59.00 Constipation, unspecified; R19.7 Diarrhea, unspecified
CPT/HCPCS: 36415; 80053; 82306; 82607; 84443; 85025

== ENCOUNTER → 2025-02-12 | Outpatient (CLI) | payer MEDICARE, SELFPAY | END | disposition home or self-care (01) | PROVIDERS: PCP Nurse Practitioner Family; Visit Provider Nurse Practitioner Family | DX: R20.2 Paresthesia of skin (principal); R19.7 Diarrhea, unspecified; K59.00 Constipation, unspecified; E55.9 Vitamin D deficiency, unspecified | CPT/HCPCS: 87177; 87209 ==

== ENCOUNTER → 2025-02-16 | Outpatient (CLI) | payer MEDICARE, SELFPAY ==
[2025-02-16 17:19] LABS: Free T3 3.1 pg/mL (2.18-3.98); Thyroid Stim Hormone (TSH) 0.937 uIU/mL (0.300-4.200)
[2025-02-18 15:08] LABS: Thyroglobulin Antibody < 1.0 IU/mL (0.0-0.9); Thyroid Peroxidase AB < 9 IU/mL (0-34)
== END | disposition home or self-care (01) ==
LOC: VSLAB 11:18
PROVIDERS: PCP Nurse Practitioner Family; Visit Provider Nurse Practitioner Family
DX: R94.6 Abnormal results of thyroid function studies (principal)
CPT/HCPCS: 36415; 84439; 84443; 84481; 86376; 86800

== ENCOUNTER → 2025-08-31 | Outpatient (CLI) | payer MEDICARE, SELFPAY ==
[2025-08-31 16:45] LABS: Hematocrit 41.5 % (37-47); Hemoglobin 13.4 g/dL (12.0-15.0); Immature Granulocytes Count 0.030 X10^3/uL (0.0-0.0); Mean Corp Hgb Conc 32.3 g/dL (32-36); Mean Corpuscular Volume 94.1 fL (81-99); Mean Platelet Vol. 10.5 fl (6.2-12.0); NRBC Flagged by Analyzer 0 % (0-5); Platelet Count 320 K/mm3 (150-450); RBC Distribution Width CV 14.2 % (11.6-14.6); RBC Distribution Width SD 49.1 fl (35.1-43.9); Red Blood Count 4.41 M/mm3 (4.2-5.4); White Blood Count 8.3 K/mm3 (4.4-11.0)
[2025-08-31 17:45] LABS: AST(SGOT) 21 U/L (<=31); Alanine Aminotransfer ALT/SGPT 14 U/L (<=34); Albumin, Serum 4.6 g/dL (3.5-5.0); Alkaline Phosphatase 76 U/L (35-104); Anion Gap 8 (7-18); BUN 10 mg/dL (4-19); BUN/Creat Ratio 13.1 RATIO (10-20); Calcium,Total 9.7 mg/dL (7.6-11.0); Carbon Dioxide 27.2 mmol/L (20.0-29.0); Chloride 102 mmol/L (96-106); Free T3 3.0 pg/mL (2.18-3.98); Globulin 2.7 g/dL (2.2-4.2); Glucose 83 mg/dL (70-99); Iron 98 ug/dL (50-170); Iron Binding Capacity,Total 356 ug/dL (250-450); Iron Binding Capacity,Unsat 258 ug/dL (228-428); Potassium 4.1 mmol/L (3.5-5.1); Vitamin B12 348 pg/mL (180-914); Vitamin D,25 Hydroxy 38.8 ng/mL (30-100)
== END | disposition home or self-care (01) ==
LOC: VSLAB 14:53
PROVIDERS: PCP Nurse Practitioner Family; Referring Provider Nurse Practitioner Family; Visit Provider Nurse Practitioner Family
DX: E05.90 Thyrotoxicosis, unspecified without thyrotoxic crisis or storm (principal); E55.9 Vitamin D deficiency, unspecified; D64.9 Anemia, unspecified; R19.7 Diarrhea, unspecified
CPT/HCPCS: 36415; 80053; 82306; 82607; 83540; 83550; 84439; 84443; 84481; 85025